=== PATIENT | male | born 1965 | race Caucasian/White ===

== ENCOUNTER 2023-09-15 12:54 | Outpatient (OUT) | payer MEDICARE, SELFPAY ==
--- NOTE | 2023-09-15 13:23 | ECG_ITS ---
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
--- NOTE | 2023-09-15 14:02 | XR_ITS ---
The [address] [address] Patient Name: PRISCILLA CERDA MRN: [id number] date: 1965 Sex: M Assigned Patient Location: [facility] [[email or web address]] Current Patient Location: Accession/Order Number: [id number] Exam Date: 09/15/2023 14:17 Report Date: 09/16/2023 07:46 At the request of: LEANDRO KEENE Procedure: XR chest 2V PROCEDURE: XR chest 2V DATE: 09/15/2023 1:17 PM CDT COMPARISONS: CT chest 07/01/2023 CLINICAL INDICATION: 58 years Male Preop exam FINDINGS: The cardiomediastinal silhouette and pulmonary vasculature are within normal limits. The lungs are clear. There is no evidence of pleural effusion or pneumothorax. XR/XR chest 2V IMPRESSION: Chest radiograph is within normal limits. Electronically authenticated by: WILMER HOWARD Date: 09/16/2023 07:46
[2023-09-15 14:48] LABS: Basophils Absolute Auto 0.1 10^3/uL (0.0-0.1); Basophils Percent Auto 1.2 % (0.2-2.0); Eosinophils Absolute Auto 0.4 10^3/uL (0.0-0.7); Eosinophils Percent Auto 5.8 % (0.9-7.0); Hematocrit 44.7 % (42.0-54.0); Hemoglobin 15.4 g/dL (14.0-18.0); Immature Granulocytes Abs Auto 0.02 10^3/uL (0.00-0.03); Immature Granulocytes Pct Auto 0.3 % (0.0-0.5); Lymphocytes Absolute Auto 2.6 10^3/uL (1.2-3.8); Lymphocytes Percent Auto 34.5 % (20.5-60.0); Mean Corpuscular HGB Conc 34.5 g/dL (29.9-35.2); Mean Corpuscular Hemoglobin 31.4 pg (25.9-34.0); Mean Corpuscular Volume 91.2 fL (80.0-94.0); Mean Platelet Volume 9.3 fL (9.5-13.5); Monocytes Absolute Auto 0.6 10^3/uL (0.3-0.8); Monocytes Percent Auto 7.8 % (1.7-12.0); Neutrophils Absolute Auto 3.8 10^3/uL (1.4-6.5); Neutrophils Percent Auto 50.4 % (43.0-75.0); Platelet Count 272 10^3/uL (150-450); Red Cell Distribution Width 12.1 % (11.0-15.0); White Blood Count 7.4 10^3/uL (4.0-11.0)
[2023-09-15 14:58] LABS: INR 0.97; Partial Thromboplastin Time 29.3 sec (22.3-36.2); Prothrombin Time 10.3 sec (9.0-11.6)
== END 2023-09-15 12:55 | disposition home or self-care (01) ==
PROVIDERS: PCP Internal Medicine; Visit Provider Urology
DX: Z01.810 Encounter for preprocedural cardiovascular examination (principal); Z01.812 Encounter for preprocedural laboratory examination; N20.1 Calculus of ureter
CPT/HCPCS: 71046; 85025; 85610; 85730; 93005

== ENCOUNTER 2023-09-25 11:05 | Day surgery (SDC) | payer MEDICARE, SELFPAY ==
[2023-09-15 14:15] VITALS: BP 127/83; PULSE 68; TEMP 36.5; O2SAT 100; BMI 29.5
[2023-09-25] VITALS (10 sets, daily range): BP systolic 109–141; BP diastolic 70–88; PULSE 56–79; TEMP 36.2–36.7; O2SAT 94–98; BMI 29.5
--- OUTSIDE RECORDS SUMMARY | 2023-09-25 11:21 | XMS_ITS | CCD ---
Author Organization [facility] Care Team Providers Care Post Partum Nurse Name Role Phone DR DESIREE BISWAS Attending Unavailable DR DESIREE BISWAS Admitting Unavailable MUMMERT, TAVO Primary Care Physician Mummert, DO Tavo Primary Care Provider MD Boogie Trotter Admit Provider MD Boogie Trotter Attending Provider MUMMERT, TAVO Referring Unavailable MUMMERT, TAVO Primary Care Unavailable MO MCKEON Attending Unavailable MUMMERT, TAVO Referring Unavailable MUMMERT, TAVO Primary Care Unavailable SANDY LEONARDO Attending Unavailable SANDY LEONARDO Attending Unavailable HAROON CHAN Attending Unavailab le Mummert, DO Tavo Primary Care Provider MD Matthew Meyer Attending Provider Buster CHAVEZ Attending Unavailable CHAVEZ, Buster R Admitting Unavailable CHAVEZ, Buster R Attending Unavailable CHAVEZ, Buster R Attending Unavailable CHAVEZ, Buster R Attending Unavailable CHAVEZ, Buster R Attending Unavailable CHAVEZ, Buster R Attending Unavailable Mummert DO, Tavo Primary Care Unavailable Thai Cee Attending Unavailable Thai Cee Admitting Unavailable Mummert DO, Tavo Primary Care Unavailable Nerissa Patel Attending Unavailable Nerissa Patel Admitting Unavailable Mummert DO, Tavo Primary Care Unavailable Sunitha Chan Attending Unavailable Sunitha Chan Admitting Unavailable Sandy Leonardo Attending Unavailable Sandy Leonardo Admitting Unavailable Mummert DO, Tavo Primary Care Unavailable Mummert DO, Tavo Primary Care Unavailable Mummert DO, Tavo Attending Unavailable Mummert DO, Tavo Admitting Unavailable Mummert DO, Tavo Admitting Unavailable Mummert DO, Tavo Attending Unavailable Mummert DO, Tavo Primary Care Unavailable Mummert DO, Tavo Primary Care Unavailable Mummert DO, Tavo Admitting Unavailable Mummert DO, Tavo Attending Unavailable Mummert DO, Tavo Primary Care Unavailable Mummert DO, Tavo Attending Unavailable Mummert DO, Tavo Primary Care Unavailable Mummert DO, Tavo Attending Unavailable Mummert DO, Tavo Primary Care Unavailable Mummert DO, Tavo Attending Unavailable Mummert DO, Tavo Primary Care Unavailable Mummert DO, Tavo Attending Unavailable Mummert DO, Tavo Primary Care Unavailable Bakhous, Aziz Attending Unavailable Bakhous, Aziz Admitting Unavailable Cee, Thai Attending Unavailable Cee, Thai Admitting Unavailable Mummert DO, Tavo Primary Care Unavailable Jaye, Thai Attending Unavailable Jaye, Thai Admitting Unavailable Mummert DO, Tavo Primary Care Unavailable Mummert DO, Tavo Primary Care Unavailable [place], Porter S Attending Unavailab le Tree, Porter S Admitting Unavailab le Mummert DO, Tavo Primary Care Unavailable Mo Mckeon A Admitting Unavailable Mo Mckeon A Attending Unavailable Mummert DO, Tavo Primary Care Unavailable Jaye, Thai Attending Unavailable Mummert DO, Tavo Referring Unavailable Mummert DO, Tavo Primary Care Unavailable Mummert DO, Tavo Attending Unavailable Mummert DO, Tavo Primary Care Unavailable Buster Chavez Attending Unavailable Buster Chavez Admitting Unavailable Matthew Meyer Attending Unavailab efrain MitchMatthew Admitting Unavailab le Mummert, Tavo Primary Care Unavailable Allergies Allergy Classification Reported Allergen(s) Allergy Type Date of Onset Reaction(s) Facility (1 source) CATNIP; Translations: [CATNIP] Propensity to adverse reactions to drug (disorder) 6 [facility] Medications Current Medications Medication Drug Class(es) Dates Sig (Normalized) Sig (Original) amitriptyline hydrochloride 25 mg oral tablet (8 sources) Tricyclic Antidepressant Start: 09-03-2023 take 25 mg by mouth once daily at bedtime Amitriptyline Active 25 MG PO Daily at bedtime September 03, 2023 12:00am Start: 10-27-2018 End: 06-27-2021 take 1 tablet by mouth once daily at bedtime amitriptyline 75 mg oral tablet 75 mg = 1 tab(s), Oral, Once a day (at bedtime), Refills(s) 0 Start Date: 10/27/18 Status: Ordered ARIPiprazole 15 mg oral tablet (1 source) Atypical Antipsychotic Start: 09-03-2023 take 1 tablet by mouth once daily Aripiprazole (Abilify) 15 mg tablet Active 15 MG PO Daily September 03, 2023 12:00am ascorbic acid 500 mg oral tablet (1 source) Vitamin C Start: 09-03-2023 take 500 mg by mouth once daily Ascorbic Acid (Vitamin C) Active 500 MG PO Daily September 03, 2023 12:00am aspirin 81 mg delayed release oral tablet (1 source) Platelet Aggregation Inhibitor, Nonsteroidal Anti-inflammatory Drug Start: 09-03-2023 Aspirin (Adult Low Dose Aspirin) 81 mg tablet,delayed release (DR/EC) Active 81 MG PO Daily September 03, 2023 12:00am atorvastatin 40 mg oral tablet (7 sources) HMG-CoA Reductase Inhibitor Start: 10-27-2018 take 1 tablet by mouth once daily atorvastatin 40 mg Tab 40 mg = 1 tab(s), Oral, Daily, Refills(s) 0 Start Date: 10/27/18 Status: Ordered brexpiprazole 2 mg oral tablet (4 sources) Atypical Antipsychotic Start: 07-01-2021 End: 09-03-2023 take 1 tablet by mouth once daily Brexpiprazole (Rexulti) 2 mg Tablet Active 2 MG PO Daily 30 July 01, 2021 10:34am Start: 06-27-2021 End: 07-01-2021 take 1 tablet by mouth once daily Brexpiprazole (Rexulti) 1 mg tablet Discontinued 1 MG PO Daily June 27, 2021 8:03pm July 01, 2021 10:35am Dicyclomine (5 sources) Anticholinergic Start: 12-14-2018 dicyclomine Refills(s) 0 Start Date: 12/14/18 Status: Ordered donepezil hydrochloride 10 mg oral tablet (7 sources) Start: 10-27-2018 take 1 mg by mouth once daily at bedtime donepezil 10 mg Tab mg tab(s), Oral, Once a day (at bedtime), Refills(s) 0 Start Date: 10/27/18 Status: Ordered dutasteride 0.5 mg oral capsule (4 sources) 5-alpha Reductase Inhibitor Start: 05-13-2023 take 0.5 mg by mouth once daily Dutasteride Active 0.5 MG PO Daily September 03, 2023 12:00am 24 hr etodolac 600 mg extended release oral tablet (9 sources) Nonsteroidal Anti-inflammatory Drug Start: 10-27-2018 End: 06-27-2021 take 1 tablet by mouth once daily etodolac 600 mg ER Tab 600 mg = 1 tab(s), Oral, Daily, # 30 tab(s), Refills(s) 0 Start Date: 10/27/18 Status: Ordered gabapentin 300 mg oral capsule (7 sources) Anti-epileptic Agent Start: 10-27-2018 End: 06-27-2021 take 1 capsule by mouth twice daily gabapentin 300 mg Cap 300 mg = 1 cap(s), Oral, BID, Refills(s) 0 Start Date: 10/27/18 Status: Ordered hydrOXYzine hydrochloride 25 mg oral tablet (4 sources) Antihistamine Start: 09-03-2023 take 25 mg by mouth three times daily Hydroxyzine Hcl Active 25 MG PO Three times daily September 03, 2023 12:00am Start: 05-13-2023 hydrOXYzine pa moate 25 mg Cap Refills(s) 0 Start Date: 05/13/23 Status: Ordered levETIRAcetam 500 mg oral tablet (9 sources) Start: 06-27-2021 take 500 mg by mouth twice daily Levetiracetam Active 500 MG PO Twice daily June 27, 2021 8:03pm Start: 10-27-2018 End: 06-27-2021 take 1 tablet by mouth twice daily levetiracetam 250 mg Tab 250 mg = 1 tab(s), Oral, BID, Refills(s) 0 Start Date: 10/27/18 Status: Ordered Lipoflavonoid (5 sources) Start: 10-27-2018 take 1 capsule by mouth once daily Lipoflavonoid 1 cap(s), Oral, Daily, Refill(s) 0 Start Date: 10/27/18 Status: Ordered lysine 500 mg oral tablet (1 source) Start: 09-03-2023 Lysine (L-Lysine) 500 mg tablet Active 1000 MG PO Daily September 03, 2023 12:00am Magnesium (1 source) Start: 09-03-2023 take 400 mg by mouth once daily Magnesium Active 400 MG PO Daily September 03, 2023 12:00am magnesium oxide 400 mg oral tablet (5 sources) Start: 10-27-2018 take 400 mg by mouth once daily magnesium oxide 400 mg, Oral, Daily, Refills(s) 0 Start Date: 10/27/18 Status: Ordered Meclizine (5 sources) Antiemetic Start: 12-14-2018 meclizine Refills(s) 0 Start Date: 12/14/18 Status: Ordered 24 hr memantine hydrochloride 28 mg extended release oral capsule (7 sources) [id number]-[id number]-[id number] ho Receptor Antagonist Start: 10-27-2018 take 1 capsule by mouth once daily memantine 28 mg oral capsule, extended release 28 mg = 1 cap(s), Oral, Daily, Refills(s) 0 Start Date: 10/27/18 Status: Ordered metoclopramide 5 mg oral tablet (14 sources) Dopamine-2 Receptor Antagonist Start: 09-03-2023 take 5 mg by mouth four times daily 30 minutes before mealtime Metoclopramide Hcl Active 5 MG PO Four times daily September 03, 2023 12:00am administer 30 minutes before meals Start: 12-14-2018 Reglan Refills (s) 0 Start Date: 12/14/18 Status: Ordered Start: 11-03-2018 End: 06-27-2021 take 10 mg by mouth twice daily Metoclopramide Hcl Discontinued 10 MG PO Twice daily November 03, 2018 1:19pm June 27, 2021 8:10pm Start: 10-27-2018 End: 09-03-2023 take 1 tablet by mouth four times daily metoclopramide 10 mg Tab 10 mg = 1 tab(s), Oral, QID, Refills(s) 0 Start Date: 10/27/18 Status: Ordered Multivitamin (Daily Multi-Vitamin) tablet (1 source) Start: 09-03-2023 take 1 tablet by mouth once daily Multivitamin (Daily Multi-Vitamin) tablet Active 1 TAB PO Daily September 03, 2023 12:00am Nature's Bounty Probiotic (5 sources) Start: 10-27-2018 take 1 tablet by mouth once daily Nature's Bounty Probiotic 1 tab(s), Oral, Daily, Refill(s) 0 Start Date: 10/27/18 Status: Ordered nicotine 2 mg chewing gum (2 sources) Cholinergic Nicotinic Agonist Start: 07-01-2021 End: 09-03-2023 Nicotine (Polacrilex) Active 2 MG BUCCAL Every 2 hours 60 July 01, 2021 10:34am omeprazole 20 mg delayed release oral capsule (2 sources) Proton Pump Inhibitor Start: 09-10-2023 omeprazole 20 mg Cap-DR Refills(s) 0 Start Date: 09/10/23 Status: Ordered Start: 09-03-2023 take 20 mg by mouth once daily Omeprazole Active 20 MG PO Daily September 03, 2023 12:00am OXcarbazepine 300 mg oral tablet (7 sources) Anti-epileptic Agent Start: 11-03-2018 take 300 mg by mouth once daily Oxcarbazepine Active 300 MG PO Daily November 03, 2018 1:19pm Start: 10-27-2018 oxcarbazepine See Instructions, 150mg in morning, 300mg at bedtime, Refills(s) 0 Start Date: 10/27/18 Status: Ordered pantoprazole 40 mg delayed release oral tablet (7 sources) Proton Pump Inhibitor Start: 11-03-2018 take 40 mg by mouth twice daily Pantoprazole Active 40 MG PO Twice daily November 03, 2018 1:19pm Start: 10-27-2018 pantoprazole 4 0 mg, BID, Refills(s) 0 Start Date: 10/27/18 Status: Ordered 24 hr propranolol hydrochloride 60 mg extended release oral capsule (4 sources) beta-Adrenergic Kermit Start: 05-13-2023 take 60 mg by mouth once daily Propranolol Active 60 MG PO Daily September 03, 2023 12:00am risperiDONE 0.5 mg oral tablet (5 sources) Atypical Antipsychotic Start: 10-27-2018 take 1 tablet by mouth once daily risperidone 0.5 mg Tab 0.5 mg = 1 tab(s), Oral, Daily, Refills(s) 0 Start Date: 10/27/18 Status: Ordered sildenafil 100 mg oral tablet (7 sources) Phosphodiesterase 5 Inhibitor Start: 11-29-2022 sildenafil 100 mg Tab See Instructions, Take 1 tablet 60 minutes prior to sexual activity. Do not exceed 100mg in 24 hrs., # 30 tab(s), Refills(s) 5, Pharmacy: [id number], 167, cm, 06/12/21 12:14:00 EDT, Height/Length Dosing, 80.3, kg, 06/12/21 12:14:00 EDT, Weight Dosing Start Date: 11/29/22 Status: Ordered Start: 06-27-2021 End: 09-03-2023 take 100 mg by mouth once daily Sildenafil Active 100 MG PO Daily June 27, 2021 8:18pm Start: 06-12-2021 sildenafil 100 mg Tab 100 mg = 1 tab(s), Oral, As Directed, 1 hour before sexual activity, # 30 tab(s), Refills(s) 2, Pharmacy: [id number], 167, cm, 06/12/21 12:14:00 EDT, Height/Length Dosing, 80.3, kg, 06/12/21 12:14:00 EDT, Weight Dosing Start Date: 06/12/21 Status: Ordered sucralfate 1000 mg oral tablet (5 sources) Aluminum Complex Start: 05-13-2023 sucralfate 1 g Tab Refills(s) 0 Start Date: 05/13/23 Status: Ordered Start: 11-03-2018 take 1 tablet by sushma four times daily Sucralfate Active 1 TAB PO Four times daily November 03, 2018 1:19pm tamsulosin hydrochloride 0.4 mg oral capsule (7 sources) alpha-Adrenergic Kermit Start: 04-29-2023 End: 04-23-2024 take 1 capsule by mouth twice daily Flomax 0.4 mg Cap 0.4 mg = 1 cap(s), Oral, BID, X 90 day(s), # 180 cap(s), Refills(s) 3, Pharmacy: [id number], 167, cm, 06/12/21 12:14:00 EDT, Height/Length Dosing, 80.3, kg, 06/12/21 12:14:00 EDT, Weight Dosing Start Date: 04/29/23 Stop Date: 04/23/24 Status: Ordered Start: 06-27-2021 take 1 capsule by mo uth twice daily Flomax 0.4 mg Cap 0.4 mg = 1 cap(s), Oral, BID, # 60 cap(s), Refills(s) 3, Pharmacy: [id number], 167, cm, 06/12/21 12:14:00 EDT, Height/Length Dosing, 80.3, kg, 06/12/21 12:14:00 EDT, Weight Dosing Start Date: 11/29/22 Status: Ordered Start: 06-12-2021 take 1 capsule by [facility] twice daily Flomax 0.4 mg Cap 0.4 mg = 1 cap(s), Oral, BID, # 30 cap(s), Refills(s) 3, Pharmacy: [id number], 167, cm, 06/12/21 12:14:00 EDT, Height/Length Dosing, 80.3, kg, 06/12/21 12:14:00 EDT, Weight Dosing Start Date: 06/12/21 Status: Ordered thiamine 100 mg oral tablet (1 source) Start: 09-03-2023 take 100 mg by mouth once daily Thiamine Hcl (Vitamin B1) Active 100 MG PO Daily September 03, 2023 12:00am tiZANidine 4 mg oral tablet (8 sources) Central alpha-2 Adrenergic Agonist Start: 09-03-2023 take 4 mg by mouth twice daily Tizanidine Active 4 MG PO Twice daily September 03, 2023 12:00am Start: 12-14-2018 tizanidine Ref ills(s) 0 Start Date: 12/14/18 Status: Ordered Start: 11-03-2018 End: 06-27-2021 take 4 mg by mouth once daily Tizanidine Discontinued 4 MG PO Daily November 03, 2018 1:19pm June 27, 2021 8:14pm topiramate 100 mg oral tablet (9 sources) Start: 06-27-2021 take 100 mg by mouth twice daily Topiramate Active 100 MG PO Twice daily June 27, 2021 8:03pm Start: 12-14-2018 Topamax Refill s(s) 0 Start Date: 12/14/18 Status: Ordered Start: 11-03-2018 End: 06-27-2021 take 1 tablet by mouth once daily Topiramate Discontinued 200 TAB PO Daily November 03, 2018 1:19pm June 27, 2021 8:09pm Tramadol (5 sources) Opioid Agonist Start: 12-14-2018 tramadol Refills(s) 0 Start Date: 12/14/18 Status: Ordered traZODone hydrochloride 50 mg oral tablet (8 sources) Serotonin Reuptake Inhibitor Start: 09-03-2023 take 200 mg by mouth once daily at bedtime Trazodone Active 200 MG PO Daily at bedtime September 03, 2023 2:23pm Start: 11-03-2018 End: 09-03-2023 take 50 mg by mouth once daily Trazodone Active 50 MG PO Daily November 03, 2018 1:19pm Start: 10-27-2018 take 25 mg by mouth once daily at bedtime trazodone 25 mg, Oral, Once a day (at bedtime), Refills(s) 0 Start Date: 10/27/18 Status: Ordered venlafaxine 75 mg oral tablet (9 sources) Serotonin and Norepinephrine Reuptake Inhibitor Start: 07-01-2021 take 150 mg by mouth twice daily Venlafaxine Active 150 MG PO Twice daily 120 30 July 01, 2021 10:34am Start: 11-03-2018 End: 07-01-2021 take 200 mg by mouth twice daily Venlafaxine Discontinued 200 MG PO Twice daily November 03, 2018 1:19pm July 01, 2021 10:35am Start: 10-27-2018 take 1 capsule by [facility] once daily venlafaxine 150 mg Cap-ER 150 mg = 1 cap(s), Oral, Daily, Refills(s) 0 Start Date: 10/27/18 Status: Ordered Start: 10-27-2018 take 1 capsule by [facility] once daily venlafaxine 150 mg Cap-ER 150 mg = 1 cap(s), Oral, Daily, Refills(s) 0 Start Date: 10/27/18 Status: Ordered Completed/Discontinued Medications Medication Drug Class(es) Dates Sig (Normalized) Sig (Original) acetaminophen 325 mg / HYDROcodone bitartrate 10 mg oral tablet (2 sources) Opioid Agonist Start: 11-03-2018 End: 06-27-2021 Hydrocodone-Acetami nophen Discontinued 1 TAB PO As Directed November 03, 2018 1:19pm June 27, 2021 8:14pm biotin 1 mg oral tablet (5 sources) Start: 10-27-2018 take 1 tablet by mouth twice daily biotin 1000 mcg oral tablet 1,000 microgram = 1 tab(s), Oral, BID, # 30 tab(s), Refills(s) 0 Start Date: 10/27/18 Status: Ordered 24 hr buPROPion hydrochloride 300 mg extended release oral tablet (9 sources) Aminoketone Start: 06-27-2021 End: 07-01-2021 take 300 mg by mouth once daily Bupropion Hcl Discontinued 300 MG PO Daily June 27, 2021 8:03pm July 01, 2021 10:35am Start: 11-03-2018 End: 06-27-2021 take 150 mg by mouth once daily Bupropion Hcl Disconti nued 150 MG PO Daily November 03, 2018 1:19pm June 27, 2021 8:05pm Start: 10-27-2018 take 1 tablet by sushma th once daily buPROPion 150 mg ER Tab 150 mg = 1 tab(s), Oral, Daily, Refills(s) 0 Start Date: 10/27/18 Status: Ordered cephalexin 500 mg oral capsule (2 sources) Cephalosporin Antibacterial Start: 06-12-2021 Keflex 500 mg Cap 50 0 mg = 1 cap(s), Oral, As Directed, Take 1 cap the day before elda procedure, take 1 cap after the procedure., # 2 cap(s), Refills(s) 0, Pharmacy: [id number], 167, cm, 06/12/21 12:14:00 EDT, Height/Length Dosing, 80.3, kg, 06/12/21 12:14:00 EDT, Weight Dosing Start Date: 06/12/21 Status: Ordered Problems Problem Classification Problem Date Documented Date Episodic/Chronic Abdominal pain (7 sources) Flank pain; Translations: [Abdominal pain] 10-27-2018 Episodic Acute and unspecified renal failure (2 sources) Acute renal failure syndrome; Translations: [Acute kidney failure, unspecified] 09-03-2023 Episodic Anxiety disorders (10 sources) Anxiety; Translations: [Posttraumatic stress disorder] 10-27-2018 Chronic Calculus of urinary tract (5 sources) Kidney stone 06-12-2021 Episodic Chronic kidney disease (2 sources) Chronic kidney disease stage 3A ; Translations: [Stage 3a chronic kidney disease] 09-03-2023 Chronic Delirium, dementia, and amnestic and other cognitive disorders (3 sources) Alzheimer's disease; Translations: [Alzheimer's disease, unspecified] 06-28-2021 Chronic Esophageal disorders (7 sources) Gastroesophageal reflux disease; Translations: [Gastro-esophageal reflux disease without esophagitis] 10-27-2018 Chronic Genitourinary symptoms and ill-defined conditions (5 sources) Urge incontinence of urine 12-14-2018 Chronic Genitourinary symptoms and ill-defined conditions (17 sources) Increased frequency of urination; Translations: [Nocturia] Onset: 09-10-2023 12-14-2018 Episodic Hyperplasia of prostate (13 sources) Benign prostatic hypertrophy without outflow obstruction; Translations: [Benign prostatic hyperplasia without lower urinary tract symptoms] Onset: 06-12-2021 Chronic Intracranial injury (3 sources) Traumatic brain injury; Translations: [Unspecified intracranial injury with loss of consciousness of unspecified duration, initial encounter] 06-28-2021 Episodic Miscellaneous mental health disorders (4 sources) Primary insomnia; Translations: [Male erectile disorder] Onset: 08-31-2020 Chronic Mood disorders (8 sources) Depressive disorder; Translations: [Depression] 10-27-2018 Chronic Nonspecific chest pain (1 source) Chest pain, unspecified; Translations: [Chest pain, unspecified] Onset: 07-11-2023 Episodic Other aftercare (1 source) group home current use of non-steroidal anti-inflammatory drug; Translations: [group home (current) use of non-steroidal anti-inflammatories (NSAID)] 09-03-2023 Episodic Other aftercare (1 source) food assembler (current) use of non-steroidal anti-inflammatories (NSAID); Translations: [Long-term (current) use of non-steroidal anti-inflammatories (NSAID)] 09-03-2023 Episodic Other diseases of kidney and ureters (2 sources) Urinary tract obstruction; Translations: [Other obstructive and reflux uropathy] Onset: 05-13-2023 Episodic Other diseases of kidney and ureters (1 source) Hydronephrosis; Translations: [Unspecified hydronephrosis] 09-03-2023 Episodic Other diseases of kidney and ureters (1 source) Unspecified hydronephrosis; Translations: [Hydronephrosis] 09-03-2023 Episodic Other disorders of stomach and duodenum (2 sources) Gastroparesis syndrome; Translations: [Gastroparesis] 11-04-2018 Episodic Other male genital disorders (5 sources) Drug-induced impotence 12-14-2018 Chronic Other male genital disorders (5 sources) Impotence of organic origin 05-09-2020 Chronic Residual codes; unclassified (4 sources) Obstructive sleep apnea (adult) (pediatric); Translations: [OBSTRUCTIVE SLEEP APNEA] Onset: 08-22-2020 Chronic Residual codes; unclassified (5 sources) Obstructive sleep apnea syndrome 10-27-2018 Chronic Residual codes; unclassified (5 sources) H/O: anticoagulant therapy 10-27-2018 Episodic Residual codes; unclassified (1 source) Edema Onset: 07-11-2023 Episodic Residual codes; unclassified (1 source) Pain, unspecified; Translations: [Pain, unspecified] Onset: 07-06-2023 Episodic Spondylosis; intervertebral disc disorders; other back problems (5 sources) Backache 12-14-2018 Episodic Substance-related disorders (8 sources) Nicotine dependence; Translations: [Nicotine dependence, unspecified, uncomplicated] Onset: 06-12-2021 Chronic Unclassified (5 sources) Finding of sensation of bladder 12-14-2018 Unclassified (1 source) New Patient Onset: 07-11-2023 Unclassified (1 source) Obstructive hydronephrosis 09-10-2023 Results Test Name Value Interpretation Reference Range Facility Coding Summaryon 09-23-2023 Coding Summary HTMLBase 64 ZudwrrhoFWb8lBh+PGhlY WQ+PQ7NOMKtX37eoDNotY 3vC4BLBFnJFqgpEQZODYc ZWvTmbcByXR5noIAaRAXx IC8+DW6nQXGlNmehnDLwo 8R2iLC5S37wyp0gMMhssY H1BWGdAeDzumcnh6vfaLm 6IDcuNmluOyBt JEMosA45API4yC79Mi83a TJxmNQjn6vltOf1ZkIdZM DsXGI9bMnhOVbun2XrTRG lU18ncGBuy7S6 FTDvsFwsdRNdJpOflEY5c R2yJWjlvjcfs3slqylqKt h5ic95nBDgs5M5sAV9W0K jyzZ3HIZanAMu UibmtZSTiX3mireij3wfy wyyOnSoXOKhGMz7DEw4YX FvnAuqEmPuWF19HFY2YYZ yrlZvI2KaHNJq xGpmKeL1u8S3Kk5WS0OMC ulpG7LWXGHHYIsurMN+PC 04ga15O9XiRtazSde5NSN pBUF8rAG2eO2r MAPkNIxey7E6gUJ9M8Jxd bCkdk1sy5sxVEPjULzmF5 8pdLVwh6J4QRPwrNK9FSG siXyuPuOdxN89 Oyc+GMQohVrxl3VhVroma 7lfq1bxiAd7RdipFDVgea EboDlsXPM7h2BvFu7aKFU lfXY0tSV7nF3t FbApHcR8BCdiQ628ZlRac AOmDtsmG93tH1LglQB+PH QlBwm5FCEojTwxSK8iN5J hZGRpbmctbGVm gKzfZC0aLNWdzzegXEZoc X0kNOZgC5h8WdMeJbR8IC cnT7LiVLNokcxlQk90vJ2 rEyUnNdS2EXxw S2FiloW5OTSsaGDjWMwwO PP4I53eg4Z5EVTwJBWrRW H6pTD3tU7zgBeyqjiotEY mdDsgdmVydGlj TUwiCOvrF056AYIyvMqtW kNvZGluZyBEYXRlOiAgMD gvMTMvMjAyNDwvdGQ+PHR tIEH3cLlcUDJj eAQyORjcQy9gjDonmRvaY H1yDXPnivqsDZJtsP1tVU GlsKSvgDayCM1oCOUoxfq qz847LrInNXA6 FCNuxTIcZ6RamV6pEuFsT UReZUQfC2OykSGhASwyY3 20FRizKsE1YZSnasUoM4V sLWFsaWduOiB0 f4F6Zo8Lk0QgdoxpH1Ebe ZNuRiTbPfpuWHe1F4QpCz wvdHI+UI40IKNgAW83BLo 2CZP7nSslKKbe ITUeR9VsnL1rVsFtOGEiP GRkOyc+PHRhYmxlIHdpZH RoPScxMDAlJyBzdHlsZT0 eDs2sSCVmFNAc hFgclEZwUeBpm8pyJWNcW UpmEE8lgGbzS3MxyHG4FZ Ifa4t0Rv43W62kG6SrqDI +WFXyaKN3dOC7 lA0mJeAkTvA2XPdvX499W uPrnKSnGjzwk1ati9wccY e4UbZ7BOVthpGzxIgkOVV 8q6UhLo53X85k IHdpZHRoPSIxNSUiIHZhb Kbujs5ydR1aYc9+PGNvbC L6hVN5gW1uNyHjQwL9YLo vU280OgIgvFUq Bhhpi9aob7kkaTw5BuObL BPxebCjmJleWRO0q1ItTb 83I2NaeEdhp2LmWqp5ev4 7bYOlq5A0xPZ7 Q2BmJRTnwfzhaIUmuQguQ M8sOSBjytosROBxhD2sUL KxV6e1FjLkVcR2KSslD4S tueZ2YIYzbTWp TXVxvEXMrC5lawjxf4yku mmjUnHmVGVcBBy6SXn1ZS UneCwsDjYcPKZ3XkY4ZEZ 2mTOdwY6lbAzc kvgamG3hSwg+OJI3yPFhq MKURG0oOhtkkIX+PHRkIH V2dXcoXVraPTCejT7cGHK wN2k9WuIkSdM4 IMlvU5YsenL6XFYnnCDvA AJsyPJPtG0fxqcgp2rrpq glVyMcGPSfDRi2VRt6TXR saWduOiBsZWZ0 AlQ4RCH1jTSkiY9uyBgqh jfxwR9vEkp+QmlydGggRG F1PGu0H0UqAjh8TGVkuHu sYW7cyGGpTXyk Cd0hpUjwcDtfQP1mYSXpl kjqu270NvIzd9yaUEEenG WyHFhdBVH6V46ji9T3YCD rXHZhEID2pVN8 tO7kmFqylkhfaOCiyVwrc aFqyCplOKnuPCtnX024CF XutEptEqTiLUj4L7GvScn 7MWYbjJdpTD3m qXUuEIrdIf7ffVpizDrfA V3hUHQqtckbt143MeMsq6 avQZIkrEZbNHtaRZO6U38 dl2B4SGFiKORn DYB4aJU1dZ5tyUkobhmpn GVmdDsgdmVydGljYWwtYW hgX275BSCyzWoeIgPfyYz 1L4JxQug8XBUh gLepEI5cuFHeFYocQb9ui PdojPkqGS4nAWSefhvxw3 72HyKzb2jzNFYieUUpARo jDMD5J28ek4S2 TXWbOHOpURK9oQN7yZ3si GlnbjogbGVmdDsgdmVydG txDGiaFEayD964WRChbLn nPlBhdGllbnQg VEhlJVh3E8SjGziwlZR+P I82LJPdFD21nUBmyUNwe2 cfpOz8PjNvCKVjBMH6tRc zFAkdy8McTQSc D30fjOLst7N3IPGypCoze PRpPgYrcAQ4dG4qQAvqad ogh4ticqqqHtmst6xmka6 6oJ85K59zJUvz ZHRoPSIzMCUiIHZhbGlnb d6taJ8nYw9+FXHmeZL9qG K4mH2tOYIcTaJ3GOhnW41 9InRvcCIvPjxj l4bun5gubHu2OrI6QDYob oWyzDjbKPE9b6NhIg10R6 9sIHdpZHRoPSIyMCUiIHZ dtXdfqp2mkX6e Ii8+YKKrsHX4eWC6oA8nR zKeBkT6NAktE609VmScbS WgLjwxU05oZ1NvmKD+PHR hFbc6YVUvtIvi TW6tyPTgBTmvLb3yQAY1X aJuKwApDJspM7McAUUijo caigrrbQM8QTUnPQEmcQ2 4Qv3beOsaICPu gUFDkU3bhsjtm4flksxvX tAbJLCaEVg0IRh6GUOisF gwXuJfXEC1GtG0BTV1hAS fxZ2okEqhedxp dS0iA8LuGJFuhwrbOu42i A6eXvThAnT8KIclCcd+Ul yIVYSVDUvCFJLKNBl4Y6C tJvu2TPOikBys WX3lgQGjLVfiWk0qhZhpi HnvMQ7vPJVbirqaHIKxyP 6lSYWqhMDucBpgRZ0uFIF ijjwla514TtKs PDV5NUEzhYKrV4SreP8vU ePoTZKjFBYtH0RphHFwPL [id number] gG6JbISUstPer AiZ0q9Q6Do5rWn8lNs2pE RC6IM05JW85lBDnl1A7jK P2K5GfXGUgmbtitihnbUI 1JJIpSFXxtP13 vWZtSHvwQr2st5Y6s641H SOpFYJhlW47Xb9hyYbqCS YfzTDDdJ8pvhrnh5eimjh gIzAwMDAwMDt0 LBc4DZLwuDgsOvMcAPN1Q mW2ZAE8eMLyrF1chIeecn eepQ7yNdl+NTYgWWVhcnM 3K3EvPgm7HUBr aPkpAA6lbFBdBNnqSh6eh PftfQfdQM4nCLBwvwgmRO JlaO0sSXLbvTFwlKxgRU2 gKGXszmoyx401 UoUgLGK7MFRveJFgZ3Nso E8iIpXbEUTuGZHnM7MxxA SqHBvaS160FQibQsX0AQI xfeAmV9BbZXBz hBhyOsK7p6I1Nf3AYMiIM P65ME97qCEhf1O9sST3X0 GbMAReppyofsysyVY4QVN sQYEiwQ44sWZy QAixFs6bl8W1k794JYPyK KPpcY64Ir3mnOlhEXKeoX BGrC4pphfzk9hbdcldImP bXOStIIm8PGe8 OKLjlBcbMbTzDYO5CoI3G QQ9lJWvjV9oiKxvwfaohI 9wOyc+U8M5Z4DgSrnbuXR +PD06XXWxOY31 eBMsoXScg2wutDb2BlBpH MHgZHJ3uBpePCpyn8BxYK GhK13ttACft4I9XCZetFt hcHNlOyBlbXB0 wX5gLQbnntpvy2cmoeggF tkai6tsxt14bM39L43bUO dpZHRoPSIzMCUiIHZhbGl vvl6mpT2eSz6+ VIOasNN5zET3fQ7yRqSzI bG2WVrvP228PuNwhFPeAt epi5wuv3haaTp2McVaWJJ gdmFsaWduPSJ0 j0KjPi49K49oPDkxDOUgY IJlBWEtTACzsBfknd4wuF 9wIi8+QS1di0dygs74nV5 8dHI+PHRkIHN0 iRvwSJxiGJWfqF3bTGqkK gO0NGQbNiUkwY98ySQiTZ exSt9zhYthuBrnRI6sEQM kpvpvu191JmPu e3diASRhaMFgSNttQST1C 20zj6R1RNKmDGOzQSC8eV B1pF1voKwmgaakwUKcpUa gdmVydGljYWwt KFhgU898KNUxdOusWvQlt YYuB1bgwgFXZK8cNpfenP Q+FREuDRK8rVadXMzwTGQ dbE7iKRSjD8l7 WdVtIcD1SCvmF7NkhuC7D EXleSLrQIEeuHNRkE8unr esz4wqmukkLvNyQXZsPGm 6EBg2QFEjpQhr CfPpLEK2WqQ1GYE1tLDka Z2hcHqvrhwcoH5bAug+Rk lOOjwvdGQ+OTKzBBR8uPd xWRyaYMFwwC1a UMMgQ7e4CtLlIcT7LUxhE 5XbtuP6SDQkwYJcBXLwxE UQwY3mvkgxh1jmfhjbEaC dSNFpPKz6MMl1 UPAqnQddKuCgCTS4OzR7G WL0tRNexC1ebLklhdhsoL 9wOyc+TVJOOjwvdGQ+PHR nPJS6nWjnYEda RCSbhV6oBCSrL6k8RxNzG zQ6CTodW4AsfgQ6KKKccH KbDSDsiMUVgA8xuwfwd7b vcjogIzAwMDAw ZJr2QXh5VVRkjXstJcVrZ VW6OmO9JAE9vCXioT1hqB cimybeyN8wFgi+IWP2ADC 9KR14WJ74A7Ty PjwvdGFibGU+PHRhYmxlI HdpZHRoPScxMDAlJyBzdH gqNR2uGq9rGAPmBIYvlSc dhECgZjVzy3yr YXB (more content not included)... [facility] Coding Summary HTMLBase 64 VlwrzbplOZj4rOo+PGhlY WQ+TQ7YYEInH54zlADjrF 5iM6QMQJjJVydrGZFHKWq QCkPozuSwRX2vlNZoWEWz IC8+YC5pSAExJsqijLFre 3P1jAD3K99uul6kMZnnhS Y9DGTrXcDwnuzkf5oxwFq 6IDcuNmluOyBt BYSmlH78TKQ7lB00Sl33b TMdsAEmc4kodHx6VyTwTF UnDQD2oHwhNQnta1CoEEC vP35hsTCcp7F7 KYTmbGslbTSlPyOvnTG3j B2jTDezxkbil8cdcqzkCg e1wg64kCVzl3M6iEC7H7Z dvzJ7SSDyfPYx YedvbNJUlH9dsorbn6gcn pzlXaTiWXBqDJc7QRm9CD XopGgqDsVoKN70IDD7YJL nugByT0KsKIDz vOpyNjZ4z9V1Os6PL2CRO rfgZ8MOPTFZAVyreKH+PC 70sy31I3WcJzbyVrn0OJX jUFY7mYL1nF1v LJUrNMjgu8Z4bIX3D1Kal xZsfx6wx3eyTJVnCZddZ6 5qpKSvz7M4IJLdtJE1SPP qpEzzDcPvkA08 Oyc+YTLecYrso7MoElhoz 3kto4nppMb4BykhWWTjjy UooNfxESH8a3RgEz1tYVF izZQ7pZD0uA4h YpIdJnO6BIlcH931TnWuc OOkQmcjL05vG9CaoIR+PH QzIcb6VCWmjNnhSG3wA4O hZGRpbmctbGVm oTerON9cFBNvylsuKCXov Z2gXLAlD1l7AdRnDdH7ZA vaI0NqNXMubuahJo90pH6 mCaHaYeC3THwv Z8OdlpT7PCZpjDPpBYxmB GM7X15bh9L9OFTwEUFmHP V1zIH5sA6apAjvhxvzzUA mdDsgdmVydGlj UUsrGYxiJ415MJMvtGqjY kNvZGluZyBEYXRlOiAgMD gvMTMvMjAyNDwvdGQ+PHR dRRK8rEiiORBs nQRfPWihPp3oqUidhIzrN Z4qKKZtuilnRHYfvP0iJW KwpKNmnQoeOQ6qSQOjblq qh886HsXzMKE3 NMNldLHjX1HsvB4zTaKjR EWbSOIrB6MmjKPzDKabP2 51OAbhToD0KSCbdoCnH9A sLWFsaWduOiB0 i8P0Gb7Lc1TtniddS4Rxn DUcKyQmNdmqMSd8T8GwVu wvdHI+QE54JBEtRS99QFp 5RUJ9aGqrJXze HNXiV8FkeF7dKlHbXGFsE GRkOyc+PHRhYmxlIHdpZH RoPScxMDAlJyBzdHlsZT0 mUh5tZRUwMUTz tPuikMRsEjVls4mzEZEvR UdkGP6plIgjG1MgzUN0PD Dcn0r1We88C98jG2EmmYR +XYYklCN5zDI2 fT5wCgSfHuU3WTzvD290M kUgkZLsBdqzw8drv1tpfE r8StS2UIWvgnQupTshSCZ 9a7MkNr32L87e IHdpZHRoPSIxNSUiIHZhb Lwohz9dkO6uMk7+PGNvbC N5gIR9fC2cXmXbUeY9AMa xU719IkCzcGRe Uppka0fpn5yawQe4AaTxS EQlamJrjHugQVT3a7PqCo 24N0PhaYnof7WiKkx4yh9 1gAOgg0J8vZK1 E3TpSSQzxuislBMzkHitU W0uBJNdxdgvGZAskJ8lGV JpU0s3MdBaVkA2WZwkE9A azgX1QZHdyGSg UYLdmXIRqH8gefziy8qfa fdvEkRoNKQpKLn3PAw9VY VruUakUwRsHPV6ElQ7NQF 1gRTldH5wiNjv cgfskE5dGub+TXX1gRReu SZXHL8xHibeoDM+PHRkIH R4nPluOWzqQVZhdL8qVVJ zL2q3AvSxTsB6 LVqbA4TdzcC8TUAzxYHxD OYmpKFYwW2wvzcva6vikx fcEpUzBMTtFTr0SGs7XLS saWduOiBsZWZ0 OfY5GLJ1fQBplI4spByyu bxovH4jVml+QmlydGggRG C3ADb8T6VvUpo1DBHqcVr aMR8vxVCfQDol By9wpMbdbCssSP5iMPJqr neue429NoPqd4hwBPCyuJ HuCRehTUC9Y43lm3B5MLD wRESxTNR2tGX3 wE2uxBupoobemUWizTwqw tDwvDlxAFqeERocV510KP ZitChzEaQvZSj8T5XjSom 2WBBaoAafYF3d vGOlPSjdUg8qoXhukXgbU E6rPXAdnbwst606JyPtm1 fuORNthEGbPGwcBAG2C41 yh0R4IMUyBYWa CMY3iSH1pH2igZruepiey GVmdDsgdmVydGljYWwtYW gnX704WPVijYnoNyYduTb 4N8QuWal8BDXy qIbgXI4eqPYbVHtyNp7oz EwrsXcwNP0tCPNfiklkf2 68DlBrk4zcXLPnrFEnTKv xZQR5D28gb8V9 CSStSTIjHVE5vBU8kE8zi GlnbjogbGVmdDsgdmVydG drIUuoIHjwT508NTNylNg nPlBhdGllbnQg WZyjGXe2Q0YuNazmeLH+P O45CYBtNZ94iTTnnJIdz3 xvdBj1OvLkUQXtEHZ0qYw fAPvdr0BqMPQg T60qbYYcf4P0QQLoqCxma NBlFdGtjUG0fW1xZVjwcv mtj0tpbwfvTgzsr9tiep1 9cL97L84tYEzp ZHRoPSIzMCUiIHZhbGlnb y2qkK4oZw9+IORirLB5dQ N6tR5jSNPsWyS2MFaoQ24 9InRvcCIvPjxj f9zsq0hzaKe5JwL7OZUqv hWgdAiaLYC0i2ZoBo68E2 9sIHdpZHRoPSIyMCUiIHZ pfSfpqz8vyY7s Ii8+OHCxpZG8mZC8hR1lG dVaTjE7SCwvH198TsWomT BcKxbfB86eI8PfaEV+PHR lRjs3SUVwwCji VM9slQIiZFuhCq2kACR0F lVbUqImYIviK4EiDEZanl djtnqoxIA4FSBlWPUvnW9 6Lb9hiVowSCMs pGMGbR7bnfdad8ohanqtH dIiBNNcCIb5SBl4JFBukV izXmZgIVS6ScQ4HWR3qYZ aoA4yjWjmjnss kB2nA7RbUOCdurjsKq74l T2qVzVvHpT3RMdjYbk+Ul pJTOCVRYzXOQXJJYo1D8P hBqe7JJFkhZhr GV6unKQzTPvuFv5edNsdg FcbXG8sTICdrroyHREpxW 4vDJAedDIniLmwQF5nETF uuperm221ZmDl TER5BSKsvVUsJ4IrvS9qB oHnTEHcVQFwS8XpzNCjBP zoR560OSdxBwB5WEPzcjD dC6SeSQQjvRlp SqP0d8N3Uq9bSn4aCu5vZ UA7OK89GI35uSFau4H5yI H7R5VaVFNjpltnrsyvkCV 1EMHoSWEfoT51 xSSjYIhkCi0gu6E0o238E XGaFYUlgH45Jn4zgFmnRO JvrDPZkY7jjwlqk9atito gIzAwMDAwMDt0 KDl5WYJbfYxaKuXgCER3Q aK4KHZ0vEQwkU6qrCvopu jzxA1oFtb+NTYgWWVhcnM 2M2JeJjp6KZBc uBhbHP2jrGBjFNmqKt3yr BausEybCH7fZILltngrJK EweE0yLGSboDVfnCmjDG3 cNYHmfrguz483 GxDjHSX6LMCdaIInM7Rdn G9bRnOeMFMfZTOsT1NqaS WlDWbkG546BOijFwV1DNM ruePrC2FvYMWi wJhuShF3l9X7Lq1PDHdOC W86FV07zWUmg0W9xNV1B1 MjKKNsvgbhavsnhLO4TFL gKYSamR89fVPs UKzxZz6cx5T9k733BUOjJ CFmlK88Gd7izJdbADYeiR KDfD1bdwvcl1lzyyltLeJ lAPJcFPd1CSz2 YTIxlFaeLnAkTIO8TwZ3L AN9sUHdhU4eqXbpiavizY 9wOyc+N4D8F3SlUkiejTA +NA72GAKlDF17 yADdsPNjd2cgjZf3IvNiU GZeRZT1vJqxPNiyo3UqJF ZcE08gwRCxl2K3TGYxaFh hcHNlOyBlbXB0 sE7wABbhzyipd0ehotsfF zkhm8sonn65hY80K47cGN dpZHRoPSIzMCUiIHZhbGl lvm6nbV3jVc9+ JHXesJA7aSC5pZ6fGcEnU rO9POkgE204XaNqbATaXw you5xmz6lhfOf9GqIoABU gdmFsaWduPSJ0 t7QiMk08V88kTBquMEEvJ TVxBONmPHAcaSnior1deO 9wIi8+ZT5vq8wmyw23uN8 8dHI+PHRkIHN0 xXhwKMusLBWwqI0xPYswA qM6XEGuTgYstL45ePKxXB haUp9pvSswqKutSR0qJUX huwsse578IuBm c7tiLGOdzWFeQOwfSMW0D 17zh5E8WDCkAKWmHWC3gG K3eK6esKipmfzblWCtmMe gdmVydGljYWwt OVaoR789RJVnhEkhMbRiy JGxC6dpmgPVXQ6iJfjtmF Q+ISQaBTH9fNsuASmhGOD rgC7dBTDkA8u6 TdYgDkY5PJeeV6IvjiO5B BIwkTDnALKeoWJHeZ0krw zot0pkrccnLyQkNQGlOJh 5JPj6NIUesBbp LiSuCJO5JlY6AML7wGNcm G9isOkpqfjkvZ5lPks+Rk lOOjwvdGQ+PWAkVNN6wKg wXIcoMJIxvR7l XMCaK8s5AkBkNfG8KMbuL 8TxhdF6PEJamNGiWVOuoB GPwG5ympkig8tuyxsfYyN bXNUdZQn5IIc8 EGIvxOnpFkDkPBG0MiS1C ZR6oAQcwK6pqKmwrdogcD 9wOyc+TVJOOjwvdGQ+PHR fYQJ0sUubZRgs NSGpvY1oTPNdQ7p1EtWmM wF7MHhsN2QceqK8EIEsuR IjGQZiqAUCaT0wtuolu2r vcjogIzAwMDAw STy5EPa7APHjfHeoAmInI FN5MlR7SHR0tSNabR0wuJ rymdvfnO8oWub+UVK9ZRZ 1UQ58RO37E5Yk PjwvdGFibGU+PHRhYmxlI HdpZHRoPScxMDAlJyBzdH euQO0tXt0gILUvUHFwiQu bhDEaFmEqa7ir YXB (more content not included)... [facility] Coding Summaryon 09-17-2023 Coding Summary HTMLBase 64 OgzoaglpIMd2kPy+PGhlY WQ+ZM8NYTGwL12xmUKjqQ 9uI8XZFGvWRaqzCPUOCIm XNjTzqeEkUB3rrARvGXKu IC8+UC5vPOZjTawyvTZlk 1G2vCX2H02wyl6uLVjadF B6ICQjLmZpwpbzb8yazOt 6IDcuNmluOyBt LNSuqM35DBO8fC48Xs97g UDlcZVar2axhSs5PhFfVG LmDST0pGtoDPhpj7IeGSP kZ03cgMLga2Q5 XDDazMgkaSXrCxVnfXX5c M6cKFwujlshr8qvkmqeTw g5ml25gCVwz2O0eJS2S6Y ooxF2IXCnvTYu VogthGGLcG7umbmpi3fbl cjnZwNoTEVxNAs4GVj4FX SbyBonWlRcHC62TYG1NEN oegAdA9EzHQEu hIqwHzP5u1Z4Us1AY2TLA yigM0FNBLGSADdvuMU+PC 08ok68S0ItBgpyPkj9PMC xTKL9sIX6tZ9p QSNwPGbho9P5mBO0L1Xhs wUhbt6oj5rlLHXmZVqnN3 3wiWKde9K8CGQrlHG4IFB riVztYpCsjS22 Oyc+INVtePahn2JxDurhp 5aid5eikHe7SrjnXVCmxl IkrJlfHMN1v2DeTa0hKYL yyNK2zSQ8rO2s HnReHnD6VVrzQ300GmAqh KUbUmdiU44nW0GxbCQ+PH MfNrb9LCRrkFewWH5sX7S hZGRpbmctbGVm zHdaKO3kPTLvxtufRRUyq I4xKQAgJ7s6GgRyQwC7SK cyZ4YlNZEecwktEi05bG9 fQdEhDrU7MHip V2RcgfB0GFNjqITzUXffW CC6S07ko1J0TXSgCCTfEM H6tTA0fR5yvFwkqimckRC mdDsgdmVydGlj OMzyNWtpO411JWOajLoxT kNvZGluZyBEYXRlOiAgMD gvMDcvMjAyNDwvdGQ+PHR dLBK4vTqtDCDs gMUbONafCy9ckDidsSxoZ S2oENAnueqlHRIybD5yLV IjvECmvHjmIZ0nUOWnzth vk841IvXfZKG6 WLBfwMDkX9KsiQ2fOvCdX AAbWIHgF7MwmWIoKBwqQ7 02KBikSiQ0BLFsqbYiO0Y sLWFsaWduOiB0 w1D0Tn4Wa7JcnyroJ9Dlm BRnUqRsXwfnCHl2I7BhTy wvdHI+AH17VBQwHL61NKx 4BYR6lHryEEsk OBLzI8VvlU6eHeSiHAXuB GRkOyc+PHRhYmxlIHdpZH RoPScxMDAlJyBzdHlsZT0 cSt3bNSKtXYHd sQtjvZNyNzKlx2lcQPSqC BrzYB4qhBiaT2UijZW5AB Txq2i1Db01J04qM7IalKO +YYGkmVR2sDY3 hG6fIgUwLtW0SYbuU726B fXsiMNdVtkjm6wtg9tjgF z2HsM1RUEhooEikHqtFUC 9d1RwEj21F86b IHdpZHRoPSIxNSUiIHZhb Ykcaq8pdH6pVa0+PGNvbC Z2fEL9mB9dVcUvCnA1VBq xX471QtAotIDq Ucpnf6ufn7jajQu5CzZlE PCcgvShzKshBUH5t7PwAp 82A6RwqSzmw6LeNzf8aj2 7wVEzh5L5zVY6 Y9XmGYBgeohlaBHuoGvmB V5cTJMqsggmMCWzzT8pHA YzC3x0HhCcXzF7JMzwS3L otwZ8JCJrkUZw WJAcsBFHdY3npaytc2myb axfDyImPQYlYYf6JJe2HO QefSsyQbTnYMD6BpJ1IWP 1pSEvbT7aoWoa htrluU5mBvk+ZJV3hZOcr RGYCQ4gBmucsAM+PHRkIH X6qLaxKHzpWTFgsU5pLCE kH9q3JxAbVeG9 LHgxJ8HqqhZ4CJDusRQdT INzeJAKqP9xfuoel9gjac pqJlCgKTBvEVs1WJs9JWA saWduOiBsZWZ0 XnP7TYW0hJIrnD6rwDjxd mcpbB5iItq+QmlydGggRG V1GNc2Z2YdPzm1AQPqvSd bPR7exHFxWHvo Hl5bqWqyuAvmQI1lIQXen orpf861PrMde1fmYUJgjD IyOYeyTHR2Y68lq2S6NRU wGAKdWOH3jEJ2 mW1zjRsztenxnZCcdXqdo tTcsLdtQHjxHNjyY499SR ZrvNbzFgBwITt5Z2LdHya 0HDUstKbfRN2u tVQaNSzqFv0djNybfSdmW D2lTDDaddlnr664RrWne8 stZKFafJDrPPdyHVE8O14 ol8X0SKJwJZZd LVR2xEP6pH5fuVjptkpeb GVmdDsgdmVydGljYWwtYW rwR118WDLmqBozGzFgePz 7G8SzCet5NETy rByyKC9ylNGnURwmFl6yz LfyqVlwXY4oKLOjjgogj5 76IhNxr3hbXCYnvKFfMFc wTLQ9N10xb0Q2 VWDqUCWbPJO5fEG2vJ7ic GlnbjogbGVmdDsgdmVydG ksNLmeGBkjW087YRJutFa nPlBhdGllbnQg XImlQVv8N3YtYqmgfUH+P Z84VBEsTL43hARdsTWiu1 uqiWh3OxQgACVuVGK7dIq wTOxis5FuIFWi O07osDXsr6M0QLOmnHsdb GUiKrDazBT1aN1yARuime xer2svyfayFypax4jrsi2 8sO58X28rBVok ZHRoPSIzMCUiIHZhbGlnb o1gsM5lHb8+GUJlgPQ7aZ L0kM2xXAEaGaF0EVxfG21 9InRvcCIvPjxj e1vgy4sgkHa2ApL3BVCls aXvhLnjZVD0v5ZtId33W7 9sIHdpZHRoPSIyMCUiIHZ tyPgjzx5otT0n Ii8+QZHutSD9aQE0nM0yF tZtWvA6ECqqY161NkWgzO HlKlbsW84jN6GujUN+PHR dNkc2ZZYayYhq IQ0rhBCkTCmyOi4iGYI8R dOxQqFpRUyzD0DfDESgrz dsdbgqaZM8MZJsJNZkgA0 5Xi7awByoSRWe bVBBaC2hyzehp0kfndcbG fWbGUNbSMz9YMv0QZDquL kbOaIzDZR7NrL9SON9yZT qoY8xwLvizubk mE0zG9KbPYOiqpesSs66z A8jPlSsMaR6KGlfPks+Ul wYFZNGGFxIVWWICRp2A5B dVnp1HJOzqLyv BC3bbRRjATraDh9yqIlma LvjJH6lAJXkntydJFDqlB 5cFLYtoFShvPfqTX3tNAO zlkauk721IdUb GSE1FZBcvXIsW1WcsS0iH nUaYOPvSRXwQ9RvsRCnNM edL002NMxbGyM9WFShafP pV3XjPVHexPsm AeC9t2E2Wm8uXh7pJa8oE KE9VB43AX44lLLdv0U7iZ V6J3MuJURvyfguxtnvxOL 7UPGwKIFnmG19 iLMiPDfjYt3lq5H5j458N LRoBOYndZ73Tu4neSlsTA QcmQCQqU0ddjinj1wskaa gIzAwMDAwMDt0 IHj6AJNvxHqlIwCuYUQ6A pJ3TVP0cEEemL2cfKswpa pogZ0tMww+NTYgWWVhcnM 3Z4DsDep4CTBj eZqeSQ8ebMLjXDlnZr1lx RivrXchZJ7nRZEcqcafWN TryD2xDQBkuXIreGlrYR6 cBCYrwdqiz655 UiGzBSI5OIRcmHBpI4Yqp G2tCnJyBFXxZAUaZ0GnnI RcQCihS352WUldVrF9VTD qwrNeY9NwUNXd uSlgWqT8z2R2Aw2QZAlSB V65IG97qTZgw7S4nJE5V5 NrGMPbzxvoobjriLV2VBI lOOSyyU58yJSv MOolHi6vi2I3s790ZKYmM LAzjY76Gz6dhSfhUAHarX MFaN2dksobp7tuzdutVeH zZEBtBMr3VQb9 BXUhqXocJvBvHWM3CaM2P FK5iFTgcJ0ofXjfaofirW 9wOyc+A4G4W9FiEpbpiMD +WS37VMTcWT67 eXRokJFtj8jtlGz2JsTtE XNpTJI6fPiyUIbnf8IvWW UwF54mmFFxt1T7SVEpcKn hcHNlOyBlbXB0 aR9lLYrmyvtje7oebnbeI rhhr9idzf33fN14C32fXB dpZHRoPSIzMCUiIHZhbGl mwf5chI8zMe1+ HQJafPX7oTW6jL9bZrXwQ lU3OHaqC500CwLghEYkJx npi2yhe8rbpHj5DhYkQTN gdmFsaWduPSJ0 s3WaDk54V37wSUoxXWEaG TEjWNDfIYGsfPsqpm0wdS 9wIi8+SX1iv5paez16gN5 8dHI+PHRkIHN0 gIsyHKgkBTFbaN1gZKjqF bA8RIKgXwMmrS84wRFdLR mmTv4brQlggHixIT1cIFP hhffqu622NcGu d9kmVMDbuQMmLStnIFA2G 45sy9P8FVHeGBUwQLL8iU Z3dV2ryEuhmrkgbZCkgLl gdmVydGljYWwt IRiwX558AHEmkQabYzFva EXnC6sjbiAWOG4pLagwtW Q+LQFuRVC6xAstGVkyFWZ qlF9pVZAuS6r5 QmUnKzF3FAviM2OhmqL3W BYjpZAlFWOksJIKmT9ycv wvy4eqakznPqZeLKAyLOt 3HAl7ZPMmyDjl BfZvXXK5DsM5WXR2sGPpi G0zhAmvzxkjbF1dFsa+Rk lOOjwvdGQ+HEAtOEU2yXw iAHjhGYDbsF5c UNOwI8b6DvJeAuK5IDuiN 6ZdlrL1NEIwtWXhQYQcxL BCpO9lqnemf3tgbfvtRvD xSTOsPHa2QPd8 JPNiyBsmEuJjSPO9HyK5F ZV3fUDqdX3qlRcrejvkaD 9wOyc+TVJOOjwvdGQ+PHR jOYW4aPsoKNdq GAIooH0wMWAbK8j7MwXbP qF8PXjyE4XcjeG8LUWwsN KiNCFdtDLTcO4npgtqp2n vcjogIzAwMDAw LWc4KSd2JQCyfNooNmStU GW5WvG2DQE4zORhjJ4ilT osdneykZ9oSgf+ADU9FAX 7YI62RW09G6Ad PjwvdGFibGU+PHRhYmxlI HdpZHRoPScxMDAlJyBzdH doLJ5jFy7hAVMbNJUopTs akRMwDmXsh7fc YXB (more content not included)... [facility] Rad - Other Radiology Report on 09-16-2023 Rad - Other Radiology Report [id number] #[id number] [facility] Ambulatory Visit Summaryon 0 09-10-2023 Ambulatory Visit Summary Ambulatory Visit Summary PRISCILLA CERDA :1965 Visit Date:09/10/2023 Ambulatory Visit Instructions Your Diagnosis Ureteral stone with hydronephrosis BPH with urinary obstruction Gross hematuria Erectile dysfunction Smoker Your Care Team Attending Physician - Buster CHAVEZ MD Primary Care Physician - TAVO ZAVALA DO This Is Your Medications List dutasteride (dutasteride 0.5 mg Cap) sildenafil (sildenafil 100 mg Tab) tamsulosin (Flomax 0.4 mg Cap) Contact prescribing physician if questions or concerns amitriptyline (amitriptyline 75 mg oral tablet) atorvastatin (atorvastatin 40 mg Tab) bifidobacterium-lacto bacillus (Nature's Bounty Probiotic) biotin (biotin 1000 mcg oral tablet) buPROPion (buPROPion 150 mg ER Tab) dicyclomine donepezil (donepezil 10 mg Tab) etodolac (etodolac 600 mg ER Tab) gabapentin (gabapentin 300 mg Cap) hydrOXYzine (hydrOXYzine pamoate 25 mg Cap) levetiracetam (levetiracetam 250 mg Tab) magnesium oxide meclizine memantine (memantine 28 mg oral capsule, extended release) metoclopramide (metoclopramide 10 mg Tab) multivitamin (Lipoflavonoid) omeprazole (omeprazole 20 mg Cap-DR) oxcarbazepine pantoprazole propranolol (propranolol 60 mg Cap-ER) risperidone (risperidone 0.5 mg Tab) sucralfate (sucralfate 1 g Tab) tizanidine topiramate (Topamax) tramadol trazodone venlafaxine (venlafaxine 150 mg Cap-ER) Procedures Performed Cholecystectomy (12/12/2019), Cystoscopy (08/31/2012), hernia repair (05/06/2012), Colonoscopy (11/10/2009), Catheterization of both left and right heart (03/13/2009), Carpal tunnel release (10/11/2004), Hemorrhoidectomy (02/11/1992), Appendectomy (05/12/1987), tendon reconstruction (07/11/1986), sleep apnea surgery. Discharge Vitals Temperature (Temporal Artery) 37 ?C Heart Rate (Peripheral) 77 Respiratory Rate 16 Blood Pressure 126/85 Height 167 cm Height 66 in Weight 75 kg Weight 165 lb BMI 26.89 What to do next Scheduled Follow-Up Appointments Friday 1:45 PM EDT With: Buster CHAVEZ MD Where: [facility] [address] [place] [address]- You Need to Schedule the Following Appointments Follow Up with Buster CHAVEZ MD, URL When: Where: [facility] [address], [place] [address]- Medications What How Much When Instructions Unchanged dutasteride (dutasteride 0.5 mg Cap) 1 Capsules By Mouth Every day Unchanged sildenafil (sildenafil 100 mg Tab) See instructions Take 1 tablet 60 minutes prior to sexual activity. Do not exceed 100mg in 24 hrs. Unchanged tamsulosin (Flomax 0.4 mg Cap) 1 Capsules By Mouth 2 times a day Duration: 90 Days Unchanged amitriptyline (amitriptyline 75 mg oral tablet) 1 Tablets By Mouth Once a day (at bedtime) Contact prescribing physician if questions or concerns Unchanged atorvastatin (atorvastatin 40 mg Tab) 1 Tablets By Mouth Every day Contact prescribing physician if questions or concerns Unchanged bifidobacterium-lacto bacillus (Nature's Bounty Probiotic) 1 Tablets By Mouth Every day Contact prescribing physician if questions or concerns Unchanged biotin (biotin 1000 mcg oral tablet) 1 Tablets By Mouth 2 times a day Contact prescribing physician if questions or concerns Unchanged buPROPion (buPROPion 150 mg ER Tab) 1 Tablets By Mouth Every day Contact prescribing physician if questions or concerns Unchanged dicyclomine Contact prescribing physician if questions or concerns Unchanged donepezil (donepezil 10 mg Tab) By Mouth Once a day (at bedtime) Contact prescribing physician if questions or concerns Unchanged etodolac (etodolac 600 mg ER Tab) 1 Tablets By Mouth Every day Contact prescribing physician if questions or concerns Unchanged gabapentin (gabapentin 300 mg Cap) 1 Capsules By Mouth 2 times a day Contact prescribing physician if questions or concerns Unchanged hydrOXYzine (hydrOXYzine pamoate 25 mg Cap) Contact prescribing physician if questions or concerns Unchanged levetiracetam (levetiracetam 250 mg Tab) 1 Tablets By Mouth 2 times a day Contact prescribing physician if questions or concerns Unchanged magnesium oxide 400 Milligram By Mouth Every day Contact prescribing physician if questions or concerns Unchanged meclizine Contact prescribing physician if questions or concerns Unchanged memantine (memantine 28 mg oral capsule, extended release) 1 Capsules By Mouth Every day Contact prescribing physician if questions or concerns Unchanged metoclopramide (metoclopramide 10 mg Tab) 1 Tablets By Mouth 4 times a day Contact prescribing physician if questions or concerns Unchanged multivitamin (Lipoflavonoid) 1 Capsules By Mouth Every day Contact prescribing physician if questions or concerns Unchanged omeprazole (omeprazole 20 mg Cap-DR) Contact prescribing physician if questions or concerns (more content not included)... [facility] Office/Clinic Noteon 09-10-2023 Urology Office/Clinic Note Urology Office/Clinic Note Chief Complaint Pt is here for ureteral stone HPI Staff Priscilla is a 58 y.o. male here for follow up for ureteral stone found by PCP on CT @ [facility]. Dysuria: mild Incomplete bladder emptying: denies Hematuria: yes last seen a few days ago Frequency: yes Urgency: mild Nocturia: 2x a night Stream: weak stream stop/go Leaking: mild Post void dripping: denies Wearing pads/ Depends: denies Urge incontinence: mild Stress incontinence: denies Incontinence without Sensory Awareness: denies Abdominal pain: denies Flank pain: RT side flank pain comes/goes Sexual complaints: _ History of Present Illness Tests reviewed: reviewed UA, CT I have reviewed the previous health record information and history for this patient from Dr. Chavez. I have reviewed and verified the staff HPI to be accurate for this encounter. Review of Systems PHQ Score Initial Depression Screen Score: 0 SCORE ROS - Provider Constitutional: denies weight loss, denies hot flashes. Eyes: denies eye problems. Gastrointestinal: denies nausea, denies vomiting. Cardiovascular: denies chest pain or angina. Integumentary: no dryness Musculoskeletal: denies musculoskeletal symptoms. ENMT: denies otolaryngeal symptoms. Respiratory: no shortness of breath. Heme/Lymph: denies easy bleeding tendency, denies easy bruising tendency. Psychiatric: no confusion, no anxiety. Genitourinary: See HPI. Physical Exam Vitals & Measurements T: 37 ?C(Temporal Artery) HR: 77(Peripheral) RR: 16 BP: 126/85 HT: 66 in HT: 167 cm WT: 75 kg WT: 165 lb BMI: 26.89 General Appearance: alert, no distress, well nourished, well developed male. Genitourinary: normal scrotum, normal testes, normal urethra, normal epididymis, normal vas deferens/spermatic cord. Flank Pain: none. Bladder: nonpalpable. Assessment/Plan Pt here with his today. 1. Ureteral stone with hydronephrosis (N13.2: Hydronephrosis with renal and ureteral calculous obstruction) CT AP w con 07/01/23 Christopher - 10 x 8 mm proximal R ureteral stone with associated mildly dilated R upper collecting system and proximal ureter. 09/08/23 - BUN 15, Cre 1.28, eGFR 58. Reviewed imaging with pt. Has been having intermittent R flank pain for mos. No daily. No F/S/C. Has woken from sleep. Explained it is likely he has had this stone for a while but per CT not completely obstructing. Discussed surgical intervention with R URS, R laser, with possible stent placement. Pt's shank archer thinks this stone is affecting his creatinine. Recent crea wnl. PCP ordered CT because they thought pt had a hernia, ureteral stone was found. Will schedule R URS, R laser, with possible stent placement. The procedural risks, benefits, details, and treatment alternatives have been discussed with the patient. These include bleeding, infection, inability to break or retrieve all of the stone, injury to the ureter (the tube which connects the kidney to the bladder), injury to the kidney scarring of the ureter, and need for repeat procedures, among others. Full informed consent has been obtained. Will order General anesthesia. 2. BPH with urinary obstruction (N40.1: Benign prostatic hyperplasia with lower urinary tract symptoms) CT AP w con 07/01/23 Christopher - Moderately enlarged prostate gland impressing upon the bladder base with associated calcifications. Pt unable to provide urine sample today. Started Dutasteride 0.5 mg qd at prior OV. Taking Flomax 0.4 mg bid. IPSS 20 (20). 3. Gross hematuria (R31.0: Gross hematuria) Likely from #1. Will cont to monitor for gross and dipstick hematuria once # 1 resolved. 4. Erectile dysfunction (F52.21: Male erectile disorder) Sildenafil 100 mg prn. 5. Smoker (F17.200: Nicotine dependence, unspecified, uncomplicated) Increased risk for urothelial cancer. Smoking cessation education attached. Follow-up With When Contact Information YECENIA BUSTILLO, Buster Tinoco, URL [facility] [address], [place] [address]- Additional Instructions: schedule R URS, R laser, with possible stent placement Patient Education Laser Therapy for Kidney Stones, Care After Laser Therapy for Kidney Stones Steps to Quit Smoking Nirmala Martinez, personally scribed for Dr. Chavez on 09/10/2023 08:49:34. . Documentation recorded by the scribNirmala rubio, accurately reflects the services(s) I performed and decisions made by me. Authenticated by Dr. Chavez on 09/10/2023 08:52:35. Problem List/Past Medical History Ongoing BPH with urinary obstruction BPH without urinary obstruction Dorsalgia Drug-induced impotence Erectile dysfunction Feeling of incomplete bladder emptying Flank pain Gross hematuria Hx of snf use of blood thinners Kidney stone Micturition frequency Nocturia Smoker Ureteral stone with hydronephrosis Urge incontinence UTI symptoms Historical (more content not included)... [facility] Comment on above: Result Comment: Elec tronically Signed By: Buster CHAVEZ MD\.br\Date and Time Signed: 09/10/23 08:52 EDT\.br\Electronically Co-Signed By: Nirmala Galeana\.br\Date and Time Co-Signed: 09/10/23 08:50 EDT Consultation/Specialist Note on 09-09-2023 Consultation/Specialis t Note [id number] .[id number] Normal [facility] PTH, Intact LCon 09-09-2023 PTH, Intact LC 21 pg/mL Invalid Interpretation Code [facility] Comment on above: Result Comment: Perf ormed At: [facility] [address] [id number] Rissa Booker PhD Ph:[phone] Performed By: #### 1 [id number] ####[facility] (DEFAULT)[address] [place] [id number] CMP Standardon 09-08-2023 eGFR Non AA 60 mL/min/1.73m2 Invalid Interpretation Code [facility] Comment on above: Performed By: #### 1 [id number] ####[facility] (DEFAULT)[address] [place] [id number] eGFR AA >60 Invalid Interpretation Code [facility] Comment on above: Performed By: #### 1 [id number] ####[facility] (DEFAULT)[address] [place] [id number] Albumin [Mass/Vol] 4.5 g/dL Normal 3.5-5.0 [facility] Comment on above: Performed By: #### 1 [id number] ####[facility] (DEFAULT)[address] [place] [address]144 Albumin/Globulin [Mass ratio] 1.4 {ratio} Normal 1.4-2.6 [facility] Comment on above: Performed By: #### 1 [id number] ####[facility] (DEFAULT)[address] [place] [address] 19706 Alk Phos 106 IU/L High 32- [facility] Comment on above: Performed By: #### 1 [id number] ####[facility] (DEFAULT)[address] [place] [address]20 ALT [Catalytic activity/Vol] 20.0 U/L Normal 17.0-63.0 [facility] Comment on above: Performed By: #### 1 [id number] ####[facility] (DEFAULT)[address] [place] [address] 60053 Anion gap [Moles/Vol] 10.6 mmol/L Normal 5.0-19.0 [facility] Comment on above: Performed By: #### 1 [id number] ####[facility] (DEFAULT)[address] [place] [address] 03718 AST [Catalytic activity/Vol] 26 U/L Normal 15-41 [facility] Comment on above: Performed By: #### 1 [id number] ####[facility] (DEFAULT)[address] [place] [address] 49460 Bili Total 0.5 mg/dL Normal 0.3-1.2 [facility] Comment on above: Performed By: #### 1 [id number] ####[facility] (DEFAULT)[address] [place] [address] 71666 Calcium [Mass/Vol] 9.3 mg/dL Normal 8.9-10.3 [facility] Comment on above: Performed By: #### 1 [id number] ####[facility] (DEFAULT)[address] [place] [address] 32692 Chloride [Moles/Vol] 108 mmol/L Normal 101-111 [facility] Comment on above: Performed By: #### 1 [id number] ####[facility] (DEFAULT)[address] [place] [address] 39836 CO2 [Moles/Vol] 25 mmol/L Normal 21-32 [facility] Comment on above: Performed By: #### 1 [id number] ####[facility] (DEFAULT)[address] [place] [address] 14645 Creatinine [Mass/Vol] 1.25 mg/dL Normal 0.90-1.30 [facility] Comment on above: Performed By: #### 1 [id number] ####[facility] (DEFAULT)[address] [place] [address] 38032 Globulin (S) [Mass/Vol] 3.2 g/dL Normal 1.5-4.3 [facility] Comment on above: Performed By: #### 1 [id number] ####[facility] (DEFAULT)[address] [place] [address] 69474 Glucose [Mass/Vol] 92.0 mg/dL Normal 74.0-118.0 [facility] Comment on above: Performed By: #### 1 [id number] ####[facility] (DEFAULT)[address] [place] [address] 67366 Osmolality 280 mOsm/L Invalid Interpretation Code [facility] Comment on above: Performed By: #### 1 [id number] ####[facility] (DEFAULT)[address] [place] [address] 15707 Potassium [Moles/Vol] 3.6 mmol/L Normal 3.6-5.1 [facility] Comment on above: Performed By: #### 1 [id number] ####[facility] (DEFAULT)[address] [place] [address] 21106 Protein [Mass/Vol] 7.7 g/dL Normal 6.5-8.1 [facility] Comment on above: Performed By: #### 1 [id number] ####[facility] (DEFAULT)[address] [place] [address] 97192 Sodium [Moles/Vol] 140.0 mmol/L Normal 136.0-144.0 [facility] Comment on above: Performed By: #### 1 [id number] ####[facility] (DEFAULT)[address] [place] [address] 54992 Urea nitrogen [Mass/Vol] 15 mg/dL Normal 8-26 [facility] Comment on above: Performed By: #### 1 [id number] ####[facility] (DEFAULT)[address] [place] [address] 91116 Urea nitrogen/Creatinine [Mass ratio] 12.0 mg/mg Normal 4.6-16.2 [facility] Comment on above: Performed By: #### 1 [id number] ####[facility] (DEFAULT)[address] [place] [address] 43388 Hemogram Standardon 07-29-20 24 Erythrocyte distribution width (RBC) [Ratio] 12.4 % Normal 11.5-15.0 [facility] Comment on above: Performed By: #### 1 [id number] #### [facility] (DEFAULT) [address] [place] [address] 41339 Hematocrit (Bld) [Volume fraction] 45.8 % Normal 34.8-51.9 [facility] Comment on above: Performed By: #### 1 [id number] #### [facility] (DEFAULT) [address] [place] [address] 13219 Hemoglobin (Bld) [Mass/Vol] 15.6 g/dL Normal 11.8-17.7 [facility] Comment on above: Performed By: #### 1 [id number] #### [facility] (DEFAULT) [address] [place] [address] 34126 MCH (RBC) [Entitic mass] 31 pg Normal 24-34 [facility] Comment on above: Performed By: #### 1 [id number] #### [facility] (DEFAULT) [address] [place] [address] MCHC (RBC) [Mass/Vol] 34 g/dL Normal 26-37 [facility] Comment on above: Performed By: #### 1 [id number] #### [facility] (DEFAULT) [address] [place] [address] 04767 MCV (RBC) [Entitic vol] 92 fL Normal 81-100 [facility] Comment on above: Performed By: #### 1 [id number] #### [facility] (DEFAULT) [address] [place] [address] 27519 Platelet 266 x10 Normal 138-427 [facility] Comment on above: Performed By: #### 1 [id number] #### [facility] (DEFAULT) [address] [place] [address] 00295 Platelet mean volume (Bld) [Entitic vol] 7.4 fL Normal 6.3-10.2 [facility] Comment on above: Performed By: #### 1 [id number] #### [facility] (DEFAULT) [address] [place] [address] 18478 RBC 4.99 x10 Normal 3.70-5.30 [facility] Comment on above: Performed By: #### 1 [id number] #### [facility] (DEFAULT) [address] [place] [address] 20810 WBC 6.6 x10 Normal 3.5-10.5 [facility] Comment on above: Performed By: #### 1 [id number] #### [facility] (DEFAULT) [address] [place] [address] 31461 Magnesiumon 09-08-2023 Magnesium [Mass/Vol] 2.08 mg/dL Normal 1.80-2.50 [facility] Comment on above: Performed By: #### 1 [id number], 5840038, 3318797, [id number], [id number] ####[facility] (DEFAULT)[address] [place] [address] Microalb/Creat Ratioon 09-07 U Creatinine 75.42 mg/dL Invalid Interpretation Code [facility] Comment on above: Performed By: #### 2 [id number], [id number], 60104153, [id number], [id number] ####[facility] (DEFAULT)[address] [place] [address] 83157 U Micro Albumin 36.9 mcg/mL High 0.0-18.9 [facility] Comment on above: Performed By: #### 2 8307340, [id number], 78810638, 76845803, 745222318 ####[facility] (DEFAULT)[address] [place] [address] 48362 U Micro/Creat 49 mcg/mg High 0-30 [facility] Comment on above: Performed By: #### 2 1029730, [id number], 19560623, 17593541, 174649197 ####[facility] (DEFAULT)[address] [place] [address] 41399 Provider Orderson 09-08-2023 Provider Orders [id number]#1 .00OTGTIFF Normal [facility] Provider Orders [id number]# 1.00OTGTIFF Normal [facility] Provider Orders [id number]# 1.00OTGTIFF Normal [facility] Provider Orders [id number]# [facility] Renal Function Panel Standar don 09-08-2023 Phosphate [Mass/Vol] 2.7 mg/dL Normal 2.5-4.6 [facility] Comment on above: Performed By: #### 1 [id number], 4927712, 8530861, [id number], 3228017 ####[facility] (DEFAULT)[address] [place] [address] 75751 eGFR Non AA 58 mL/min/1.73m2 Invalid Interpretation Code [facility] Comment on above: Performed By: #### 1 [id number], 3532849, 3466474, [id number], 2709691 ####[facility] (DEFAULT)[address] [place] [address] 62056 eGFR AA >60 Invalid Interpretation Code [facility] Comment on above: Performed By: #### 1 [id number], 1680231, 6954400, [id number], 1090097 ####[facility] (DEFAULT)[address] [place] [address] 85720 Anion gap [Moles/Vol] 9.7 mmol/L Normal 5.0-19.0 [facility] Comment on above: Performed By: #### 1 5100213, 2780905, 9195048, [id number], 0997806 ####[facility] (DEFAULT)[address] [place] [address] 63419 Osmolality 282 mOsm/L Invalid Interpretation Code [facility] Comment on above: Performed By: #### 1 4654572, 4445569, 8009080, [id number], 9002867 ####[facility] (DEFAULT)[address] [place] [address] 88527 Urea nitrogen/Creatinine [Mass ratio] 11.7 mg/mg Normal 4.6-16.2 [facility] Comment on above: Performed By: #### 1 3033907, 5684638, 9652103, [id number], 7214222 ####[facility] (DEFAULT)[address] [place] [address] 04479 Albumin [Mass/Vol] 4.4 g/dL Normal 3.5-5.0 [facility] Comment on above: Performed By: #### 1 0741922, 4169559, 1858939, [id number], 8881607 ####[facility] (DEFAULT)[address] [place] [address] 48688 Calcium [Mass/Vol] 9.3 mg/dL Normal 8.9-10.3 [facility] Comment on above: Performed By: #### 1 2401003, 7857859, 2328364, [id number], 0549987 ####[facility] (DEFAULT)[address] [place] [address] 53188 Chloride [Moles/Vol] 109 mmol/L Normal 101-111 [facility] Comment on above: Performed By: #### 1 0263852, 8406825, 7321026, 3079379820, 6153625 ####[facility] (DEFAULT)[address] [place] [address] 62157 CO2 [Moles/Vol] 26 mmol/L Normal 21-32 [facility] Comment on above: Performed By: #### 1 1948797, 7786922, 9823931, 0605146804, 1274530 ####[facility] (DEFAULT)[address] [place] [address] 85128 Creatinine [Mass/Vol] 1.28 mg/dL Normal 0.90-1.30 [facility] Comment on above: Performed By: #### 1 4357234, 6248220, 0855243, 0201512338, 5311913 ####[facility] (DEFAULT)[address] [place] [address] 53155 Glucose [Mass/Vol] 90.0 mg/dL Normal 74.0-118.0 [facility] Comment on above: Performed By: #### 1 6939601, 4867362, 2273428, 6381663179, 6966246 ####[facility] (DEFAULT)[address] [place] [address] 97187 Potassium [Moles/Vol] 3.7 mmol/L Normal 3.6-5.1 [facility] Comment on above: Performed By: #### 1 8633730, 9643465, 8949131, 7787557595, 8392882 ####[facility] (DEFAULT)[address] [place] [address] 39034 Sodium [Moles/Vol] 141.0 mmol/L Normal 136.0-144.0 [facility] Comment on above: Performed By: #### 1 2068237, 9371538, 5113945, 2499647974, 7884754 ####[facility] (DEFAULT)[address] [place] [address] 64124 Urea nitrogen [Mass/Vol] 15 mg/dL Normal 8-26 [facility] Comment on above: Performed By: #### 1 8781303, 4480581, 8802620, 7757654128, 4340617 ####[facility] (DEFAULT)[address] [place] [address] 37609 U Micro Albumin 1on 09-08-19 24 U Micro Albumin 11.8 mcg/mL Normal 0.0-18.9 [facility] Comment on above: Performed By: #### 2 4187770, 3816134210, 66019615, 64816452, 652288699 ####[facility] (DEFAULT)[address] [place] [address] 46836 U Protein/Creatinineon 09-07 U Creatinine 75.42 mg/dL Invalid Interpretation Code [facility] Comment on above: Performed By: #### 2 8213665, [id number], 86761277, 01089260, 102079741 ####[facility] (DEFAULT)[address] [place] [address] 91868 U Prot/Creat 155 mg/gm Normal 0-200 [facility] Comment on above: Performed By: #### 2 5771653, 0003204440, 64792554, 75683527, 678934961 ####[facility] (DEFAULT)[address] [place] [address] U Protein 11.70 mg/dL High <=9.90 [facility] Comment on above: Performed By: #### 2 0091274, [id number], 02984071, 95819297, 990197536 ####[facility] (DEFAULT)[address] [place] [address] 18807 UA Csqvg9nx 09-08-2023 UA Amorph. 4+ Normal [facility] Comment on above: Performed By: #### 2 2652368, 9619254607, 16276892, 55065446, 186784692 ####[facility] (DEFAULT)[address] [place] [address] UA Bacteria None Normal [facility] Comment on above: Performed By: #### 2 0753474, 7012405282, 90728891, 52961101, 568679617 ####[facility] (DEFAULT)[address] [place] [address] UA RBC None Seen [facility] Comment on above: Performed By: #### 2 5401398, [id number], 35117775, 27687216, 675292983 ####[facility] (DEFAULT)[address] [place] [address] UA WBC 0-2 Normal [facility] Comment on above: Performed By: #### 2 1969554, [id number], 02004332, 47221189, 897739790 ####[facility] (DEFAULT)[address] [place] [address] 05661 UA Standardon 09-08-2023 Breakpoint UA Normal [facility] Comment on above: Performed By: #### 2 8190236, 8438653402, 80314135, 97117936, 934637199 ####[facility] (DEFAULT)[address] [place] [address] Color (U) Yellow Normal [facility] Comment on above: Performed By: #### 2 0139148, 9453227821, 71333842, 68733145, 553641950 ####[facility] (DEFAULT)[address] [place] [address] 68259 Glucose (U) [Mass/Vol] Negative Normal [facility] Comment on above: Performed By: #### 2 6602842, 1378685421, 47378390, 89541956, 111884879 ####[facility] (DEFAULT)[address] [place] [address] 01529 Ketones Ql (U) Negative Normal [facility] Comment on above: Performed By: #### 2 7945228, 9677664933, 81462033, 98277399, 886006741 ####[facility] (DEFAULT)[address] [place] [address] 89863 UA Bilirubin Negative [facility] Comment on above: Performed By: #### 2 2374918, 1891911847, 65424569, 68525952, 964850863 ####[facility] (DEFAULT)[address] [place] [address] UA Blood Negative Normal [facility] Comment on above: Performed By: #### 2 8075340, 5787091045, 27572459, 35698012, 138324325 ####[facility] (DEFAULT)[address] [place] [address] 73896 UA Clarity CLOUDY Abnormal CLEAR [facility] Comment on above: Performed By: #### 2 6675092, 6109921606, 81358018, 09862778, 600585283 ####[facility] (DEFAULT)[address] [place] [address] 77931 UA Leuk Est Negative Normal [facility] Comment on above: Performed By: #### 2 8248059, 0430861175, 43584384, 88842652, 561467353 ####[facility] (DEFAULT)[address] [place] [address] 34879 UA Nitrite Negative Normal [facility] Comment on above: Performed By: #### 2 8843706, 4413125118, 21650911, 42402282, 796288753 ####[facility] (DEFAULT)[address] [place] [address] 19983 UA pH 7.5 Normal 5-8 [facility] Comment on above: Performed By: #### 2 5958635, 0676136370, 85649660, 01237261, 206110519 ####[facility] (DEFAULT)[address] [place] [address] 40141 UA Protein Negative Normal NEGATIVE [facility] Comment on above: Performed By: #### 2 1940182, 5287235388, 85436450, 07254457, 802420666 ####[facility] (DEFAULT)[address] [place] [address] 57082 UA Spec Grav 1.015 Normal 1.001-1.035 [facility] Comment on above: Performed By: #### 2 3536417, 1935612449, 21217429, 34490264, 662836957 ####[facility] (DEFAULT)[address] [place] [address] 47555 UA Urobilinogen 0.2 mg/dL Normal 0.2-1.0 [facility] Comment on above: Performed By: #### 2 2080874, 8252901785, 79881707, 95321116, 716562462 ####[facility] (DEFAULT)[address] [place] [address] 94020 Urine Source Voided Normal [facility] Comment on above: Performed By: #### 2 1894725, 8328106431, 04646845, 03792595, 401539012 ####[facility] (DEFAULT)[address] [place] [address] 24113 Uric Acidon 09-08-2023 Urate [Mass/Vol] 3.3 mg/dL Low 4.8-8.7 [facility] Comment on above: Performed By: #### 1 3284310, 9810545, 3767735, 1951175899, 6059462 ####[facility] (DEFAULT)[address] [place] [address] 11570 Vit D25 OHon 09-08-2023 Vitamin D 25 OH 34 ng/mL Normal 30-100 [facility] Comment on above: Performed By: #### 1 9675368, 0957173, 8347056, 5785433397, 4569105 ####[facility] (DEFAULT)[address] [place] [address] XR Abdomen Single View (KUB) on 09-08-2023 XR Abdomen Single View (KUB) EXAM: XR Abdomen Single View (KUB) HISTORY: Ureteral stone with hydronephrosis COMPARISON: CT abdomen and CT pelvis studies dated 07/01/2023. TECHNIQUE: AP supine view of the abdomen was obtained. FINDINGS: There is an approximately 10 x 8 mm calcific density overlying the superior margin of the L4 transverse process on the right compatible with a proximal right ureteral calculus similar to the prior exam. No obvious opaque renal calculus. No obvious opaque bladder calculi. A few small calcific densities overlying the pelvis most like representing phleboliths. Mild degenerative changes in the visualized dorsal spine and the lumbar spine with mild convexity of the lower dorsal and lumbar spine to the left. Mild degenerative change about the hip joints. Postoperative clips overlying the right upper quadrant of the abdomen. IMPRESSION: Findings compatible with an approximately 10 x 8 mm calcified proximal right ureteral calculus similar to the prior study. Final Dictated by: Stiven Nolen MD Dictated DT/TM: 09/09/23 1:40 Signed (Electronic Signature): Stiven Nolen MD 09/09/23 5:07 pm Technologist: Andrea IBARRA [facility] Consultation/Specialist Note on 07-15-2023 Consultation/Specialis t Note [id number] #1.00OTGTIFF [facility] Coding Summaryon 07-08-2023 Coding Summary HTMLBase 64 AkrazuxuZQc5xOd+PGhlY WQ+TB4GDOXnV69jlKAsuG 8cQ2UXFRiMIgqqEWHSHHa YGtIuysTqDT3htMBwTHNz IC8+BY3nJXYxYgzsnPPdc 0M1wLT9U04msw8jAIfhaY Y0SCVqHrGceukum3hrcNc 6IDcuNmluOyBt XNFhbO79AYF6fR25Pv35u YDkiLYmr1qpySp1SlJdZN GhMDS0tFflXMzgs6JdTAO dS21zbDRet8I8 MZQqpNpyySWcVrPznQY1n H5tTJoxtlryq0xaxcqrRm t3zi58pFGpj9O7aQS3D4W ubmK7AONmpGOg YtykgJJAyY4hulyhl1vwn aspKeIxCFQhDCb7EDn8MM TnpAtuXkSfMG55XAL0DBJ htrZcU6GtAXPl qKcvPbO9i9C1Ag3AW0DBK kdkD7WXSRDAAMeitWI+PC 33lh24H1NrSsbzBgj1GQI zNEF0xUP8jU4b IFYfVUfcb5K6uJL2Z8Cqp hAryq0dc7ayZIWdBIdqI2 6hoOVbp0S3VFQcuTE1UIB byMnjYnXzuV18 Oyc+IBNgsZpuj9HgKqfzw 9hwz1mvwXx7NfxlSXOyag NteJfkFFT3z3CwAs8jPHV uqMZ9yAD3vY6j XvScCdY0TKiaQ636DeBvo BTwIaydP62aO7JsaPA+PH OhIax5QXEfnGmyJA3nS5W hZGRpbmctbGVm sKvbHB8uRCStbfqsENFbb K2xTXReA5s5TbJjOaF0XO rnE2GzSMPujryaSm73oW1 xPeFbXrN0KHdx U7KsmoU9HZAjaXEfQZsfR PU2R75cf9M3MEFdFQQuDC T2bZW0qB0iqJcghykeiPL mdDsgdmVydGlj MGsgKTgfX024HYDiaToxD kNvZGluZyBEYXRlOiAgMD UvMjgvMjAyNDwvdGQ+PHR qQGZ4nLvnUZXb pRYmBPoeIg2bqXurcCuvA X0sVYVyzztpSFXuuZ6hEE XaoNHlqGgfFJ5hMYVqive wy224CrHeUVH0 JBDofUNfW1AqkC5sZqMtM AFaAXMbB1FynQYsVDquI6 93FKusPrM3BVCrjgXpP8R sLWFsaWduOiB0 m8D9Xs1Tu2QtqdvqI2Jgi AVfPaAyFghlOEr0C3KfIz wvdHI+KC17JKSrSB10DJn 7OQJ3zLpbIGaw LQLvP5CyaT1uKsPxMBJjT GRkOyc+PHRhYmxlIHdpZH RoPScxMDAlJyBzdHlsZT0 sOz3uMWAbPJZd fYmrlHBnKfQdp5giOOWoW ZebPR6jiLwoC3NfkOX1BI Gzs9i5Eh25K55lY8WtyDT +XHNuvNU2cXF6 vZ4sImXkYfJ8GBekD729G cJjwUVtAjpfy4oid6fuaX d5WjA3IGQmzbBdlVvaVEY 4y2UdBo90G36j IHdpZHRoPSIxNSUiIHZhb Mhuaz6alD0yLb0+PGNvbC E2oOB4hR2rAqOvHiA0WRr pI406YnBgiKUl Clihk5mpk9fqeNv3HrRvI TSrsqFmeVlsHHY6v3JjYn 00T9PpvMpmp1ZdFbg0aq7 7jPTmn3K0hBZ2 S6IzUIAvjtioaLTmaLrmD E8jRNGmfjouOJEfaO3sHY VyC4d0SrZgAuX6NCzrZ8L yanQ1CJQqcQUs NHTmsGAUmJ4iksvqn5lyx yjlBpQeJSUwPKi3CQu6PX MolVszMiJbLFV5PhQ7LHJ 8uZLnpO2hzMpd gvgcpU7lAmx+JYS9uGPrh JEXSN0rCgeywKL+PHRkIH A8sYucSZugANDgiT6iCXF fG0l8JgPpRnB6 SYhxU8QbltR3HQDtdHLxW QMtyALRjJ4cnlbjv3lbpm tzHbNlKAXoSJf1WFw0LSI saWduOiBsZWZ0 VaN4ZFA5zEWfuN0dcQffk bqvvX7gSin+QmlydGggRG O3BEo4Q6YnIej4ICFzmAi bAG3evRMeNXav Qv8owMnbaUjcHY4gSJNvv meyb412AcZun5vuCDOyoG MzDRkjEMO8R54gw6D4UEY uABFpIZG7jFA7 eJ1tgBzagwrhzZNbmWzdw cQsfFnhZGfeDQtnG941GC MgwAtiDyKgLUg5F4CaRxs 4EDGluBpqDN2v rBAaLDopKk7ukXmtdJnuH S4lSJIwdlsye287ZmEmk0 dmBXTqgTGhNJwrCSM8E83 ed7T9XQTlLIGh UPN1cXA3vI4jaHomcmshu GVmdDsgdmVydGljYWwtYW vfV233VIDyuQznJfQzqBy 9Y8GvYif4JEEx hDijTF9saASrFLjoEy2ja YjvgFgxEQ8dPWSovkfsq4 34DpVra9qtCIHdoMOqJEk mBAJ4D96or6Z2 YNPbFFZtGEM6vMR0pA9ci GlnbjogbGVmdDsgdmVydG svJTvqCPajY341MLHfiFa nPlBhdGllbnQg PZpuPQb5T6YyLrfkgSI+P P46VSEtUA39oNEipCRrd7 hayOz7SvWkJTBqYIV0lOd oLDyiu6RaHPYq D41bcCAjb9L0AIJjwPqtn JQdUmGhwHI3mY5aXRpftr hwz9jalhbfLlvar8ubvw6 1dN85C19jAXyx ZHRoPSIzMCUiIHZhbGlnb z6svN2vPa2+RMJjdRM3gQ A5lF8lJWYuMeZ3LIseZ29 9InRvcCIvPjxj b7ejy0fkzHq1JnK7MZAxm qGepUikXLF6a1NqSf15S8 9sIHdpZHRoPSIyMCUiIHZ rrGtpzd3gyM1f Ii8+FWMaiHK4hQN4tI9oY yBjLrB3IFjqQ456MiZcdU ZpFevqX79lH3ZxiIP+PHR cTnx8LMDjcXut SJ2zsEGhFQorFn3vSKC1C gFpLoQyHXnjY3VzHXUnfv fmthagsVZ1WANbIESraP9 7Nm9yvFgxFKAr sBLSeQ6atxiff0zxzfeaB lWzLXDfOTt0XZu1QKJofL uvTkYoKVG2QyJ4OGV6tJC vvX8ejZifxutx oN1uA4VaOPJzzfzaQe65z I5mEvVrJkT4WCjsCni+Ul rBGPAHJJbUWUWTMTj9O5O iWth1XMClrGti ZK0fjCNrRPdnVf3jaSluz XldCV1sMKQyeczfWCDytV 6pPKJwxZLpqUebRP2bMMH jdumwd040ZaGs CKP8HOCqcNDpK3RtdU4sW bKnKBWyRYWmL7LylEQpJE ysO213YPswOtO3SFPeacQ rJ6UlACGzeHvy CrB1r1T3Mv1vXn4tDv0vY SS5ZH33SP75mNHdn1G9vY T8D3NiSXVfsnstwqdoxIY 0EXCiVRInfE72 sENfGHyuHd9up0I3z463V FEvNRMefG58Cq6rpBlbDO YydLCGiH7lqnofl9vufat gIzAwMDAwMDt0 FOm7QMOgqLouPnErNMN7M fM4SOA2lDMykH4voXcjbm bcxS2lZxk+NTUgWWVhcnM 3S8HdCmi5HEMb yAktWE4meXJuOLuxMs7ko NtsfEnjTO5xVILciyxyXC XhgM8iUFCftAWpeOajJN0 oXYSoesuma351 ElAvXOC3WXSsdYYnK0Qyg C3dEcKvPKMrOJAjB9KwfF VhLHbvA477QRwjAbV5YIF mkjPwN1LoUZCr jGxyDfK2c6R7Ks7KXGsTM M49UE30cYLmj7Q5bCV9P6 SyELSzdgcryuqseCE6XLU yMYXisG08mWCv DHdsEw6zt3O4e206HPLxX KVqfU60Sm7hvSvfSJFrzG OCmW1uojawn9heaausKyB tOVToWPh7OSc2 ODRbzIvxEzLlRTF2AyE2X PM9jXGulM6ihJhjrmadxS 9wOyc+Y1M8A8CrQmqjdWM +RJ20OGIgGZ24 bWCloKIcm4zuaOe6LqUrO EJwNJE5mVxmJFuke1LmHL VkL54cmBIdz8V7QRIxsBy hcHNlOyBlbXB0 eL2tPLtfbzvzq2adozaqK kdgq6iywt48hC24W76wAS dpZHRoPSIzMCUiIHZhbGl bjj1dbF6fIl0+ ZCXsjZM1vEM4vR2mGqUnW lJ2WMnwP997IeBqaRLmOu chh5tzn5nfkJl2MvIxVRK gdmFsaWduPSJ0 l6OdTq15X78bFGepBPWoP TVsWKPrTKPwpLpioh1fdL 9wIi8+DW2vb6geop02dB4 8dHI+PHRkIHN0 oGhzOQodCCRxiU6cCGlsG eO9BMOdVpUeeS80gYYePV mzKc5gfKgztCvkBK1dUVA ucwwxs059DrTd s2nnUBHgkYXyPFynZOQ3V 50dw9C2DIDhGNHaPCC3fY Y8rW5wnUayjbducZQveLi gdmVydGljYWwt IUomT384IXUtiKpzYsHbt EDdI7bystRGNI8pFvveqH Q+EYQeXIT1lYvwAFvfBPM gzW8zXFHhS8j4 XxKdUzV0IPydX8EdhgY0Z BYahZBnCNWbpBRCuV0fck qvc5lelheuYoVwKVXiIEi 7BZo3GVKfeTwa EqKjSXC7ZgP3VLX9dCKyf V9gaDhgojczmP4hFvw+Rk lOOjwvdGQ+JIVzXHQ4aIm eWCniNVGcwV4h ICGsO8o1KoYiZbE9NKmjB 5VqriI5LJJyvPEfVBShiB NOsB7kbtbjt0btkpocDbT iNCXhFFy3JOq6 EWNqrRleItKsDHL5YqI4D SW7cTTmaL4gmDxhffgxoV 9wOyc+TVJOOjwvdGQ+PHR oMAH8sRmyYMev FTQzcU1sLJTeF3i0ViBeG oR3TCqwA3EhbgY0FUGqhT ZvODXlnLXXkQ2mbinyn0p vcjogIzAwMDAw CYo8AYq7TPXtuBqaKyDlR FP4ScM9IBB0xZCsdK8bkF wuhzkrrE3sLem+IVI1MYV 8TQ81AI72Y9Pi PjwvdGFibGU+PHRhYmxlI HdpZHRoPScxMDAlJyBzdH lpMG4hMi1qZFGrSJMjnPg ujZEfZuHee5qm YXB (more content not included)... [facility] Coding Summary HTMLBase 64 SrwiyctxKIf5oYv+PGhlY WQ+SK9QDQVqE51rmMDnlA 5nJ5UUAOvCNllbHSOWLAy YQjNnhnTrFV4ucKBsJDLt IC8+GJ5sCAXwNyuqfXLvk 9D3rCC1E62lcl4uNYxdfP F7WVZvSpTwkmjpp8zirZv 6IDcuNmluOyBt SSXzgO22YVA5mD90Fn72i WBnjQBlg2drbQe8OrQoAT IzANN3kMwiVDdma4DzGWN wW86oxZYap4U2 MFPsfIfjtXEzLcFiwRR2s F7vNEnvcxpjl6ckjlbjLx e0lj08cJQrs4Y3jKM8N7Z tekA2SDXbuAPq FsmbhXTOlY0njghrd7xfs rlqWiOdPELcHSx4XMy1KM CzjOczKgDfZA75BTG3XRH tmvJiM5IuEMMc kGnsRyX0a5U7Gg7RI6EZW svqU7PIOPCYDNvanPE+PC 91ku61H4QuVnjjBrl1WGY dVNY5xAB3sA9n IMUfFGuvi1U1mHE8L8Yks uCvej0uj9hzXOUjTCcoB8 9hpFRcj7H5FPJzwFJ6YWX owQneUuJmkK16 Oyc+VRKgqLsvs0MpNrdnz 5kel4mfqMx7PsnaAMZdlv ZgjGmuGPV5q4TnFl2kJAK qsKH7mHN8gR6j UoDfLgD7YTqeL646NnMpm RGbVtjpJ63hW3RvcSM+PH BiWvj6HTIzeJifHN5yB1U hZGRpbmctbGVm nYzrFK8pLSVhahimTITlc O7bVEDoU1c9LpXuWbS6BZ vcN1JkQWTrxwcvFj83iN2 sCsOuSrO3UKxc K5MapgB8LHHpaXKlDEbyB TM7L48rl2Z1QQToRWCpDW M8eSV1dT5qcJmvxihvkGQ mdDsgdmVydGlj GVjrKOmiD169ZZQxiXqiJ kNvZGluZyBEYXRlOiAgMD UvMjgvMjAyNDwvdGQ+PHR fCFC5xIhlAUFm xHMbLTkqUo5djQiagVllX E6zLUCurrfxXSKxnF1bZH JkkMPgpVizIT7iYNWzddp yy520LvLjEFO5 DDOhsZWvG4WzgN6hQqNqM BRxXBVvT5OmmJQnQQwyQ5 14PPzlUjV2QGRqkiCwZ7S sLWFsaWduOiB0 s8E8Er5Ga8IbpuduL8Zkh LWaVlVyHsbwTLv0V3SiDs wvdHI+ET04PLKzYT45RUt 5HAS7mAqbXOjr OOGhU8CefQ7vStYpRTMmN GRkOyc+PHRhYmxlIHdpZH RoPScxMDAlJyBzdHlsZT0 tJs4xBTQtSWNw gHsvyTWoPjRks5hvNGEyS ExpEQ7isJazH8BkmJH2QM Lzl5j5Fe82U23eA1WvgLR +LZCwuCL2rDG9 jC2fLwNdHxM5ILjaI457H bNkbHBgPedof5fnk2hyyB i5BkN3KFNelzHkpYhrKWI 2i5HeDn91M04k IHdpZHRoPSIxNSUiIHZhb Eqpps2buW0yAf3+PGNvbC H8zCT0kH8hGsXfViP9ZAa pT156KzSegHVa Movey2ycr2cdzOt1BxDmS GIlihPtyColBQP4q5NtNc 62E8FzsMnio8IzNwu1mu5 7mJYec1P2kBV4 M2ZvKSGxyolpuOQacYmaB P3cHBXrqmizLXQuvE4zUE GvA7b3MoKoCvQ5TFbnW1R wsuX1REHfrRLt GLQveUZJdT9pzzjam9lrj pnlHuBoZZSrBAn2NAj2QT XefVbbFjMdXGY2TuK4ZTA 5uISebE6puVqz mkrfxX1qDdk+UUR9lQYhy PQUVF9bIwzknZL+PHRkIH P2gNvoQHldQKIlpU3qKTK rK4b1UrFjHpA1 FItaY5WjtbN5DIRbfGKtL ZAkzKHZkJ9balmxz9yifd nwHhAlHAXjWSd5QGl3KYG saWduOiBsZWZ0 PwJ7CPQ1bOLzlJ1xuWdtj gqiwW7hAvb+QmlydGggRG O6FBd7H3DrUds2TUKadEc tHP0qsCWmRAhf Ni3ygGlvhVhqKV4cGQExx somd571OpSkl2vlYYOxcD CwOUgaPUU8I38jp9S6ILQ zTUWvGRM8hWT3 qW6cmPnsywylpBJguVuss xEyeNxmNDfsDVvvI475CK RrwIpgXuCwRZu6P5KjNdx 5FYNjzGbaMY4h pOVjLZqoWz8gjDzwcMzgC D2vMDZtaigff086DtKzm7 rwWUOzeJCwDIsxOQJ5A95 pk7I0RVBjPPLa DQV5hMG0zL9jhOnvpadbf GVmdDsgdmVydGljYWwtYW plM181MTBqkEsvXvOihYg 5B4YqEuq0DGTx tPqgJV3eiGWyTBfpTd2qc QrftHjtAA0kOJKtfwwcf5 66BtOrm1lkKLPufBUtWRr rTEJ5H05bz8Q1 NOSbZKRzKAC7hGA0jX5pe GlnbjogbGVmdDsgdmVydG veRTtwYJgdZ661HKRxgCh nPlBhdGllbnQg DXkkZTs9X6PrWuklbDM+P B82CGGiMA33fYUoaCBjd7 cqjKc6NlQiWSBiMKM6kFm rCQnfw8MwQAPy D73krCPjm2N2ULVmkJeer SYiYcCloCD1uI2iIFypyz pxr8rdstxtZkvaq5vgvc2 3dQ77R58xEDlo ZHRoPSIzMCUiIHZhbGlnb s6haK1rZe7+PNTryPU5gY A1yW9kHJGkExJ4SQblG04 9InRvcCIvPjxj q1lqw4udeOm4IvE9MDCsl cYwnPolMBO7o5RcNb43W8 9sIHdpZHRoPSIyMCUiIHZ cxFcvzh9zwN2w Ii8+VGWemTI7mUM9yO3bU qQeAtP4QCztN787GgOfdS ZpIkjlR25qC1WbtKB+PHR xYhz2EDIegUnf ET8lxUBgZCnoLn4fFUF3U tZmQhWsCLnrM1ZrHXZpjw oioflfiPJ6DMKpVUYxfF0 2Xi8beDhqAQRx kQNMgZ1vqqtyb4yviujxJ hMpTFBlLIz9OAm2GHXdlR cvVjGqWFL3TdQ9VGJ6iWU zoH3qcCwezcaj hU6hU7SfHFBnzucnXq49e O9wOaPiEiG0DPzyKlk+Ul sADAUODJyFOWCYUAr8V1Z jHrf5NINxyCdd GP0vvLJsUHtsIx4jgEsng NhdPI6eNDYpjpzaSZCylI 2lKIHunEVocEcvYD5cMXU zzippx018PmBz OIP6JNFnbEZzX3FxcY2mW tZzIWBtVTIsT0LpmBAtST pyB279UKlsYaS9BPSdfuK qD6VjQFYilQav YhY8y2J1Zz8pTe7kIj8uI HG5RO26AO09lGUrk1Y4gG V8I2JbHKXosiavoqsvrJQ 8UNKkWOWfcP65 lDNbHCquHt1xd3R0z150F SXnMLOptU03Mi1pbUacZP LziPMPbO7ojfakl9hicoa gIzAwMDAwMDt0 QOx4SBMowQsuCyViLUE4J qN2BKF4pOVhlX8zrEpset kjaT4fIlu+NTUgWWVhcnM 5G6TzSnm7UYWd oGugVG7lnXGcCUfwNf8mn RfahErgMK0oNMJtrsuvSU IydU6sBHFxrOUzcDucNV3 tQTAjnimdw251 DoKiCBZ2TWTdkTQjO0Rim Q4vYsAtVLHvNODmD0ZyzQ YaDCqiX797KThvTlF0UIL gguAzB0WoNXTd lMarEwE1f3M5Jd0UMIgWR Z22NZ08cIQtp4E1vVI5H3 JcYPBwednzexuquXA7PKG wONKknM08uDSq NHapQq1iw1V7p414FFWeX YGyaB28Sy2czUfvBBGpwC RMrR1jtmqew5nfutueJjN dCWRcBVl8ZSn4 XTEgtGpcCwEhEUU5HgK8R CI8lAXbcA1uxZtwtfzfnN 9wOyc+C7O9M5HeKoyxbQO +QN45LNJwNS07 yWTyjFLyv7rlwGb2GwYlU QXqTDA2wWjeAJytb8McEE DiP51juFZng3T2TBZhnVw hcHNlOyBlbXB0 qG8jTFwohwzjz2tmtoutO xnhb7cots60vC62K83bWQ dpZHRoPSIzMCUiIHZhbGl izp9daA0oKs5+ YNCsoXR8jIE3iZ9rVfKrE vS7UXmjY170VvRtsCQlJl bhx5rsr9kjgUu2WrNbNQK gdmFsaWduPSJ0 f0FiEa07K86vGEaqPSKkB IEwOIKcDYPsyOwzpb4zmU 9wIi8+WH6bq7ctis53qZ7 8dHI+PHRkIHN0 mZilICflLLKyzM2aLIihI lK9OSRlTsNqdE72yVNbEC lzRx1snLgrmGouVQ8nVFI itqbot134HlHn r6dlLPKqgZUzBXdmAYY5T 25xq4J3PNNtNVRgGCP2sD O3sN7czJgmemhcvYMmxQc gdmVydGljYWwt LYdfF530MWPakRimHvUqe AWuO0rwynGIHU5uUrkkxZ Q+YFCwNZL1lYngNTbsYAO joG0xREMkG2h0 LjIbWkE6JMddR0HnxpO0G WRrbJOwVBWviIDEpW9kdh uhb8cxpqsvUwBeFZFpPKz 9ISz5TJSdkPap JfNuXDM1FjZ7GEW9uEOqs J5hnHrefgecyN6mAoe+Rk lOOjwvdGQ+ZLQlENU0wOo dEJaxJEZunV6z PYKcK2d5OyDxExN9RZntU 0PfnlE1UBNfgGPyXURxqQ PGpF3vzphib7voohaiBrT vIJIaSQj0HFh7 ZONdqWbnKoVdJDG4BaW7W YH9hFLqyP1egWjmxzenmE 9wOyc+TVJOOjwvdGQ+PHR xJIF3vOznTKft MSBzsD3xKDEdY4v7QkMkH dO7WOrzP7YwarT1SLCliD CvXYZhwJTGoV8postgw3z vcjogIzAwMDAw VQo3LEm9LPRenHivDtYfQ VP9FrH4UNN4xOHulN6uiU hwdbxgrK7aLgk+JCJ7UIY 7IZ74JJ57E3Gu PjwvdGFibGU+PHRhYmxlI HdpZHRoPScxMDAlJyBzdH rbKZ6mZc9wQYTmVMRhqEr fsMUyNfMhb8ek YXB (more content not included)... Normal [facility] Consent Formson 07-02-2023 Consent Forms [id number]#[id number] 0OTGTIFF [facility] BUN/Creat Ratioon 07-01-2023 eGFR AA >60 Invalid Interpretation Code [facility] Comment on above: Performed By: #### 1 [id number] ####[facility] (DEFAULT)[address] [place] [address] eGFR Non AA 51 mL/min/1.73m2 Invalid Interpretation Code [facility] Comment on above: Performed By: #### 1 [id number] ####[facility] (DEFAULT)[address] [place] [address] Creatinine [Mass/Vol] 1.43 mg/dL High 0.90-1.30 [facility] Comment on above: Performed By: #### 1 [id number] ####[facility] (DEFAULT)[address] [place] [address] Urea nitrogen [Mass/Vol] 15 mg/dL Normal 8-26 [facility] Comment on above: Performed By: #### 1 [id number] ####[facility] (DEFAULT)[address] [place] [address] Urea nitrogen/Creatinine [Mass ratio] 10.4 mg/mg Normal 4.6-16.2 [facility] Comment on above: Performed By: #### 1 [id number] ####[facility] (DEFAULT)[address] [place] [id number] Abdomen/Pelvis w/ Contras ton 07-01-2023 CT Abdomen/Pelvis w/ Contrast EXAMINATION: CT Abdomen/Pelvis w/ Contrast, 07/01/2023, 9:58 AM EDT HISTORY: Left lower quadrant pain COMPARISON: CT abdomen and CT pelvis studies dated 06/01/2013 TECHNIQUE: CT scan of the abdomen and pelvis was performed with IV contrast. With oral contrast. CT dose reduction technique was used, including Automated Exposure Control. FINDINGS: Abdomen: Visualized lower lung gregg appear grossly unremarkable. Views of the liver demonstrate area of mild decreased attenuation in the medial segment of the left lobe which appears well-circumscribed measuring approximately 2.2 cm in diameter, most likely representing complex cyst or hemangioma. Other possibility would be less likely. Mild fatty infiltration of the liver. No obvious splenic mass. Patient status post cholecystectomy. Adrenal glands appear grossly unremarkable. Pancreas appears grossly unremarkable. There is food debris and fluid along with oral contrast seen in the stomach. Bowel loops appear grossly unremarkable. Visualized vascular structures appear grossly intact. No evidence of adenopathy in the retroperitoneum. There is a large approximately 10 x 8 mm calculus in the proximal right ureter with associated mildly dilated right upper collecting system and proximal ureter. There is enhancement of both kidneys. Findings suggest mild obstructive uropathy on the right. Correlate clinically for significance. Follow-up as needed. Calculus is noted on series 2 axial image 56. Left kidney appears grossly unremarkable. Pelvis: Bladder appears grossly unremarkable. Moderately enlarged prostate gland impressing upon the bladder base with associated calcifications. Perirectal fat planes appear grossly intact. Bowel loops appear grossly unremarkable. Visualized vascular structures appear grossly intact. No evidence of adenopathy. Patient appears to be status post appendectomy with postoperative suture suggested at the cecal base, correlate with history. Mild degenerative changes in the dorsal spine and the lumbar spine with slight convexity of the upper lumbar spine to the left. IMPRESSION: CT abdomen and CT pelvis studies demonstrate prominent calculus in the proximal right ureter causing mild obstructive uropathy as described. Likely complex cyst or hemangioma in the left lobe of the liver as described. Other possibility would be less likely. Mild fatty infiltration of the liver. Moderately enlarged prostate gland impressing upon the bladder floor. Prostate gland appears mildly increased in size compared to the prior exam. Final Dictated by: Stiven Nolen MD Dictated DT/TM: 07/01/23 10:12 Signed (Electronic Signature): Stiven Nolen MD 07/01/23 12:54 p Technologist: Dee OLSON [facility] CT Low Dose Lung Screeningon 07-01-2023 CT Low Dose Lung Screening EXAMINATION: CT Low Dose Lung Screening HISTORY: Nicotine dependence, cigarettes, uncomplicated COMPARISON: 10/19/2021 TECHNIQUE: Axial, Coronal, and Sagittal images were created without the administration of IV contrast material. Dose reduction techniques were achieved by using automated exposure control and/or adjustment of mA and/or kV according to patient size and/or use of iterative reconstruction technique. FINDINGS: LUNGS: Stable 3 mm nodule right minor fissure, axial image 53. No additional significant nodule or mass. No focal infiltrates PLEURA: No mass, effusion, or pneumothorax. VASCULATURE: No abnormality. ALEENA: No mass or pathologic adenopathy. MEDIASTINUM: No mass or pathologic adenopathy. CARDIAC: No enlargement, pericardial thickening, or significant calcification. CORONARY ARTERIES: Coronary calcifcations are absent. AORTA: No aortic aneurysm CHEST WALL: No mass or axillary adenopathy BONES: No bone lesion or fracture. LIMITED ABDOMEN: Surgical clips from cholecystectomy OTHER: Negative. IMPRESSION: LUNG SCREENING: Lung-RADS Category 2- Benign Appearance or Behavior. Nodules with a very low likelihood of becoming a clinically active cancer due to size or lack of growth. 2. Continue annual screening with LDCT in 12 months. Final Dictated by: Chu Aguayo MD Dictated DT/TM: 07/02/23 4:20 Signed (Electronic Signature): Chu Aguayo MD 07/02/23 4:27 pm Technologist: Dee OLSON [facility] Comment on above: Order Comment: Asymp tomatic for Lung Cancer:Between the ages 50 and 80:greater than or equal to 20 pack-year history of smoking:# Packs smoked per day:# Years smoked: Active smoker or quit in last 15 years: # years ago he/she quit smoking: Family History of lung cancer __Parent __Sibling __Child Personal history of chronic lung disease __COPD __Emphysema __Chronic Bronchitis __Pulmonary FibrosisOccupational exposure to any lung carcinogens __Arsenic __Asbestos __Beryllium __Cadmium __Diesel Fumes __Nickel __Silica __Coal SmokeRadon Exposure __Documented Residential __Firefighter __Occupational (Mining) __Military Active CombatPersonal history of cancer (excluding known metastatic disease) __Lung cancer (>5 years) __Lymphoma __Head and Neck __Esophageal __Bladder __Cervix __Colon __Kidney __Pancreas __Stomach __Other: Coding Summaryon 05-26-2023 Coding Summary HTMLBase 64 PewuarbkKNw6eUy+PGhlY WQ+SM8BNTMvE17hjLOyvG 7nN5DGJOaRQknkKGLGAYe GMwCzxlBfCQ1ihLWpDLSg IC8+GY5yKSUwXiytxHKcz 1Q6iJA6R87mhu7lWGxemM H0QEIkXpBfqsmna3begHf 6IDcuNmluOyBt MYMquX61WUE4uW71Tw54a IQzoQGgu8badXb2OhJnDS CvFNP2fAfvQAcqw1XjJLL tL35ezLRiu1A9 RHLeqLpgbHErCgHnmGQ6g T9zFNkegraxu9aowwslLp x6ky13nDOdl3Z1vTA5A1J uouQ7WYNchXHp AbaumEWJmN0swyicj9qvr hejGwDlIZWpEMu3TEt3QP HxiPdsVbOaFV87VVE3XEZ jehAuX2SuCVTs rUspLpZ8g0W2Xf1VE7CCG smjH2AAZRHTSGqkkFD+PC 02an26L7VjFjkeWuf8TWJ vAZE1pHV7oW6i ZYHuPFpnr4D0cAK1I3Cmb xAicm0pn0owIUEiZFpjY2 6vtLPgk7E1XFXixEH5OMZ jiJtzQmWwyC85 Oyc+NQQedKtyy3EgXyxfb 3tzf3zngZr9EsnvIQKwlo PzvHqvDUV5c2TcAc0aVOQ knBM3tQT3aN3s DpBgNoB3JTkzK799ZmLxs ORkLzxmC63sY2QdpCP+PH PsIdw6IXRjhNfhPF1aN7X hZGRpbmctbGVm pXhkEZ4vKDVuiegpYRAcf O1vCMThI7v2NtYyKdY1IR vbK1KxKRUycjddUc42eP0 jZnXhKbA9FVmf B5TrbmN0CLQytUToGQstN XE7G47kt6T1KDOqPYZjCK P2vJW8bO5mlPhgeewmdOQ mdDsgdmVydGlj ITqgLAylQ428STKmhRcoV kNvZGluZyBEYXRlOiAgMD QvMTUvMjAyNDwvdGQ+PHR vHES2pJduEBXf sQWgCBomCi5wlWnylGkrT R4eNYNlqwcbMXUisB7kLQ EnsQGlsVljMZ6rNGUybzy zp480JdIiYFC3 KRYyxKWwP2OzpK9hQuHhE KXzXUPjS7UsfUVgRAypX8 52ATthMwN4BYFklmQcU0N sLWFsaWduOiB0 c0Z7Ew1Su7OfsbwxM2Anc EAgQuXpCfdyMAf4Y0MnKz wvdHI+NN51DJOqLE71DOt 0XYD9lMriYAft SPCrH4DvfG8aDjOzKQWfM GRkOyc+PHRhYmxlIHdpZH RoPScxMDAlJyBzdHlsZT0 tAl2nIDGyJGAa kVophERvUoFob2ykMHAqJ PiyMH7dvWhfO9NtrVL2XJ Jtl1c0Nq06X28iC5EsfSE +MJJqqCP9jFC3 aT5lGlDzCtT8PGpaH887C zOyvQEgUcomc3ghc3oggM a2YmG3JMYuqxWidExdNAY 4r9UnQh54U36m IHdpZHRoPSIxNSUiIHZhb Fabvh8cpU1zQi7+PGNvbC O4kDB0eN5tRoOwGfI6NKp sK737QmPqyYKy Ozugq0ulk2dmyFs1WfHhM XTacsVmiZdrMYO8f7WcBi 76T9DngUhjc7UyVyl5rq6 7kRSye7E6eUU2 X4UmLAQygvdmxXLroXqnS G5sKTJzaspaKZTziS4aPZ FpR4r3ViVcQyB9KGgbE6B adkQ6HPSomFSs EGUmeNRRoH1mgjtzs2vgw kpiUnJzNGEaJRi6WFf0MQ OnpUxrMbNmUFJ0TcS5JZU 8iXEdjZ0yhUxe wooopA2oYud+NDR3wSMeb DWFJI8mBlmtdLI+PHRkIH A0cJmiVOpbEPTqoB3qXRC rG1m0VkYlTmK0 ZPinO2UfulW7OSXxnAYtU ZSwsJCLwD5ynnqtj3lbug jvVnYkFOCqZKd2RMi7PVG saWduOiBsZWZ0 VgW6OMS1vTKszA2bvFkqj qowfZ4tLrn+QmlydGggRG P2WIe3K7AqZnl0PTEbxEw cAT1odSUwMWnk Nv9tcUvucOkbRD8jXCMos xglu091UoOsb9qoWNWpwM TvOSbqCFK4L84dl7A4QUY cKUWsOCO5zED3 gO8opQlosteieCXgoRtqc tSomKajQRxwJIvaK897UL VieMocTbIcMCc9V6QyOwm 5AZNtoSadCC2b aXEyKLywXh9rpUlvrQijS L3mRUArjupbc728NoXdz1 ddEESxcRWfBWfpCPR0J53 fe3K5AFDnFIWl BCD5kSA6fH8vrFirqosmr GVmdDsgdmVydGljYWwtYW buY619JJJjrAkkGiPhdQj 3V6VvUal4MXEz zKraUO1ttLWaNJtiMj2ma XxvdIedLH9eCQJafamgz8 54MdQet4hdPQJjzGRlLBf lTAK3O24py7I8 VHTaVGDxJCP3iUK4xF8kp GlnbjogbGVmdDsgdmVydG wfYRzwDBqbT072XINmqFy nPlBhdGllbnQg JEhnAFa1M5PqYhopaWG+P R30XARhAF02rGCbwYYma3 iajLy1DxTlKFTwOAP4iHv eEMigm8MdSDKl L37abUSna9T9TATbpNvof UOcBkDtaAI1hH1jVRncpx jcb9eyiyriIzjlg8grxf2 9eE02F30dRPhq ZHRoPSIzMCUiIHZhbGlnb g3jtS9vTs6+VWCxmBG2yC O4cJ3hPWWfHxX6PWjyB31 9InRvcCIvPjxj v6eqc1oloAm3YsE2KDNum wMhhPshHER4y8AnDv32M2 9sIHdpZHRoPSIyMCUiIHZ lsTdasd0vwX1t Ii8+AILfoKN0aPA4dY3uT fAvRgE0SRnfV116UgIotU NpIkavU83mZ7WlaUE+PHR mHqy7BEPgdRuz OU5rnZMgJTxzDi4jSSO9L fYqTkLmKObeT8YuZSUktr vybctceHW6OJBcQLGehZ9 4Ah2ivHufABEj iAGWiD5ykwptg1safpruR eMgYMToDRb1ZMx1HGNjqI hnJvNcREO6FmH1SFA1mSZ plN6tyDnlqhwh bA4lR6TnQOAapiyjNo77h Q5bEaEfQfD3CZhpNtm+Ul eRQLOGXHsDEFZVVDs5W0O lLqw3DMWgzCcm UR7kdSBlXSfcTk1jbMynj ZcmSH2jIYXatcixIKMcvY 9gVFBrvOZobUsfGT7pJAQ qvzayi472UaAb XYI9GIDnwKWtT3JxiT2oF xLnZWXrVFMhY2LdjAQxWP xmU232SEwmOsH6OIBxotD pC6TcKSMsyKva EfI3k2N9Pz7fLc7eRb4zE JS6VP87UA18oUTal6M0uM D0L0ZkPVIlkwsruwegbMN 2TUIbAWHlmB45 uBNqLVyuTm6ky4J8n970M MNlAPHdcU20Qq2frGbsMD XzbSKStG3fcuwib5nrjhb gIzAwMDAwMDt0 QXq9JJSzjChxFtVcPIY7I gP0ZCT2uUVxmE8jiFiehr qdoH4bKzb+NTUgWWVhcnM 0G6CeJmg0SJVc qNuwII7riGNrEXcsDy3zd VoetUjxDP9zFFVseokvRJ LkbN7xZRNinSZgoTnhOH9 zREUpbungd470 FbElDLF1SWCheTIkX1Cyd H4dBbNfSWHeFLWpS5QbdK SqZNczF194VIucSoY9XLI ddjQjX2FpFANb mSivObX3a7F4Ib7ZQPnCM A79BL61eCYkn4A2sWI2M1 SoQUEdnqphjzynlMD5DMH gRDXkzN90iCAv FHtlJc2ax3E5y485JFJeL NChdG10Lv2tbHduVYDlbJ RPxK2jdlusb2mckgpoLeD aTUEfZWf6XJs5 XDKzeYaxWrOyCHS4IeY3I XD2hVXduL7oxIygfdofzJ 9wOyc+J0M3U8BmFikmsNR +SI82OPLvAO12 kMWbaWVko3poiGo6JyZyT GNqQBJ8vYxdBWicx7NtLJ HsL52hiTRqj7I8VWIhvLu hcHNlOyBlbXB0 kR6aKRtbvdkuu2iibhvmA fafc7ntui61eG82W87cGZ dpZHRoPSIzMCUiIHZhbGl bdq0wlP4gIi4+ YOWgjKS9aUY9iD5aZsEgF bB1JHhkB538PmCstKCtFi oxs9nal4qqwDw9WnYxCOC gdmFsaWduPSJ0 x5RhCk92Q32wUCnfMAKuV VUnNKBpMWMxpPwsxw9xzY 9wIi8+XR5wy4atri65hQ0 8dHI+PHRkIHN0 hCpdEVpdHWWrtJ8fOEcvH rC6NWNtQyYfnY00rATfYE rfLr5auQvmlGqbHT0yRBM trtiig342XqTf q2wgTUNsxGMgURdkFQH8Q 12pd6Y7YLNcZPQqPOX2iK U3gU3mbIvyyucmjCSrePo gdmVydGljYWwt MEjtV264HGBncFnqJjCll YTbT1csvtEZDI5hAdmkpJ Q+HGQhFHZ3bFkrUXqvEWH thP6bQMBxH0b0 YnKqDjV7CQxoV3OpofS4X PPlfGSvPMAdmLNYvZ1hyc oxe4tuipoiDaJfARGmMVz 1CAv9UTQypDbl NsGpYMK5YzE4QZQ6zTIyr Y7zbUwklsqbbU8dQdq+Rk lOOjwvdGQ+SKNfPGV6fQs jJIqbHRUyjW7j QCHcM0h4RuEfJeV1IVjnM 8GqqpB8TWKjaICaTPTbxU FRbM0lmcnef1dhryaeWzX oXFQgKQl5UBz5 HVWxeQofIqOyTPF4AyS0J QU2nXTejF6nbWymyxdjmT 9wOyc+TVJOOjwvdGQ+PHR eJUV1iOugPOwi AFEtxM7bHHGmP1s7TtVkG aF2AGinK6RfatV1DCCtcZ OqZWWugJZZiJ3jgdqub8c vcjogIzAwMDAw IDr1UHa0PLWgoYotSsAeS QI0QwM7HQY7nEPklA0imT bndvdocB7nBxh+VGR3WIL 8UG95MT29L2Ff PjwvdGFibGU+PHRhYmxlI HdpZHRoPScxMDAlJyBzdH dzLN5rEb7nAMSxPRMhtGc ecWBfWnXcl4cp YXB (more content not included)... Normal [facility] .Auto Diff 1on - Auto Hendry % 8 % Normal -12 [facility] Comment on above: Performed By: #### 1 [id number] ####[facility] (DEFAULT)[address] [place] [address] Baso Abs# 0.1 x10 Normal 0.0-0.2 [facility] Comment on above: Performed By: #### 1 [id number] ####[facility] (DEFAULT)[address] [place] [address] [id number] Basophils/100 WBC (Bld) 0.9 % Normal 0.2-2.0 [facility] Comment on above: Performed By: #### 1 [id number] ####[facility] (DEFAULT)[address] [place] [address] 40839 Eos Abs# 0.4 x10 Normal 0.0-0.4 [facility] Comment on above: Performed By: #### 1 [id number] ####[facility] (DEFAULT)[address] [place] [address] 05347 Eosinophils/100 WBC (Bld) 4.7 % High 0.9-4.0 [facility] Comment on above: Performed By: #### 1 [id number] ####[facility] (DEFAULT)[address] [place] [address] 83042 Lymph Abs# 2.1 x10 Normal 1.3-2.9 [facility] Comment on above: Performed By: #### 1 [id number] ####[facility] (DEFAULT)[address] [place] [address] Lymphocytes/100 WBC (Bld) 25 % Normal 14-48 [facility] Comment on above: Performed By: #### 1 [id number] ####[facility] (DEFAULT)[address] [place] [address] Hendry Abs# 0.6 x10 Normal 0.0-0.8 [facility] Comment on above: Performed By: #### 1 [id number] ####[facility] (DEFAULT)[address] [place] [address] Neut Abs# 5.3 x10 Normal 1.5-9.2 [facility] Comment on above: Performed By: #### 1 [id number] ####[facility] (DEFAULT)[address] [place] [address] Neutrophils/100 WBC (Bld) 62 % Normal 44-88 [facility] Comment on above: Performed By: #### 1 [id number] ####[facility] (DEFAULT)[address] [place] [address] CBC w/ Auto Diffon 4 Erythrocyte distribution width (RBC) [Ratio] 12.8 % Normal 11.5-15.0 [facility] Comment on above: Performed By: #### 1 [id number], [id number], [id number] ####[facility] (DEFAULT)[address] [place] [address] Hematocrit (Bld) [Volume fraction] 46.6 % Normal 34.8-51.9 [facility] Comment on above: Performed By: #### 1 [id number], [id number], [id number] ####[facility] (DEFAULT)[address] [place] [address] Hemoglobin (Bld) [Mass/Vol] 15.6 g/dL Normal 11.8-17.7 [facility] Comment on above: Performed By: #### 1 [id number], [id number], [id number] ####[facility] (DEFAULT)[address] [place] [address] 33543 Man Diff? Auto Invalid Interpretation Code [facility] Comment on above: Performed By: #### 1 [id number], [id number], [id number] ####[facility] (DEFAULT)[address] [place] [address] 39466 MCH (RBC) [Entitic mass] 31 pg Normal 24-34 [facility] Comment on above: Performed By: #### 1 [id number], [id number], [id number] ####[facility] (DEFAULT)[address] [place] [address] 81131 MCHC (RBC) [Mass/Vol] 34 g/dL Normal 26-37 [facility] Comment on above: Performed By: #### 1 [id number], [id number], [id number] ####[facility] (DEFAULT)[address] [place] [address] 95681 MCV (RBC) [Entitic vol] 91 fL Normal 81-100 [facility] Comment on above: Performed By: #### 1 [id number], [id number], [id number] ####[facility] (DEFAULT)[address] [place] [address] Platelet 270 x10 Normal 138-427 [facility] Comment on above: Performed By: #### 1 [id number], [id number], 7012604 ####[facility] (DEFAULT)[address] [place] [address] 24564 Platelet mean volume (Bld) [Entitic vol] 7.6 fL Normal 6.3-10.2 [facility] Comment on above: Performed By: #### 1 [id number], [id number], 7629058 ####[facility] (DEFAULT)[address] [place] [address] 16821 RBC 5.10 x10 Normal 3.70-5.30 [facility] Comment on above: Performed By: #### 1 [id number], [id number], [id number] ####[facility] (DEFAULT)[address] [place] [address] 48046 WBC 8.6 x10 Normal 3.5-10.5 [facility] Comment on above: Performed By: #### 1 [id number], [id number], 8839035 ####[facility] (DEFAULT)[address] [place] [address] CMP Standardon 05-15-2023 eGFR Non AA 54 mL/min/1.73m2 Invalid Interpretation Code [facility] Comment on above: Performed By: #### 1 [id number], [id number], [id number] ####[facility] (DEFAULT)[address] [place] [address] 77499 eGFR AA >60 Invalid Interpretation Code [facility] Comment on above: Performed By: #### 1 [id number], [id number], 9798262 ####[facility] (DEFAULT)[address] [place] [address] 39207 Albumin [Mass/Vol] 4.7 g/dL Normal 3.5-5.0 [facility] Comment on above: Performed By: #### 1 [id number], [id number], 8016588 ####[facility] (DEFAULT)[address] [place] [address] 04199 Albumin/Globulin [Mass ratio] 1.5 {ratio} Normal 1.4-2.6 [facility] Comment on above: Performed By: #### 1 [id number], [id number], 8457323 ####[facility] (DEFAULT)[address] [place] [address] 52007 Alk Phos 103 IU/L High 32-91 [facility] Comment on above: Performed By: #### 1 [id number], 90074319, 1163050 ####[facility] (DEFAULT)[address] [place] [address] 80861 ALT [Catalytic activity/Vol] 18.0 U/L Normal 17.0-63.0 [facility] Comment on above: Performed By: #### 1 [id number], 56802165, 8502622 ####[facility] (DEFAULT)[address] [place] [address] 95712 Anion gap [Moles/Vol] 11.6 mmol/L Normal 5.0-19.0 [facility] Comment on above: Performed By: #### 1 [id number], [id number], 8351712 ####[facility] (DEFAULT)[address] [place] [address] 20042 AST [Catalytic activity/Vol] 24 U/L Normal 15-41 [facility] Comment on above: Performed By: #### 1 [id number], [id number], 0825542 ####[facility] (DEFAULT)[address] [place] [address] 63890 Bili Total 0.6 mg/dL Normal 0.3-1.2 [facility] Comment on above: Performed By: #### 1 [id number], 52275021, 4682578 ####[facility] (DEFAULT)[address] [place] [address] 51367 Calcium [Mass/Vol] 9.7 mg/dL Normal 8.9-10.3 [facility] Comment on above: Performed By: #### 1 [id number], 87597183, 5696823 ####[facility] (DEFAULT)[address] [place] [address] 72658 Chloride [Moles/Vol] 110 mmol/L Normal 101-111 [facility] Comment on above: Performed By: #### 1 [id number], 96597704, 9271460 ####[facility] (DEFAULT)[address] [place] [address] 85961 CO2 [Moles/Vol] 24 mmol/L Normal 21-32 [facility] Comment on above: Performed By: #### 1 [id number], 44172780, 7873634 ####[facility] (DEFAULT)[address] [place] [address] 82695 Creatinine [Mass/Vol] 1.36 mg/dL High 0.90-1.30 [facility] Comment on above: Performed By: #### 1 [id number], 13632511, 5599245 ####[facility] (DEFAULT)[address] [place] [address] 46674 Globulin (S) [Mass/Vol] 3.0 g/dL Normal 1.5-4.3 [facility] Comment on above: Performed By: #### 1 [id number], 82911298, 6582519 ####[facility] (DEFAULT)[address] [place] [address] 30377 Glucose [Mass/Vol] 100.0 mg/dL Normal 74.0-118.0 [facility] Comment on above: Performed By: #### 1 [id number], 91085043, 8663508 ####[facility] (DEFAULT)[address] [place] [address] 55371 Osmolality 283 mOsm/L Invalid Interpretation Code [facility] Comment on above: Performed By: #### 1 [id number], 07873892, 3907152 ####[facility] (DEFAULT)[address] [place] [address] 42662 Potassium [Moles/Vol] 3.6 mmol/L Normal 3.6-5.1 [facility] Comment on above: Performed By: #### 1 [id number], 69131697, 2712490 ####[facility] (DEFAULT)[address] [place] [address] 26723 Protein [Mass/Vol] 7.7 g/dL Normal 6.5-8.1 [facility] Comment on above: Performed By: #### 1 [id number], 66720026, 6456551 ####[facility] (DEFAULT)[address] [place] [address] 88758 Sodium [Moles/Vol] 142.0 mmol/L Normal 136.0-144.0 [facility] Comment on above: Performed By: #### 1 [id number], 33595084, 6828906 ####[facility] (DEFAULT)[address] [place] [address] 21256 Urea nitrogen [Mass/Vol] 13 mg/dL Normal 8-26 [facility] Comment on above: Performed By: #### 1 [id number], 84398893, 0235302 ####[facility] (DEFAULT)[address] [place] [address] 86992 Urea nitrogen/Creatinine [Mass ratio] 9.5 mg/mg Normal 4.6-16.2 [facility] Comment on above: Performed By: #### 1 [id number], 96853308, 6460572 ####[facility] (DEFAULT)[address] [place] [address] 52242 Provider Orderson 05-15-2023 Provider Orders [id number]#[facility] Results [id number]# 1.00OTGTIFF [facility] 05-14-2023 Screens [id number]#1. 00TIFF Normal [facility] Visit Summaryon 0 05-13-2023 Ambulatory Visit Summary PRISCILLA CERDA :1965 Visit Date:05/13/2023 Ambulatory Visit Instructions Your Diagnosis BPH with urinary obstruction Erectile dysfunction Smoker Your Care Team Attending Physician - YECENIA BUSTILLO, Buster Tinoco Primary Care Physician - TAVO ZAVALA DO This Is Your Medications List dutasteride (dutasteride 0.5 mg Cap) Contact prescribing physician if questions or concerns amitriptyline (amitriptyline 75 mg oral tablet) atorvastatin (atorvastatin 40 mg Tab) bifidobacterium-lacto bacillus (Nature's Bounty Probiotic) biotin (biotin 1000 mcg oral tablet) buPROPion (buPROPion 150 mg ER Tab) dicyclomine donepezil (donepezil 10 mg Tab) etodolac (etodolac 600 mg ER Tab) gabapentin (gabapentin 300 mg Cap) hydrOXYzine (hydrOXYzine pamoate 25 mg Cap) levetiracetam (levetiracetam 250 mg Tab) magnesium oxide meclizine memantine (memantine 28 mg oral capsule, extended release) metoclopramide (Reglan) metoclopramide (metoclopramide 10 mg Tab) multivitamin (Lipoflavonoid) oxcarbazepine pantoprazole propranolol (propranolol 60 mg Cap-ER) risperidone (risperidone 0.5 mg Tab) sildenafil (sildenafil 100 mg Tab) sucralfate (sucralfate 1 g Tab) tamsulosin (Flomax 0.4 mg Cap) tizanidine topiramate (Topamax) tramadol trazodone venlafaxine (venlafaxine 150 mg Cap-ER) [Image Removed: STOP]Stop taking these medications cephalexin (Keflex 500 mg Cap) Procedures Performed Cholecystectomy (12/12/2019), Cystoscopy (08/31/2012), hernia repair (05/06/2012), Colonoscopy (11/10/2009), Catheterization of both left and right heart (03/13/2009), Carpal tunnel release (10/11/2004), Hemorrhoidectomy (02/11/1992), Appendectomy (05/12/1987), tendon reconstruction (07/11/1986), sleep apnea surgery. Discharge Vitals Temperature (Temporal Artery) 36.2 ?C Heart Rate (Peripheral) 84 Blood Pressure 116/78 Height 167 cm Height 66 in Weight 75.0 kg Weight 165 lb BMI 26.89 What to do next Scheduled Follow-Up Appointments Friday 1:45 PM EDT With: YECENIA BUSTILLO, Buster Tinoco Where: [facility] CHEMISTRYOrdered By: SYSTEM SYSTEM on 05-13-2023 Free PSA [Mass/Vol] 0.7 ng/mL Invalid Interpretation Code [facility] Comment on above: Interpretive Data: T he concentration of free PSA and total PSA determined with assays from different manufacturers can vary due to differences in assay methods and specificity. Values obtained with different blister pack operator's assays cannot be used interchangeably. The methodology used to obtain this result was chemiluminescence using [employer]'s Access Hybritech PSA reagent and Access Hybritech free PSA reagent. Free PSA/Total PSA [Mass fraction] 23.3 % Low >=25.0% [facility] Prostate specific Ag [Mass/Vol] 3.0 ng/mL Normal 0.1 - 3.5 ng/mL [facility] Comment on above: Interpretive Data: T he concentration of PSA determined by different manufacturers can vary due to differences in assay methods and reagent specificity. Values obtained from different assay methods cannot be used interchangeably. The methodology used for this result was chemiluminescence using [employer] Access Hybritech PSA reagent. PSA Free & Totalon Free PSA/Total PSA [Mass fraction] 23.3 % Low >=25.0 [facility] Comment on above: Performed By: #### 1 [id number] #### [facility] [address] [place] [address] Prostate specific Ag [Mass/Vol] 3.0 ng/mL Normal 0.1-3.5 [facility] Comment on above: Result Comment: The concentration of PSA determined by different manufacturers can vary due to differences in assay methods and reagent specificity. Values obtained from different assay methods cannot be used interchangeably. The methodology used for this result was chemiluminescence using [employer]'s Access Hybritech PSA reagent. Performed By: #### 1 [id number] #### [facility] [address] [place] [address] Free PSA [Mass/Vol] 0.7 ng/mL Invalid Interpretation Code [facility] Comment on above: Result Comment: The concentration of free PSA and total PSA determined with assays from different manufacturers can vary due to differences in assay methods and specificity. Values obtained with different blister pack operator's assays cannot be used interchangeably. The methodology used to obtain this result was chemiluminescence using [employer] Access Hybritech PSA reagent and Access Hybritech free PSA reagent. Performed By: #### 1 [id number] #### [facility] [address] [place] [address] Patient Educationon 05-13-19 Patient Education Pulmonary Medicine Steps to Quit Smoking Smoking tobacco is the leading cause of preventable . It can affect almost every organ in the body. Smoking puts you and those around you at risk for developing many serious chronic diseases. Quitting smoking can be very challenging. Do not get discouraged if you are not successful the first time. Some people need to make many attempts to quit before they achieve long-term success. Do your best to stick to your quit plan, and talk with your health care provider if you have any questions or concerns. How do I get ready to quit? When you decide to quit smoking, create a plan to help you succeed. Before you quit: ? Pick a date to quit. Set a date within the next 2 weeks to give you time to prepare. ? Write down the reasons why you are quitting. Keep this list in places where you will see it often. ? Tell your family, friends, and co-workers that you are quitting. Support from people you are close to can make quitting easier. ? Talk with your health care provider about your options for quitting smoking. ? Find out what treatment options are covered by your health insurance. ? Identify people, places, things, and activities that make you want to smoke (triggers). Avoid them. What first steps can I take to quit smoking? ? Throw away all cigarettes at home, at work, and in your car. ? Throw away smoking accessories, such as ashtrays and lighters. ? Clean your car. Make sure to empty the ashtray. ? Clean your home, including curtains and carpets. What strategies can I use to quit smoking? Talk with your health care provider about combining strategies, such as taking medicines while you are also receiving in-person counseling. Using these two strategies together makes you more likely to succeed in quitting than if you used either strategy on its own. If you are or , talk with your health care provider about finding counseling or other support strategies to quit smoking. Do not take medicine to help you quit smoking unless your health care provider tells you to. Quit right away ? Quit smoking completely, instead of gradually reducing how much you smoke over a period of time. Stopping smoking right away may be more successful than gradually quitting. ? Attend in-person counseling to help you build problem-solving skills. You are more likely to succeed in quitting if you attend counseling sessions regularly. Even short sessions of 10 minutes can be effective. Take medicine You may take medicines to help you quit smoking. Some medicines require a prescription. You can also purchase zdqf-meb-finhafe medicines. Medicines may have nicotine in them to replace the nicotine in cigarettes. Medicines may: ? Help to stop cravings. ? Help to relieve withdrawal symptoms. Your health care provider may recommend: ? Nicotine patches, gum, or lozenges. ? Nicotine inhalers or sprays. ? Non-nicotine medicine that you take by mouth. Find resources Find resources and support systems that can help you quit smoking and remain smoke-free after you quit. These resources are most helpful when you use them often. They include: ? Online chats with a counselor. ? Telephone quitlines. ? Printed self-help materials. ? Support groups or group counseling. ? Text messaging programs. ? Mobile phone apps or applications. Use apps that can help you stick to your quit plan by providing reminders, tips, and encouragement. Examples of free services include Quit Guide from the CDC and smokefree.gov What can I do to make it easier to quit? ? Reach out to your family and friends for support and encouragement. Call telephone quitlines, such as 3-560-ISMI-NOW, reach out to support groups, or work with a counselor for support. ? Ask people who smoke to avoid smoking around you. ? Avoid places that trigger you to smoke, such as bars, parties, or smoke-break areas at work. ? Spend time with people who do not smoke. ? Lessen the stress in your life. Stress can be a smoking trigger for some people. To lessen stress, try: ? Exercising regularly. ? Doing deep-breathing exercises. ? Doing yoga. ? Meditating. What benefits will I see if I quit smoking? Over time, you should start to see positive results, such as: ? Improved sense of smell and taste. ? Decreased coughing and sore throat. ? Slower heart rate. ? Lower blood pressure. ? Clearer and healthier skin. ? The ability to breathe more easily. ? Fewer sick days. Summary ? Quitting smoking can be very challenging. Do not get discouraged if you are not successful the first time. Some people need to make many attempts to quit before they achieve long-term success. ? When you decide to quit smoking, create a plan to help you succeed. ? Quit smoking right away, not slowly over a period of time. ? Find resources and support systems that can help you quit smoki (more content not included)... Normal [facility] Office/Clinic Noteon 05-13-2023 Urology Office/Clinic Note Chief Complaint F/U HPI Staff Priscilla is a 57 y.o. male here for 23 month follow up. DLS pt. Previous Dx: BPH w/o urinary obstruction, drug induced impotence, ED, feeling of incomplete bladder emptying, flank pain, kidney stone, frequency, nocturia, urge incontinence, UTI symptoms. S/P cystoscopy done on 08/31/12. Previous PSA 4.06 done on 06/18/21. No other PSA done IPSS 20 Dysuria: denies Incomplete bladder emptying: _denies Hematuria: blood noticed was a couple months ago. lasted only couple hours Frequency: every few hours Urgency: yes Nocturia: 2-3 x nightly Stream: some hesitation, start stop stream Leaking: yes Post void dripping: yes Wearing pads/ Depends: _denies Urge incontinence: _denies Stress incontinence: denies Incontinence without Sensory Awareness: denies Abdominal pain: denies Flank pain: occasionally pain on right side Sexual complaints: denies History of Present Illness Tests reviewed: reviewed UA I have reviewed the previous health record information and history for this patient from Dr. Ann. I have reviewed and verified the staff HPI to be accurate for this encounter. Review of Systems PHQ Score Initial Depression Screen Score: 0 SCORE ROS - Provider Constitutional: denies weight loss, denies hot flashes. Eyes: denies eye problems. Gastrointestinal: denies nausea, denies vomiting. Cardiovascular: denies chest pain or angina. Integumentary: no dryness Musculoskeletal: denies musculoskeletal symptoms. ENMT: denies otolaryngeal symptoms. Respiratory: no shortness of breath. Heme/Lymph: denies easy bleeding tendency, denies easy bruising tendency. Psychiatric: no confusion, no anxiety. Genitourinary: See HPI. Physical Exam Vitals & Measurements T: 36.2 ?C(Temporal Artery) HR: 84(Peripheral) BP: 116/78 HT: 66 in HT: 167 cm WT: 75.0 kg WT: 165 lb BMI: 26.89 General Appearance: alert, no distress, well nourished, well developed male. Genitourinary: normal scrotum, normal testes, normal urethra, normal epididymis, normal vas deferens/spermatic cord. Flank Pain: none. Bladder: nonpalpable. Assessment/Plan Prior Dr. Ann pt 1. BPH with urinary obstruction (N40.1: Benign prostatic hyperplasia with lower urinary tract symptoms) S/p Cysto 08/31/12. Pt was to schedule cysto at time of last OV 06/12/21 but never proceeded with this due to issues with insurance. PSA 06/18/21 - 4.06. Not current PSA level on record. Recommended pt to get another level now. IPSS 20. Taking Tamsulosin 0.4mg bid, increased from qd at prior OV. Reports start/stop stream. Feels he empties. Nocturia 2-3x. Denies hx of UTIs. Discussed starting an alpha kermit. Pt wishes to proceed. -PSA to be drawn IO today -Start Dutasteride 0.5mg qd. Rx sent to [facility] . Discussed the medication side effects, and the patient will monitor closely for these, as well as for symptom improvement. If severe side effects occur, the medication should be stopped and the office notified. -F/u in 6 mos -Consider VANEGAS procedures if medical management fails 2. Erectile dysfunction (F52.21: Male erectile disorder) Sildenafil 100mg prn. 3. Smoker (F17.200: Nicotine dependence, unspecified, uncomplicated) Risk factor for urothelial ca. UA today negative for blood and infection. Follow-up With When Contact Information YECENIA BUSTILLO, Buster Tinoco, URL [facility] [address], [place] [address]- [phone] Additional Instructions: 6 mos (new med) Patient Education Benign Prostatic Hyperplasia Steps to Quit Smoking Kera Martinez, personally scribed for Dr. Chavez on 05/13/2023 11:07:22. . Documentation recorded by the scribe, Kera Elam, accurately reflects the services(s) I performed and decisions made by me. Authenticated by Dr. Chavez on 05/13/2023 11:08:22. 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 Medications amitriptyline 75 mg oral tablet, 75 mg= 1 tab(s), Oral, Once a day (at bedtime) atorvastatin 40 mg Tab, 40 mg= 1 tab(s), Oral, Daily biotin 1000 mcg oral tablet, 1000 mcg= 1 tab(s), Oral, BID buPROPion 150 mg ER Tab, 150 mg= 1 tab(s), O (more content not included)... Normal [facility] Comment on above: Result Comment: Elec tronically Signed By: Buster CHAVEZ MD\.br\Date and Time Signed: 05/13/23 11:08 EDT\.br\Electronically Co-Signed By: Kera Elam\.br\Date and Time Co-Signed: 05/13/23 11:07 EDT Coding Summaryon 03-27-2023 Coding Summary HTMLBase 64 KgpxvthpVQi5bKe+PGhlY WQ+YK2TTMIvL33nsXOrzK 3iE3TJHAdIZqscZMBNZZx MShBuarTtYS9glRTwQTWv IC8+TU9iTQOnEowxxVGax 9W8rTF3K96yvd9zZPpegH B6VZPbAeGjmzrdi3jmiQi 6IDcuNmluOyBt WBZcoO24ABY8zT17Ip06n NXnqZLrz4klbPc6EwCiUB XkDSF9nHrmEUffd4AeZSG rD53qlEXyy9X4 VRSrrTcjpHNeVsMboZD7e L9kXTbldowbz5sqxfdcNj q6qe50hXVuq5Z7oMG1E7W nltQ0XDKujXNf ZapwaVMJdX1ysgzuo1mxm yrvFjNtPOHhQFs7WOj4WV WviSnsIjQjSX28WPS8CKA oczFrY1QgQMTw zJweGkM5u5L5Yl6YK1RDV ckiD4CWLBTLZJllwRX+PC 05uv19H1VsHiwdBgh1TEF qQUX4mCG7iJ8q QDKkODeis6W4sMP1M9Fes kXhcz9ow5xpBTGqJObtQ3 5jdPDuc9A2QQMofPC3CKC beYiwHjMpxK48 Oyc+EEPckNqtv0KmEgeni 6qyn1lguEy6QcsdGMTqsu SskEkdSYH0h5UwCk2fDJN cwDW5pXS3cB0z WfZcUrP9NSusB563YqVwv TUbPawxO95yQ7LvuLU+PH WdGfy2MOZgeUuzRH9bP1W hZGRpbmctbGVm sRiuZS0uAPYdtwwtAQLxg K4zLWOyS3e8HeEvNsI7BP xrY8VfBJUbwpkbGm69kC8 yDnZpPeF9UTkv A7IkgjL5AKZvqGIpOAfeH MS7Q96ab3S2CZGlXWWbRL T2qOU3hH4oeOowwmfsbXB mdDsgdmVydGlj YFohUYdvX867DWSegKxuL kNvZGluZyBEYXRlOiAgMD IvMTUvMjAyNDwvdGQ+PHR tXQY7nCloLSYe zXDuYKosRf1njHrzyGemW C6wJZDeootfJQOblX5mOP AorLOziOvrKP4jGJRifwe is855WrTnKUO7 MJHfdCAhK1KywB9jLnBwN OZyNKCmD0TenZCkSIgnP5 38DMebNdR9HVVrxhCkG8J sLWFsaWduOiB0 k1Q7Zj0Mh9PnmsixJ0Pvx DTvKvZpJnwjPAj7Q1YkVq wvdHI+OE78BBGmOM75IYl 6ADM2vClfPUyv AKNpX4JgjM1nRoQuMBBwB GRkOyc+PHRhYmxlIHdpZH RoPScxMDAlJyBzdHlsZT0 lXq4iOAXoCKGz wRvjqJDsXcAbq3qxIVXjR RcoFP4zyYauM6WadFQ3IH Qnb5c9Cm13Q97jS4MrgMT +AHNbxIH5hST3 uV5cOxRuRuE1UTyzC641V pWriWQlUdknn5xtb0gtsG s6HaY1CGKholCzrImwOMT 5a8XxHi08J82k IHdpZHRoPSIxNSUiIHZhb Gmekk9gbJ6jFl1+PGNvbC R8qWZ5qJ8lRzZbDiX5XKj vN961KaBtcZUl Diees8kek8uhpSz3RdTbW BWdhkAefHugFAD1q1NlKj 31F1CjcFrsg9NwGrk1ju0 8pHGxb2S3qOS0 B4KrGNPhxacnoXImmYcwO U4iWKReeomuJDWsjR2uQK GyP9w8KiIzDpB3WHncJ9S rjkC5IPVzzVVi HPFsaURYqH1kqcfvp7nbs bupLyCyAAZcGCp8SJt8TW XxmDcoIlQzHXF4OlF8NMH 1kMMelI0adMnr bmmrgX4dJcq+JUQ6cUKsh QVZOT9qVagpbSH+PHRkIH C5yQixCCmzFZDnbR0kQOF uA8l8KmDzEfM7 JKtlQ4GwuiF6WUQloIYpZ XUrcMCGoD6qgvrni4xeim rqSxKbCWTdMEo5BCr9ONR saWduOiBsZWZ0 MbL6SAP1sDHtiP2evQpiz bbhyS8fZwo+QmlydGggRG U5WLq4C8NmOho8BIRzxOb hHA1ueTDyDQjs Em2ljJftrWhmYM7nZNNsv nstr110RvZbf1jyVFHknW MfKZfqHXB3Z57mv7G7CTH dPSEkGPH7tRM2 xM5omXppbfysyYZwaYjox hLjkYisPPxpLOqeY843DW PjbYthEmMfCZd3S3IlKqv 4KOFowGldNB9g sLKdYBjvYf1udIzjsGulE I4vQIOspaqqy625YgRpy2 jjOVEfbITcXUgiZVT3A43 sm8G0DMAaTIHh OON0nXO3pI2hbUlzppwix GVmdDsgdmVydGljYWwtYW exH621FAIlaTviNsBvnPe 1Y8IzGjg4RZRb zJaiFP1opFFoBDkxYj4tg EpwxDbnEA6wUAKrsgtwd6 01UrNet9svAFAakKSaQGw cSIL5U10sd6C1 GHOmGYHeLDZ7nWN6xJ6hl GlnbjogbGVmdDsgdmVydG kaJMpgMMleE657FXDhqTz nPlBhdGllbnQg TMgiQSk6S7LsNosuoHQ+P W71PVNjGU22jEGfpKRpy5 odsJe3KxCwUFYpWZK0sOd mCJyrp1YhKJAx P38itIUnr2D6AKBmiSpjg RAwWvUsvHU0dQ0qUIajdg qfe3gznrfaNmdeo3ybxa5 5iX54T16wQFtx ZHRoPSIzMCUiIHZhbGlnb a1zmC5pYv0+BWZuzXE2vY S8rK2xZSIvUpD9OWdgM15 9InRvcCIvPjxj s1pps8yygUu7VcX0LRNui pZchPiqTKD0i1AxHw25K6 9sIHdpZHRoPSIyMCUiIHZ zoTwuet3gnV1w Ii8+BTJltIK0wTN4jD9kF lVbElI6DDixF407AvLhvF VqDbeyN88vO1VjyLX+PHR rHog3QEEyyNda LJ1gnTRzYZyqDb8wZWE5Z mRbZhIcEWluW9JqQZCowp srrhvhdDL1KCLiUMFvfY7 6Ml8suByaZMBk eSWVuS6zxtbth3omojfcU yOqTELmANa6FHh4BWWcsR qvZxGvUWU7HeW9HYT3qNL enZ2lhCgnfavc uD6qV6CnFZGwfgcwIc24e Z0aFfSmVwY2OLvfQzq+Ul wRHLBLDFiOMUIFKTy2C4C rOud2CDQfmCsp FL2duCXwGFhwEw2mdUann DizMP8fWHZazjalHLCrcJ 1eASCwyYWtpMqcVF8yYBX cfljwg101FxHl NXG7DKOcpPJaY4JezB5aQ vHrZUYvECLnX2GrwMSkQZ gbH861WVqdSvN0DIDegaK tK4NjQWZqfEem SfA4t6F4Zh6aXr6xZm0dM JD9GS78MG62xXUsi5K3cL N4X9ZoWVBqszdfgtswmVH 6NLNsRULkfW01 fORwLIdkIk1qt2F0g918C HQyOSRyfA79Be6xdBepFN YgoIJXeE3bddwnw4oewgb gIzAwMDAwMDt0 MUf8HPUsdRgrRhSzLZZ9E wG6USJ1yJPlaX2ldSvlwz orlB0fHwj+NTUgWWVhcnM 0Y1UdBhl5ZXZs sQdqQL4kvBEfUFuiMf2km LlvhMsaTE8xGODtoxpdET QroW9kWZDvmJOppGtyCH5 lOQBqbogqa256 AnPkXFC5NXYibKPzT1Dyu L6kGaMeLKBzYXNsO8PhoR IoVPblR146UXnbZkC1STH qixGvW5RxOSZn nChnLtH0g2O1Tw7OVVtUY W99ML76rMOqi9N3wJA6Y3 WbSPTnfpewasrioPA1DTK zDANecK64cXRw TTsyHi3tq1Z1v803LWGyO OXjtB30Qv6juFjrZTQtkQ IPhU1fqmlea8hfgolmCtX eNAStGMw7YMq0 CBFalDyiFlYrLWM9XjV2T PT1fPWvvV0ptCysecpraV 9wOyc+A1D9X1IhZzjkmUG +XG29RAPaXF79 xHSjzRJuj4bnvLp6YxOqB JXcZJN6lWbfBKyte1NyDT YmY96jrDNsg1U8DUDnjKe hcHNlOyBlbXB0 rJ8bSRksttjpm7ijivauN kjwa5qycd58lC15Z60zAB dpZHRoPSIzMCUiIHZhbGl guf1asV6vXy2+ ETWocIW0iVK0fK0wMfDjM bU8AJavG996KlXixELmBt con3hls7vfkRu7ZhHcSFN gdmFsaWduPSJ0 l2CpEz54A53tKEsqSNNzJ FWpRTGxOYQtaXvopc9viZ 9wIi8+VR6lv8xoas00mI9 8dHI+PHRkIHN0 sUdzXDxzDYTxpN3tNAanI jS2TMJvUcFnfY39hHAnWR jgQk0wyWrfdXcnHN6yZRP eppdzb022MiFc h4ykHMAbkKLkCLmgORR4D 56uj7V5QGKgBBYgSDR8oR G2jE0axOnfmqhdxLUuzRg gdmVydGljYWwt YUkyU343KEJxsSadHdAlx NDaF7kqnmNGPK7kNglvlA Q+EKDbPTX7vUhuJLhjQMD kpN2gAWXsE8l1 ZaZkZiN7ZNlvF7MgmzY0X LZuxUXiHHVsyCBNfE8nzw jwp0tqjhofCtBnBLFhYGd 2DNm1XNHgdMwm LtVgNRC0TeY2EMK9eEUic X0ehAxxrwoyoA3mQnu+Rk lOOjwvdGQ+EKZuLRS1cZg gELpySZOkvY4c OLWpM7v1ChWfKnU1YAruF 6TdsmC5EEXhiERzPRAlqW UOhN7rfwaul6qlsfkfAmS zWDMmJRv8XWz2 OOHnuQwhQrVtEAZ2MpV7H FW1dNUjeM3gpDlpjtipaQ 9wOyc+TVJOOjwvdGQ+PHR hZLR9aEbkMOda QZGnoW1iRUVhK4h2GfYpL mE5NYmeX9AulvG3PTVojM NoEXUwtFWKkK7vzbpqc0t vcjogIzAwMDAw YPz6GZt8LIJbhDjzLsSgY RK9HgO1UGL5eNEcwC8dpK xxnkrmqV3qIgr+BDX9STC 0GE38XW47T8Ks PjwvdGFibGU+PHRhYmxlI HdpZHRoPScxMDAlJyBzdH zzFX2fVt5cWBUcLNAqlIk aoCRiEuEpc3be YXB (more content not included)... [facility] Coding Summaryon 12-17-2022 Coding Summary HTMLBase 64 IibdeskzKKg3qBi+PGhlY WQ+HZ0XSPHqH33qlUBhyT 9pP2PLDJvBXpukYAMCAVz JYiYjfsWkKN6hhQNtVLEi IC8+CU7zOSUzWmcjcUUij 6G3xQZ0E87bzq0hVFzwlE S7AFRgJbPqxxujt0dyrAl 6IDcuNmluOyBt QAEuzD37IAB4zN16Xy08f RKuuRPoz1sxnBm8CwWwFR ScETQ5oAlvEHvor8WlQDV bA63fmRHnc5C8 MHXojWiepUOzJgZpcHM9s L0yWQgdbnsbi8wtotrnDd o4jt89cGBnm8Q6kPH7Q9R mctK3KDSqdDSj UnxhoUNNpR6sfuarw1nvw iklFbNoGLDgAXf1BBk4PC FvlTwfRtJsKP29YUQ4BYL curRmJ7CaHZYd yOkoGuA8p2Z4Rq9LM4PID lcoJ7QYZDQJWAmmeQP+PC 20yx97G3AlRfyaPpm3ZTQ rQFL5gME4vJ3f QXQnMRppz9K0jCI6L6Vpv qIaaw5wy1ntOIQwIEwwK0 3gzADdx0I4KZVzmSA8MXG hhFzuZtQzrM27 Oyc+PDOjdGgio8AzYhwpf 0fpf9fnfXw7VmzqWUEczr BpfLjmUZO9j8EnUz5qUYE xtBV8rSY9oC0l RdOqXfY6GYhiT539MnIfx FQcPhseJ57dY2MuzZZ+PH ZmLzw1MZLhsBfxJF8tT8R hZGRpbmctbGVm pIovVH0iISKfkgcdYUKdd T9zKLKkJ7p8ZnBcSpA4KQ lsO8XcUXWiukztAg00hF2 kPrMvQyS7FTta F5XxqxG1DDMudGXmOSavU OI0S30cf0Y8PAHzCHFvMD U9oYY6uR9skVaqiccusJM mdDsgdmVydGlj XDjyMYqbP295VXQrwRnfJ kNvZGluZyBEYXRlOiAgMT EvMDcvMjAyMzwvdGQ+PHR eHYW7gPzoEFLf uKFiCKblOt7gtDrgeIrhG G9bXVWfzcdwDGUigZ5vPV NxhBWfpVhpUQ8vJDWefby ym666LyNfGSO8 PNIsjOAgJ5JezA3iDhQmT XQdRAOsI2FntLIkETggX6 18QZkhVqB0IYIkrsPwX3E sLWFsaWduOiB0 r3L2Fb6Ce2AanmzdD7Rnz IPeWgDeAjkeZDo0N5NmFx wvdHI+EA40XERoZC65AVn 4PSC6hUpjRYff ETUpU2XzbG3pIyPkEEOuY GRkOyc+PHRhYmxlIHdpZH RoPScxMDAlJyBzdHlsZT0 mLv6iOQVfBLWw oQergMNhOhXcr7qoVNKvO XbuMS0uxAwkY4LydMW1VV Nys2q7Jj48R89nJ0LtoCA +TOAbsJI3fAC1 fX0iOjNpCrV7SNsmV204S eIftPHbKitqy5srl2nxdG v9KpN1MWBatrKkdQkgZEN 4k2GiZe03I44h IHdpZHRoPSIxNSUiIHZhb Lmeec3gsM9oMa1+PGNvbC S8uUM6oU9jNvRaOxW1JKa wQ297VoXkwUQy Conle2gtf6gbkTv0SgDwB OOzphTreVjvFOI7h6UrPr 45V5OkdXxpe5PgNrr2kj6 5nMZjy0O3eAI6 J1SoMPOnpnfexZMbbVimC I3pOPIisazsFQRszC9mEN PkD3i2YvFrZqV4PDpnW1D qdhY3GYKvaNGm DMRtpQXRlI7knnpcl3clg gtbZlGeHDRbQHc9TIq4KO MexKeeDcOfRCZ8NrK7LLY 9sSNrfW1qnWqt wwckbR2xZoi+MMY7zMKua EWNAQ0iRbuluCV+PHRkIH Q2yBlgHTzaTEYdxH8fDTA uP0y2HfIiDxR5 HZhmV9HwadW0OOKorDZqN WCeePPXcN1mxnqis4sggc kxAgTuWBLlFJz0VZc7NRP saWduOiBsZWZ0 XcD2TMX4yWBbvQ6leCfvw ijunS8uJfd+QmlydGggRG H3AGv5V2WwXsi5SERaiLm vRQ0ftSUxEGkr Ac1tgUsrcGrxRF9wORKdj pukg765XnYwl4brJNDlwC ZcQVbcWAB8V11qf3D3SXV qSYEtVER3pNK9 dU4imEplvvijgPUjiAlra pPxmVbeOGfhKSwjP219PI AtcLmjLeAcTRz7D7LrPuj 9DMTatYsjRB2h pUSvUXipIe7cqFiulBdwY E2aKYJrpvuyb237IwIfx2 mqKFAsqZVvXClaQIC2N39 uj4A5VCErJCAd VLG5yRP7nD5vlMkgbibus GVmdDsgdmVydGljYWwtYW tsU813XOEpaPvzZkQvfRf 8F1PgTmn9JMEm vNepXT4wuGTxRKcgBr0fk ZlfbPykQJ9vQNVzjmfgs8 71SjKbc7qbADGpiGHtMYi qBDY4W88ck2A8 TNFzXRVrARZ5gZE7wE6fr GlnbjogbGVmdDsgdmVydG zjAHepFNhrV860DDSiiZo nPlBhdGllbnQg LGrgQGo3X3NnIgtdlKW+P X85SCNbSN49dIUybTOhb7 hssGm2MhAbKCUuZNW7sUx nUYzsx0KfEDVx U31wnFDbv2M6EJWzbMbfd BItCgZfgQH3gZ1rIVaeoh nmt3blqxrvYlngl5jcrx8 1mC44Q78yCCcc ZHRoPSIzMCUiIHZhbGlnb g5iwD8zPf0+IKUpjEE0qB R8qG5tXKIvPcM7UShpD61 9InRvcCIvPjxj b6hjw9dfhQg6UgV6UPXxj vFgzZwlYSN0d1UyXn61Z7 9sIHdpZHRoPSIyMCUiIHZ clKwwji9qfR1i Ii8+WJRtsDD2sQL7qA2mX oMqNrY4WKsjC345UpZkiX CpTpqcT11qV1QnePI+PHR xCux1CLEhiCng OB5frWMcYRcaFl6wKFQ4F vNxRfNmYWknK6JgJEHabi htlpxvwOY7MBMdCSTcsU6 1Qg2owZuwZPFk tYZYnU4oiuvdi0oazkqkD sFzLGCeRHp9ZMu5EXLyuW jhBeHgRBW2IaS0UUE7aGQ xdH4dmJbudfjr mI6kM5CsVGEbvciaZl49x A4cWcSiSeI6XPscDys+Ul bZCUDGKMlTJJSFOCi9E8G dYxw5GYOcnIty OJ5bhUUlYUeuWc3srOzln TttRY4xSNOyouckQUKqjK 0bKUDeuTDfmUwnFF1uNQI cvhllo375UkTm LKC8WIWhtZJfE7TtwH5gG fDnVTSkQVZyA9GeoDDpOZ grB563HVjeNhB8ONIdfuL hU4FlDBZcoUfm TfJ2s3W3Fv2cUg1lOu6nR VV1PU19NE41bURnw2Q5cT G8P7UjNSTubdkaiuzgsVT 3ALFsUCFapU50 eXXyCIwsPe7aw2Q7z144E FGmRQOgsO16Gl3uoMluRY GdzWBTlS1rzwkzj8aazjs gIzAwMDAwMDt0 MXk2JJNuqRwfLaOgIUU2W uS2ZYI3cUJltP5zhQygot vjtI5aIvd+NTUgWWVhcnM 8Y2KpOfh5ODLp jJqgRV8ukCXxYCehEv4ad EqfdXiuZL1fKRAqgchyIJ JudZ1mOTXxoIVinEamIW1 fJIHjoferk540 ErKqZQA7EAEkpWKhQ5Qmu T6mVjRmPZFbEWXtV1WonT DjBOjgH014MNrsDkV0COW clhIgN7YnSANs wJmhZwO7e6R7Sl9TQCzRV G50JT21kLCzj5W6sNH0Q6 IwCYLabchlcpqyuQV2BIK yNISpsQ04rQBi IIsxOp5gi4H3d476DBEcS UGveH88Ws0teBhsHJUjoQ ENjJ1kfmuwd1jdhvikTnA kQCOiONx0DYs4 XTUtpNvdOeGoXGG2WhX0Y XF1zFTuzY4hqPvsewfdrK 9wOyc+O0H4I2KjZpncgCF +KR00SFJaXR18 hTJbkLXbc9lycGv4SrPvR SJsWQS4tDuaJMozi9FcZX BpO03xrXNum0X5LPBclAp hcHNlOyBlbXB0 sO7oHRpajdsgf8xhgjzcJ froa9qdod27mA12W62oKU dpZHRoPSIzMCUiIHZhbGl njl1xlH0dUx1+ QRHxxQL6wFB9kQ2yKiEfR nW3IUmoT958FtZifBGiHb ddp2tig2fytOa9EmOqFOK gdmFsaWduPSJ0 c0UgUn54J42oVRrjMDQcR SOmCCNhIFBllSzgpd1pmW 9wIi8+TG0oz1uckn05lI6 8dHI+PHRkIHN0 vVwqQNqgELStnW5pHVecD uU7DCIwVrPmwM58uYFqKK gkXa9waMckkCykHI2gOVA rmsoyj761GdHr z9faRDVvcSZmHHxeRLY2B 54ev1Y7GAEgYCFbFFL0wT E8cD4wuVttvmnlnOChtBp gdmVydGljYWwt FTowX513TJSlbSavCuSur PPfS0fwbqBXXA7dJgmozB Q+JIFtOWF3eBknDSwcWQQ edM8xJCWzW1l7 TwMvMqO3NLltW3XnacH9J YNknBObMFVdnEEFwU9dnu trg8yivydjOwCqAKZwBTn 2JZf1LGEqlQxv LlDsVXK9MtW2EAS8qFGyt E4cgOmyncnxrP0oYlr+Rk lOOjwvdGQ+TKZaTAJ2aSc uNRbtOUDozE1y MXUwA9l7RmBwBrE4HKxjR 0NfcvW0DDQcmWYsIOAfcD EWkM5tkhyzf5ehhfqhTcZ tITZlNKu3YYc8 DNPruYwyWyJwLTP0VrJ8A YG1aGBjgC8xjChgqfxzjG 9wOyc+TVJOOjwvdGQ+PHR oZAK7mIvgHWvo AIRupC3sESBcK3r2VxMbX qZ0DEfbO9HaotV5KIJnkU DyUCVezKDNdR2bsybff2o vcjogIzAwMDAw IBl9UQj1IDBfdBssPlBoT FD7RaF5MXO1cJHsiE3srG sxnvqtvI1vEdm+HNF4EDO 8AP88MZ78K8Dj PjwvdGFibGU+PHRhYmxlI HdpZHRoPScxMDAlJyBzdH loWB6xFx4wZKVvIETiaUu tvVQqYrEcd3in YXB (more content not included)... Normal [facility] 12-11-2022 eGFR Non AA >60 Invalid Interpretation Code [facility] Comment on above: Performed By: #### 1 [id number], [id number] ####[facility] (DEFAULT)[address] [place] [address] 87809 eGFR AA >60 Invalid Interpretation Code [facility] Comment on above: Performed By: #### 1 [id number], [id number] ####[facility] (DEFAULT)[address] [place] [address] 23959 Albumin [Mass/Vol] 4.2 g/dL Normal 3.5-5.0 [facility] Comment on above: Performed By: #### 1 [id number], [id number] ####[facility] (DEFAULT)[address] [place] [address] 49615 Albumin/Globulin [Mass ratio] 1.3 {ratio} Low 1.4-2.6 [facility] Comment on above: Performed By: #### 1 [id number], [id number] ####[facility] (DEFAULT)[address] [place] [address] 68836 Alk Phos 115 IU/L High 32-91 [facility] Comment on above: Performed By: #### 1 [id number], [id number] ####[facility] (DEFAULT)[address] [place] [address] 07707 ALT [Catalytic activity/Vol] 13.0 U/L Low 17.0-63.0 [facility] Comment on above: Performed By: #### 1 [id number], [id number] ####[facility] (DEFAULT)[address] [place] [address] 94677 Anion gap [Moles/Vol] 9.9 mmol/L Normal 5.0-19.0 [facility] Comment on above: Performed By: #### 1 [id number], [id number] ####[facility] (DEFAULT)[address] [place] [address] 52966 AST [Catalytic activity/Vol] 18 U/L Normal 15-41 [facility] Comment on above: Performed By: #### 1 [id number], [id number] ####[facility] (DEFAULT)[address] [place] [address] 86418 Bili Total 0.4 mg/dL Normal 0.3-1.2 [facility] Comment on above: Performed By: #### 1 [id number], [id number] ####[facility] (DEFAULT)[address] [place] [address] 42611 Calcium [Mass/Vol] 9.4 mg/dL Normal 8.9-10.3 [facility] Comment on above: Performed By: #### 1 [id number], [id number] ####[facility] (DEFAULT)[address] [place] [address] 78756 Chloride [Moles/Vol] 108 mmol/L Normal 101-111 [facility] Comment on above: Performed By: #### 1 [id number], [id number] ####[facility] (DEFAULT)[address] [place] [address] 18325 CO2 [Moles/Vol] 27 mmol/L Normal 21-32 [facility] Comment on above: Performed By: #### 1 [id number], [id number] ####[facility] (DEFAULT)[address] [place] [address] 70750 Creatinine [Mass/Vol] 1.22 mg/dL Normal 0.90-1.30 [facility] Comment on above: Performed By: #### 1 [id number], [id number] ####[facility] (DEFAULT)[address] [place] [address] 38161 Globulin (S) [Mass/Vol] 3.1 g/dL Normal 1.5-4.3 [facility] Comment on above: Performed By: #### 1 [id number], [id number] ####[facility] (DEFAULT)[address] [place] [address] 42467 Glucose [Mass/Vol] 108.0 mg/dL Normal 74.0-118.0 [facility] Comment on above: Performed By: #### 1 [id number], [id number] ####[facility] (DEFAULT)[address] [place] [address] 47031 Osmolality 282 mOsm/L Invalid Interpretation Code [facility] Comment on above: Performed By: #### 1 [id number], [id number] ####[facility] (DEFAULT)[address] [place] [address] 36743 Potassium [Moles/Vol] 3.9 mmol/L Normal 3.6-5.1 [facility] Comment on above: Performed By: #### 1 [id number], [id number] ####[facility] (DEFAULT)[address] [place] [address] 84504 Protein [Mass/Vol] 7.3 g/dL Normal 6.5-8.1 [facility] Comment on above: Performed By: #### 1 [id number], [id number] ####[facility] (DEFAULT)[address] [place] [address] 19449 Sodium [Moles/Vol] 141.0 mmol/L Normal 136.0-144.0 [facility] Comment on above: Performed By: #### 1 [id number], [id number] ####[facility] (DEFAULT)[address] [place] [address] 64322 Urea nitrogen [Mass/Vol] 12 mg/dL Normal 8-26 [facility] Comment on above: Performed By: #### 1 [id number], [id number] ####[facility] (DEFAULT)[address] [place] [address] 19275 Urea nitrogen/Creatinine [Mass ratio] 9.8 mg/mg Normal 4.6-16.2 [facility] Comment on above: Performed By: #### 1 [id number], [id number] ####[facility] (DEFAULT)[address] [place] [address] 28517 Lipid Panel Standardon 12-11 Cholesterol [Mass/Vol] 165.0 mg/dL Normal 66.0-200.0 [facility] Comment on above: Performed By: #### 1 [id number], [id number] ####[facility] (DEFAULT)[address] [place] [address] 18702 Cholesterol in HDL [Mass/Vol] 46 mg/dL Normal 40-71 [facility] Comment on above: Performed By: #### 1 [id number], [id number] ####[facility] (DEFAULT)[address] [place] [address] 20304 Cholesterol in LDL [Mass/Vol] 92 mg/dL Normal 1-100 [facility] Comment on above: Performed By: #### 1 [id number], [id number] ####[facility] (DEFAULT)[address] [place] [address]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 Status Comme nt [facility] Work Phone: Mental Status Date Assessment Result Facility 07-01-2021 Cognitive function Cognitive Sta tus Patient at Baseline [facility] Work Phone: Clinical Notes 06-12-2021 to 09-10-2023 Note Date & Type Note Facility 09-10-2023 Hospital Discharg e instructions Patient Education 09/10/2023 08:44:15 Laser Therapy for Kidney Stones, Care After Laser Therapy for Kidney Stones, Care After This sheet gives you information about how to care for yourself after your procedure. Your health care provider may also give you more specific instructions. If you have problems or questions, contact your health care provider. What can I expect after the procedure? After the procedure, it is common to have: Pain. A burning sensation while urinating. Small amounts of blood in your urine. A need to urinate frequently. Pieces of kidney stone in your urine. Mild discomfort when urinating that may be felt in the back. You may experience this if you have a flexible tube (stent) in your ureter. Follow these instructions at home: Medicines Take elic-hux-blhphga and prescription medicines only as told by your health care provider. If you were prescribed an antibiotic medicine, take it as told by your health care provider. Do not stop taking the antibiotic even if you start to feel better. Ask your health care provider if the medicine prescribed to you: ?Requires you to avoid driving or using heavy machinery. ?Can cause constipation. You may need to take actions to prevent or treat constipation, such as: ?Take trts-stw-ucjhreb or prescription medicines. ?Eat foods that are high in fiber, such as beans, whole grains, and fresh fruits and vegetables. ?Limit foods that are high in fat and processed sugars, such as fried or sweet foods. Activity Return to your normal activities as told by your health care provider. Ask your health care provider what activities are safe for you. Do not drive for 24 hours if you were given a sedative during your procedure. General instructions If your health care provider approves, you may take a warm bath to ease discomfort and burning. Drink enough fluid to keep your urine pale yellow. Your health care provider may recommend drinking two 8 oz (237 mL) glasses of water per hour for a few hours after your procedure. You may be asked to strain your urine to collect any stone fragments that you pass. These fragments may be tested. Keep all follow-up visits as told by your health care provider. This is important. If you have a stent, you will need to return to your health care provider to have the stent removed. Contact a health care provider if you: Have pain or a burning feeling that lasts more than 2 days. Feel nauseous. Vomit more and more often. Have difficulty urinating. Have pain that gets worse or does not get better with medicine. Get help right away if: You are unable to urinate, even if your bladder feels full. You have: ?Bright red blood or blood clots in your urine. ?More blood in your urine. ?Severe pain or discomfort. ?A fever or shaking chills. ?Abdominal pain. ?Difficulty breathing. ?Swelling in your legs. This information is not intended to replace advice given to you by your health care provider. Make sure you discuss any questions you have with your health care provider. Document Revised: 06/05/2022 Document Reviewed: 10/01/2021 [employer] Patient Education 2022 [employer]. 09/10/2023 08:44:15 Laser Therapy for Kidney Stones Laser Therapy for Kidney Stones Laser therapy for kidney stones is a procedure to break up small, hard mineral deposits that form in the kidney (kidney stones). The procedure is done using a device that produces a focused beam of light (laser). The laser breaks up kidney stones into pieces that are small enough to be passed out of the body through urination or removed from the body during the procedure. You may need laser therapy if you have kidney stones that are painful or block your urinary tract. This procedure is done by inserting a tube (ureteroscope) into your kidney through the urethral opening. The urethra is the part of the body that drains urine from the bladder. In women, the urethra opens above the vaginal opening. In men, the urethra opens at the tip of the penis. The ureteroscope is inserted through the urethra, and surgical instruments are moved through the bladder and the muscular tube that connects the kidney to the bladder (ureter) until they reach the kidney. Tell a health care provider about: Any allergies you have. All medicines you are taking, including vitamins, herbs, eye drops, creams, and exoq-bfw-fvwimbc medicines. Any problems you or family members have had with anesthetic medicines. Any blood disorders you have. Any surgeries you have had. Any medical conditions you have. Whether you are or may be . What are the risks? Generally, this is a safe procedure. However, problems may occur, including: Infection. Bleeding. Allergic reactions to medicines. Damage to the urethra, bladder, or ureter. Urinary tract infection (UTI). Narrowing of the urethra (urethral stricture). Difficulty passing urine. Blockage of the kidney caused by a fragment of kidney stone. What happens before the procedure? Medicines Ask your health care provider about: ?Changing or stopping your regular medicines. This is especially important if you are taking diabetes medicines or blood thinners. ?Taking medicines such as aspirin and ibuprofen. These medicines can thin your blood. Do not take these medicines unless your health care provider tells you to take them. ?Taking awew-knm-utjeeap medicines, vitamins, herbs, and supplements. Eating and drinking Follow instructions from your health care provider about eating and drinking, which may include: 8 hours before the procedure stop eating heavy meals or foods, such as meat, fried foods, or fatty foods. 6 hours before the procedure stop eating light meals or foods, such as toast or cereal. 6 hours before the procedure stop drinking milk or drinks that contain milk. 2 hours before the procedure stop drinking clear liquids. Staying hydrated Follow instructions from your health care provider about hydration, which may include: Up to 2 hours before the procedure you may continue to drink clear liquids, such as water, clear fruit juice, black coffee, and plain tea. General instructions You may have a physical exam before the procedure. You may also have tests, such as imaging tests and blood or urine tests. If your ureter is too narrow, your health care provider may place a soft, flexible tube (stent) inside of it. The stent may be placed days or weeks before your laser therapy procedure. Plan to have someone take you home from the hospital or clinic. If you will be going home right after the procedure, plan to have someone stay with you for 24 hours. Do not use any products that contain nicotine or tobacco for at least 4 weeks before the procedure. These products include cigarettes, e-cigarettes, and chewing tobacco. If you need help quitting, ask your health care provider. Ask your health care provider: ?How your surgical site will be marked or identified. ?What steps will be taken to help prevent infection. These may include: ?Removing hair at the surgery site. ?Washing skin with a germ-killing soap. ?Taking antibiotic medicine. What happens during the procedure? An IV will be inserted into one of your veins. You will be given one or more of the following: ?A medicine to help you relax (sedative). ?A medicine to numb the area (local anesthetic). ?A medicine to make you fall asleep (general anesthetic). A ureteroscope will be inserted into your urethra. The ureteroscope will send images to a video screen in the operating room to guide your surgeon to the area of your kidney that will be treated. A small, flexible tube will be threaded through the ureteroscope and into your bladder and ureter, up to your kidney. The laser device will be inserted into your kidney through the tube. Your surgeon will pulse the laser on and off to break up kidney stones. A surgical instrument that has a tiny wire basket may be inserted through the tube into your kidney to remove the pieces of broken kidney stone. The procedure may vary among health care providers and hospitals. What happens after the procedure? Your blood pressure, heart rate, breathing rate, and blood oxygen level will be monitored until you leave the hospital or clinic. You will be given pain medicine as needed. You may continue to receive antibiotics. You may have a stent temporarily placed in your ureter. Do not drive for 24 hours if you were given a sedative during your procedure. You may be given a strainer to collect any stone fragments that you pass in your urine. Your health care provider may have these tested. This information is not intended to replace advice given to you by your health care provider. Make sure you discuss any questions you have with your health care provider. Document Revised: 06/05/2022 Document Reviewed: 10/01/2021 [employer] Patient Education 2022 [employer]. 09/10/2023 08:41:06 Steps to Quit Smoking Steps to Quit Smoking Smoking tobacco is the leading cause of preventable . It can affect almost every organ in the body. Smoking puts you and those around you at risk for developing many serious chronic diseases. Quitting smoking can be very challenging. Do not get discouraged if you are not successful the first time. Some people need to make many attempts to quit before they achieve long-term success. Do your best to stick to your quit plan, and talk with your health care provider if you have any questions or concerns. How do I get ready to quit? When you decide to quit smoking, create a plan to help you succeed. Before you quit: Pick a date to quit. Set a date within the next 2 weeks to give you time to prepare. Write down the reasons why you are quitting. Keep this list in places where you will see it often. Tell your family, friends, and co-workers that you are quitting. Support from people you are close to can make quitting easier. Talk with your health care provider about your options for quitting smoking. Find out what treatment options are covered by your health insurance. Identify people, places, things, and activities that make you want to smoke (triggers). Avoid them. What first steps can I take to quit smoking? Throw away all cigarettes at home, at work, and in your car. Throw away smoking accessories, such as ashtrays and lighters. Clean your car. Make sure to empty the ashtray. Clean your home, including curtains and carpets. What strategies can I use to quit smoking? Talk with your health care provider about combining strategies, such as taking medicines while you are also receiving in-person counseling. Using these two strategies together makes you more likely to succeed in quitting than if you used either strategy on its own. If you are or , talk with your health care provider about finding counseling or other support strategies to quit smoking. Do not take medicine to help you quit smoking unless your health care provider tells you to. Quit right away Quit smoking completely, instead of gradually reducing how much you smoke over a period of time. Stopping smoking right away may be more successful than gradually quitting. Attend in-person counseling to help you build problem-solving skills. You are more likely to succeed in quitting if you attend counseling sessions regularly. Even short sessions of 10 minutes can be effective. Take medicine You may take medicines to help you quit smoking. Some medicines require a prescription. You can also purchase vczk-xwt-kpqgpre medicines. Medicines may have nicotine in them to replace the nicotine in cigarettes. Medicines may: Help to stop cravings. Help to relieve withdrawal symptoms. Your health care provider may recommend: Nicotine patches, gum, or lozenges. Nicotine inhalers or sprays. Non-nicotine medicine that you take by mouth. Find resources Find resources and support systems that can help you quit smoking and remain smoke-free after you quit. These resources are most helpful when you use them often. They include: Online chats with a counselor. Telephone quitlines. Printed self-help materials. Support groups or group counseling. Text messaging programs. Mobile phone apps or applications. Use apps that can help you stick to your quit plan by providing reminders, tips, and encouragement. Examples of free services include Quit Guide from the CDC and smokefree.gov What can I do to make it easier to quit? Reach out to your family and friends for support and encouragement. Call telephone quitlines, such as 7-681-YNUW-NOW, reach out to support groups, or work with a counselor for support. Ask people who smoke to avoid smoking around you. Avoid places that trigger you to smoke, such as bars, parties, or smoke-break areas at work. Spend time with people who do not smoke. Lessen the stress in your life. Stress can be a smoking trigger for some people. To lessen stress, try: ?Exercising regularly. ?Doing deep-breathing exercises. ?Doing yoga. ?Meditating. What benefits will I see if I quit smoking? Over time, you should start to see positive results, such as: Improved sense of smell and taste. Decreased coughing and sore throat. Slower heart rate. Lower blood pressure. Clearer and healthier skin. The ability to breathe more easily. Fewer sick days. Summary Quitting smoking can be very challenging. Do not get discouraged if you are not successful the first time. Some people need to make many attempts to quit before they achieve long-term success. When you decide to quit smoking, create a plan to help you succeed. Quit smoking right away, not slowly over a period of time. Find resources and support systems that can help you quit smoking and remain smoke-free after you quit. This information is not intended to replace advice given to you by your health care provider. Make sure you discuss any questions you have with your health care provider. Document Revised: 01/18/2022 Document Reviewed: 01/18/2022 Elsevier Patient Education 2022 [employer] Follow Up Care 09/04/2023 08:29:38 With:YECENIA BUSTILLO, Buster Tinoco, URL Address: [facility] [address] , [place] [address]- When: Unknown [facility] 09-10-2023 Note Patient Education Nephrology Laser Therapy for Kidney Stones, Care After This sheet gives you information about how to care for yourself after your procedure. Your health care provider may also give you more specific instructions. If you have problems or questions, contact your health care provider. What can I expect after the procedure? After the procedure, it is common to have: ? Pain. ? A burning sensation while urinating. ? Small amounts of blood in your urine. ? A need to urinate frequently. ? Pieces of kidney stone in your urine. ? Mild discomfort when urinating that may be felt in the back. You may experience this if you have a flexible tube (stent) in your ureter. Follow these instructions at home: Medicines ? Take hgwe-etn-uuhkqye and prescription medicines only as told by your health care provider. ? If you were prescribed an antibiotic medicine, take it as told by your health care provider. Do not stop taking the antibiotic even if you start to feel better. ? Ask your health care provider if the medicine prescribed to you: ? Requires you to avoid driving or using heavy machinery. ? Can cause constipation. You may need to take actions to prevent or treat constipation, such as: ? Take mnqi-oiu-rbmyrbt or prescription medicines. ? Eat foods that are high in fiber, such as beans, whole grains, and fresh fruits and vegetables. ? Limit foods that are high in fat and processed sugars, such as fried or sweet foods. Activity ? Return to your normal activities as told by your health care provider. Ask your health care provider what activities are safe for you. ? Do not drive for 24 hours if you were given a sedative during your procedure. General instructions ? If your health care provider approves, you may take a warm bath to ease discomfort and burning. ? Drink enough fluid to keep your urine pale yellow. Your health care provider may recommend drinking two 8 oz (237 mL) glasses of water per hour for a few hours after your procedure. ? You may be asked to strain your urine to collect any stone fragments that you pass. These fragments may be tested. ? Keep all follow-up visits as told by your health care provider. This is important. If you have a stent, you will need to return to your health care provider to have the stent removed. Contact a health care provider if you: ? Have pain or a burning feeling that lasts more than 2 days. ? Feel nauseous. ? Vomit more and more often. ? Have difficulty urinating. ? Have pain that gets worse or does not get better with medicine. Get help right away if: ? You are unable to urinate, even if your bladder feels full. ? You have: ? Bright red blood or blood clots in your urine. ? More blood in your urine. ? Severe pain or discomfort. ? A fever or shaking chills. ? Abdominal pain. ? Difficulty breathing. ? Swelling in your legs. This information is not intended to replace advice given to you by your health care provider. Make sure you discuss any questions you have with your health care provider. Document Revised: 06/05/2022 Document Reviewed: 10/01/2021 [employer] Patient Education ? 2022 [employer]. Laser Therapy for Kidney Stones Laser therapy for kidney stones is a procedure to break up small, hard mineral deposits that form in the kidney (kidney stones). The procedure is done using a device that produces a focused beam of light (laser). The laser breaks up kidney stones into pieces that are small enough to be passed out of the body through urination or removed from the body during the procedure. You may need laser therapy if you have kidney stones that are painful or block your urinary tract. This procedure is done by inserting a tube (ureteroscope) into your kidney through the urethral opening. The urethra is the part of the body that drains urine from the bladder. In women, the urethra opens above the vaginal opening. In men, the urethra opens at the tip of the penis. The ureteroscope is inserted through the urethra, and surgical instruments are moved through the bladder and the muscular tube that connects the kidney to the bladder (ureter) until they reach the kidney. Tell a health care provider about: ? Any allergies you have. ? All medicines you are taking, including vitamins, herbs, eye drops, creams, and jmpp-imt-idortxa medicines. ? Any problems you or family members have had with anesthetic medicines. ? Any blood disorders you have. ? Any surgeries you have had. ? Any medical conditions you have. ? Whether you are or may be . What are the risks? Generally, this is a safe procedure. However, problems may occur, including: ? Infection. ? Bleeding. ? Allergic reactions to medicines. ? Damage to the urethra, bladder, or ureter. ? Urinary tract infection (UTI). ? Narrowing of the urethra (urethral stricture). ? Difficulty passing urine. ? Blockage of the kidney caused by a f (more content not included)... [facility] 09-03-2023 Evaluation note Diagnosis Onset Date Acute kidney injury acute BPH loc w urin obs/LUTS acut e Chronic kidney disease, stage 3a acute Hydronephrosis acute NSAID long-term use [facility] Work Phone: 1(931) 830-852504-02-2024 Hospital Discharge instructions Patient Education 05/13/2023 11:05:40 Benign Prostatic Hyperplasia Benign Prostatic Hyperplasia Benign prostatic hyperplasia (BPH) is an enlarged prostate gland that is caused by the normal agingprocess. The prostate may get bigger as a man gets older. The condition is not caused by cancer. The prostate is a walnut-sized gland that is involved in the production of semen. It is located in front of the rectum and below the bladder. The bladder stores urine. The urethra carries stored urine ou t of the body. An enlarged prostate can press on the urethra. This can make it harder to pass urine. The buildup of urine in the bladder can cause infection. Back pressure and infection may progress to bladder damage and kidney (renal) failure. What are the causes? This condition is part of the normal aging process. However, not all men develop problems from thiscondition. If the prostate enlarges away from the urethra, urine flow will not be blocked. If it enlarges toward the urethra and compresses it, there will be problems passing urine. What increases the risk? This condition is more likely to develop in men older than 50 years. What are the signs or symptoms? Symptoms of this condition include: Getting up often during the night to urinate. Needing to urinate frequently during the day. Difficulty starting urine flow. Decrease in size and strength of your urine stream. Leaking (dribbling) after urinating. Inability to pass urine. This needs immediate treatment. Inability to completely empty your bladder. Pain when you pass urine. This is more common if there is also an infection. Urinary tract infection (UTI). How is this diagnosed? This condition is diagnosed based on your medical history, a physical exam, and your symptoms. Tests will also be done, such as: A post-void bladder scan. This measures any amount of urine that may remain in your bladder after you finish urinating. A digital rectal exam. In a rectal exam, your health care provider checks your prostate by putting a lubricated, gloved finger into your rectum to feel the back of your prostate gland. This exam detects the size of your gland and any abnormal lumps or growths. An exam of your urine (urinalysis). A prostate specific antigen (PSA) screening. This is a blood test used to screen for prostate cancer. An ultrasound. This test uses sound waves to electronically produce a picture of your prostate gland. Your health care provider may refer you to a specialist in kidney and prostate diseases (urologist). How is this treated? Once symptoms begin, your health care provider will monitor your condition (active surveillance or watchful waiting). Treatment for this condition will depend on the severity of your condition. Treatment may include: Observation and yearly exams. This may be the only treatment needed if your condition and symptoms are mild. Medicines to relieve your symptoms, including: ?Medicines to shrink the prostate. ?Medicines to relax the muscle of the prostate. Surgery in severe cases. Surgery may include: ?Prostatectomy. In this procedure, the prostate tissue is removed completely through an open incision or with a laparoscope or robotics. ?Transurethral resection of the prostate (TURP). In this procedure, a tool is inserted through the opening at the tip of the penis (urethra). It is used to cut away tissue of the inner core of the prostate. The pieces are removed through the same opening of the penis. This removes the blockage. ?Transurethral incision (TUIP). In this procedure, small cuts are made in the prostate. This lessens the prostate's pressure on the urethra. ?Transurethral microwave thermotherapy (TUMT). This procedure uses microwaves to create heat. The heat destroys and removes a small amount of prostate tissue. ?Transurethral needle ablation (TUNA). This procedure uses radio frequencies to destroy and remove a small amount of prostate tissue. ?Interstitial laser coagulation (ILC). This procedure uses a laser to destroy and remove a small amount of prostate tissue. ?Transurethral electrovaporization (TUVP). This procedure uses electrodes to destroy and remove a small amount of prostate tissue. ?Prostatic urethral lift. This procedure inserts an implant to push the lobes of the prostate away from the urethra. Follow these instructions at home: Take wjjo-gmm-lcdsvgj and prescription medicines only as told by your health care provider. Monitor your symptoms for any changes. Contact your health care provider with any changes. Avoid drinking large amounts of liquid before going to bed or out in public. Avoid or reduce how much caffeine or alcohol you drink. Give yourself time when you urinate. Keep all follow-up visits. This is important. Contact a health care provider if: You have unexplained back pain. Your symptoms do not get better with treatment. You develop side effects from the medicine you are taking. Your urine becomes very dark or has a bad smell. Your lower abdomen becomes distended and you have trouble passing urine. Get help right away if: You have a fever or chills. You suddenly cannot urinate. You feel light-headed or very dizzy, or you faint. There are large amounts of blood or clots in your urine. Your urinary problems become hard to manage. You develop moderate to severe low back or flank pain. The flank is the side of your body between the ribs and the hip. These symptoms may be an emergency. Get help right away. Call 911. Do not wait to see if the symptoms will go away. Do not drive yourself to the hospital. Summary Benign prostatic hyperplasia (BPH) is an enlarged prostate that is caused by the normal aging process. It is not caused by cancer. An enlarged prostate can press on the urethra. This can make it hard to pass urine. This condition is more likely to develop in men older than 50 years. Get help right away if you suddenly cannot urinate. This information is not intended to replace advice given to you by your health care provider. Make sure you discuss any questions you have with your health care provider. Document Revised: 08/15/2021 Document Reviewed: 08/15/2021 [employer] Patient Education 2022 [employer]. 05/13/2023 10:50:57 Steps to Quit Smoking Steps to Quit Smoking Smoking tobacco is the leading cause of preventable . It can affect almost every organ in the body. Smoking puts you and those around you at risk for developing many serious chronic diseases. Quitting smoking can be very challenging. Do not get discouraged if you are not successful the first time. Some people need to make many attempts to quit before they achieve long-term success. Do your best to stick to your quit plan, and talk with your health care provider if you have any questionsor concerns. How do I get ready to quit? When you decide to quit smoking, create a plan to help you succeed. Before you quit: Pick a date to quit. Set a date within the next 2 weeks to give you time to prepare. Write down the reasons why you are quitting. Keep this list in places where you will see it often. Tell your family, friends, and co-workers that you are quitting. Support from people you are close to can make quitting easier. Talk with your health care provider about your options for quitting smoking. Find out what treatment options are covered by your health insurance. Identify people, places, things, and activities that make you want to smoke (triggers). Avoid them. What first steps can I take to quit smoking? Throw away all cigarettes at home, at work, and in your car. Throw away smoking accessories, such as ashtrays and lighters. Clean your car. Make sure to empty the ashtray. Clean your home, including curtains and carpets. What strategies can I use to quit smoking? Talk with your health care provider about combining strategies, such as taking medicines while you are also receiving in-person counseling. Using these two strategies together makes you more likely to succeed in quitting than if you used either strategy on its own. If you are or , talk with your health care provider about finding counseling or other support strategies to quit smoking. Do not take medicine to help you quit smoking unless your health care provider tells you to. Quit right away Quit smoking completely, instead of gradually reducing how much you smoke over a period of time. Stopping smoking right away may be more successful than gradually quitting. Attend in-person counseling to help you build problem-solving skills. You are more likely to succeed in quitting if you attend counseling sessions regularly. Even short sessions of 10 minutes can be effective. Take medicine You may take medicines to help you quit smoking. Some medicines require a prescription. You can also purchase kpot-djc-gbbhrrf medicines. Medicines may have nicotine in them to replace the nicotine in cigarettes. Medicines may: Help to stop cravings. Help to relieve withdrawal symptoms. Your health care provider may recommend: Nicotine patches, gum, or lozenges. Nicotine inhalers or sprays. Non-nicotine medicine that you take by mouth. Find resources Find resources and support systems that can help you quit smoking and remain smoke-free after you quit. These resources are most helpful when you use them often. They include: Online chats with a counselor. Telephone quitlines. Printed self-help materials. Support groups or group counseling. Text messaging programs. Mobile phone apps or applications. Use apps that can help you stick to your quit plan by providing reminders, tips, and encouragement. Examples of free services include Quit Guide from the CDC and smokefree.gov What can I do to make it easier to quit? Reach out to your family and friends for support and encouragement. Call telephone quitlines, such as 3-592-UROU-NOW, reach out to support groups, or work with a counselor for support. Ask people who smoke to avoid smoking around you. Avoid places that trigger you to smoke, such as bars, parties, or smoke-break areas at work. Spend time with people who do not smoke. Lessen the stress in your life. Stress can be a smoking trigger for some people. To lessen stress, try: ?Exercising regularly. ?Doing deep-breathing exercises. ?Doing yoga. ?Meditating. What benefits will I see if I quit smoking? Over time, you should start to see positive results, such as: Improved sense of smell and taste. Decreased coughing and sore throat. Slower heart rate. Lower blood pressure. Clearer and healthier skin. The ability to breathe more easily. Fewer sick days. Summary Quitting smoking can be very challenging. Do not get discouraged if you are not successful the first time. Some people need to make many attempts to quit before they achieve long-term success. When you decide to quit smoking, create a plan to help you succeed. Quit smoking right away, not slowly over a period of time. Find resources and support systems that can help you quit smoking and remain smoke-free after you quit. This information is not intended to replace advice given to you by your health care provider. Make sure you discuss any questions you have with your health care provider. Document Revised: 01/18/2022 Document Reviewed: 01/18/2022 [employer] Patient Education 2022 [employer] Follow Up Care 02/18/2023 08:56:30 With:YECENIA BUSTILLO, Buster Tinoco, URL Address: [facility] [address] , [place] [address]- [phone] When: Unknown Comments:6 mos (new med) [facility] 02-19-2024 NoteEntered by SONYA MARTINEZ on March 31, 2023 15:06:34 EST From: SONYA MARTINEZ To: [place] [id number] Sent: 03/31/2023 15:06:34 EST Subject: Medication Management Documented Complete:metoclopramide (metoclopramide 10 mg oral tablet) Signed by SONYA MARTINEZ 03/31/2023 15:06:00 EST Submitted: Complete:metoclopramide (metoclopramide 10 mg oral tablet) Signed by SONYA MARTINEZ 03/31/2023 15:06:00 EST Submitted: Complete:pantoprazole (pantoprazole 40 mg oral delayed release tablet) Signed by SONYA MARTINEZ 03/31/2023 15:06:00 EST Approved with modifications: metoclopramide (Metoclopramide HCl 10 MG Oral Tablet) TAKE 1 TABLET BY MOUTH 4 TIMES DAILY 30 MIN BEFORE MEAL(S) AND AT BEDTIME Qty: 28 tab(s) Days Supply: 30 Refills: 3 Substitutions Allowed Route To Pharmacy [place] [id number] Signed by SONYA MARTINEZ Approved with modifications: pantoprazole (Pantoprazole Sodium 40 MG Oral Tablet Delayed Release) Take 1 tablet by mouth twice daily Qty: 180 tab(s) Days Supply: 90 Refills: 3 Substitutions Allowed Route To Pharmacy [place] [id number] Signed by SONYA MARTINEZ From: [place] [address] To: Tavo Zavala DO, DO Sent: March 31, 2023 1:40:09 PM ADULT CARE PROVIDER Subject: Medication Management Due: April 01, 2023 12:07:44 AM ADULT CARE PROVIDER On Hold Pending Signature Dispensed Drug: metoclopramide (metoclopramide 10 mg oral tablet), TAKE 1 TABLET BY MOUTH 4 TIMES DAILY 30 MIN BEFORE MEAL(S) AND AT BEDTIME Quantity: 28 tab(s) Days Supply: 30 Refills: 0 Substitutions Allowed Notes from Pharmacy: On Hold Pending Signature Dispensed Drug: pantoprazole (pantoprazole 40 mg oral delayed release tablet), Take 1 tablet by mouth twice daily Quantity: 180 tab(s) Days Supply: 90 Refills: 0 Substitutions Allowed [id number] Note Entered by Kenia Farris on March 10, 2023 08:28:05 EST From: Kenia Farris To: [place] [address] Sent: 03/10/2023 08:28:04 EST Subject: Medication Management Submitted: Order:atorvastatin (atorvastatin 40 mg oral tablet) 1 tab(s) Oral Daily Qty: 90 tab(s) Days Supply: 90 Refills: 3 Substitutions Allowed Route To [place] [id number] Signed by Kenia Farris 03/10/2023 08:27:00 EST Submitted: Complete:atorvastatin (atorvastatin 40 mg oral tablet) Signed by Kenia Farris 03/10/2023 08:28:00 EST Not Approved: New Rx to follow atorvastatin (Atorvastatin Calcium 40 MG Oral Tablet) Take 1 tablet by mouth once daily Qty: 90 tab(s) Days Supply: 90 Refills: 0 Substitutions Allowed Route To [place] [id number] Signed by Kenia Farris From: [place] [address] To: Tavo Zavala DO, DO Sent: March 09, 2023 9:07:59 AM ADULT CARE PROVIDER Subject: Medication Management Due: March 10, 2023 12:25:32 AM ADULT CARE PROVIDER On Hold Pending Signature Dispensed Drug: atorvastatin (atorvastatin 40 mg oral tablet), Take 1 tablet by mouth once daily Quantity: 90 tab(s) Days Supply: 90 Refills: 0 Substitutions Allowed [id number] Hospital Discharge instructions Follow Up Care 11/29/2022 13:43:04 With:YECENIA BUSTILLO, Buster Tinoco, URL Address: [facility] [address] , [place] [address]- [phone] When: Unknown [facility] 08-21-2023 NoteEducation Materials Neurology Head Injury, Adult There are many types of head injuries. Head injuries can be as minor as a small bump, or they can be a serious medical issue. More severe head injuries include: ? A jarring injury to the brain (concussion). ? A bruise (contusion) of the brain. This means there is bleeding in the brain that can cause swelling. ? A cracked skull (skull fracture). ? Bleeding in the brain that collects, clots, and forms a bump (hematoma). After a head injury, most problems occur within the first 24 hours, but side effects may occur up to 7?10 days after the injury. It is important to watch your condition for any changes. You may need to be observed in the emergency department or urgent care, or you may be admitted to the hospital. What are the causes? There are many possible causes of a head injury. Serious head injuries may be caused by car accidents, bicycle or motorcycle accidents, sports injuries, falls, or being struck by an object. What are the symptoms? Symptoms of a head injury include a contusion, bump, or bleeding at the site of the injury. Other physical symptoms may include: ? Headache. ? Nausea or vomiting. ? Dizziness. ? Blurred or double vision. ? Being uncomfortable around bright lights or loud noises. ? Seizures. ? Feeling tired. ? Trouble being awakened. ? Loss of consciousness. Mental or emotional symptoms may include: ? Irritability. ? Confusion and memory problems. ? Poor attention and concentration. ? Changes in eating or sleeping habits. ? Anxiety or depression. How is this diagnosed? This condition can usually be diagnosed based on your symptoms, a description of the injury, and a physical exam. You may also have imaging tests done, such as a CT scan or an MRI. How is this treated? Treatment for this condition depends on the severity and type of injury you have. The main goal of treatment is to prevent complications and allow the brain time to heal. Mild head injury If you have a mild head injury, you may be sent home, and treatment may include: ? Observation. A responsible adult should stay with you for 24 hours after your injury and check onyou often. ? Physical rest. ? Brain rest. ? Pain medicines. Severe head injury If you have a severe head injury, treatment may include: ? Close observation. This includes hospitalization with the following care: ? Frequent physical exams. ? Frequent checks of how your brain and nervous system are working (neurological status). ? Checking your blood pressure and oxygen levels. ? Medicines to relieve pain, prevent seizures, and decrease brain swelling. ? Airway protection and breathing support. This may include using a ventilator. ? Treatments that monitor and manage swelling inside the brain. ? Brain surgery. This may be needed to: ? Remove a collection of blood or blood clots. ? Stop the bleeding. ? Remove a part of the skull to allow room for the brain to swell. Follow these instructions at home: Activity ? Rest and avoid activities that are physically hard or tiring. ? Make sure you get enough sleep. ? Let your brain rest by limiting activities that require a lot of thought or attention, such as: ? Watching TV. ? Playing memory games and puzzles. ? Job-related work or homework. ? Working on the computer, using social media, and texting. ? Avoid activities that could cause another head injury, such as playing sports, until your health care provider approves. Having another head injury, especially before the first one has healed, can be dangerous. ? Ask your health care provider when it is safe for you to return to your regular activities, including work or school. Ask your health care provider for a ndmf-al-nalj plan for gradually returning to activities. ? Ask your health care provider when you can drive, ride a bicycle, or use heavy machinery. Your ability to react may be slower after a brain injury. Do not do these activities if you are dizzy. Lifestyle ? Do not drink alcohol until your health care provider approves. Do not use drugs. Alcohol and certain drugs may slow your recovery and can put you at risk of further injury. ? If it is harder than usual to remember things, write them down. ? If you are easily distracted, try to do one thing at a time. ? Talk with family members or close friends when making important decisions. ? Tell your friends, family, a trusted colleague, and pond worker about your injury, symptoms, andrestrictions. Have them watch for any new or worsening problems. General instructions ? Take symi-lia-txrmsde and prescription medicines only as told by your health care provider. ? Have someone stay with you for 24 hours after your head injury. This person should watch you for any changes in your symptoms and be ready to seek medical help. ? Keep all follow-up visits as told (more content not included)...[id number] Discharge summary Author Boogie Trotter [facility] July 01, 2021 10:36am Note Date/Time July 01, 2021 10:34 am [facility] [address] [place] [address] Discharge Summary Signed Patient: Priscilla Cerda MR#: [id number] : 1965 Acct:[id number] Age/Sex: 55 / M Adm Date: 2 Loc: Room: [address] [place] [address]: Boogie Trotter MD Copies to: MD Tavo Torres,DO~ Providers Date of Discharge: 07/01/21 Discharging Provider: Boogie Trotter Primary Care Provider: Tavo Zavala Discharge Diagnosis (1) Alzheimer disease: (2) Depression: (3) TBI (traumatic brain injury): Final Diagnosis Final Discharge Diagnosis: Major neurocognitive disorder Major depressive disorder Traumatic brain injury Summary Hospital Course Hospital course: According to admission note: Mr. 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 Admitted to homicidal thoughts to his therapist yesterday 06/27 who called EMS, brought to [facility] ED then transferred to this facility. He has noticed being more irritable, depressed mood, decreased appetite and low energy for the past 3-4 weeks prior to his admission. 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 He thinks these changes are related to recent stress regarding his relationship with his adult children and reports his ex- is now living in his apartment due to financial troubles. He is disabled and receives a monthly stipend. Deniesany current suicidal ideation. No history of manic episodes. Current medications for his mood include venlafaxine 200 mg BID, bupropion 300 mg qd, Trazodone 50 mg qhs, and brexpiprazole 1 mg qd. Memory impairment managedwith Donepezil 10 mg qhs, and memantine 28 mg a day. History of alcohol abuse, reports 11 year sobriety. He is a smoker. Denies any other substance use. Reports a previous psychiatric hospitalization for suicide attempt in 1999 whilehe was drinking. Stated he threatened to jump off a bridge before being arrestedby police. He also attempted suicide as a teenager by cutting his wrists but wasnot hospitalized for this episode. Other medical history includes GERD and gastroparesis and he has seen by Dr. Azul in the past. Currently managed with pantoprazole 40 mg qd, sucralafate 1 gtid, and metoclopramide 10 mg tid. He is followed by his PCP Dr. Elizabeth. His past neurologist Dr. Biswas managed his seizure medications but he stated he had a recent change in insurance which required him to find a new provider. He did have witnessed seizure activity at [facility], denies any recent changes in his medications or frequency of his seizures. Patient was restarted on his home medications. His dose of Rexulti was increased and Wellbutrin was slowly tapered off. His dose of Effexor was also slightly decreased as well. He tolerated the medication without any problems and did not report any side effects. On the first day he did show some irritability, but that improved during his hospitalization. He then became morecooperative and seem to be in better spirits. He did experience some seizures during his hospitalization but does follow-up with a neurologist regarding this. As his irritability improved, he seemed to be overall doing better. He was notirritable or agitated during the last few days of his admission. On the day of discharge he reported that he was doing better. He denied any hallucinations, suicidality, homicidality or irritability. He was comfortable with discharge and stated that he would follow-up with outpatient services. Time spent discussing smoking cessation with patient: 3 to 10 minutes Condition Condition at Discharge: Stable Status at Discharge Cognitive/behavioral status at discharge: Mental Status Exam: Appearance: grossly normal Mental Status: mental status grossly normal Mood: Euthymic mood Affect: Normal affect Speech and Movement: speech and movement normal and speech clear Attitude: cooperative Thought Process: normal Thought Content: Denied hallucinations, no homicidality and no suicidality Insight: Good Judgment: Good Functional status at discharge: independent ambulation Overall status at discharge: patient is back to baseline Time Spent with Patient Time spent providing/coordinating discharge services (# min): 30 Diagnostic Studies Completed and Pending Studies Labs on day of discharge: 06/30/21 18:04: Prolactin 28.82 H 06/30/21 18:04: Troponin I High Sens < 3 Exam Physical Exam Vital Signs: Temp Pulse Resp BP Pulse Ox 97.8 F 71 14 127/82 99 07/01/21 07:30 07/01/21 07:30 07/01/21 07:30 07/01/21 07:30 07/01/21 07:30 Discharge Plan Discharge Plan Patient Disposition: Home Activity: No Activity Restriction Diet: Regular Additional Instructions: Regular Diet No Activity Restrictions Instructions: Depression, Adult (DC), [facility] DC Instructions Prescriptions: New Rexulti 2 mg Tablet 2 mg PO DAILY 30 Days Qty: 30 RF: 0 venlafaxine 75 mg Tablet 150 mg PO BID 30 Days Qty: 120 RF: 0 nicotine (polacrilex) 2 mg Gum 2 mg buccal Q2HR PRN (Reason: Nicotine Cravings) Qty: 60 RF: 0 Continued atorvastatin 40 mg tablet 40 mg PO DAILY RF: 0 levetiracetam 500 mg tablet 500 mg PO BID RF: 0 tamsulosin 0.4 mg capsule 0.4 mg PO BID RF: 0 topiramate 100 mg tablet 100 mg PO BID RF: 0 metoclopramide HCl 10 mg tablet 10 mg PO QID RF: 0 sildenafil 100 mg tablet 100 mg PO DAILY PRN (Reason: Sexual Activity) RF: 0 trazodone 50 mg tablet 50 mg PO DAILY RF: 0 donepezil 10 mg tablet 10 mg PO HS RF: 0 sucralfate 1 gram tablet 1 tab PO QID RF: 0 oxcarbazepine 300 mg tablet 300 mg PO DAILY RF: 0 pantoprazole 40 mg tablet,delayed release (DR/EC) 40 mg PO BID RF: 0 memantine 28 mg cap,sprinkle,ER 24hr dose pack 1 tab PO DAILY RF: 0 Discontinued bupropion HCl 300 mg tablet extended release 24 hr 300 mg PO DAILY RF: 0 Rexulti 1 mg tablet 1 mg PO DAILY RF: 0 venlafaxine 100 mg tablet 200 mg PO BID RF: 0 Follow Up: [facility] Hotline [Outside] [facility] [Outside] Documented By: Boogie Trotter MD 07/01/21 103 Signed By: <Electronically signed by Boogie Trotter MD> 07/01/211035 [facility] Work Phone: 1(216) 762-795405-21-2022 Progress note Author Boogie Trotter [facility] June 30, 2021 11:14am Note Date/Time June 30, 2021 11:09 am [facility] [address] [place] [address] Psychiatry Progress Note Signed Patient: Priscilla Cerda MR#: [id number] : 1965 Acct:[id number] Age/Sex: 55 / M Adm Date: 2 Loc: Room: [address] [place] [address] Type : ADM IN Attending Dr: Boogie Trotter MD Copies to: ~ Date of Service: 06/30/2021 Subjective Subjective Narrative: Priscilla reported that he is doing good. He slept better last night, but did report having a weird dream. He denied any side effects to his current medications. He reported that he is less irritable. He said that he has been eating well. He does not feel overly depressed or anxious. Mental Status Exam: Appearance: grossly normal Mental Status: mental status grossly normal Mood: Euthymic mood Affect: Normal affect Speech and Movement: speech and movement normal and speech clear Attitude: cooperative Thought Process: normal Thought Content: Denied hallucinations, no homicidality and no suicidality Insight: Improving Judgment: Improving Exam Physical Exam Vital Signs: Temp Pulse Resp BP Pulse Ox 98.0 F 76 16 124/84 97 06/29/21 20:00 06/30/21 07:30 06/30/21 07:30 06/30/21 07:30 06/29/21 20:00 Assessment/Plan Assessment/Plan (1) Alzheimer disease: Code(s): G30.9 - Alzheimer's disease, unspecified Status: Acute (2) Depression: Code(s): F32.9 - Major depressive disorder, single episode, unspecified Status: Acute (3) TBI (traumatic brain injury): Code(s): S06.9X9A - Unspecified intracranial injury with loss of consciousness of unspecified duration, initial encounter Status: Acute Plan Doing better and no outburst yesterday. Anticipate dc tomorrow if he has a good day today Continue Rexulti 2 mg and Effexor twice a day. Continue to monitor mental status Encourage group participation and medication compliance Risk benefits alternatives explained Documented By: Boogie Trotter MD 06/30/211103 Signed By: <Electronically signed by Boogie Trotter MD> 06/30/21 [facility] Work Phone: 1(194) 665-879405-20-2022 Progress note Author Boogie Trotter [facility] June 29, 2021 1:28pm Note Date/Time June 29, 2021 1:28p m [facility] [address] [place] [address] Psychiatry Progress Note Signed Patient: Priscilla Cerda MR#: [id number] : 1965 Acct:[id number] Age/Sex: 55 / M Adm Date: 2 Loc: Room: [address] [place] [address] Type : ADM IN Attending Dr: Boogie Trotter MD Copies to: ~ Date of Service: 06/29/2021 Subjective Subjective Narrative: Patient is upset this morning regarding his placement in the [facility] following an incident yesterday in which he became agitated and began threatening the nurses and staff. Nursing notes reviewed, reported he became angry after supposedly missing his evening meal and waving his cane as well as making threats. He also reported someone at the hospital notified his girlfriend of his change in care and believes this was a violation of HIPPA, currently threatening legal action as well as putting someone's ass in a sling . Mental Status: Appearance: Normal Mood: Angry Affect: Animated Attitude: Hostile Speech: Loud normal rate Thought Content: Preoccupied with threats of legal action Thought Process: Linear Insight: Poor Judgement: Poor Physical Exam: Patient refused physical exam at this time, findings based on observation Head: Atraumatic Eyes: Sclera white, pupils equal and reactive to light Respiratory: Normal effort, no cough or audible wheeze Extremities: Normal to inspection Patient was personally seen by me on the day of the encounter. I reviewed the history and performed the saeed elements of the physical examination. I formulated the plan of care and confirmed this with the medical student as notedbelow. Patient reported that he was med yesterday because he missed dinner and he was awake at the time. He stated that he did not threaten anybody and wanted to seethe video. According to nursing note he had threatened staff and made statements about people need to their job. He was able to somewhat calm down during our conversation. He did request to be taken off Wellbutrin because he believed it was causing him to feel agitated and irritable. Exam Physical Exam Vital Signs: Temp Pulse Resp BP Pulse Ox 98 F 69 18 121/82 97 06/29/21 07:30 06/29/21 07:30 06/29/21 07:30 06/29/21 07:30 06/29/21 07:30 Assessment/Plan Assessment/Plan (1) Alzheimer disease: Code(s): G30.9 - Alzheimer's disease, unspecified Status: Acute (2) Depression: Code(s): F32.9 - Major depressive disorder, single episode, unspecified Status: Acute (3) TBI (traumatic brain injury): Code(s): S06.9X9A - Unspecified intracranial injury with loss of consciousness of unspecified duration, initial encounter Status: Acute Plan Continue Rexulti 2 mg and Effexor 200 mg twice a day. We will discontinue Wellbutrin Continue to monitor mental status Encourage group participation and medication compliance Risk benefits alternatives explained Documented By: Boogie Trotter MD 06/29/21 2447 Signed By: <Electronically signed by Boogie Trotter MD> 06/29/21 9682 [facility] Work Phone: 1(861) 466-193205-19-2022 History and physical note Author Boogie Trotter [facility] June 28, 2021 2:23pm Note Date/Time June 28, 2021 2:21p m [facility] [address] [place] [address] Psychiatry H&P Signed Patient: Priscilla Cerda MR#: [id number] : 1965 Acct:[id number] Age/Sex: 55 / M Adm Date: 2 Loc: Room: [address] [place] [address] Type : ADM IN Attending Dr: Boogie Trotter MD Copies to: MD Tavo Torres,DO~ Date of Service: 06/28/2021 HPI History of Present Illness History of present illness: Mr. 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 Admitted to homicidal thoughts to his therapist yesterday 06/27 who called EMS, brought to [facility] ED then transferred to this facility. He has noticed being more irritable, depressed mood, decreased appetite and low energy for the past 3-4 weeks prior to his admission. 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 He thinks these changes are related to recent stressregarding his relationship with his adult children and reports his ex- is now living in his apartment due to financial troubles. He is disabled and receives a monthly stipend. Denies any current suicidal ideation. No history of manic episodes. Current medications for his mood include venlafaxine 200 mg BID, bupropion 300 mg qd, Trazodone 50 mg qhs, and brexpiprazole 1 mg qd. Memory impairment managedwith Donepezil 10 mg qhs, and memantine 28 mg a day. History of alcohol abuse, reports 11 year sobriety. He is a smoker. Denies any other substance use. Reports a previous psychiatric hospitalization for suicide attempt in 1999 whilehe was drinking. Stated he threatened to jump off a bridge before being arrestedby police. He also attempted suicide as a teenager by cutting his wrists but wasnot hospitalized for this episode. Other medical history includes GERD and gastroparesis and he has seen by Dr. Azul in the past. Currently managed with pantoprazole 40 mg qd, sucralafate 1 gtid, and metoclopramide 10 mg tid. He is followed by his PCP Dr. Elizabeth. His past neurologist Dr. Biswas managed his seizure medications but he stated he had a recent change in insurance which required him to find a new provider. He did have witnessed seizure activity at [facility], denies any recent changes in his medications or frequency of his seizures. Review of Systems General: No fever, or chills, reports 3 lb weight loss Head: History of head trauma, no headache Eyes: No changes in vision, eye pain, or discharge ENT: No ear pain, sinus pressure, or sore throat Respiratory: No SOB, cough, or dyspnea Cardiovascular: No chest pain, pressure, or palpitations GI: No nausea, vomiting, or abdominal pain Musculoskeletal: Chronic neck and back pain, no joint pain or swelling Neuro: No dizziness, numbness, or tingling Physical Exam Adult male resting comfortably in bed with cane at bedside Skin: No rashes or lesions noted Head: Atraumatic Eyes: Sclera white, pupils equal and reactive to light Lungs: Clear to auscultation in all gregg Heart: Normal rate and rhythm Extremities: Normal to inspection Neuro: no focal deficits noted CNII: Visual gregg intact CNIII,IV,: EOM intact, no nystagmus. Pupils equal, round, reactive to light and accommodation. CNV: Sensation intact to light touch. CNVII: Raises eyebrows, smile/frown, puff out cheeks symmetrically. CNVIII: Hearing intact bilaterally. CNIX,X: Voice normal, soft palate elevation normal, symmetrical. CNXI: Shoulder shrug strong, equal bilaterally. CNXII: Tongue protrusion midline, movement symmetrical. Mental Status: Appearance: Normal Mood: Dysphoric Affect: Appropriate Attitude: Cooperative Speech: Normal rate and volume Thought Content: Homicidal ideation, no suicidal ideation, auditory or visual hallucinations Thought Process: Linear Insight: Fair Judgement: Fair Patient was personally seen by me on the day of the encounter. I reviewed the history and performed the saeed elements of the physical examination. I formulated the plan of care and confirmed this with the medical student as notedbelow. Patient reported that he has been irritable. He stated that his irritability comes and goes but he has noticed that it is happening more often. He did report some irritability but denied any specific homicidal thoughts toward any specific target. He also reported that he has not acted on these thoughts recently in the past. He does have a history of fights. He does think that hismedication needs to be adjusted. He thinks that some of his medications are interacting with age other. PMFSH Vaccinated for COVID-19?: No Medical History (Updated 06/28/21 @ 14:19 by Boogie Trotter MD) Acid reflux Alzheimer disease Anxiety Brain injury from several concussions,has 2 lesions on rt side of brain Carpal tunnel syndrome bilat surgery Constipation Depression Deviated septum nasal surgery Enlarged prostate Gastroparesis Hypotension Inguinal hernia bilat surgery Left wrist pain tendon repair Migraine Neuropathy Seizure Sleep apnea pt has implant under tongue to correct sleep apnea and move chin forward Umbilical hernia Surgical History History of appendectomy History of tonsillectomy S/P UVPP (uvulopalatopharyngoplasty) Family History (Updated 06/27/21 @ 23:21 by Mary Velázquez, ODALYS) Mother Heart attack Father Heart attack Diabetes Social History Smoking Status: Current every day smoker Tobacco Type: cigarettes Substance Use Type: None Substance Abuse Comment: hx ETOH abuse; has medical marijuana card currently Meds Medications and Allergies Allergies No Known Allergies Allergy (Verified 11/03/18 13:19) Home Medications donepezil 10 mg tablet 10 mg PO HS 11/03/18 [History Confirmed 06/27/21] memantine 28 mg capsule sprinkle,extended release 24hr 1 tab PO DAILY 11/03/18 [History Confirmed 06/27/21] oxcarbazepine 300 mg tablet 300 mg PO DAILY 11/03/18 [History Confirmed 06/27/21] pantoprazole 40 mg tablet,delayed release 40 mg PO BID 11/03/18 [History Confirmed 06/27/21] sucralfate 1 gram tablet 1 tab PO QID 11/03/18 [History Confirmed 06/27/21] trazodone 50 mg tablet 50 mg PO DAILY 11/03/18 [History Confirmed 06/27/21] venlafaxine 100 mg tablet 200 mg PO BID 11/03/18 [History Confirmed 06/27/21] atorvastatin 40 mg tablet 40 mg PO DAILY 06/27/21 [History Confirmed 06/27/21] brexpiprazole 1 mg tablet (Rexulti) 1 mg PO DAILY 06/27/21 [History Confirmed 06/27/21] bupropion HCl 300 mg 24 hr tablet, extended release 300 mg PO DAILY 06/27/21 [History Confirmed 06/27/21] levetiracetam 500 mg tablet 500 mg PO BID 06/27/21 [History Confirmed 06/27/21] metoclopramide HCl 10 mg tablet 10 mg PO QID 06/27/21 [History Confirmed 06/27/21] sildenafil 100 mg tablet 100 mg PO DAILY PRN 06/27/21 [History Confirmed 06/27/21] tamsulosin 0.4 mg capsule 0.4 mg PO BID 06/27/21 [History Confirmed 06/27/21] topiramate 100 mg tablet 100 mg PO BID 06/27/21 [History Confirmed 06/27/21] Exam Physical Exam Vital Signs: Temp Pulse Resp BP Pulse Ox 97.8 F 60 16 92/53 L 100 06/28/21 05:29 06/28/21 05:29 06/28/21 05:29 06/28/21 05:29 06/28/21 05:29 Assessment/Plan (1) Alzheimer disease: Code(s): G30.9 - Alzheimer's disease, unspecified Status: Acute (2) Depression: Code(s): F32.9 - Major depressive disorder, single episode, unspecified Status: Acute (3) TBI (traumatic brain injury): Code(s): S06.9X9A - Unspecified intracranial injury with loss of consciousness of unspecified duration, initial encounter Status: Acute Plan Patient presenting due to concern for homicidal ideation. However no specific target was mentioned. He does report increased irritability which has been happening more frequently recently We will restart home medications and adjust doses Continue to monitor mental status Encourage group participation and medication compliance Risk benefits alternatives explained Documented By: Boogie Trotter MD 06/28/21 1012 Signed By: <Electronically signed by Boogie Trotter MD> 06/28/21 [address] [facility] Work Phone: 1(100) 276-625505-03-2022 Hospital Discharge instructions Patient Education 06/12/2021 13:11:40 Erectile Dysfunction Erectile Dysfunction Erectile dysfunction (ED) is the inability to get or keep an erection in order to have sexual intercourse. Erectile dysfunction may include: Inability to get an erection. Lack of enough hardness of the erection to allow penetration. Loss of the erection before sex is finished. What are the causes? This condition may be caused by: Certain medicines, such as: ?Pain relievers. ?Antihistamines. ?Antidepressants. ?Blood pressure medicines. ?Water pills (diuretics). ?Ulcer medicines. ?Muscle relaxants. ?Drugs. Excessive drinking. Psychological causes, such as: ?Anxiety. ?Depression. ?Sadness. ?Exhaustion. ?Performance fear. ?Stress. Physical causes, such as: ?Artery problems. This may include diabetes, smoking, liver disease, or atherosclerosis. ?High blood pressure. ?Hormonal problems, such as low testosterone. ?Obesity. ?Nerve problems. This may include back or pelvic injuries, diabetes mellitus, multiple sclerosis, or Parkinson disease. What are the signs or symptoms? Symptoms of this condition include: Inability to get an erection. Lack of enough hardness of the erection to allow penetration. Loss of the erection before sex is finished. Normal erections at some times, but with frequent unsatisfactory episodes. Low sexual satisfaction in either partner due to erection problems. A curved penis occurring with erection. The curve may cause pain or the penis may be too curved to allow for intercourse. Never having nighttime erections. How is this diagnosed? This condition is often diagnosed by: Performing a physical exam to find other diseases or specific problems with the penis. Asking you detailed questions about the problem. Performing blood tests to check for diabetes mellitus or to measure hormone levels. Performing other tests to check for underlying health conditions. Performing an ultrasound exam to check for scarring. Performing a test to check blood flow to the penis. Doing a sleep study at home to measure nighttime erections. How is this treated? This condition may be treated by: Medicine taken by mouth to help you achieve an erection (oral medicine). Hormone replacement therapy to replace low testosterone levels. Medicine that is injected into the penis. Your health care provider may instruct you how to give yourself these injections at home. Vacuum pump. This is a pump with a ring on it. The pump and ring are placed on the penis and used to create pressure that helps the penis become erect. Penile implant surgery. In this procedure, you may receive: ?An inflatable implant. This consists of cylinders, a pump, and a reservoir. The cylinders can be inflated with a fluid that helps to create an erection, and they can be deflated after intercourse. ?A semi-rigid implant. This consists of two silicone rubber rods. The rods provide some rigidity. They are also flexible, so the penis can both curve downward in its normal position and become straight for sexual intercourse. Blood vessel surgery, to improve blood flow to the penis. During this procedure, a blood vessel from a different part of the body is placed into the penis to allow blood to flow around (bypass) damaged or blocked blood vessels. Lifestyle changes, such as exercising more, losing weight, and quitting smoking. Follow these instructions at home: Medicines Take gmxs-jsr-suiival and prescription medicines only as told by your health care provider. Do not increase the dosage without first discussing it with your health care provider. If you are using self-injections, perform injections as directed by your health care provider. Makesure to avoid any veins that are on the surface of the penis. After giving an injection, apply pressure to the injection site for 5 minutes. General instructions Exercise regularly, as directed by your health care provider. Work with your health care provider to lose weight, if needed. Do not use any products that contain nicotine or tobacco, such as cigarettes and e-cigarettes. If you need help quitting, ask your health care provider. Before using a vacuum pump, read the instructions that come with the pump and discuss any questionswith your health care provider. Keep all follow-up visits as told by your health care provider. This is important. Contact a health care provider if: You feel nauseous. You vomit. Get help right away if: You are taking oral or injectable medicines and you have an erection that lasts longer than 4 hours. If your health care provider is unavailable, go to the nearest emergency room for evaluation. An erection that lasts much longer than 4 hours can result in permanent damage to your penis. You have severe pain in your groin or abdomen. You develop redness or severe swelling of your penis. You have redness spreading up into your groin or lower abdomen. You are unable to urinate. You experience chest pain or a rapid heart beat (palpitations) after taking oral medicines. Summary Erectile dysfunction (ED) is the inability to get or keep an erection during sexual intercourse. This problem can usually be treated successfully. This condition is diagnosed based on a physical exam, your symptoms, and tests to determine the cause. Treatment varies depending on the cause, and may include medicines, hormone therapy, surgery, orvacuum pump. You may need follow-up visits to make sure that you are using your medicines or devices correctly. Get help right away if you are taking or injecting medicines and you have an erection that lasts longer than 4 hours. This information is not intended to replace advice given to you by your health care provider. Make sure you discuss any questions you have with your health care provider. Document Released: 01/24/2001 Document Revised: 01/09/2018 Document Reviewed: 02/12/2017 [employer] Patient Education [employer]. Follow Up Care 05/09/2020 15:19:54 With:Seth aL MD, Niall Vail, URO Address: [facility] [address] , [place] [address]- When: Unknown Comments:will schedule cysto [facility] 05-03-2022 Evaluation + Plan note Diagnostic Tests Pending * PSA Total 06/12/21 [facility] evaluation + Plan note Future Appointments Appointment Date:05/13/2023 10:15:00 AM Scheduled Provider:Buster CHAVEZ MD Location:[facility] Appointment Type:URO Office Visit [facility] Evaluation + Plan note Future Appointments Appointment Date:11/19/2023 01:45:00 PM Scheduled Provider:Buster CHAVEZ MD Location:[facility] Appointment Type:URO Office Visit [facility] Evaluation note* Diagnosis Onset Date Resolution Status Alzheimer disease acute Depression acute TBI (traumatic brain injury) [facility] Work Phone: Hospital course Narrative No data available for this section [facility] Hospital Discharge instructions Additional Instructions Regular Diet [facility] Discharge instructions No data available for this section [facility] No data available for this section [facility] Summary Purpose Family History No Family History Records Found Relationship Condition Age at Onset Recorded Date/T eddie Not Specified Myocardial infarction Unknown father Myocardial infarction Unknown Diabetes mellitus Unknown Relationship Condition Age at Onset Recorded Date/T eddie mother Myocardial infarction Unknown father Myocardial infarction Unknown Diabetes mellitus Unknown father Unknown mother Unknown Advance Directives No Advanced Directives Records Found Advance Directive Response Recorded Date/ Time Advance Directives No October 10:40am Chief Complaint and Reason for Visit Chief Complaint Major Depresion Reason for Visit Alzheimer disease Depression TBI (traumatic brain injury) Chief Complaint BH RENAL INSUFFICIENCY Reason for Visit Acute kidney injury BPH loc w urin obs/LUTS Chronic kidney disease, stage 3a Hydronephrosis NSAID long-term use Additional Source Comments (unrecognized sect ion and content) No Status Records FoundNo Status Records FoundNo Status Records FoundNo Status Records FoundNo Status Records FoundNo Status Records FoundNo Status Records Found INFORMATION SOURCE (unrecogn ized section and content) DATE CREATED AUTHOR 09/01/2020 [facility] DATE CREATED AUTHOR AUTHOR'S ORGANIZ ATION 03/06/2022 [facility] Specialist DATE CREATED AUTHOR AUTHOR'S ORGANIZ ATION 07/12/2023 [facility] DATE CREATED AUTHOR AUTHOR'S ORGANIZ ATION 08/01/2023 [facility] Specialists EPIC DATE CREATED AUTHOR AUTHOR'S ORGANIZ ATION 09/12/2023 [facility] DATE CREATED AUTHOR AUTHOR'S ORGANIZ ATION 09/24/2023 [facility] DATE CREATED AUTHOR AUTHOR'S ORGANIZ ATION 09/25/2023 [facility] y[facility] Care Teams (unrecognized sec tion and content) Team Status: Inactive Member Role Status Dates Tavo Zavala DO Primary Care Provider Active Boogie Trotter MD Admit Provider, Attending Provider Active Team Status: Active Member Role Status Dates Tavo Multaniandrea , DO Primary Care Provider Active Team Status: Active Member Role Status Dates Tavo Zavala , Primary Care Provider Active Start: July 10, 2023 Matthew Meyer MD Attending Provider Active Start: July 10, 2023 Team Status: Inactive Member Role Status Dates Tavo Zavala , Primary Care Provid er, Referring Provider Active Start: September 03, 2023 End: September 03, 2023 Sunitha Chan MD Attending Provider Active Star t: September 03, 2023 End: September 03, 2023 Goals (unrecognized section and content) Goals may be documented in a n alternate section FOR RECORDS PERTAINING TO PATIENTS WHO ARE OR HAVE BEEN ENROLLED IN A CHEMICAL DEPENDENCY/SUBSTANCEABUSE PROGRAM, SOME INFORMATION MAY BE OMITTED. This clinical summary was aggregated from multiple sources. Caution should be exercised in using it in the provision of clinical care. This summary normalizes information from multiple sources, and as a consequence, information in this document may materially change the coding, format and clinical context of patient data. In addition, data may be omitted in some cases. CLINICAL DECISIONS SHOULD BE BASED ON THE PRIMARY CLINICAL RECORDS. [facility]. provides no warranty or guarantee of the accuracy or completeness of information in this document.
[2023-09-25 11:27] LABS: Glucometer 98 mg/dL (74-106)
[2023-09-25] MEDS: LACTATED RINGER'S SOLUTION 1,000 ML 50 ML IV (11:53)
--- NOTE | 2023-09-25 13:15 | FL_ITS ---
The [address] [address] Patient Name: PRISCILLA CERDA MRN: [id number] date: 1965 Sex: M Assigned Patient Location: [facility] Current Patient Location: Accession/Order Number: [id number] Exam Date: 09/25/2023 13:25 Report Date: 09/26/2023 11:56 At the request of: LEANDRO KEENE Procedure: FL fluoroscopy <1hr NON-READ EXAM: FL fluoroscopy <1hr NON-READ HISTORY: TECHNIQUE: FINDINGS: Please see Operative Report. Electronically authenticated by: RADIOLOGIST NO Date: 09/26/2023 11:56
[2023-09-25] MEDS: CEFAZOLIN SODIUM 2 GM/50 ML D5W PREMIX IV (13:18)
--- NOTE | 2023-09-25 15:00 | PM.URSON ---
Urology Surgery Operative Note Operative Note Procedure Date: 09/25/23 Time Out Performed: yes Pre-op Diagnosis: Obstructing right ureteral calculus Post-op Diagnosis: same as pre-op Procedures performed: 1. Cystoscopy. 2. Right ureteroscopy. 3. Thulium laser lithotripsy of a large right impacted ureteral calculus. 4. Stone fragment basket extraction. 5. Pyeloscopy. 6. Placement of 6 [facility] Lucian variable length right ureteral stent Anesthesia: General-LMA Primary Surgeon: Buster Chavez Complications: None Estimated blood loss (mL): 5 Findings: Large impacted right UPJ stone. Specimens: Stone fragments Drains: 6 St Lucian variable length right ureteral stent Indications for Procedures: This gentleman has had a 1 cm right UPJ calculus causing intermittent pain for at least 3 months. He now presents for definitive ureteroscopic laser lithotripsy and probable right stent placement. He has signed an informed consent after risks were explained. Some of these risks include bleeding, infection, anesthesia, inability to completely remove the stone, ureteral stricture and possible need for further operations to name a few. Detailed description of Procedure: The patient was brought to the operating room and placed on the operating room table in the supine position. SCDs were placed on the lower extremities and turned on and functioning during the entire case. Timeout was done by all parties in the room. We all agreed upon the patient's identification and the planned procedures for this patient. Genn. anesthesia was then administered. The patient was then repositioned into the modified dorsal lithotomy position. All pressure points were satisfactorily padded. Genitalia were sterilely prepped and draped in usual fashion. I started by passing a 22 [address] Lucian Olympus cystoscope per urethra and into the bladder. Anterior urethra was normal. Prostatic urethra showed bilobar obstruction. Careful panendoscopy in the bladder showed moderate trabeculation and copious amounts of white inflammatory debris throughout the bladder. A large aspirate was taken and sent for culture and sensitivity.. There was no evidence of any tumors or stones. While using fluoroscopy I could clearly see a large stone in the right UPJ region. I then passed a Glidewire through the scope and up the right ureter and beyond the stone into the kidney. I then removed the scope and then used a 10/12 St Lucian ureteral access sheath. This was passed over the wire and up the ureter to the L5 level. The wire and stylette were removed. I then passed a flexible ureteroscope through the access sheath and into the ureter. I then ascended up the ureter and was able to get right to this very large obstructing stone. I could see that it was impacted into the macias of the ureter and there seemed to be scar formation. I then used a 270 ? laser fiber and passed it through the scope and made contact with the stone. I used 6 W in the fragment mode on the thulium laser. Laser lithotripsy was then done. I had to raise the power up to 10 W in order to fragment the stone. This was a very large stone. A 0 tip nitinol basket was used intermittently to extract pieces and these were sent for stone analysis. Once the entire stone was fragmented I then did pyeloscopy and there was a ton of laser dust within the renal pelvis. No carter yessy fragments were within the kidney. I looked in all the calyces in the upper mid and lower poles and found no stones. The ureteroscope was then brought out. The ureter was free of stone. I then passed the Glidewire through the access sheath into the kidney and removed the sheath. The cystoscope was backloaded over the wire and passed into the bladder. I then slid a 6 [facility] Lucian variable length ureteral stent over the wire up into the kidney. The wire was removed and there were good curls in the kidney and in the bladder. The bladder was drained of its contents and the scope was removed. He was then transferred to a [facility] bed and wheeled to PACU in stable condition.
[2023-09-25] MEDS: SOLIFENACIN SUCCINATE 10 MG TABLET PO (15:19)
[2023-09-25 15:22] LABS: Bilirubin Urine NEGATIVE (NEGATIVE); Blood Urine NEGATIVE (NEGATIVE); Clarity Urine SL CLOUDY (CLEAR); Color Urine LT. YELLOW (YELLOW); Glucose Urine UA NEGATIVE (NEGATIVE); Ketones Urine NEGATIVE (NEGATIVE); Leukocyte Esterase Urine NEGATIVE (NEGATIVE); Nitrite Urine NEGATIVE (NEGATIVE); Protein Urine NEGATIVE (NEG/TRACE); Specific Gravity Urine 1.015 (1.005-1.025); Urobilinogen Urine 0.2 EU/dL (0.2-1.0); pH Urine 7.5 (5.0-9.0)
[2023-09-25 15:24] LABS: Urine Microscopic Indicated NO
== END 2023-09-25 16:10 | disposition home or self-care (01) ==
PROVIDERS: PCP Internal Medicine; Visit Provider Urology
PROC: (CPT 52356; principal; 2023-09-25 12:10)
DX: N13.2 Hydronephrosis with renal and ureteral calculous obstruction (principal); N32.89 Other specified disorders of bladder; N40.1 Benign prostatic hyperplasia with lower urinary tract symptoms; R39.15 Urgency of urination; R35.0 Frequency of micturition; R35.1 Nocturia; R31.0 Gross hematuria; N52.9 Male erectile dysfunction, unspecified; F17.200 Nicotine dependence, unspecified, uncomplicated; G47.33 Obstructive sleep apnea (adult) (pediatric); E78.5 Hyperlipidemia, unspecified; J44.9 Chronic obstructive pulmonary disease, unspecified; I25.10 Atherosclerotic heart disease of native coronary artery without angina pectoris; K21.9 Gastro-esophageal reflux disease without esophagitis
CPT/HCPCS: 52356; 36415; 76000; 81003; 82365; 82948; 99999; J0690; J1100; J1885; J2250; J2405; J2704; J3010

== ENCOUNTER 2024-10-20 12:07 | Outpatient (OUT) | payer MEDICARE, SELFPAY ==
--- OUTSIDE RECORDS SUMMARY | 2024-10-20 12:15 | XMS_ITS | CCD ---
Author Organization [facility] Care Team Providers Care Steel Tester Name Role Phone DR DESIREE BATISTA Attending Unavailable DR DESIREE BATISTA Admitting Unavailable MUMMERT, SUSAN Primary Care Physician Mummert, DO Susan Primary Care Provider MD Boogie Trotter Admit Provider MD Boogie Trotter Attending Provider MUMMERT, SUSAN Referring Unavailable MUMMERT, SUSAN Primary Care Unavailable KHRIS MCKEON Attending Unavailable MUMMERT, SUSAN Referring Unavailable MUMMERT, SUSAN Primary Care Unavailable Mummert, DO Susan Primary Care Provider MD Matthew Meyer Attending Provider KHRIS MCKEON Attending Unavailable KHRIS MCKEON Referring Unavailable MUMMERT, SUSAN Primary Care Unavailable Mummert, DO Susan Primary Care Provider MD Matthew Meyer Attending Provider [phone] Maco Mccray DO Unavailable Mummert DO, Susan Primary Care Provider Matthew Meyer MD Attending Provider Buster Keene MD Attending Provider Dustin BUSTILLO, Sunitha Attending Provider Buster Keene MD Other Provider Chu Florence MD Attending Provider [phone] Mummert DO, Susan Primary Care Provider Unavailable Primary Care Provider UnavailMICHELLE Todd Attending Unavailab le NICKIANJosé Miguel, MICHELLE Shell Attending Unavailab le DUSTIN, MICHELLE Shell Attending Unavailab le GRAZIANJosé Miguel, MICHELLE Shell Attending Unavailab le GRAZIANI, MICHELLE Shell Attending Unavailab le GRAZIANJosé Miguel, MICHELLE Shell Attending Unavailab le Mummert, Susan Primary Care Unavailable Bakhous, Aziz Admitting Unavailable Bakhous, Aziz Attending Unavailable Mummert, Susan Primary Care Unavailable Buster Keene Admitting Unavailable Buster Keene Attending Unavailable Mummert, Susan Primary Care Unavailable Mitch, Matthew Admitting Unavailab le Mitch, Matthew Attending Unavailab le Mummert, Susan Primary Care Unavailable Bakhous, Aziz Admitting Unavailable Bakhous, Aziz Attending Unavailable Buster Keene Consulting Unavailable Chu Florence Admitting Unavailable Chu Florence Attending Unavailable Mummert, Susan Primary Care Unavailable Mummert DO, Susan Attending Unavailable Mummert DO, Susan Primary Care Unavailable Veliz PAC, Bunny N Admitting Unavailable Veliz PAC, Bunny N Attending Unavailable Mummert DO, Susan Primary Care Unavailable Mummert DO, Susan Primary Care Unavailable Mummert DO, Susan Admitting Unavailable Mummert DO, Susan Attending Unavailable Orzech EPIC CUPID ANALYST-MRI MANAGER-C, Drea Admitting Unavai lable Orzech EPIC CUPID ANALYST-MRI MANAGER-C, Drea Attending Unavai lable Mummert DO, Susan Primary Care Unavailable Orzech EPIC CUPID ANALYST-MRI MANAGER-C, Drea Admitting Unavai lable Orzech EPIC CUPID ANALYST-MRI MANAGER-C, Drea Attending Unavai lable Mummert DO, Susan Primary Care Unavailable Bakhous, Aziz Admitting Unavailable Bakhous, Aziz Attending Unavailable Mummert DO, Susan Primary Care Unavailable Mummert DO, Susan Attending Unavailable Mummert DO, Susan Primary Care Unavailable Mummert DO, Susan Attending Unavailable Mummert DO, Susan Primary Care Unavailable Mummert DO, Susan Attending Unavailable Mummert DO, Susan Primary Care Unavailable Buster KEENE Attending Unavailable Buster KEENE Attending Unavailable KEENE, Buster R Attending Unavailable KEENE, Buster R Attending Unavailable KEENE, Buster R Attending Unavailable KEENE, Buster R Attending Unavailable KEENE, Buster R Attending Unavailable KEENE, Buster R Attending Unavailable KEENE, Buster R Referring Unavailable KEENE, Buster R Admitting Unavailable KEENE, Buster R Attending Unavailable KEENE, Buster R Attending Unavailable Orzech, Drea X Attending Unavailable Allergies Allergy Classification Reported Allergen(s) Allergy Type Date of Onset Reaction(s) Facility (18 sources) CATNIP; Translations: [CATNIP] Propensity to adverse reactions to drug (disorder) 6 Hives [facility] Medications Current Medications Medication Drug Class(es) Dates Sig (Normalized) Sig (Original) amantadine hydrochloride 100 mg oral capsule (15 sources) Influenza A M2 Protein Inhibitor Start: 02-12-2023 take 1 capsule by mouth every twelve hours amantadine (Symmetrel) 100 MG capsule Take 100 mg by mouth every 12 (twelve) hours 02/12/2023 Active Start: 06-10-2019 End: 07-11-2023 take 1 tablet by mouth twice daily amantadine (SYMMETREL) 100 mg tablet Take 1 tablet by mouth 2 (two) times a day. 06/10/2019 07/11/2023 Discontinued amitriptyline hydrochloride 25 mg oral tablet (20 sources) Tricyclic Antidepressant Start: 05-06-2024 End: 08-01-2024 take 1 tablet by mouth at bedtime amitriptyline (Elavil) 25 MG tablet Indications: Intention tremor , Traumatic brain injury, with loss of consciousness of 30 minutes or less, subsequent encounter TAKE 1 TABLET BY MOUTH AT BEDTIME 90 tablet 3 08/01/2024 Active Start: 02-06-2024 take 1 tablet by sushma th at bedtime amitriptyline (Elavil) 25 MG tablet Indications: Intention tremor , Traumatic brain injury, with loss of consciousness of 30 minutes or less, subsequent encounter TAKE 1 TABLET BY MOUTH AT BEDTIME 90 tablet 02/06/2024 Active Start: 11-06-2023 take 1 tablet by sushma th at bedtime amitriptyline (Elavil) 25 MG tablet Indications: Intention tremor , Traumatic brain injury, with loss of consciousness of 30 minutes or less, subsequent encounter TAKE 1 TABLET BY MOUTH AT BEDTIME 90 tablet 11/06/2023 Active Start: 10-23-2022 End: 11-06-2023 take 1 tablet by mouth once daily at bedtime Amitriptyline 25 mg tablet Active 25 MG PO Daily at bedtime September 02, 2023 11:00pm Start: 10-27-2018 End: 06-27-2021 take 1 tablet by mouth once daily at bedtime amitriptyline 75 mg oral tablet 75 mg = 1 tab(s), Oral, Once a day (at bedtime), Refills(s) 0 Start Date: 10/27/18 Status: Ordered Repeat number: 1 ARIPiprazole 15 mg oral tablet (18 sources) Atypical Antipsychotic Start: 07-10-2023 End: 11-12-2023 take 1 tablet by mouth at bedtime ARIPiprazole (Abilify) 15 MG tablet Take 15 mg by mouth at bedtime 07/10/2023 Active ascorbic acid 500 mg chewable tablet (20 sources) Vitamin C Start: 09-03-2023 take 1 tablet by mouth once daily ascorbic acid (Vitamin C) 500 MG tablet Take 500 mg by mouth Daily 09/03/2023 Active Start: 09-03-2023 take 1 tablet by sushma th once daily Ascorbic Acid (Vitamin C) 500 mg tablet Active 500 MG PO Daily September 02, 2023 11:00pm End: 10-06-2023 Ascorbic Acid (Vitamin C) 50 0 MG capsule Take by mouth 10/06/2023 Discontinued ascorbic acid (V ITAMIN C ORAL) Take by mouth daily. Active aspirin 81 mg delayed release oral tablet (20 sources) Platelet Aggregation Inhibitor, Nonsteroidal Anti-inflammatory Drug Start: 09-03-2023 Aspirin (Adult Low Dose Aspirin) 81 mg tablet,delayed release (DR/EC) Active 81 MG PO Daily September 02, 2023 11:00pm atorvastatin 40 mg oral tablet (20 sources) HMG-CoA Reductase Inhibitor Start: 10-27-2018 take 1 tablet by mouth once daily atorvastatin 40 mg Tab 40 mg = 1 tab(s), Oral, Daily, Refills(s) 0 Start Date: 10/27/18 Status: Ordered Repeat number: 1 B Complex Vitamins (B COMPLEX 1 PO) (13 sources) B Complex Vitami ns (B COMPLEX 1 PO) Take by mouth Active dextromethorphan hydrobromide 20 mg / quiNIDine sulfate 10 mg oral capsule (15 sources) Antiarrhythmic, Uncompetitive U-thechx-X-aspartate Receptor Antagonist, Cytochrome P450 2D6 Inhibitor, Sigma-1 Agonist Start: 06-02-2023 take 1 capsule by mouth at bedtime Dextromethorphan-q uiNIDine 20-10 MG capsule Take 1 capsule by mouth at bedtime 06/02/2023 Active take 1 capsule by mo uth once daily dextromethorphan-quiNIDine (NUEDEXTA) 20 -10 mg capsule Take 1 capsule by mouth nightly. Active Dicyclomine (11 sources) Anticholinergic Start: 12-14-2018 dicyclomine Re fills(s) 0 Start Date: 12/14/18 Status: Ordered Repeat number: 1 Start: 12-14-2018 dicyclomine Re fills(s) 0 Start Date: 12/14/18 Status: Ordered diphenhydrAMINE hydrochloride 25 mg oral capsule (13 sources) Histamine-1 Receptor Antagonist take 1 capsule by mouth every six hours as needed diphenhydrAMINE (BENADryl) 25 MG capsule Take 25 mg by mouth every 6 (six) hours if needed for itching Active donepezil hydrochloride 10 mg oral tablet (20 sources) Start: End: take 1 mg by mouth once daily at bedtime donepezil 10 mg Tab mg tab(s), Oral, Once a day (at bedtime), Refills(s) 0 Start Date: 10/27/18 Status: Ordered Repeat number: 1 dutasteride 0.5 mg oral capsule (20 sources) 5-alpha Reductase Inhibitor Start: take 1 capsule by mouth once daily dutasteride 0.5 mg Cap 0.5 mg = 1 cap(s), Oral, Daily, # 30 cap(s), Refills(s) 11, Pharmacy: [id number], 167, cm, 03/31/24 9:37:00 EST, Height/Length Dosing, 78.7, kg, 03/31/24 9:37:00 EST, Weight Dosing Start Date: 05/10/24 Status: Ordered Quantity: 30.0 Unit: cap(s) Repeat number: 12 levETIRAcetam 500 mg oral tablet (20 sources) Start: End: 10-15-2 025 take 1 tablet by mouth in the morning levETIRAcetam (Keppra) 500 MG tablet Indications: Seizure (HCC) Take 1 tablet (500 mg) by mouth in the morning and 1 tablet (500 mg) before bedtime. 180 tablet 3 11/25/2023 11/24/2024 Active Start: 10-27-2018 End: 06-27-2021 take 1 tablet by mouth twice daily levetiracetam 250 mg Tab 250 mg = 1 tab(s), Oral, BID, Refills(s) 0 Start Date: 10/27/18 Status: Ordered Repeat number: 1 Lipoflavonoid (11 sources) Start: 10-27-2018 take 1 capsule by mouth once daily Lipoflavonoid 1 cap(s), Oral, Daily, Refill(s) 0 Start Date: 10/27/18 Status: Ordered Repeat number: 1 Start: 10-27-2018 take 1 capsule by mo uth once daily Lipoflavonoid 1 cap(s), Oral, Daily, Refill(s) 0 Start Date: 10/27/18 Status: Ordered lysine 500 mg oral tablet (7 sources) Start: 09-03-2023 Lysine (L-Lysi ne) 500 mg tablet Active 1000 MG PO Daily September 02, 2023 11:00pm take 100 mg by mouth in the morn ing LYSINE ORAL Take 100 mg by mouth in the morning. Active Magnesium (17 sources) Start: 09-03-2023 take 1 capsule by mo uth at bedtime Magnesium 400 MG capsule Take 1 capsule by mouth at bedtime 09/03/2023 Active Start: 09-03-2023 End: 11-12-2023 take 2 tablets by mouth once daily Magnesium 200 mg tablet Discontinued 400 MG PO Daily September 02, 2023 11:00pm November 12, 2023 9:55am Start: 09-03-2023 End: 11-12-2023 take 400 mg by mouth once daily Magnesium Discontinued 400 MG PO Daily September 03, 2023 12:00am November 12, 2023 10:55am Start: 09-03-2023 take 400 mg by mouth once nevaeh y Magnesium Active 400 MG PO Daily September 03, 2023 12:00am magnesium oxide 400 mg oral tablet (20 sources) Start: 10-27-2018 take 400 mg by mouth once daily magnesium oxide 400 mg, Oral, Daily, Refills(s) 0 Start Date: 10/27/18 Status: Ordered magnesium oxide 500 MG tablet 1 tablet as needed Orally at bedtime Active take 1 tablet by mouth twice anika ly magnesium oxide (MAG-OX) 400 mg tablet Take 400 mg by mouth 2 (two) times a day. Active Meclizine (6 sources) Antiemetic Start: 12-14-2018 meclizine Refills(s) 0 Start Date: 12/14/18 Status: Ordered melatonin 10 mg oral capsule (3 sources) take 1 capsule by mouth once daily as needed melatonin 10 mg capsule Take 1 capsule (10 mg total) by mouth nightly as needed. Active 24 hr memantine hydrochloride 28 mg extended release oral capsule (20 sources) L-fjcxqs-N-aspart ate Receptor Antagonist Start: 06-24-2019 End: 10-23-2023 take 1 capsule by mouth every twenty-four hours in the morning Memantine HCl ER 28 MG capsule sustained-release 24 hr Indications: Mild cognitive impairment Take 1 capsule by mouth in the morning. 90 capsule 3 10/23/2022 Active Start: 10-27-2018 take 1 capsule by [facility] once daily memantine 28 mg oral capsule, extended release 28 mg = 1 cap(s), Oral, Daily, Refills(s) 0 Start Date: 10/27/18 Status: Ordered Repeat number: 1 metoclopramide 5 mg oral tablet (20 sources) Dopamine-2 Receptor Antagonist Start: 06-05-2023 End: 11-12-2023 metoclopramide (Reglan) 5 MG tablet Take 5 mg by mouth in the morning and 5 mg at noon and 5 mg in the evening and 5 mg before bedtime. 06/05/2023 Active Start: 12-14-2018 Reglan Refills (s) 0 Start Date: 12/14/18 Status: Ordered Start: 11-03-2018 End: 06-27-2021 take 1 tablet by mouth twice daily Metoclopramide Hcl 10 mg tablet Discontinued 10 MG PO Twice daily November 02, 2018 11:00pm June 27, 2021 7:10pm Start: 10-27-2018 End: 09-03-2023 take 1 tablet by mouth four times daily metoclopramide 10 mg Tab 10 mg = 1 tab(s), Oral, QID, Refills(s) 0 Start Date: 10/27/18 Status: Ordered Repeat number: 1 multivit-min/ferrous fumarat e (MULTI VITAMIN ORAL) (3 sources) multivit-min/otilio riley fumarate (MULTI VITAMIN ORAL) Take by mouth. Active Multivitamin (Daily Multi-Vitamin) tablet (5 sources) Start: take 1 tablet by mouth once daily Multivitamin (Daily Multi-Vitamin) tablet Active 1 TAB PO Daily September 02, 2023 11:00pm Start: 09-03-2023 take 1 tablet by sushma th once daily Multivitamin (Daily Multi-Vitamin) tablet Active 1 TAB PO Daily September 03, 2023 12:00am multivitamin with minerals (Cerovite) 18-400 mg-mcg tablet tablet (12 sources) Start: 09-03-2023 take 1 tablet by mouth once daily multivitamin with minerals (Cerovite) 18-400 mg-mcg tablet tablet Take 1 tablet by mouth Daily 09/03/2023 Active Nature's Bounty Probiotic (11 sources) Start: 10-27-2018 take 1 tablet by mouth once daily Nature's Bounty Probiotic 1 tab(s), Oral, Daily, Refill(s) 0 Start Date: 10/27/18 Status: Ordered Repeat number: 1 Start: 10-27-2018 take 1 tablet by sushma once daily Nature's Bounty Probiotic 1 tab(s), Oral, Daily, Refill(s) 0 Start Date: 10/27/18 Status: Ordered omeprazole 20 mg delayed release oral capsule (20 sources) Proton Pump Inhibitor Start: 09-03-2023 omeprazo le 20 mg Cap-DR Refills(s) 0 Start Date: 09/10/23 Status: Ordered Repeat number: 1 Start: 09-01-2023 take 1 tablet by sushma once daily Omeprazole 20 MG tablet delayed-release Take 1 tablet by mouth Daily 09/01/2023 Active 24 hr propranolol hydrochloride 60 mg extended release oral capsule (20 sources) beta-Adrenergic Kermit Start: 05-13-2023 End: 11-12-2023 propranolol 60 mg Cap-ER Refills(s) 0 Start Date: 05/13/23 Status: Ordered Repeat number: 1 take 1 capsule by mo [facility] every twenty-four hours in the morning propranolol LA (INDERAL LA) 60 mg 24 hr capsule Take 1 capsule (60 mg total) by mouth in the morning. Active risperiDONE 0.5 mg oral tablet (11 sources) Atypical Antipsychotic Start: 10-27-2018 take 1 tablet by mouth once daily risperidone 0.5 mg Tab 0.5 mg = 1 tab(s), Oral, Daily, Refills(s) 0 Start Date: 10/27/18 Status: Ordered Repeat number: 1 sildenafil 100 mg oral tablet (20 sources) Phosphodiesterase 5 Inhibitor Start: 05-14-2022 sildenafil 100 mg Tab See Instructions, Take 1 tablet 60 minutes prior to sexual activity. Do not exceed 100mg in 24 hrs., # 30 tab(s), Refills(s) 5, Pharmacy: [id number], 167, cm, 03/31/24 9:37:00 EST, Height/Length Dosing, 78.7, kg, 03/31/24 9:37:00 EST, Weight Dosing Start Date: 04/21/24 Status: Ordered Quantity: 30.0 Unit: tab(s) Repeat number: 6 Start: 06-27-2021 End: 09-03-2023 take 1 tablet by mouth once daily as needed Sildenafil 100 mg tablet Discontinued 100 MG PO Daily as needed for Sexual Activity June 26, 2021 11:00pm September 03, 2023 1:33pm Start: 06-12-2021 sildenafil 100 mg Tab 100 mg = 1 tab(s), Oral, As Directed, 1 hour before sexual activity, # 30 tab(s), Refills(s) 2, Pharmacy: [id number], 167, cm, 06/12/21 12:14:00 EDT, Height/Length Dosing, 80.3, kg, 06/12/21 12:14:00 EDT, Weight Dosing Start Date: 06/12/21 Status: Ordered solifenacin succinate 10 mg oral tablet (12 sources) Cholinergic Muscarinic Antagonist Start: 09-25-2023 take 1 tablet by mouth once daily solifenacin (VESIcare) 10 MG tablet Take 10 mg by mouth Daily 09/25/2023 Active sucralfate 1000 mg oral tablet (20 sources) Aluminum Complex Start: 05-13-2023 sucralfate 1 g Tab Refills(s) 0 Start Date: 05/13/23 Status: Ordered Repeat number: 1 Start: 05-21-2019 sucralfate (Ca rafate) 1 g tablet 1 g. 01/11/2022 Active Start: 11-03-2018 End: 11-12-2023 sucralfate (Carafate) 1 g ta blet 1 g. 01/11/2022 Active tamsulosin hydrochloride 0.4 mg oral capsule (20 sources) alpha-Adrenergic Kermit Start: 05-10-2024 take 1 capsule by mouth twice daily Flomax 0.4 mg Cap 0.4 mg = 1 cap(s), Oral, BID, # 180 cap(s), Refills(s) 3, Pharmacy: [id number], 167, cm, 03/31/24 9:37:00 EST, Height/Length Dosing, 78.7, kg, 03/31/24 9:37:00 EST, Weight Dosing Start Date: 05/10/24 Status: Ordered Quantity: 180.0 Unit: cap(s) Repeat number: 4 Start: 06-27-2021 End: 04-23-2024 take 1 capsule by mouth twice daily Flomax 0.4 mg Cap 0.4 mg = 1 cap(s), Oral, BID, X 90 day(s), # 180 cap(s), Refills(s) 3, Pharmacy: [id number], 167, cm, 06/12/21 12:14:00 EDT, Height/Length Dosing, 80.3, kg, 06/12/21 12:14:00 EDT, Weight Dosing Start Date: 04/29/23 Stop Date: 04/23/24 Status: Ordered Start: 06-12-2021 take 1 capsule by mo uth twice daily Flomax 0.4 mg Cap 0.4 mg = 1 cap(s), Oral, BID, # 30 cap(s), Refills(s) 3, Pharmacy: [id number], 167, cm, 06/12/21 12:14:00 EDT, Height/Length Dosing, 80.3, kg, 06/12/21 12:14:00 EDT, Weight Dosing Start Date: 06/12/21 Status: Ordered Start: 04-12-2020 End: 07-11-2023 take 1 capsule by mouth once daily tamsulosin (FLOMAX) 0.4 mg capsule Take 1 capsule (0.4 mg total) by mouth daily. 10 capsule 04/12/2020 Active take 1 capsule by mo uth every twelve hours tamsulosin (Flomax) 0.4 MG 24 hr capsule 1 capsule every 12 (twelve) hours. Active thiamine 100 mg oral tablet (20 sources) Start: 03-07-2024 End: 03-12-2025 take 1 tablet by mouth in the morning thiamine (Vitamin B-1) 100 MG tablet Indications: Seizure disorder (HCC) Take 1 tablet (100 mg) by mouth in the morning. 90 tablet 3 03/12/2024 03/12/2025 Active Start: 02-13-2023 End: 02-13-2024 take 1 tablet by mouth once daily Thiamine Hcl (Vitami n B1) 100 mg tablet Active 100 MG PO Daily September 02, 2023 11:00pm tiZANidine 4 mg oral tablet (20 sources) Central alpha-2 Adrenergic Agonist Start: 06-05-2024 take 1 tablet by mouth twice daily as needed for muscle spasms tiZANidine (Zanaflex) 4 MG tablet Indications: Cervical paraspinal muscle spasm TAKE 1 TABLET BY MOUTH TWICE DAILY NEEDED FOR MUSCLE SPASM 180 tablet 06/05/2024 Active Start: 03-11-2024 take 1 tablet by sushma th twice daily as needed for muscle spasms tiZANidine (Zanaflex) 4 MG tablet Indications: Cervical paraspinal muscle spasm TAKE 1 TABLET BY MOUTH TWICE DAILY NEEDED FOR MUSCLE SPASM 180 tablet 03/11/2024 Active Start: 10-23-2022 End: 10-23-2023 take 1 tablet by mouth twice daily as needed Tizanidine 4 mg tablet Active 4 MG PO Twice daily as needed September 02, 2023 11:00pm Start: 12-14-2018 tizanidine Ref ills(s) 0 Start Date: 12/14/18 Status: Ordered Repeat number: 1 Start: 12-14-2018 tizanidine Ref ills(s) 0 Start Date: 12/14/18 Status: Ordered Start: 11-03-2018 End: 06-27-2021 take 1 tablet by mouth once daily Tizanidine 4 mg tablet Discontinued 4 MG PO Daily November 02, 2018 11:00pm June 27, 2021 7:14pm take 1 tablet by sushma th every six hours as needed tiZANidine (ZANAFLEX) 4 mg tablet Take 4 mg by mouth every 6 (six) hours as needed for muscle spasms. Active topiramate 100 mg oral tablet (20 sources) Start: 10-23-2022 End: 11-25-2023 take 1 tablet by mouth once topiramate (Topamax) 100 MG tablet Indications: Seizure (CMS/HCC) Take 1 tablet (100 mg) by mouth every 12 (twelve) hours. 180 tablet 3 10/23/2022 11/25/2023 Discontinued Start: 06-27-2021 End: 11-24-2024 take 1 tablet by mouth in the morning topiramate (Topamax) 100 MG tablet Indications: Seizure (HCC) Take 1 tablet (100 mg) by mouth in the morning and 1 tablet (100 mg) before bedtime. 180 tablet 3 11/25/2023 11/24/2024 Active Start: 12-14-2018 Topamax Refill s(s) 0 Start Date: 12/14/18 Status: Ordered Repeat number: 1 Start: 12-14-2018 Topamax Refill s(s) 0 Start Date: 12/14/18 Status: Ordered Start: 11-03-2018 End: 06-27-2021 take 1 tablet by mouth once daily Topiramate 200 mg capsule,sprinkle,ER 24hr Discontinued 200 TAB PO Daily November 02, 2018 11:00pm June 27, 2021 7:09pm End: 07-11-2023 take 300 mg by mouth twice daily topiramate (QUDEXY XR ORAL) Take 300 mg by mouth 2 (two) times a day. 07/11/2023 Discontinued traMADol hydrochloride 50 mg oral tablet (7 sources) Opioid Agonist Start: 07-08-2024 End: 07-18-2024 take 1 tablet by mouth every eight hours for pain traMADol (Ultram) 50 MG tablet Indications: Cervical dystonia , Degeneration of intervertebral disc of lumbar region with lower extremity pain , Degenerative disc disease, cervical Take 1 tablet (50 mg) by mouth every 8 (eight) hours if needed for severe pain or moderate pain for up to 10 days 30 tablet 07/08/2024 07/18/2024 Active Start: 12-14-2018 tramadol Refil ls(s) 0 Start Date: 12/14/18 Status: Ordered traZODone hydrochloride 100 mg oral tablet (20 sources) Serotonin Reuptake Inhibitor Start: 11-12-2023 Trazodone Active 200 MG PO November 12, 2023 12:00am Start: 10-07-2023 End: 10-06-2024 take 2 tablets by mouth at bedtime traZODone (Desyrel) 100 MG tablet Indications: Depression, unspecified depression type Take 2 tablets (200 mg) by mouth at bedtime 180 tablet 3 10/07/2023 10/06/2024 Active Start: 09-03-2023 End: 11-12-2023 take 4 tablets by mouth once daily at bedtime Trazodone 50 mg tablet Discontinued 200 MG PO Daily at bedtime September 03, 2023 1:23pm November 12, 2023 9:53am Start: 09-03-2023 End: 11-12-2023 take 200 mg by mouth once daily at bedtime Trazodone Discontinued 200 MG PO Daily at bedtime September 03, 2023 2:23pm November 12, 2023 10:53am Start: 07-26-2023 take 1 tablet by sushma th at bedtime traZODone (Desyrel) 150 MG tablet Take 150 mg by mouth at bedtime 07/26/2023 Active Start: 11-03-2018 End: 09-03-2023 take 1 tablet by mouth once daily Trazodone 50 mg tablet Discontinued 50 MG PO Daily November 02, 2018 11:00pm September 03, 2023 1:33pm Start: 10-27-2018 take 25 mg by mouth once daily at bedtime trazodone 25 mg, Oral, Once a day (at bedtime), Refills(s) 0 Start Date: 10/27/18 Status: Ordered Repeat number: 1 take 200 mg by mouth once daily trazodone HCl (TRAZODONE ORAL) Indications: insomnia associated with depression Take 200 mg by mouth nightly Indications: insomnia associated with depression. Active traZODone (DESYR EL) 50 mg tablet Indications: insomnia associated with depression Take 25 mg by mouth nightly. Active venlafaxine 75 mg oral tablet (20 sources) Serotonin and Norepinephrine Reuptake Inhibitor Start: 07-01-2021 End: 07-08-2024 take 2 tablets by mouth twice daily at mealtime venlafaxine (Effexor) 75 MG tablet TAKE 2 TABLETS BY MOUTH TWICE DAILY WITH FOOD 08/06/2022 07/08/2024 Discontinued Start: 07-01-2021 End: 11-12-2023 take 150 mg by mouth twice daily Venlafaxine Discontin ued 150 MG PO Twice daily 120 30 July 01, 2021 12:00am November 12, 2023 10:54am Start: 07-03-2019 take 1 tablet by [facility] in the morning, then take 1 tablet by mouth at mealtime venlafaxine (EFFEXOR) 75 mg tablet Take 1 tablet (75 mg total) by mouth in the morning and 1 tablet (75 mg total) in the evening. Take with meals. 07/03/2019 Active Start: 11-03-2018 End: 07-01-2021 take 2 tablets by mouth at mealtime, then take 1 tablet by mouth at bedtime venlafaxine (EFFEXOR) 100 mg tablet TAKE 2 TABLETS BY MOUTH IN THE MORNING WITH FOOD AND 1 & 1 2 (ONE & ONE HALF) AT BEDTIME WITH FOOD 07/03/2019 Active Start: 11-03-2018 End: 07-01-2021 take 200 mg by mouth twice daily Venlafaxine Discontin ued 200 MG PO Twice daily November 03, 2018 12:00am July 01, 2021 10:35am Start: 10-27-2018 take 1 capsule by [facility] once daily venlafaxine 150 mg Cap-ER 150 mg = 1 cap(s), Oral, Daily, Refills(s) 0 Start Date: 10/27/18 Status: Ordered Repeat number: 1 Start: 10-27-2018 take 1 capsule by [facility] once daily venlafaxine 150 mg Cap-ER 150 mg = 1 cap(s), Oral, Daily, Refills(s) 0 Start Date: 10/27/18 Status: Ordered Completed/Discontinued Medications Medication Drug Class(es) Dates Sig (Normalized) Sig (Original) acetaminophen 325 mg / HYDROcodone bitartrate 10 mg oral tablet (6 sources) Opioid Agonist Start: 11-03-2018 End: 06-27-2021 Hydrocodone-Acetami nophen 10-325 mg tablet Discontinued 1 TAB PO As Directed November 02, 2018 11:00pm May 18th, 2022 7:14pm biotin 10 mg oral tablet (20 sources) Start: 10-23-2022 End: 10-23-2023 take 1 tablet by mouth once biotin 25439 MCG tablet Indications: Mild cognitive impairment , Intention tremor Take 1 tablet (10,000 mcg) by mouth every 12 (twelve) hours. 180 tablet 3 10/23/2022 10/06/2023 Discontinued Start: 10-27-2018 take 1 tablet by sushma th twice daily biotin 1000 mcg oral tablet 1,000 microgram = 1 tab(s), Oral, BID, # 30 tab(s), Refills(s) 0 Start Date: 10/27/18 Status: Ordered Quantity: 30.0 Unit: tab(s) Repeat number: 1 biotin 5 MG caps ule Take 5,000 mcg by mouth at bedtime Active take 5000 ug by mouth once daily BIOTIN ORAL Take 5,000 mcg by mouth nightly. Active biotin 10,000 mc g capsule Take by mouth 2 (two) times daily at 0800 and 1500. Active onabotulinumtoxina 200 unt injection (20 sources) Acetylcholine Release Inhibitor Start: 07-08-2024 End: 07-08-2024 onabotulinumtoxinA (Botox) injection 100 Units Start: 07-08-2024 End: 07-08-2024 inject 100 [IU] by intramuscular injection once 100 Units, Intramuscular, Once, On Aleja 07/08/24 at 1115, For 1 dose, Charging context for this clinic-administered medication: Medically Necessary/Insurance Start: 07-08-2024 End: 07-08-2024 onabotulinumtoxinA (Botox) i njection 200 Units Start: 07-08-2024 End: 07-08-2024 inject 200 [IU] by intramuscular injection once 200 Units, Intramuscular, Once, On Aleja 07/08/24 at 1115, For 1 dose, Charging context for this clinic-administered medication: Medically Necessary/Insurance Start: 04-01-2024 End: 04-01-2024 onabotulinumtoxinA (Botox) i njection 50 Units Start: 04-01-2024 End: 04-01-2024 inject 50 [IU] by intramuscular injection once 50 Units, Intramuscular, Once, On Aleja 04/01/24 at 0930, For 1 dose, Charging context for this clinic-administered medication: Medically Necessary/Insurance Start: 04-01-2024 End: 04-01-2024 onabotulinumtoxinA (Botox) i njection 200 Units Start: 04-01-2024 End: 04-01-2024 inject 200 [IU] by intramuscular injection once 200 Units, Intramuscular, Once, On Aleja 04/01/24 at 0930, For 1 dose, Charging context for this clinic-administered medication: Medically Necessary/Insurance Start: 12-18-2023 End: 12-18-2023 onabotulinumtoxinA (Botox) i njection 50 Units Start: 12-18-2023 End: 12-18-2023 inject 50 [IU] by intramuscular injection once 50 Units, Intramuscular, Once, On Aleja 12/18/23 at 1245, For 1 dose, Charging context for this clinic-administered medication: Medically Necessary/Insurance Start: 12-18-2023 End: 12-18-2023 onabotulinumtoxinA (Botox) i njection 200 Units Start: 12-18-2023 End: 12-18-2023 inject 200 [IU] by intramuscular injection once 200 Units, Intramuscular, Once, On Aleja 12/18/23 at 1245, For 1 dose, Charging context for this clinic-administered medication: Medically Necessary/Insurance Start: 08-25-2023 onabotulinumto xinA (Botox 200u vial IJ Soln) 200 units injection Indications: Spasmodic Torticollis Inject up to 400 units intramuscular into neck muscles every 90 days 2 each 3 08/25/2023 Active brexpiprazole 2 mg oral tablet (20 sources) Atypical Antipsychotic Start: 07-01-2021 End: 09-03-2023 take 1 tablet by mouth once daily Brexpiprazole (Rexulti) 2 mg Tablet Discontinued 2 MG PO Daily June 30, 2021 11:00pm September 03, 2023 1:31pm Start: 06-27-2021 End: 07-01-2021 take 1 tablet by mouth once daily Brexpiprazole (Rexulti) 1 mg tablet Discontinued 1 MG PO Daily June 26, 2021 11:00pm July 01, 2021 9:35am End: 07-11-2023 take 1 tablet by mouth in the morning Brexpiprazole 0.5 MG tablet Take 0.5 mg by mouth in the morning. Active 24 hr buPROPion hydrochloride 300 mg extended release oral tablet (20 sources) Aminoketone Start: 06-27-2021 End: 07-01-2021 take 1 tablet by mouth once daily Bupropion Hcl 300 mg tablet extended release 24 hr Discontinued 300 MG PO Daily June 26, 2021 11:00pm July 01, 2021 9:35am Start: 11-03-2018 End: 06-27-2021 take 1 tablet by mouth once daily Bupropion Hcl 150 mg tablet extended release 24 hr Discontinued 150 MG PO Daily November 02, 2018 11:00pm June 27, 2021 7:05pm Start: 10-27-2018 take 1 tablet by sushma th once daily buPROPion 150 mg ER Tab 150 mg = 1 tab(s), Oral, Daily, Refills(s) 0 Start Date: 10/27/18 Status: Ordered Repeat number: 1 Start: 10-10-2018 End: 07-11-2023 take 1 tablet by mouth once daily buPROPion XL (WELLBUTRIN XL) 150 mg 24 hr tablet Take 300 mg by mouth daily. 2 10/10/2018 07/11/2023 Discontinued cephalexin 500 mg oral capsule (2 sources) Cephalosporin Antibacterial Start: 06-12-2021 Keflex 500 mg Cap 50 0 mg = 1 cap(s), Oral, As Directed, Take 1 cap the day before elda procedure, take 1 cap after the procedure., # 2 cap(s), Refills(s) 0, Pharmacy: [id number], 167, cm, 06/12/21 12:14:00 EDT, Height/Length Dosing, 80.3, kg, 06/12/21 12:14:00 EDT, Weight Dosing Start Date: 06/12/21 Status: Ordered doxycycline hyclate 100 mg oral capsule (4 sources) Tetracycline-class Drug Start: 03-31-2024 doxycycline hyclate 100 mg Cap 100 mg = 1 cap(s), Oral, As Directed, Patient to take 1 tab the day before procedure and the 2nd tab the day of procedure once completed., # 2 cap(s), Refills(s) 0, Pharmacy: [id number], 167, cm, 03/31/24 9:37:00 EST, Height/Length Dosing, 78.7, kg, 03/31/24 9:37:00 EST, Weight Dosing Start Date: 03/31/24 Status: Ordered Quantity: 2.0 Unit: cap(s) Repeat number: 1 24 hr etodolac 600 mg extended release oral tablet (20 sources) Nonsteroidal Anti-inflammatory Drug Start: 11-03-2018 End: 11-03-2018 Etodolac 600 mg tablet extended release 24 hr Discontinued November 02, 2018 11:00pm November 03, 2018 12:49pm Start: 10-27-2018 End: 06-27-2021 take 1 tablet by mouth once daily etodolac 600 mg ER Tab 600 mg = 1 tab(s), Oral, Daily, # 30 tab(s), Refills(s) 0 Start Date: 10/27/18 Status: Ordered Quantity: 30.0 Unit: tab(s) Repeat number: 1 eucalyptus-peppermint oil solution (2 sources) Start: 06-01-2021 End: 07-11-2023 eucalyptus-peppermint oil solution Indications: Epistaxis Instill 1-2 drops intranasally twice daily. 30 mL 06/01/2021 07/11/2023 Discontinued Start: 06-01-2021 eucalyptus-pep permint oil solution Indications: Epistaxis Instill 1-2 drops intranasally twice daily. 30 mL 06/01/2021 Active gabapentin 300 mg oral capsule (12 sources) Anti-epileptic Agent Start: 10-27-2018 End: 06-27-2021 take 1 capsule by mouth twice daily Gabapentin 300 mg capsule Discontinued 300 MG PO Twice daily November 02, 2018 11:00pm June 27, 2021 7:14pm 12 hr guaiFENesin 1200 mg extended release oral tablet (2 sources) Start: 06-01-2021 End: 07-11-2023 take 1 tablet by mouth twice daily guaiFENesin (MUCINEX) 1,200 mg tablet extended release 12hr Indications: Epistaxis Take 1 tablet by mouth 2 (two) times a day. 20 each 06/01/2021 07/11/2023 Discontinued hydrOXYzine hydrochloride 25 mg oral tablet (20 sources) Antihistamine Start: 09-03-2023 End: 11-12-2023 take 1 tablet by mouth three times daily as needed Hydroxyzine Hcl 25 mg tablet Discontinued 25 MG PO Three times daily as needed September 02, 2023 11:00pm November 12, 2023 9:55am Start: 10-23-2022 End: 10-23-2023 hydrOXYzine pamoate 25 mg Ca p Refills(s) 0 Start Date: 05/13/23 Status: Ordered Repeat number: 1 take 1 capsule by [facility] three times daily hydrOXYzine (VISTARIL) 25 mg capsule Take 1 capsule (25 mg total) by mouth 3 (three) times a day. Active mupirocin 0.02 mg/mg topical ointment (2 sources) RNA Synthetase Inhibitor Antibacterial Start: 06-01-2021 End: 07-11-2023 mupirocin (BACTROBAN) 2 % ointment Indications: Epistaxis Applied intranasally bilaterally 2 times daily 15 g 06/01/2021 07/11/2023 Discontinued nicotine 2 mg chewing gum (6 sources) Cholinergic Nicotinic Agonist Start: 07-01-2021 End: 09-03-2023 Nicotine (Polacrilex) 2 mg Gum Discontinued 2 MG BUCCAL Every 2 hours as needed for Nicotine Cravings 60 June 30, 2021 11:00pm September 03, 2023 1:27pm OXcarbazepine 300 mg oral tablet (20 sources) Anti-epileptic Agent Start: 11-03-2018 End: 04-07-2024 take 1 tablet by mouth in the morning OXcarbazepine (Trileptal) 300 MG tablet Indications: Seizure (CMS/HCC) Take 1 tablet (300 mg) by mouth in the morning and 1 tablet (300 mg) before bedtime. 180 tablet 3 10/23/2022 04/07/2024 Discontinued Start: 10-27-2018 oxcarbazepine See Instructions, 150mg in morning, 300mg at bedtime, Refills(s) 0 Start Date: 10/27/18 Status: Ordered Repeat number: 1 Start: 10-27-2018 oxcarbazepine See Instructions, 150mg in morning, 300mg at bedtime, Refills(s) 0 Start Date: 10/27/18 Status: Ordered pantoprazole 40 mg delayed release oral tablet (20 sources) Proton Pump Inhibitor Start: 11-03-2018 End: 11-12-2023 take 1 tablet by mouth twice daily Pantoprazole 40 mg tablet,delayed release (DR/EC) Discontinued 40 MG PO Twice daily November 02, 2018 11:00pm November 12, 2023 9:55am Start: 10-27-2018 pantoprazole 4 0 mg, BID, Refills(s) 0 Start Date: 10/27/18 Status: Ordered pantoprazole (Pr otoNix) 40 MG EC tablet every 12 (twelve) hours. Active potassium bicarbonate 25 meq effervescent oral tablet (4 sources) Start: 03-01-2024 take 1 tablet by mouth once daily potassium bicarbonate 25 mEq Tab (K-LYTE) 25 mEq = 1 tab(s), Oral, Daily, # 30 tab(s), Refills(s) 11, Pharmacy: [id number], 167, cm, 02/12/24 11:59:00 EST, Height/Length Dosing, 77.8, kg, 02/12/24 11:59:00 EST, Weight Dosing Start Date: 03/01/24 Status: Ordered Quantity: 30.0 Unit: tab(s) Repeat number: 12 vitamins-lipotropics 200-100 mg tablet (2 sources) End: 07-11-2023 vitamins-lipotropics 200-100 mg tablet Take by mouth. 07/11/2023 Discontinued vitamins-lipotro pics 200-100 mg tablet Take by mouth. Active Problems Active Problems Problem Classification Problem Date Documented Date Episodic/Chronic Alcohol-related disorders (13 sources) H/O: alcoholism; Translations: [Alcohol dependence, in remission] Onset: 12-04-2022 12-04-2022 Chronic Anxiety disorders (20 sources) Anxiety; Translations: [Posttraumatic stress disorder] 10-27-2018 Chronic Calculus of urinary tract (15 sources) Kidney stone; Translations: [Calculus of kidney] Onset: 12-18-2023 06-12-2021 Episodic Chronic kidney disease (14 sources) Chronic kidney disease stage 3A ; Translations: [Stage 3a chronic kidney disease] Onset: 12-18-2023 09-03-2023 Chronic Chronic kidney disease (1 source) Chronic kidney disease; Translations: [Chronic kidney disease, stage 3a] Onset: 12-24-2023 Complications of surgical procedures or medical care (6 sources) Drug therapy finding; Translations: [Unspecified adverse effect of drug or medicament, initial encounter] 11-12-2023 Episodic Delirium, dementia, and amnestic and other cognitive disorders (17 sources) Alzheimer's disease; Translations: [Alzheimer's disease, unspecified] Onset: 12-18-2023 06-28-2021 Chronic Disorders of lipid metabolism (15 sources) Hypercholesterolemia; Translations: [Pure hypercholesterolemia, unspecified] Onset: 12-04-2022 12-04-2022 Chronic Epilepsy; convulsions (20 sources) Seizure disorder; Translations: [Epilepsy, unspecified, not intractable, without status epilepticus] Onset: 08-20-2022 10-23-2022 Chronic Epilepsy; convulsions (1 source) Seizure; Translations: [Unspecified convulsions] 11-25-2023 Episodic Esophageal disorders (20 sources) Gastroesophageal reflux disease; Translations: [Gastro-esophageal reflux disease without esophagitis] Onset: 12-18-2023 10-27-2018 Chronic Essential hypertension (2 sources) Hypertensive disorder 10-06-2024 Chronic Gastroduodenal ulcer (except hemorrhage) (13 sources) Peptic ulcer; Translations: [Peptic ulcer, site unspecified, unspecified as acute or chronic, without hemorrhage or perforation] Onset: 12-04-2022 12-04-2022 Chronic Genitourinary symptoms and ill-defined conditions (10 sources) Urge incontinence of urine; Translations: [Post-micturition incontinence ] 12-14-2018 Chronic Genitourinary symptoms and ill-defined conditions (20 sources) Increased frequency of urination; Translations: [Nocturia] Onset: 09-10-2023 12-14-2018 Episodic Headache; including migraine (20 sources) Refractory migraine without aura; Translations: [Chronic migraine without aura, intractable, with status migrainosus] Onset: 08-20-2022 08-20-2022 Chronic Hyperplasia of prostate (20 sources) Benign prostatic hypertrophy without outflow obstruction; Translations: [Benign prostatic hyperplasia without lower urinary tract symptoms] Onset: 06-12-2021 Chronic Inflammatory conditions of male genital organs (4 sources) Prostatitis; Translations: [Inflammatory disease of prostate, unspecified] Onset: 10-06-2024 05-25-2024 Episodic Intracranial injury (20 sources) Traumatic brain injury; Translations: [Unspecified intracranial injury with loss of consciousness of unspecified duration, initial encounter] Onset: 08-20-2022 06-28-2021 Episodic Malaise and fatigue (16 sources) Fatigue; Translations: [Chronic fatigue, unspecified] Onset: 11-27-2016 10-16-2022 Chronic Miscellaneous mental health disorders (8 sources) Primary insomnia; Translations: [Male erectile disorder] Onset: 08-31-2020 Chronic Mood disorders (20 sources) Depressive disorder; Translations: [Depression] Onset: 12-04-2022 10-27-2018 Chronic Osteoarthritis (20 sources) Arthritis; Translations: [Unspecified osteoarthritis, unspecified site] Onset: 12-04-2022 12-04-2022 Chronic Other diseases of kidney and ureters (1 source) Disorder of kidney and/or ureter; Translations: [Other specified disorders of kidney and ureter] Onset: 02-12-2024 Chronic Other diseases of kidney and ureters (1 source) Renal mass 02-12-2024 Chronic Other diseases of kidney and ureters (3 sources) Urinary tract obstruction; Translations: [Other obstructive and reflux uropathy] Onset: 05-13-2023 Episodic Other ear and sense organ disorders (16 sources) Bilateral hearing loss; Translations: [Unspecified hearing loss, bilateral] Onset: 11-27-2016 10-16-2022 Chronic Other endocrine disorders (13 sources) Hypoglycemia; Translations: [Hypoglycemia, unspecified] Onset: 12-04-2022 12-04-2022 Chronic Other hereditary and degenerative nervous system conditions (13 sources) Impaired cognition; Translations: [Mild cognitive impairment, so stated] Onset: 08-20-2022 08-20-2022 Chronic Other hereditary and degenerative nervous system conditions (15 sources) Intention tremor; Translations: [Other specified forms of tremor] Onset: 08-20-2022 08-20-2022 Chronic Other hereditary and degenerative nervous system conditions (18 sources) Isolated cervical dystonia; Translations: [Spasmodic torticollis] Onset: 07-30-2023 07-30-2023 Chronic Other injuries and conditions due to external causes (1 source) Foreign body in bladder; Translations: [Foreign body in bladder, initial encounter] Onset: 10-14-2023 Episodic Other male genital disorders (11 sources) Drug-induced impotence 12-14-2018 Chronic Other male genital disorders (11 sources) Impotence of organic origin 05-09-2020 Chronic Other nervous system disorders (13 sources) Median neuropathy; Translations: [Other lesions of median nerve, unspecified upper limb] Onset: 10-16-2022 10-16-2022 Chronic Other nervous system disorders (13 sources) Inattention; Translations: [Attention and concentration deficit] Onset: 12-04-2022 12-04-2022 Chronic Other nervous system disorders (3 sources) Sleep-wake schedule disorder, delayed phase type; Translations: [Circadian rhythm sleep disorder, delayed sleep phase type] 11-12-2023 Chronic Other nervous system disorders (3 sources) Circadian rhythm sleep disorder, delayed sleep phase type; Translations: [Circadian rhythm sleep disorder, delayed sleep phase type] 11-12-2023 Chronic Other nutritional; endocrine; and metabolic disorders (13 sources) Obesity; Translations: [Obesity, unspecified] Onset: 12-04-2022 12-04-2022 Chronic Other upper respiratory disease (16 sources) Allergic rhinitis; Translations: [Allergic rhinitis, unspecified] Onset: 11-27-2016 10-16-2022 Chronic Residual codes; unclassified (8 sources) Obstructive sleep apnea (adult) (pediatric); Translations: [Obstructive sleep apnea (adult)(pediatric)] Onset: 08-22-2020 Chronic Residual codes; unclassified (20 sources) Obstructive sleep apnea syndrome; Translations: [Obstructive sleep apnea (adult) (pediatric)] Onset: 11-27-2016 10-27-2018 Chronic Residual codes; unclassified (3 sources) Sedative, hypnotic AND/OR anxiolytic-induced sleep disorder; Translations: [Other sleep disorders] 11-12-2023 Chronic Residual codes; unclassified (3 sources) Other sleep disorders; Translations: [Other sleep disturbances] 11-12-2023 Chronic Residual codes; unclassified (11 sources) H/O: anticoagulant therapy 10-27-2018 Episodic Residual codes; unclassified (1 source) Edema Onset: 07-11-2023 Episodic Residual codes; unclassified (1 source) Pain, unspecified; Translations: [Pain, unspecified] Onset: 07-06-2023 Episodic Spondylosis; intervertebral disc disorders; other back problems (6 sources) Degeneration of lumbar intervertebral disc; Translations: [Degeneration of intervertebral disc of lumbar region with lower extremity pain] Onset: 07-08-2024 07-08-2024 Chronic Spondylosis; intervertebral disc disorders; other back problems (20 sources) Backache; Translations: [Cervical radiculopathy] Onset: 08-20-2022 12-14-2018 Episodic Substance-related disorders (20 sources) Nicotine dependence; Translations: [Nicotine dependence, unspecified, uncomplicated] Onset: 06-12-2021 Chronic Unclassified (8 sources) Finding of sensation of bladder 12-14-2018 Unclassified (1 source) New Patient Onset: 07-11-2023 Unclassified (3 sources) Obstructive hydronephrosis 09-10-2023 Unclassified (6 sources) Complication of ventilation therapy; Translations: [Intolerance of noninvasive positive pressure therapy] 11-12-2023 Unclassified (5 sources) Urine finding 02-12-2024 Past or Other Problems Problem Classification Problem Date Documented Date Episodic/Chronic Abdominal pain (20 sources) Flank pain; Translations: [Abdominal pain] Onset: 05-23-2023 10-27-2018 Episodic Acute and unspecified renal failure (15 sources) Acute renal failure syndrome; Translations: [Acute kidney failure, unspecified] Onset: 12-18-2023 09-03-2023 Episodic Blindness and vision defects (13 sources) Diplopia; Translations: [Diplopia] Onset: 10-16-2022 10-16-2022 Episodic Conditions associated with dizziness or vertigo (20 sources) Dizziness; Translations: [Dizziness and giddiness] Onset: 08-20-2022 08-20-2022 Episodic Diabetes mellitus without complication (13 sources) Prediabetes; Translations: [Prediabetes] Onset: 12-04-2022 12-04-2022 Episodic Lymphadenitis (13 sources) Lymphadenopathy; Translations: [Generalized enlarged lymph nodes] Onset: 12-04-2022 12-04-2022 Episodic Malaise and fatigue (13 sources) Asthenia; Translations: [Weakness] Onset: 10-16-2022 10-16-2022 Episodic Nonspecific chest pain (20 sources) Chest pain, unspecified; Translations: [Atypical chest pain] Onset: 12-04-2022 12-04-2022 Episodic Other aftercare (12 sources) dental cream maker current use of non-steroidal anti-inflammatory drug; Translations: [[facility] (current) use of non-steroidal anti-inflammatories (NSAID)] Onset: 12-18-2023 09-03-2023 Episodic Other aftercare (3 sources) [facility] (current) use of non-steroidal anti-inflammatories (NSAID); Translations: [Long-term (current) use of non-steroidal anti-inflammatories (NSAID)] Onset: 12-24-2023 09-03-2023 Episodic Other connective tissue disease (15 sources) Spasm of cervical paraspinous muscle; Translations: [Other muscle spasm] Onset: 08-20-2022 08-20-2022 Episodic Other connective tissue disease (13 sources) Pain in limb; Translations: [Pain in unspecified limb] Onset: 10-16-2022 10-16-2022 Episodic Other diseases of kidney and ureters (12 sources) Hydronephrosis; Translations: [Unspecified hydronephrosis] Onset: 12-18-2023 09-03-2023 Episodic Other diseases of kidney and ureters (3 sources) Unspecified hydronephrosis; Translations: [Hydronephrosis] Onset: 12-24-2023 09-03-2023 Episodic Other disorders of stomach and duodenum (13 sources) Gastroparesis syndrome; Translations: [Gastroparesis] Onset: 12-18-2023 11-04-2018 Episodic Other disorders of stomach and duodenum (13 sources) Delayed gastric emptying; Translations: [Functional dyspepsia] Onset: 12-04-2022 12-04-2022 Episodic Other ear and sense organ disorders (13 sources) Tinnitus; Translations: [Tinnitus, unspecified ear] Onset: 10-16-2022 10-16-2022 Episodic Other hereditary and degenerative nervous system conditions (13 sources) Tardive dyskinesia; Translations: [Drug induced subacute dyskinesia] Onset: 10-16-2022 10-16-2022 Episodic Other non-traumatic joint disorders (13 sources) Pain in right shoulder; Translations: [Pain in joint, shoulder region] Onset: 12-04-2022 12-04-2022 Episodic Other screening for suspected conditions (not mental disorders or infectious disease) (7 sources) Serum creatinine raised; Translations: [Other specified abnormal findings of blood chemistry] Onset: 12-18-2023 12-18-2023 Episodic Other upper respiratory disease (16 sources) Bleeding of pharynx; Translations: [Other diseases of pharynx] Onset: 03-18-2017 10-16-2022 Episodic Other upper respiratory disease (3 sources) Bleeding from nose; Translations: [Epistaxis] Onset: 11-27-2016 11-27-2016 Episodic Pneumonia (except that caused by tuberculosis or sexually transmitted disease) (13 sources) Pneumonia due to respiratory syncytial virus; Translations: [Respiratory syncytial virus pneumonia] Onset: 12-04-2022 12-04-2022 Episodic Residual codes; unclassified (13 sources) FH: Thyroid disorder; Translations: [Family history of other endocrine, nutritional and metabolic diseases] Onset: 12-04-2022 12-04-2022 Episodic Results Test Name Value Interpretation Reference Range Facility Urology Office/Clinic Noteon 10-06-2024 Urology Office/Clinic Note Urology Office/Clinic Note Chief Complaint Follow up HPI Staff Follow up to Urodynamics 06/15/24 Previous DX: BPH w/urinary obstruction, ED, feeling of incomplete bladder emptying, kidney stone, prostatitis Previous PSA 05/13/23 - started Dutasteride *Dutasteride 0.5 mg qd and Flomax 0.4 mg BID, potassium citrate 15 meq BID, Sildenafil 100 mg PRN Pt unable to give urine sample today IPSS 17 Pt states he has occasional bilateral kidney pain sometimes, sometimes has pain and burning w/urination, denies visible blood History of Present Illness Tests reviewed: reviewed UA, urodynamics report I have reviewed the previous health record information and history for this patient from Dr. Keene. I have reviewed and verified the staff [...] See HPI. Physical Exam Vitals & Measurements HR: 60(Peripheral) RR: 18 BP: 120/78 HT: 167 cm HT: 66 in WT: 176.811 lb WT: 80.2 kg BMI: 28.76 General Appearance: alert, no distress, well nourished, well developed male. Assessment/Plan 1. BPH with urinary obstruction (N40.1: Benign prostatic hyperplasia with lower urinary tract symptoms) PSA: 06/18/21 - 4.06 05/13/23 - 3.0 & 23.3% 05/13/23 - started Dutasteride NICOLAS 12/24/23 notes prominent prostate w/ estimated volume of 44 mm protruding into bladder S/p Cysto 05/25/24 - Trilobar obstruction with a high median lobe. Urodynamics 06/15/24 - Uroflow: 7.7 ml/s avg flow rate, 18.2 ml/s max flow. Filling cystometry: first sensation at 205.9 ml, first desire 327.6 ml, strong desire 422.1, capacity 486.1 ml. Voiding cystometry: 4.1 ml/s avg flow, 7.7 ml/s max flow, 59.9 max detrusor pressure. VANEGAS index 36.6. IPSS 17. Taking Dutasteride 0.5 mg qd and Flomax 0.4 mg BID. Not satisfied with urinary sx control. Reviewed results of urodynamics. Advised pt he is a candidate for TURP as he has failed max meds. Risks/benefits/procedural details discussed. -Will schedule TURP. The procedural risks, benefits, details, and treatment alternatives have been discussed with the patient. These include bleeding, infection, need for blood transfusion, continued urinary difficulties, urinary leakage which could be permanent, need for catheter, retrograde ejaculation, scar tissue formation in the urinary channel or area of prostate shaving, erection problems, blood clot formation in the lower extremities which could travel to the lungs, among others. A secondary operation could also be required. Full informed consent has been obtained. Will order General anesthesia. -Cont Dutasteride and Flomax wo changes for now -Will check PSA after pt heals from TURP 2. Kidney stone (N20.0: Calculus of kidney) S/p Cysto, R URS, laser litho of large R impacted ureteral calculus, stone basket extraction, pyeloscopy, R ureteral stent placement. Stone analysis 09/25/23 - 50% CaOx Di, 50% Phos Hydoxyl. Metabolic workup 12/24/23 - Volume 1700 mL. Serum labs wnl. CT AP wo con 02/19/24 Christopher - 3 mm nonobstructing stone LLP. -High fluid intake 3. 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 Taking Potassium citrate 15 mEq BID. 4. Erectile dysfunction (F52.21: Male erectile disorder) LYLE not completed (3). Sildenafil 100 mg PRN. 5. Prostatitis (N41.9: Inflammatory disease of prostate, unspecified) Tx'd w/ Doxycycline 100 mg bid x 3 wks 05/2024. UA neg. Asx. 6. Smoker (F17.200: Nicotine dependence, unspecified, uncomplicated) Increased risk for urothelial cancer. Smoking cessation education attached. Follow-up With When Contact Information YECENIA BUSTILLO, Buster Tinoco, URL [address] [place] [address] [place] [address] Additional Instructions: sched TURP Patient Education Transurethral Resection of the Prostate, Care After Transurethral Resection of the Prostate Steps to Quit Smoking IKera, personally scribed for Dr. Keene on 10/06/2024 10:15:30. . Documentation recorded by the scribeKera, accurately reflects the services(s) I performed and decisions made by me. Authenticated by Dr. Keene on 10/06/2024 10:17:55. Problem List/Past Medical History Ongoing BPH with urinary obstruction Dorsalgia Drug-induced impotence Erectile dysfunction Hx of group home use of blood thinners Hypocitraturia Kidney stone Post-void dribbling Prostatitis Smoker H (more content not included)... Normal [facility] Comment on above: Result Comment: Elec tronically Signed By: Buster KEENE MD\.br\Date and Time Signed: 10/06/24 10:18 EDT\.br\Electronically Co-Signed By: Kera Elam\keshav\Date and Time Co-Signed: 10/06/24 10:16 EDT Coding Summaryon 07-27-2024 Coding Summary HTMLBase 64 NasswofsQJk3lDp+PGhlYWQ+PE1 WHHUrH73xxEOfeI4yS8ZBDJpFJq oyJXPKDMhSEfYderYtUW1ugKPeV XJu IC8+YO1uQQQtNakteGNwr1I8mTO 6V58cow3xQNtfhGV4BLKaYxCvpx shf5zfzAo9QLvuSzjdUoQd NGAssI45NEA5fC71Pu94iOKeuKR gf1ossPs6TyMdDKCtJME6yPyuBZ tmu4ZuDTKgM04thDSxv0U3 EKWnoVkpaBNdQdTsyLS1sF0hXLc gjlhta9bhpnnaXfs0dz32cDJjo6 A7mNH1J5PkfoX3JVLvsMJi FklhcTFGuL7rejnie6qinpzgAwA bPFBaBTo4WUi3HCZguNjhQcJlVA 71RNX6OCMocqUgR7AuRRHj pLggMeQ2k5C3Ji3PY9PEKdezA6G NTUFSWTwvdGQ+AK76je13H1YhBy wxQxm4DGNeHOD7nBE5pF6p DYGxCOuqk7F3iPD0R6DsneDwpk8 jv2uaQIIhRUkvJ80caCXau4I0XR ZrbXD1YCLqtHaiThUplL70 Oyc+KKNvdFgqs3HrTbxhr1ppc1q npXu9RrhiBZDzndEesXofGTJ2v2 LaYm1dOOTrsXV3rHD5bJ0y IuJpNfJ3HGqhH557JaYjsBVpVaz rN89tT4OftHO+QIYlFfx7PDMqpI kiNX1vT4SqLDIjzuusdXDy eHzpJS0eOHNowkmtGVBcxI6tNGC qJ1x1IbYeIcJ6KXmmH5UvLSPsjv qeEr05fD7gAvIbWhY2JXkn A3BkqgY1SRJyjDEkIJmaFNL0F80 bi0Z2EJOuXXNtVMT5iHO2uA1wdT lnbjogbGVmdDsgdmVydGlj SAhbZRzrG871EFWtlOljYfLnUMh uZyBEYXRlOiAgMDYvMTcvMjAyNT wvdGQ+ACIeLBJ5xVkrOIUn hOInRBcnWr6daGeriIhlMD1yWTA brtcwMVIjsY9nAJNldYTlzHqpQY 7qIGNsamdue449YxDpGEO1 WGUrhPHpP3SqpM2vLrWhCOOeYNA vL9UmnEAqQLhuD013WExsRnE4WG OuhbRyA9NaBTRmgUphWuF2 b9N8Op7Kk6YqvavqT7FhlPOkWvA eZeqrHKo5W3RaTobsiPK+PC90YW GdAB74AXg4FOZ0kXxrSQkz SUJnC0MmiR2gYpStSNPsHUZgRhv +PHRhYmxlIHdpZHRoPScxMDAlJy IsvWxmTB4dSl2xSVIhUGRv kOznlPGeXbKps4njZCMkGClhHE5 nsEwxQ5NvqYQ2DHTll2x4Pd24V1 2uR2KahBS+IMJevJO9uTU9 zR8vIcJrTiZ5NCicR099OjMnzJH jJyluv8naa6douMj9HtQ5UTVrll BilVwqRTN6e0SwIw05I27a IHdpZHRoPSIxNSUiIHZhbGlnbj0 vrK4oLa8+MCLuaNO7vLR3cS3bSt XgGpM3QYrvZ017HgJmmMWg Yzrsj7ttn2wdhJs0GdIhUGUysnB mdZmuEEZ5o5EhGb52S7TgyMibz9 QrCfu5mg64wKMdr5V3jGS8 T0OhCDSiqysxlZOhkNlxJR2mEGY uftwxTMJurE8kINRiN1l8EcKvJv F6YCkuC1GkjqZ2ZOWjsMBn AJSvsRWVzC3qlmcta4ljwaumUmJ lNTQtZSt6IOg7PISygVbdRlWjBD P2VpC6SDW5aOHndM4aeIbw pjeblA9hRis+RMI8tFEniQETKM3 lOjwvdGQ+QMKaRLP2tFtqSKkxDS LapT6pEUBuF7d9VkOtAjG1 IHgyJ5ZiumU3FAXrlFSmCEZwjZE WcR5ugzblx8leryddTgCpXGIdLK v0NCb7BQSffGqwNxZqARP9 OtE3LRT5bNExqP5iyPinqijtrY2 wOyc+VtedbRwoHUE8MLt9Q5NqDp v7ZUJwyDzbEB2inRDuAGlc Vj0ypPrwsWsaFX2mBESljwjwe88 6UcRkf1jiAPQnbNZjZRszUAY1H0 2if5O7DBDwKQQmYPM2mKG1 yH5rbXxduxfnpTOwjMcrixQjkEe iCGfkWNjpM654XZJtyIvdPcGgDI j9R2ZmCoh0XHEcxFwgUN2e nSGrMIkaNq0keMmhiMqjIT2kERM gofkbu225ZfJgo7pdCMPobBGvSY mmWXS9B55pw1D5XKUrRTHv PUR0cOG4bC6auVujsezphTDsxLo ndyDvaBuxRFruKXngV903EAIqiB kmZcRgdUt3B0IdGps7FLJg zAcnJY4tgJXlCYxbUp4blVucoHa nZQ8zXCAplvnhr738CjKfc8xrZR AdrXCmIVfhNPO6R12pf0B9 JJBwYCJtAJY5iSR3xZ9hvWvgavh gbGVmdDsgdmVydGljYWwtYWxpZ2 46IHRvcDsnPlBhdGllbnQg HAvkLTx0G1FiGkoebVA+ZG73OHQ bXS37kBDjbEOan9qmlFy7QwSqXY BwLBO1dBlcSAwtn9QnSCYq D14fxRLgo8A4MDSorXviiUSzSlW kvZJ2sV7bCKphjfywe4fjnjwvMf wil3rgfv05nD38H18ySEat WYIeUUNhUTKeFEIatFaadp3dmN4 wIi8+YCYsdJP5eKQ8wJ2lUIWvOv E1YBqkV470KeYvoPQmXtfp m4qqa9xpaCc9KeZ1TIQbswUtaMg dQWM8v9NlSb44J77lXLnuLXFyYE WyQNWaUOJdrAluyf4ynG2k Ii8+UDGwxNH8qBI4eF5tCmZkLkC 8UKjyW142KrKawWNbVbzmA75eZ3 JvdXA+PODkPoh1CNQtxMrl KY9aqXLdSTrwJl7hFNF7ZgGoOlP cEGhdS9ZpMEZylsfgyafuvPE7VV FpVDKwkZ63Kk5jiTzhUMZc oOJPpO5zjgyuz2ciwjwsEwKjFHK vGXq5HDg9CBBedBizKqNkCIQ3Uu F3ZUS6cBMfeE5mlIqytdqx jA9eS2XjTOCxdezkSj76vD7dNcX jLhT9TYlzAvr+UllGLCBXSUxMSU OGXHd2F3JzSdc9WUCigYvo EB5ttSGfKCkzJj7biEbgjNcaLI5 eMBFikqcjELQgtU8eCXSmhCGefX whSX5kXLVywwyay483XfLu GZP4VBJzpEZzH4UorZ0bJoNaCXR yEHAdI5JvcONgPXhbY762OLspQo X9CJPlwkUuU2EzVRJcuDzu QdE3t9Z8Ap5xDo3tBn5lSBF3AR1 6XV01rDFbn9R6yBA2L1BzMALqec xefdkouOP4TMIfODEydW90 gKQuBJrtQw6fl8K8r254MPYgHEO trM54Eh6ymJcvTBSvjIOPaJ2ttf cvt4kligklSjMeIYRgISs9 GHl0KEBpyXaeImUlVLR3XhT3OAS 8hJEqbL9hhMfyavonjK0nCvw+NT JvULGudiW7D9FaAii1FFBg eDbgZD5cxLAtXGxdPx2rrUiriFo jJZ4mPVEsjxhsSXBhnC8qLBHrgB NplDtbMC2tLEQzagtsf730 ZoSkLIO3DQFfvAJtQ5VlsB1vQyV mYYEuKCQbG5CfyVXaHMwcR519VY zlRuI0NOXjkxZcD5NtUEGn jXfnFrG5m3F3Um3JFVfRFT26IM3 4mERxu3H6gSH5N4VzAEYmmkpdvj kbtPI8VGWzQCLmbV40gBQh JCodLr4rz9T9s469DQVcPJUwgC2 2Rf4knDvyKKJukDNChG5ffdktq1 xudslbBwUyVPPfFPe5NLa8 KEItdHamKqHkCLX8SyH9RND9hUG tsP5ehCrnqwutgI3jGeb+T1A8L3 RkPjwvdHI+AI11NXClQC50 pRIkxTLpv3bzhDg7KfAkRDZcGSU 9zZrgMRoim6TyBEWwF74gkUZfj3 N3KFWemZhtgEHpObWnpLO9 cP4rRGpbqgfmx1vaipffFxxcz5j zbe16hY07G23aQEsxMGSgRYSgBF XmYXGevWnfps1afF9rQo5+ PVIezMJ6gGV6jS9cJiPtXaC4MOj vC076FfYiwAFyBlmlh5sap4bmtU f1ZnTjEQNpsgUgrKhsLAX4 t9MtGt71M83wMCyfHLTpOXNjKOX vKFOjuHiyru2fmK3xQp0+PC9jb2 xlpw30iQ80kYX+PHRkIHN0 vBfaZVkmMUOiaL5eZWrcLpP8VYZ sElFskK96xPHgLLfoFc5skFrjoT lpQN9xKYAhtbgom318EmRb e5brWMPsxGQpBOebBKG7S71qn5U 8ZHRxIYQeDXM5jVG8yA5ewOzgak ogbGVmdDsgdmVydGljYWwt DGunP067ZDDyfSjuTrWeqEKyG5s tvoIPAZ9iFqlydBW+JWUwCZR5vB ecYHzkLZTprU6fKAVjP4x0 DrKbMeS9SGghF3AigcH3SIDttIE xWOXxrPUQiX3zchvxw2tzwrzlOc VfARNlTKj6XMj5KFUkfRqp VoXdFDW5KxL0FCB3uHTdzH4viUx icwpunB0fRxw+RklOOjwvdGQ+PH WrZHB5pPcdSJccZWQvzH8z RALwV8w5SpNaOvQ9HLeuH4SlcfI 2UYExgXUnAFAglZBAxR9iyidek0 iyaglqUpXmLRYgSCo7KTp5 EJJyyVaxFhWqNBM4SaE5NEM7bMB txG5moLsaqxpzzJ8gTbn+TVJOOj wvdGQ+DGCvAWL4bMjcEMne EWMoyV2pWFFjT4t8JfHkNzJ5EPn sX6RjlfE2HCKrxAAkOSQamKJZtE 8gftccy0vpaueaLwIaAJLw PWx8RHt9DWPjsEmhRgUgUOP4RzG 7BXG2eAIznZ7mzHilkkxsmK6jTh c+IDJ5PUD9DX32BJ99W8Sr PjwvdGFibGU+PHRhYmxlIHdpZHR tMJejXNQpRfVbmHggGC1xHd7qKM OhLXSrtIcqlMUxWcMwh4da YXB (more content not included)... [facility] Consultation/Specialist Note on 07-22-2024 Consultation/Specialis t Note [id number] [facility] C Urineon 07-21-2024 C Urine <10,000 cfu/ml [facility] Comment on above: Performed By: #### 6 [id number] ####[facility] (DEFAULT)[address] [place] [address] 15883 UA Mvvpg4qm 07-18-2024 UA Amorph. 1+ [facility] Comment on above: Order Comment: Urina lysis Microscopic order added on by [employer] Expert Rules system. Performed By: #### 5 [id number], [id number] #### [facility] (DEFAULT) [address] [place] [address]329 UA Bacteria Trace [facility] Comment on above: Order Comment: Urina lysis Microscopic order added on by [employer] Expert Rules system. Performed By: #### 5 [id number], [id number] #### [facility] (DEFAULT) [address] [place] [address] 65168 UA RBC None Seen [facility] Comment on above: Order Comment: Urina lysis Microscopic order added on by [employer] Expert Rules system. Performed By: #### 5 [id number], [id number] #### [facility] (DEFAULT) [address] [place] [address] 02272 UA Squam Epi Rare [facility] Comment on above: Order Comment: Urina lysis Microscopic order added on by [employer] Expert Rules system. Performed By: #### 5 [id number], [id number] #### [facility] (DEFAULT) [address] [place] [address] 21755 UA WBC 0-2 [facility] Comment on above: Order Comment: Urina lysis Microscopic order added on by Discern Expert Rules system. Performed By: #### 5 [id number], [id number] #### [facility] (DEFAULT) [address] [place] [address] UA w Culture if Ind Standard on 07-18-2024 Breakpoint UA [facility] Comment on above: Performed By: #### 5 [id number], [id number] #### [facility] (DEFAULT) [address] [place] [address] Color (U) Yellow [facility] Comment on above: Performed By: #### 5 [id number], [id number] #### [facility] (DEFAULT) [address] [place] [address] Culture? Not Indicated Invalid Interpretation Code [facility] Comment on above: Result Comment: Resu lt created by rule GL_MAGR_ADD_UA_CULT Result created by rule GL_MAGR_ADD_UA_CULT Result created by rule GL_MAGR_ADD_UA_CULT1 Performed By: #### 5 [id number], [id number] #### [facility] (DEFAULT) [address] [place] [address] Glucose (U) [Mass/Vol] Negative [facility] Comment on above: Performed By: #### 5 [id number], [id number] #### [facility] (DEFAULT) [address] [place] [address] Ketones Ql (U) Negative [facility] Comment on above: Performed By: #### 5 [id number], [id number] #### [facility] (DEFAULT) [address] [place] [address] 04858 Micro? Indicated Invalid Interpretation Code [facility] Comment on above: Result Comment: Resu lt created by rule GL_MAGR_ADD_UA_MICRO Performed By: #### 5 [id number], [id number] #### [facility] (DEFAULT) [address] [place] [address] 00856 UA Bilirubin Negative [facility] Comment on above: Performed By: #### 5 [id number], [id number] #### [facility] (DEFAULT) [address] [place] [address] 53456 UA Blood Negative Normal NEGATIVE [facility] Comment on above: Performed By: #### 5 [id number], [id number] #### [facility] (DEFAULT) [address] [place] [address]879 UA Clarity SL CLOUDY Abnormal CLEAR [facility] Comment on above: Performed By: #### 5 [id number], [id number] #### [facility] (DEFAULT) [address] [place] [address] 76470 UA Leuk Est SMALL Abnormal NEGATIVE [facility] Comment on above: Performed By: #### 5 [id number], [id number] #### [facility] (DEFAULT) [address] [place] [address] UA Nitrite Negative Normal [facility] Comment on above: Performed By: #### 5 [id number], [id number] #### [facility] (DEFAULT) [address] [place] [address] UA pH 7.5 Normal 5-8 [facility] Comment on above: Performed By: #### 5 [id number], [id number] #### [facility] (DEFAULT) [address] [place] [address] UA Protein Negative Normal [facility] Comment on above: Performed By: #### 5 [id number], [id number] #### [facility] (DEFAULT) [address] [place] [address]308 UA Spec Grav <=1.005 Normal 1.001-1.[address] [place] [address] Comment on above: Performed By: #### 5 [id number], [id number] #### [facility] (DEFAULT) [address] [place] [address] 99694 UA Urobilinogen 0.2 mg/dL Normal 0.2-1.0 [facility] Comment on above: Performed By: #### 5 [id number], [id number] #### [facility] (DEFAULT) [address] [place] [address] Urine Source Clean Catch Normal [facility] Comment on above: Performed By: #### 5 [id number], [id number] #### [facility] (DEFAULT) [address] [place] [address] Dipstick and Microscopicon 0 06-29-2024 Amorphous Crystal,Urine Rare Normal [facility] Comment on above: Order Comment: Name Collection Type:: Clean-Voided Midstream Performed By: #### C REAT, LYTES, BUN, PTH, URIC, [place] #### [address] Appearance (U) Cloudy Critically abnormal Clear [facility] Comment on above: Order Comment: Name Collection Type:: Clean-Voided Midstream Performed By: #### C REAT, LYTES, BUN, PTH, URIC, [place] #### [address] Bacteria,Urine None Seen Normal None Seen [facility] Comment on above: Order Comment: Name Collection Type:: Clean-Voided Midstream Performed By: #### C REAT, LYTES, BUN, PTH, URIC, [place] #### [place] [address] [place] Bilirubin,Urine Negative Normal Negative [facility] Comment on above: Order Comment: Name Collection Type:: Clean-Voided Midstream Performed By: #### C REAT, LYTES, BUN, PTH, URIC, [place] #### [place] [id number] [facility] Color (U) Yellow Normal Yellow [facility] Comment on above: Order Comment: Name Collection Type:: Clean-Voided Midstream Performed By: #### C REAT, LYTES, BUN, PTH, URIC, [place] #### [place] [address] [place] Glucose Ql (U) Normal Normal Normal [facility] Comment on above: Order Comment: Name Collection Type:: Clean-Voided Midstream Performed By: #### C REAT, LYTES, BUN, PTH, URIC, [place] #### [place] [address] [place] Hyaline Casts,Urine None Normal 0-8 [facility] Comment on above: Order Comment: Name Collection Type:: Clean-Voided Midstream Performed By: #### C REAT, LYTES, BUN, PTH, URIC, [place] #### [address] Ketones Ql (U) Negative Normal Negative [facility] Comment on above: Order Comment: Name Collection Type:: Clean-Voided Midstream Performed By: #### C REAT, LYTES, BUN, PTH, URIC, [place] #### [address] Leukocyte esterase Test strip Ql (U) Negative Normal Negative [facility] Comment on above: Order Comment: Name Collection Type:: Clean-Voided Midstream Performed By: #### C REAT, LYTES, BUN, PTH, URIC, [place] #### [address] Mucus,Urine Rare Normal [facility] Comment on above: Order Comment: Name Collection Type:: Clean-Voided Midstream Result Comment: PERF ORMED BY: [place] [address] PATHOLOGIST BUSINESS LINE MANAGER CHANNING MEDRANO M.D. Performed By: #### C REAT, LYTES, BUN, PTH, URIC, [place] #### [address] Nitrite,Urine Negative Normal Negative [facility] Comment on above: Order Comment: Name Collection Type:: Clean-Voided Midstream Performed By: #### C REAT, LYTES, BUN, PTH, URIC, [place] #### [address] Occult Blood,Urine Negative Normal Negative [facility] Comment on above: Order Comment: Name Collection Type:: Clean-Voided Midstream Result Comment: PERF ORMED BY: [place] [address] PATHOLOGIST BUSINESS LINE MANAGER CHANNING MEDRANO M.D. Performed By: #### C REAT, LYTES, BUN, PTH, URIC, [place] #### [address] pH (U) 6.5 [pH] Normal 5.0-9.0 [facility] Comment on above: Order Comment: Name Collection Type:: Clean-Voided Midstream Performed By: #### C REAT, LYTES, BUN, PTH, URIC, [place] #### [address] Protein,Urine Negative Normal Negative [facility] Comment on above: Order Comment: Name Collection Type:: Clean-Voided Midstream Performed By: #### C REAT, LYTES, BUN, PTH, URIC, [place] #### [address] RBC,Urine 1-2 Normal 0-4 [facility] Comment on above: Order Comment: Name Collection Type:: Clean-Voided Midstream Performed By: #### C REAT, LYTES, BUN, PTH, URIC, [place] #### [address] Specificy [place],Urine 1.017 Normal 1.001-1.03 0 [facility] Comment on above: Order Comment: Name Collection Type:: Clean-Voided Midstream Performed By: #### C REAT, LYTES, BUN, PTH, URIC, [place] #### [address] Urobilinogen,Urine Normal Normal Normal [facility] Comment on above: Order Comment: Name Collection Type:: Clean-Voided Midstream Performed By: #### C REAT, LYTES, BUN, PTH, URIC, [place] #### [address] WBC,Urine 5-9 High 0-4 [facility] Comment on above: Order Comment: Name Collection Type:: Clean-Voided Midstream Performed By: #### C REAT, LYTES, BUN, PTH, URIC, [place] #### [address] Hemogram CBC Without Diffon 06-29-2024 Erythrocyte distribution width (RBC) [Ratio] 12.8 % Normal 12.0-14.8 [facility] Comment on above: Performed By: #### C REAT, LYTES, BUN, PTH, URIC, [place] #### [address] Hematocrit (Bld) [Volume fraction] 45.4 % Normal 38.8-50.0 [facility] Comment on above: Performed By: #### C REAT, LYTES, BUN, PTH, URIC, [place] #### [address] Hemoglobin (Bld) [Mass/Vol] 15.9 g/dL Normal 13.0-17.0 [facility] Comment on above: Performed By: #### C REAT, LYTES, BUN, PTH, URIC, [place] #### [address] MCH (RBC) [Entitic mass] 31.7 pg Normal 27.5-35.2 [facility] Comment on above: Performed By: #### C REAT, LYTES, BUN, PTH, URIC, [place] #### [address] MCV (RBC) [Entitic vol] 90.8 fL Normal 83.5-101 [facility] Comment on above: Performed By: #### C REAT, LYTES, BUN, PTH, URIC, [place] #### [address] Mean Corpuscular HGB Conc 34.9 g/dL Normal 32.5-35.6 [facility] Comment on above: Performed By: #### C REAT, LYTES, BUN, PTH, URIC, [place] #### [address] Platelet mean volume (Bld) [Entitic vol] 7.3 fL Normal 6.6-10.1 [facility] Comment on above: Result Comment: PERF ORMED BY: [place] [address] PATHOLOGIST BUSINESS LINE MANAGER CHANNING MEDRANO M.D. Performed By: #### C REAT, LYTES, BUN, PTH, URIC, [place] #### [address] Platelets (Bld) [#/Vol] 240 10*3/uL Normal 150-450 [facility] Comment on above: Performed By: #### C REAT, LYTES, BUN, PTH, URIC, [place] #### [address] RBC (Bld) [#/Vol] 5.00 10*6/uL Normal 3.90-5.60 [facility] Comment on above: Performed By: #### C REAT, LYTES, BUN, PTH, URIC, [place] #### [address] WBC (Bld) [#/Vol] 5.7 10*3/uL Normal 4.1-10.5 [facility] Comment on above: Performed By: #### C REAT, LYTES, BUN, PTH, URIC, [place] #### [address] Magnesiumon 06-29-2024 Magnesium [Mass/Vol] 2.0 mg/dL Normal 1.9-2.7 [facility] Comment on above: Performed By: #### C REAT, LYTES, BUN, PTH, URIC, CA #### [address] Parathyroid Hormone Intacton 06-29-2024 Parathyroid Hormone Intact 16.6 pg/mL Normal 12-88 [facility] Comment on above: Result Comment: PERF ORMED BY: [place] [address] PATHOLOGIST [employer] CHANNING MEDRANO M.D. Performed By: #### C REAT, LYTES, BUN, PTH, URIC, CA #### [address] Protein Creat Ratio Ur Rando mon 06-29-2024 Creatinine, Urine (Random) 95.00 mg/dL Normal [facility] Comment on above: Result Comment: No r eference range established Performed By: #### C REAT, LYTES, BUN, PTH, URIC, CA #### [address] Protein (U) [Mass/Vol] 9 mg/dL Normal 0-9 Th e [facility] Comment on above: Performed By: #### C REAT, LYTES, BUN, PTH, URIC, [place] #### [address] Urine Protein/Creatinine Ratio 95 mg/g{Cre} Normal 0-200 [facility] Comment on above: Result Comment: PERF ORMED BY: [place] [id number] PATHOLOGIST [employer] MANAGER CHANNING MEDRANO M.D. Performed By: #### C REAT, LYTES, BUN, PTH, URIC, CA #### [address] Renal Function Panelon 06-29 Albumin [Mass/Vol] 4.5 g/dL Normal 3.5-5.7 [facility] Comment on above: Performed By: #### C REAT, LYTES, BUN, PTH, URIC, CA #### [address] Anion gap [Moles/Vol] 11.6 mmol/L Normal 6.0-15.0 e [facility] Comment on above: Performed By: #### C REAT, LYTES, BUN, PTH, URIC, CA #### [address] Calcium [Mass/Vol] 9.6 mg/dL Normal 8.6-10.3 [facility] Comment on above: Performed By: #### C REAT, LYTES, BUN, PTH, URIC, CA #### [address] Chloride [Moles/Vol] 108 mmol/L High 98-107 [facility] Comment on above: Performed By: #### C REAT, LYTES, BUN, PTH, URIC, [place] #### [address] CO2 [Moles/Vol] 26.2 mmol/L Normal 21.0-31.0 [facility] Comment on above: Performed By: #### C REAT, LYTES, BUN, PTH, URIC, CA #### [address] Creatinine [Mass/Vol] 1.27 mg/dL Normal 0.70-1.30 [facility] Comment on above: Performed By: #### C REAT, LYTES, BUN, PTH, URIC, CA #### [place] [address] [place] GFR/1.73 sq M.predicted MDRD (S/P/Bld) [Vol rate/Area] mL/min/{1.73_m2} Normal [facility] Comment on above: Performed By: #### C REAT, LYTES, BUN, PTH, URIC, [place] #### [address] Glucose [Mass/Vol] 90 mg/dL Normal 70-100 [facility] Comment on above: Result Comment: [place] Glucose Reference Range is dependent on time and content of last meal. Glucose of more than 200 mg/dL in a nonstressed, ambulatory subject supports the diagnosis of Diabetes Mellitus. ADA recommended reference range Performed By: #### C REAT, LYTES, BUN, PTH, URIC, [place] #### [address] Phosphate [Mass/Vol] 3.2 mg/dL Normal 2.5-4.5 [facility] Comment on above: Performed By: #### C REAT, LYTES, BUN, PTH, URIC, [place] #### [address] Potassium [Moles/Vol] 3.8 mmol/L Normal 3.5-5.1 [facility] Comment on above: Performed By: #### C REAT, LYTES, BUN, PTH, URIC, CA #### [facility] [address] Sodium [Moles/Vol] 142 mmol/L Normal 136-145 [facility] Comment on above: Performed By: #### C REAT, LYTES, BUN, PTH, URIC, [place] #### [facility] [address] Urea nitrogen [Mass/Vol] 17 mg/dL Normal 7-25 [facility] Comment on above: Performed By: #### C REAT, LYTES, BUN, PTH, URIC, CA #### [facility] [address] Uric Acidon 06-29-2024 Urate [Mass/Vol] 4.1 mg/dL Low 4.4-7.6 [facility] Comment on above: Result Comment: PERF ORMED BY: [place] [id number] PATHOLOGIST BUSINESS LINE MANAGER CHANNING MEDRANO M.D. Performed By: #### C REAT, LYTES, BUN, PTH, URIC, CA #### [facility] [address] Ambulatory Visit Summaryon 0 05-25-2024 Ambulatory Visit Summary Ambulatory Visit Summary FILEMON MENDEZ :1965 Visit Date:05/25/2024 Ambulatory Visit Instructions Your Diagnosis BPH with urinary obstruction Kidney stone Hypocitraturia Erectile dysfunction Smoker Prostatitis Post-void dribbling Feeling of incomplete bladder emptying Your Care Team Attending Physician - Buster KEENE MD Primary Care Physician - SUSAN ZAVALA DO This Is Your Medications List doxycycline (doxycycline hyclate 100 mg Cap) doxycycline (doxycycline hyclate 100 mg Cap) dutasteride (dutasteride 0.5 mg Cap) sildenafil (sildenafil 100 mg Tab) tamsulosin (Flomax 0.4 mg Cap) Contact prescribing physician if questions or concerns amitriptyline (amitriptyline 75 mg oral tablet) atorvastatin (atorvastatin 40 mg Tab) bifidobacterium-lactobacill us (Nature's Bounty Probiotic) biotin (biotin 1000 mcg oral tablet) buPROPion (buPROPion 150 mg ER Tab) dicyclomine donepezil (donepezil 10 mg Tab) etodolac (etodolac 600 mg ER Tab) hydrOXYzine (hydrOXYzine pamoate 25 mg Cap) levetiracetam (levetiracetam 250 mg Tab) memantine (memantine 28 mg oral capsule, extended release) metoclopramide (metoclopramide 10 mg Tab) multivitamin (Lipoflavonoid) omeprazole (omeprazole 20 mg Cap-DR) oxcarbazepine potassium bicarbonate (potassium bicarbonate 25 mEq Tab (K-LYTE)) propranolol (propranolol 60 mg Cap-ER) risperidone (risperidone 0.5 mg Tab) sucralfate (sucralfate 1 g Tab) tizanidine topiramate (Topamax) trazodone venlafaxine (venlafaxine 150 mg Cap-ER) Procedures Performed Cystoscope (05/25/2024), Cystoscopic removal of ureteric stent (10/14/2023), Cholecystectomy (12/12/2019), Cystoscopy (08/31/2012), hernia repair (05/06/2012), Colonoscopy (11/10/2009), Catheterization of both left and right heart (03/13/2009), Carpal tunnel release (10/11/2004), Hemorrhoidectomy (02/11/1992), Appendectomy (05/12/1987), tendon reconstruction (07/11/1986), sleep apnea surgery. Discharge Vitals Height 167 cm Height 66 in Weight 78.3 kg Weight 172.622 lb BMI 28.08 What to do next You Need to Schedule the Following Appointments Follow Up with YECENIA BUSTILLO, DARIEL Banegas When: Where: [facility] [address] , [place] [address]- Medications What How Much When Instructions Changed doxycycline (doxycycline hyclate 100 mg Cap) 1 Capsules By Mouth 2 times a day Duration: 21 Days Pickup at [facility] [id number] Changed doxycycline (doxycycline hyclate 100 mg Cap) 1 Capsules By Mouth As Directed Patient to take 1 tab the day before procedure and the 2nd tab the day of procedure once completed. Unchanged dutasteride (dutasteride 0.5 mg Cap) 1 Capsules By Mouth Every day Unchanged sildenafil (sildenafil 100 mg Tab) See instructions Take 1 tablet 60 minutes prior to sexual activity. Do not exceed 100mg in 24 hrs. Unchanged tamsulosin (Flomax 0.4 mg Cap) 1 Capsules By Mouth 2 times a day Unchanged amitriptyline (amitriptyline 75 mg oral tablet) 1 Tablets By Mouth Once a day (at bedtime) Contact prescribing physician if questions or concerns Unchanged atorvastatin (atorvastatin 40 mg Tab) 1 Tablets By Mouth Every day Contact prescribing physician if questions or concerns Unchanged bifidobacterium-lactobacill us (Nature's Bounty Probiotic) 1 Tablets By Mouth [...] prescribing physician if questions or concerns Unchanged oxcarbazepine See instructions 150mg in morning, 300mg at bedtime Contact prescribing physician if questions or concerns Unchanged potassium bicarbo (more content not included)... Normal [facility] Ambulatory Visit Summary Ambulatory Visit Summary FILEMON MENDEZ :1965 Visit Date:05/25/2024 Ambulatory Visit Instructions Your Diagnosis BPH with urinary obstruction Kidney stone Hypocitraturia Erectile dysfunction Smoker Prostatitis Post-void dribbling Feeling of incomplete bladder emptying Your Care Team Attending Physician - Buster KEENE MD Primary Care Physician - SUSAN ZAVALA DO This Is Your Medications List doxycycline (doxycycline hyclate 100 mg Cap) doxycycline (doxycycline hyclate 100 mg Cap) dutasteride (dutasteride 0.5 mg Cap) sildenafil (sildenafil 100 mg Tab) tamsulosin (Flomax 0.4 mg Cap) Contact prescribing physician if questions or concerns amitriptyline (amitriptyline 75 mg oral tablet) atorvastatin (atorvastatin 40 mg Tab) bifidobacterium-lactobacill us (Nature's Bounty Probiotic) biotin (biotin 1000 mcg oral tablet) buPROPion (buPROPion 150 mg ER Tab) dicyclomine donepezil (donepezil 10 mg Tab) etodolac (etodolac 600 mg ER Tab) hydrOXYzine (hydrOXYzine pamoate 25 mg Cap) levetiracetam (levetiracetam 250 mg Tab) memantine (memantine 28 mg oral capsule, extended release) metoclopramide (metoclopramide 10 mg Tab) multivitamin (Lipoflavonoid) omeprazole (omeprazole 20 mg Cap-DR) oxcarbazepine potassium bicarbonate (potassium bicarbonate 25 mEq Tab (K-LYTE)) propranolol (propranolol 60 mg Cap-ER) risperidone (risperidone 0.5 mg Tab) sucralfate (sucralfate 1 g Tab) tizanidine topiramate (Topamax) trazodone venlafaxine (venlafaxine 150 mg Cap-ER) Procedures Performed Cystoscope (05/25/2024), Cystoscopic removal of ureteric stent (10/14/2023), Cholecystectomy (12/12/2019), Cystoscopy (08/31/2012), hernia repair (05/06/2012), Colonoscopy (11/10/2009), Catheterization of both left and right heart (03/13/2009), Carpal tunnel release (10/11/2004), Hemorrhoidectomy (02/11/1992), Appendectomy (05/12/1987), tendon reconstruction (07/11/1986), sleep apnea surgery. Discharge Vitals Height 167 cm Height 66 in Weight 78.3 kg Weight 172.622 lb BMI 28.08 What to do next You Need to Schedule the Following Appointments Follow Up with YECENIA BUSTILLO, DARIEL Banegas When: Where: [facility] [address], [place] [address]- Medications What How Much When Instructions Changed doxycycline (doxycycline hyclate 100 mg Cap) 1 Capsules By Mouth As Directed Patient to take 1 tab the day before procedure and the 2nd tab the day of procedure once completed. Changed doxycycline (doxycycline hyclate 100 mg Cap) 1 Capsules By Mouth 2 times a day Duration: 21 Days Pickup at [facility] [id number] Unchanged dutasteride (dutasteride 0.5 mg Cap) 1 Capsules By Mouth Every day Unchanged sildenafil (sildenafil 100 mg Tab) See instructions Take 1 tablet 60 minutes prior to sexual activity. Do not exceed 100mg in 24 hrs. Unchanged tamsulosin (Flomax 0.4 mg Cap) 1 Capsules By Mouth 2 times a day Unchanged amitriptyline (amitriptyline 75 mg oral tablet) 1 Tablets By Mouth Once a day (at bedtime) Contact prescribing physician if questions or concerns Unchanged atorvastatin (atorvastatin 40 mg Tab) 1 Tablets By Mouth Every day Contact prescribing physician if questions or concerns Unchanged bifidobacterium-lactobacill us (Nature's Bounty Probiotic) 1 Tablets By Mouth [...] prescribing physician if questions or concerns Unchanged oxcarbazepine See instructions 150mg in morning, 300mg at bedtime Contact prescribing physician if questions or concerns Unchanged potassium bicarbo (more content not included)... Normal [facility] Urology Office/Clinic Noteon 05-25-2024 Urology Office/Clinic Note Urology Office/Clinic Note Chief Complaint Cysto HPI Staff 58 year old male here for Cysto ABX TAKEN History of Present Illness Tests reviewed: I have reviewed the previous health record information and history for this patient from Dr. Keene. I have reviewed and verified the staff [...] See HPI. Physical Exam Vitals & Measurements HT: 167 cm HT: 66 in WT: 172.622 lb WT: 78.3 kg BMI: 28.08 General Appearance: alert, no distress, well nourished, well developed male. Procedure Operative Information Anesthesia Type: Local Procedure: Local Cystoscopy Complications: None Surgical risks, benefits, details of the procedure have been explained to the patient. Full informed consent has been obtained. Intraoperative Information Prepped: Patient is brought back to the endoscopy suite. Patient is placed in supine position. Patient prepped in the usual fashion with Betadine solution. 2% Xylocaine Jelly is placed per Urethra. After waiting several minutes, the Cystoscope is introduced. The Urethra is: Normal The Prostatic Urethra is: _Trilobar obstruction with a high median lobe. The Bladder: _Diffuse inflammatory debris. No tumors or stones, Trabeculated: Mild (1), no tics. The Ureteral orifices: Show efflux of clear urine Specimens Removed: None Removal: Cystoscope is removed. The patient tolerated it well. Postoperative Information Patient is discharged home with antibiotic coverage. Follow up arranged. Assessment/Plan 1. BPH with urinary obstruction (N40.1: Benign prostatic hyperplasia with lower urinary tract symptoms) PSA: 06/18/21 - 4.06 05/13/23 - 3.0 & 23.3% 05/13/23 - started Dutasteride NICOLAS 12/24/23 notes prominent prostate w/ estimated volume of 44 mm protruding into bladder Pt had IO cysto today to assess candidacy for prostate procedures. Taking Dutasteride 0.5 mg qd and Flomax 0.4 mg BID. -Schedule UDS -Will schedule TURP. The procedural risks, benefits, details, and treatment alternatives have been discussed with the patient. These include bleeding, infection, need for blood transfusion, continued urinary difficulties, urinary leakage which could be permanent, need for catheter, retrograde ejaculation, scar tissue formation in the urinary channel or area of prostate shaving, erection problems, blood clot formation in the lower extremities which could travel to the lungs, among others. A secondary operation could also be required. Full informed consent has been obtained. Will order General anesthesia. 2. Kidney stone (N20.0: Calculus of kidney) S/p Cysto, R URS, laser litho of large R impacted ureteral calculus, stone basket extraction, pyeloscopy, R ureteral stent placement. Stone analysis 09/25/23 - 50% CaOx Di, 50% Phos Hydoxyl. Metabolic workup 12/24/23 - Volume 1700 mL. Serum labs wnl. CT AP wo con 02/19/24 Christopher - 3 mm nonobstructing stone LLP. -High fluid intake 3. 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 Taking Potassium citrate 15 mEq BID. 4. Erectile dysfunction (F52.21: Male erectile disorder) LYLE not completted (3). Sildenafil 100 mg PRN. 5. Smoker (F17.200: Nicotine dependence, unspecified, uncomplicated) Increased risk for urothelial cancer. Smoking cessation education attached. 6. Prostatitis (N41.9: Inflammatory disease of prostate, unspecified) See procedure section. -Start Doxycycline 100 mg bid x 3 wks. SEs discussed. Sent to [facility]. Follow-up With When Contact Information KEENE MD, Buster Tinoco, [facility] [address], [place] [address]- Additional Instructions: sched UDS, sched TURP Patient Education Prostatitis Urodynamic Testing Transurethral Resection of the Prostate, Care After Transurethral Resection of the Prostate I, Nirmala Galeana, personally scribed for Dr. Keene on 05/25/2024 13:51:37. . Documentation recorded by the scribe, Nirmala Galeana, accurately reflects the services(s) I performed and decisions made by me. Authenticated by Dr. Keene on 05/25/2024 13:54:00. Problem List/Past Medical History Ongoing BPH with urinary obstruction Dorsalgia Drug-induced impotence Erectile dysfunction Feeling of incomplete bladder emptying Hx of group home use of blood thinners Hypocitraturia Kidney stone Pros (more content not included)... Normal [facility] Comment on above: Result Comment: Elec tronically Signed By: Nirmala Galeana\.br\Date and Time Signed: 05/25/24 14:01 EDT\.br\Electronically Co-Signed By: Buster KEENE MD\.br\Date and Time Co-Signed: 06/16/24 15:36 EDT Coding Summaryon 04-05-2024 Coding Summary HTMLBase 64 ZjoovctrRZm2dBz+PGhlYWQ+PE1 RETNtS57hxGApyJ4aO5SXDEbREv xbSTORHRpRJrEbfkCiKW8hjKZnV XJu IC8+WV2mNHXsGnaupIUaw9D7hXJ 9O56cdp5vDHhemFO7VZWjWiIgut rrm5oxiOs0IIctPtjjScDq KIVseW59ACU4mG99Py70kJOzqVZ wh1yzrYh0SkKkYBQkMAE1zXgdMS nni6RfCQXvQ18ziDEov0D0 AROuzKzbrBClNkCjvXS8pW8iJHu sffngf2tsjtmoBeo8gv63gEXmt8 N0fSG1R2UxbnT7PXLofBUm GstrnBEUzQ2rxhpuy9hnvlovPyY eYWUpSQj4ZJt8YJXarMswYpShER 04AKN5VKHhdqMvQ7BmDRLg dTsxQmY8p3R3Oh1EJ5LNOkiwQ5O NTUFSWTwvdGQ+AS09kh05F5OlDc ovMew1WDJcGLF2kMP7qA7l DXDkZMlde9T6tAT9M5EsynFbcc5 qb1ivOCQfRMifR00ojBFte0S0CF KreTC7SBDmbBeoBwMzdC77 Oyc+PFVbnQrad8McYpgvl3gwt2i yjPr0DodjZHVakkMohCyyTSF6o8 HcUs2tPTRrjGH2gDA7xB3x ZaSsSfO9ISlhR322QqXneZZmHtv pZ91oG4UmjTL+EDOnVvs0IZAifY zzEM9tF0CiYBMyvakylVEm vEefMR6hITMruhtoVGOpaZ3tYQE lA6z5OiPdXbL0LTspQ9KfNRBtly ktIl92tL9xZxUyVxW1IRkr L8YbfzK8MLSofGDaTYxkNWY7S84 xm5B6JKZlBYRcLJD8dRJ5gW1fjD lnbjogbGVmdDsgdmVydGlj FAyrZJujZ553VRSkoZllDkFdQFs uZyBEYXRlOiAgMDIvMjQvMjAyNT wvdGQ+HNNbEWC3oZupGQMj qOXrORbaKe5ssJdtcIcuIM4wCGY ljweiXMHudS4jTZXxgNHdpXefSS 7aFKQplewgd879FsAiDVG3 RQQqgYMdH3RohT2hWuPnCSZwTLP iZ8AksTXkDIwxG651EZsxIxZ0ZM ReuuSfR4QqRUGniDfpXwI1 u6F4Br2Km7ZvzpcbH4VazEMxSlM bDsjzQLb4M1GhYretvGH+PC90YW TiWI99TOh1NIG4cAveJGls XDCcA2ZlfP4fIaOjDPNrGLXcCwy +PHRhYmxlIHdpZHRoPScxMDAlJy OahPbvXG9wEo5bBHDkBVPi bColeAEdPaCrx5vdDVTyFEcdWO7 qyCvhV7YjcLM8PUCnq6f6Rf92S7 4sO0AdsYH+LMOvqQH2eJC3 fM8eXoNqYvR3HDyuL291FwTuwWG hChynp4wqs5qzhBo4PuG4KSRyuo TffLecBSS6p4SfAh80P76p IHdpZHRoPSIxNSUiIHZhbGlnbj0 yuZ5nJb5+PPRwyLC4jNJ6mM3cJa JrTjK8HTeyF278NrKcjAIs Vcodb9cxh3brcYg1IvUyBXNcbrO znRpfZEY6d0LaZq06W8VbrCyyv0 TdUhn8qg45sQGfr0B9mWI3 S4UxPPHekruxtHVhqDgtTS9rYOF slftxHTPvtT8yNSPfY2m5OeKgKh X8VOysL2UqmtL3QJBapQGu NQXsjPRIlR5txbztu8tcothoEkH bXHLbNGm8XVn7QTYjtPchBeWmJX G8JeU9RCQ9iDPemM3urSkw mrzpoR8vFtm+KNJ5dQGnaZKXUZ0 lOjwvdGQ+PTPkQLQ2jRfwDDmiBE BxkG1nSFYiQ8w7TxYgKiK0 ZXipJ2QjhvB1KSUreBOoGYOuiXA VwD2aycrru2vhjjwfElUqAVXjTP n1PBw3BEDoaShnTtNsKGD2 CvH4SAC6iKKrcL0uzIpeyhwsdW3 wOyc+WnhbfQhtJXL6QLh1R4UsNz o9JIOpqKdpLG2psXKgMHvo Td8kjAmtfMdsPV3qCRQyqffkl59 2BeIvn4pkQALklUSnIGnuUGR2D7 6gl3E6LNVxCYPcNFM8sXV6 wA7mlXxapnecsUVlgXrnzoZquOp zEInyKNzqG970URJcoGtbBtUzVP o1M4FbOia3EGOncQrfMW2g gTOsXJqzXq8utHddeUdkDT0iHRZ karisk536QlCxe8uwHLLlzDAsOH pxGTM2U54pa7V2GYUjRUKh DML5zRF1pS4tcGrunjvlaFScbCw jybPllShmQZaxCRgtL667MUKyyZ ibUeHxtBp5Q1NtLgf0SWPk mYwnIS6dcHWqHKvyIu5sbAojmDy jNA4sKLAzamfzi389IvJlu5aeEW WzyJNpDPilHAP5P68fn8S7 KNJyXCAaQGS2cVG0vT7lxEsadcb gbGVmdDsgdmVydGljYWwtYWxpZ2 46IHRvcDsnPlBhdGllbnQg FResBZp4T9IlOxgafWN+AO82BOT sJK98xOBrlXGnj5ycxHu8WtLsUS XeEVM9rNkxSQhke7ViRHVx X84ymNAzx2J2YFKkoIiciODjLcE uxGZ8lO6xRYmluytuy3lkxwuuVt ynb6avem68qK75Y61pICih HWZoQRTqDTRiLVSmmJcuzd0ryF5 wIi8+EBXifYN6rVF1gW5oESRpUt P2SAddS031LrFxkTXeFqrq e5icw0gjyGq0LxJ8EZWgxzEnwBl mHKI5y3FdOf57Z81jYYjjTGQeAQ IdVRKlGSKivWrwtl5ctF7w Ii8+HNVowUQ8oFB3aJ6wUyTqGuX 7IPuvT800BpKsqSGaIwqpS82cK7 JvdXA+VFUaRmw9HFKjfUfv HY2aiUPwHDujGy9kAZE9FxYoLhK eNRpyC9LpXUNdiftxsjhgqNF2EB GfYANyoL59Zs0vbWxxCWTu tSKPcX3dhjfxb3yroqtdUkVyOVE eSQd4WCh5AJMjpPzsYeFvKBO4Fq F2HVX9pZKpyD5wxBipzlix kC7bO0UxTVDjenluDj18yJ9bSyJ aDwL0YTlqErn+UllGLCBXSUxMSU ZSOWd9W8UxGrk2PAEeuVtr KL0hyDOwYUvpLo4woTuwyUcwKU1 uFGGzclfkCWGtyQ8qLBQeyKHmxY lhCK9nBPHbhkecb567EnQw RNO6XBYkvSUsW0QfwZ6aDsPwMJO hHTIcS1MyjQIcTNyoZ328UYuiMk D5WZEvjuPqU9JpTSMxtPdz PyH7k9S4Vs8xIy6rXh4yZZO2IF2 9VP24hDJrq3O4wDS7N3TrCPZgnf skyuojsSE3GKLsPGUidF88 bFSwSOjyFi1bn2N9e155PSYbMAO wwB13Xx7seInfCPYxpLXGlQ3hho mfm0wkbfnhVuDaZZVuLHd5 LCy3HRIruSfvMsMtRSX5FkW1YHF 0pJEmwX8itIvbgbiuwB6yFqi+NT JnNATuzaT1E9OiZhq7FUSq nRyeWC6mhSLeYCaeRq6tlNqshEh pIU3dFAMpdryjXVIszO2lMTHmfH GrzOjcXE6tEJAmgaymm050 ZePtGOV4DJQchUOaO0XeeN5jSkT uHQNfNFBzD7DfjEVeEQfhJ552DD loPhD5TAJlzlSrO1OdWRAk dOztWmQ9j2W1Wm5ANIxEEX43XV0 0eSIyu9E3lKT9I9UiPBLkruqvnf yljJW8EBZyIVXdbF66bRLt WWjwCj6pw5K0p593XZHeBSEaiV3 5Pb6dqOuoTYHkzIWDpE1uxpbsp1 mcgrokMkQwKSJqYGl1JDv4 SRUsbAvtEuBrMQC2BkT7AVG4yIZ dnJ0ngUnnvklssM6jIya+T1A8L3 RkPjwvdHI+KS55ZEEiZU43 nJApyOBxb6iewVt3GxNmLLRjGDA 6tJwqPSzcz1KcDHVqY83dyCYcb7 Q4KBJjmCaqfCBvBlMeoAV3 wK4vSBluvkgtw7htduapHwrjb8s gin35nU85K06iJDthOTKuNRMhJG IlWZQevFogij5kpH2yEf0+ ZUVgaQQ3cOJ7uS2wZoVcRlO9AVp vJ680GpQflKWwDycdf4gma1gvjL i8HgGfOMTlrxFzgGutXZK2 a6QoWr17V60jCCttXDKdESTzEEN tZWPyhQceus9oqZ5kAh9+PC9jb2 ttmk88pI05jKK+PHRkIHN0 bCetMJrwNYGeqG0jNEkgUpD1GTZ tQtTduH32dHUyZAeaKy4weCoflI xlQM1oBMMdscmbd815AnQz m9luYBTzcRNtDGsbQHP9V15rq2Z 3BCGaBNEpRSB9xHW1bW7qlFnloc ogbGVmdDsgdmVydGljYWwt SFtaW341OHDoiLxkWkFtkVUwK7f wovYLNW2bUovrgZO+NXYuVKQ7bI goUCjhUGEcfT5hVDDhW6b8 OaFhOwE5VZgvS6MnkjO5NODcgXE oBUYpeZNZhC2hgvlgy2lyrkorGq FbVAOpBFr6KJw0MLUeePaz WxHkDVF6HdU6WKG8rHMziR7lqJj tngmkuJ9wSty+RklOOjwvdGQ+PH ZlJQA7aBqoVNvaBWKwuZ3n NSQcU5y1IpAeGgK3UUqyI8OfxeL 4ZOVxiCUoHDNcaTSQfU4hmrgit8 kurjkbMaDmIGWzPZv4JSw7 NZKwsMxeCvDdVAL8KaG2NZJ5wXX icM7lwUumyxuafA8pQym+TVJOOj wvdGQ+MXImDKK5yTxrXGrx JKAmfI9yJSYsK4z4FnGgXuN0RFm qT8ZgxdT8APYccSGtETVbjCLQcG 5pnxbmu6gfyoyhRqQtBECn JHq2GKw0RKNqaAjbIdVgANK1KcL 8GMC1hYRtwL1yiCdodscsrB5yGc c+XDZ1VWH5WZ86PR01Y9Ck PjwvdGFibGU+PHRhYmxlIHdpZHR xPBtwMZDzPxOjdOjgKF7lMq8jGB GpGWErfCtsyJCdCbOwk0yt YXB (more content not included)... [facility] Coding Summary HTMLBase 64 CvgidpznLWq9nLz+PGhlYWQ+PE1 JNZYdN57suNYqkE6uQ6YLMWyPQz yqUZYAOPqLElRruxXzGF9ukUYvG XJu IC8+GW5bGGMyVbqikPCcr4K4eTG 3S98xvk2lPZdhpZP0THSqJaSxjo ozb3alzCf6CXtoHlddPxKj AMXwpW67VMD2bW83Wt36fQHzbNR zp7fwrXm1YyQaFHUuPBH8xYqvFG yhw5FzFLFxY77myQWsl1C8 YQNawPiptZThLdXkgWW9iD1zNNn mwzlpq2kgxgndYdw5mm76bRZqc2 C7jGI0D0JfypD3QCTfdSDz DqzpwOIUmI9qseywe3tkcpooJtX rQKJoIMu2NTc3TDAtvQmaQpVoGE 28FXI5SGUayfSmQ3VbRRZp zDcqHmR5w6R2Il1YD6KGVygoB6E NTUFSWTwvdGQ+PK84ms01R8JdNs vfFwl0XPXaFXB8fII2yT7i YKKwEMaai5B4tLQ0Z0QynbQdmo2 ov6vwXXOeGWlqG92ciPEke8I1HW FwnVF2HONkcTrjXcOiqE79 Oyc+DOJevSvfq8MtBinvg7qab2r qaVz8BkypVXJfqnFfpZhkRNQ9q3 TrWg1gMBGerVQ1gZR1vX4c HjNwKtT9AWrpE949HiYehTGbHzg kM65cS8JhlCA+VNNoIha0ZUWldL hvHD1jQ0QaJUTftepwlUBz pAquSS4hDHJkvkzuNXXilN5eQGK cN2v5MnJkXwN2RSgoS7HjZRBtfg cvQi78yW0nTeKxJcO9VEqi R7UhuoA9HXGjmEIlUImbQDU1U51 xl3E7MQWgDYTwHFW0tVF0qS1xxI lnbjogbGVmdDsgdmVydGlj SYdzYHahM692PMHxtNeeArGgDSv uZyBEYXRlOiAgMDIvMjQvMjAyNT wvdGQ+KDFvDZN3jOtgOAWb lXPrDXzlCa0vsWprkLjqYP2rYVL valbjFLNqxV2kLTCkzUJjnCqhSX 9xBVAgyuate356HcThAIU1 HUJthZWgB3WuwA4uYeZwZTVtMRK bI0FjjRAxNUhaL729HNtxQqA9EQ PhbeQsZ9ZwVGJlhQvdDsW1 r7S3Vi9Cl4PavfkuA9BztLYbPtL cPhqhYSb8D2UjUrufgZE+PC90YW HrBY22CVd6BQX0vPxbMPkc HEXmL0JuzL2lBrAiZEMkOPFiJcq +PHRhYmxlIHdpZHRoPScxMDAlJy ZalXbzVG3sJk3sHYNmLSTw oDahkOMbHeWqj7wqOLEuCAzkTQ1 muDeoW2DkgDV2NHRqe9o8Dy21K7 3cH6RuiEA+DLBmvLJ4bVQ1 oM0eGxPgHwT4MTglR093JpBaoZN pIkmlw3lrd9shyBz7SoR7CCHgpa AoeAlmBAP1n9NsTy82T05l IHdpZHRoPSIxNSUiIHZhbGlnbj0 lzY5iEr5+MUNwiMF7aGB9uM6fOg PuMyM3KOyiI533GzSbhRPc Hgqwa9kqe6aziQe4ReXoIXYtdmR itFhyEBW7g4GjFs63N8NqnJlnj6 IsKeb2zt66nHXfw9S2lUE4 E5DpFCJgthildUEchVlpIU3uTTT menktTPQjcN2nQMIgU8i9ZjSaAw U4EFnbZ7FenyH2TASuuMWh ERZdlWOOgE4kpvxbr1rviwjcRxM hEASuXQo0SGj7IBAciMejUoLaJL R7DtR8MGU3vSBwtV2hhSma bpzzeI1iDqr+ZWI1tQCmcYUZKM9 lOjwvdGQ+NMCeJQA5wQolQVktPI WcpD3sDGItD0o0TxXgQzC1 DPmfI9CdfvU0JBWnvVCqAPDgvKB ReW0ihfdmv5wtdladFcWzJJJjQF e9BRd8XTJbuXgvRwLqQGK3 HnZ8LXL2qJOnhA4xcEatuakqpZ1 wOyc+IrgdoOlcIOQ0CAd9K2DtCd d7QUWoaSsqWU3skQUaIPnr Ff4ktUfcyEgnQP6iZLPqonccp36 2YaSgj6vtJGDtkXCkDEoaIIP1K5 4fd1E9SLEwVLAgKRN1zJX7 lC7pcAhvpteyuSAeeZsuzjDknSz sGGtmTCzyD082KBRxoDtbPfFkCL n5V6GmOxt6QLSmuGmqLV7q wMArGOsnWq0xpCcpwGnsLX6fRMW azhalk374AyKdl5frUQPshTTyUB ohWIG5E78sz9F1FYWgNIFy QLE4sBX8qB4egKbxbxnunQRfhNb kmjOkcBodNXlnACepX967RLJmwU nfKqUlxVz4W9HiQtn1PBGs pRvcHY3kyBLsOCvbKp2qbLnhcJi gWD3aQSMvfvncs004WkFka8rvTG MwwAQaZDvyILJ2Y45yh8L1 YLAbMJZhDSC0eFO9eR6bjUreqni gbGVmdDsgdmVydGljYWwtYWxpZ2 46IHRvcDsnPlBhdGllbnQg DNctLHj3M2UhHnalcUF+GX40ITY pWG41hKYofFXvi5yoqCy9IsTeFG EsDDS0kGnsFZnwd0YwXJVd M97ylFOrm0W1WRAujNulyIStBhF keUJ6gW8gBFwrvuzfm0ymrwyqBd pql8fnyb89rX12F22xWKtx RTJbAQGfWLBhMCVfwEyngh7amT8 wIi8+QYYlwGA4cHB5vK9wIIToAg L6XGhyV006YqCztGSaQbmg e9nuz8fxnPv8AiA3JBTglkSbbKu dMAK8j0WbKq59W36qNGgqFTNbWY HtEKIiJFJreWqyca1jhP4w Ii8+JDZhcGY7rMY8wX1sRqKmKmG 1MXesS494XgYesNNxVuvnY12oB0 JvdXA+ZIEzYzw5MWJqhDij AI4xhLXtJBrhWp0qYGH7DtCnYhN cKJlqU0RrODAcaqifbtqnqSR0JH XiIGYzbM56Uk2uiXvnNUUu jHNTnF3mzheuu5ulekvkFvRxPYF oEYg3PWk2EUNwiEvvFmPqWYH0Gl E3JMP6bXIbzM9zjWxsjkyy bB5xD6TnMAEwdvqyWq22jU9kAzG rNqS1OVkdVfp+UllGLCBXSUxMSU MIXLi5O2ObPqi5VCCxcFgx OZ4qnSDkKEitGf2joNnpxBkbAW3 qZVQbisnrGQWseS9fJTAfkAIniZ ryKI3cYUKbswgjj070RhAf EIH8ABWgqPLtZ1BxzL3lYuZdYAW zEHQqN6YtqRWfJXulX687PJnrPx T8DSRwslZdZ3LlRGRbyPlp FfS4k8J0Nm4gKq3zPp4jHYO9IZ1 4XX14rPReb2B6fRB8W3BfUFGpcn dtwnhtoKI3QHJjOYVceS82 kRMfYRkrQz5zi7E9i631HRPfQYN tlZ49Xv4ugZnlFSDkqASHnJ8dcv wdv3uxjpfeZjAmXJSyCJa9 QOe6FVGecAnwVmRcCLX6ZeJ3FQW 6fWXkpK2nwPjdhnjdtZ1aMdd+NT AdAMOmlcX6E7FbIzs8RBEu cNrfOQ7gtOVjTMtqXf0weApgvRh eOC9iWARiofowBBJgcX5vPFZqjI LivFdzDA5nNYWspukvl023 RjFzKVG5NPAnpKSqD6KvvO3xEpC bVSVfQPByP9WcjNJaKSruR732TE tzHeO3BERcooNjK6MvPQCj tEreYsT6f0T4It5GYYxIZM07XX6 9iMYcd6N5aWC5H2PbZTWwbnjwfu hkxUD3TFTtAWBhfJ43mBPe NZtnSs5wr3B8w118XWCjNODrlC4 1Zi0ylMkcWGMdpTWBkN3vryulp4 tiebfkKyGlRUXqLCy7IYa4 VJGunXktGrHsAUN2ZlK9NZW1rSK zaT9bqFfawgtxdP3bEhm+T1A8L3 RkPjwvdHI+WS76MSIgFJ59 tTQtuJNll6neyRb9NeDrDTJrUHC 5tHipAStqq7JzWSJvK88ycVHxx2 L5BERycQhwsBAzAbYtsFV0 cD6nYWzcsyfmu9khlqfpAitcz6m ztf53tG67X30fTLmbJULmCOGtUL HcTRNyhOtsek1fnI9rJj0+ UBZxeQO3rDQ7gM2cAgWzKpA7TZf rS642XeSirRCvFaswh7jgw2oxsD z3WyDnWYBswaBaeGyjJWB4 o5BlUq75M88mZBrsDJJwISHxPDD gKNLclXhfob4iuU2dPr3+PC9jb2 zauo99vM78lWM+PHRkIHN0 uUddIDjrPIZxdE2zOGhqGtS4XVP pUoOnmO28oPWeGNytSc6tzFwkjM rlSY8jYGAkzgono204YhQn x6aiVAJvxVBuMHbwTHT6T02ma6U 3GFYwGIByQKB5xAP8aO5jxAwbjz ogbGVmdDsgdmVydGljYWwt RAhhR319XOOlrCahNfNdkJNqT7x aroNSGT4oXlnouPJ+BSDjWGD9xJ bwSXyiGTCfxZ3iWZKnS8y6 ZjSiTgA3HPbkH4VscgO0HGHwwWI tDDToeGJGbT2wpfmlv5vielqcFr NgSKUfTPg8DOa2LAWmwHlb IbBuGQL0EfV1KHX9lMFflR8ofVo cusyemL0rAlz+RklOOjwvdGQ+PH KmGOP4mEgpQFplVBNywG6p TIRpP5e5NzLdJyR9PVqyW4HxxhR 5YEWcmWDhWDRfeHYVmV8yaqspn0 foqhwoOzJvSZJrEOh7ALx6 MVFxcIjtZbJkEYV9NpS7EHX9yJK bxI9exQsnkrroxL3aKxi+TVJOOj wvdGQ+QIXgTYQ7hSljVEyh SSHupZ5iSDTiD3p2NfMuKzO7MFa pL2MewnD9OUTuyHCnZCXhjRVOnL 9bjqvia3uzdryzCoGtLRKz DLe6AFv3YNWadBnnUoKlCRG4JcU 0ISJ7eGCmnV6zoGxsenehwO7pDs c+BJY5KPK0LX70ZB70A6Zz PjwvdGFibGU+PHRhYmxlIHdpZHR mYJoiFDQnDaRmhCdzWW8nJo9nDB ApDUSrmKshuWRzUwGwc8or YXB (more content not included)... [facility] Urology Office/Clinic Noteon 03-31-2024 Urology Office/Clinic Note Urology Office/Clinic Note Chief Complaint 6 week follow up w/CT Scan HPI Staff 6 week follow up w/CT SCAN 02/19/24 at [facility] Previous DX: BPH with urinary obstruction,foreign body in bladder, ureteral stone with hydronephrosis, gross hematuria, drug induced impotence, ED, feeling of incomplete bladder emptying, flank pain, kidney stone, frequency, nocturia, urge incontinence, UTI symptoms. *Dutasteride 0.5 mg qd and Flomax 0.4 mg BID, Start potassium citrate 15 meq BID, Sildenafil 100 mg PRN Pt did not give urine sample. Dysuria: Occasionally Incomplete bladder emptying: denies Hematuria: Yes, Pt thinks he has recently passed a stone Frequency: 5-6x a day Urgency: denies Nocturia: 2-3x a night Stream: Fair Leaking: denies Post void dripping: denies Wearing pads/ Depends: denies Urge incontinence: denies Stress incontinence: denies Incontinence without Sensory Awareness: denies Abdominal pain: denies Flank pain: Occasionally History of Present Illness Tests reviewed: CT, metabolic workup I have reviewed the previous health record information and history for this patient from Dr. Keene. I have reviewed and verified the staff HPI to be accurate for this encounter. Review of Systems ROS - Provider Constitutional: denies weight loss, denies hot flashes. Eyes: denies eye problems. Gastrointestinal: denies nausea, denies vomiting. Cardiovascular: denies chest pain or angina. Integumentary: no dryness Musculoskeletal: denies musculoskeletal symptoms. ENMT: denies otolaryngeal symptoms. Respiratory: no shortness of breath. Heme/Lymph: denies easy bleeding tendency, denies easy bruising tendency. Psychiatric: no confusion, no anxiety. Genitourinary: See HPI. Physical Exam Vitals & Measurements HR: 63(Peripheral) BP: 124/79 HT: 66 in HT: 167 cm WT: 78.7 kg WT: 173.504 lb BMI: 28.22 General Appearance: alert, no distress, well nourished, well developed male. Assessment/Plan Pt accompanied by an adult female today. 1. Renal mass (N28.89: Other specified disorders of kidney and ureter) NICOLAS ordered by Dr. Chan 12/24/2023 shows prominent cortical lobule on the left kidney measuring 2.2 x 2.1 x 2.0 cm in greatest dimension. CT AP wo con 02/19/24 Christopher - No renal mass. Reviewed imaging with pt which shows no evidence of renal mass. Resolved. 2. Kidney stone (N20.0: Calculus of kidney) S/p Cysto, R URS, laser litho of large R impacted ureteral calculus, stone basket extraction, pyeloscopy, R ureteral stent placement. Stone analysis 09/25/23 - 50% CaOx Di, 50% Phos Hydoxyl. Metabolic workup 12/24/23 - U24 total volume 1700 mL, Serum labs within normal limits CT AP wo con 02/19/24 Christopher - 3 mm nonobstructing stone LLP. Thinks he has had 3 renal stones during his life. recently passed a stone, he thinks. Recommended pt to increase fluid intake to ten to twelve 16 oz bottles a day, preferably water, clear pop, and sugar free lemonade. Does drink sprite but not a high volume. -High fluid intake 3. 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 Started Potassium citrate 15 mEq BID at prior OV. Electrolyte panel was wnl, can cont K citrate. 4. BPH with urinary obstruction (N40.1: Benign prostatic hyperplasia with lower urinary tract symptoms) PSA: 06/18/21 - 4.06 05/13/23 - 3.0 & 23.3% 05/13/23 - started Dutasteride NICOLAS 12/24/23 notes prominent prostate w/ estimated volume of 44 mm protruding into bladder Pt unable to provide urine sample today. IPSS 17 (10). Taking Dutasteride 0.5 mg qd and Flomax 0.4 mg BID. Weak/intermittent stream at night. Feels he empties completely. On max prostate meds. Next step would be prostate procedure. Discussed operative interventions such as TURP, versus less invasive option such as Rezum, depending on prostate size and shape. R/Bs of options discussed. Educational pamphlets provided. Would require cysto to eval candidacy for prostate procedures. Pt agreeable. -Will schedule cysto. The risks and benefits for cystoscopy have been discussed. The risks include bleeding, infection, and irritation of the bladder and urinary channel, among others. The patient, after being informed of procedural details and after questions have been answered, wishes to proceed. Full informed consent has been obtained. Will order Local anesthesia. Prophylactic abx sent to . -PSA due 05/2024. 5. Erectile dysfunction (F52.21: Male erectile disorder) LYLE not completed (3). Sildenafil 100 mg PRN. 6. Smoker (F17.200: Nicotine dependence, unspecified, uncomplicated) Increased risk for urothelial cancer. Smoking cessation education attached. Follow-up With When Contact Information Buster KEENE MD, URL [facility] [address] [place] [address]- Additional Instructions: schedule cysto Patient Education Cystoscopy Steps to Quit Smoking I, Nirmala Galeana, personally scribed for Dr. Keene on (more content not included)... Normal [facility] Comment on above: Result Comment: Elec tronically Signed By: Buster KEENE MD\.br\Date and Time Signed: 03/31/24 10:44 EST\.br\Electronically Co-Signed By: Nirmala Galeana\.br\Date and Time Co-Signed: 03/31/24 10:39 EST Electrolyte Panel Standardon 03-29-2024 Anion gap [Moles/Vol] 11.9 mmol/L Normal 5.0-19.0 [facility] Comment on above: Performed By: #### 1 [id number] ####[facility] (DEFAULT)[address] [place] [address] 92995 Chloride [Moles/Vol] 105 mmol/L Normal 101-111 [facility] Comment on above: Performed By: #### 1 [id number] ####[facility] (DEFAULT)[address] [place] [address] 72182 CO2 [Moles/Vol] 26 mmol/L Normal 21-32 [facility] Comment on above: Performed By: #### 1 [id number] ####[facility] (DEFAULT)[address] [place] [address] 03894 Potassium [Moles/Vol] 3.9 mmol/L Normal 3.6-5.1 [facility] Comment on above: Performed By: #### 1 [id number] ####[facility] (DEFAULT)[address] [place] [address] 99482 Sodium [Moles/Vol] 139.0 mmol/L Normal 136.0-144 . 0 [facility] Comment on above: Performed By: #### 1 [id number] ####[facility] (DEFAULT)[address] [place] [address] 54523 Lipid Profile 1 w/ Reflex, F astingon 03-29-2024 Cholesterol [Mass/Vol] 163.0 mg/dL Normal 66.0-200.0 [facility] Comment on above: Performed By: #### 1 [id number] ####[facility] (DEFAULT)[address] [place] [address] 46653 Cholesterol in HDL [Mass/Vol] 40 mg/dL Normal 40-71 [facility] Comment on above: Performed By: #### 1 [id number] ####[facility] (DEFAULT)[address] [place] [address] 49407 Cholesterol in LDL [Mass/Vol] 76 mg/dL Normal 1-100 [facility] Comment on above: Performed By: #### 1 [id number] ####[facility] (DEFAULT)[address] [place] [address] 68988 Cholesterol.total/Chol esterol in HDL [Mass ratio] 4.0 {ratio} Normal 0.0-4.5 [facility] Comment on above: Performed By: #### 1 [id number] ####[facility] (DEFAULT)[address] [place] [address] 22547 Triglyceride [Mass/Vol] 232.0 mg/dL High 0.0-150.0 [facility] Comment on above: Performed By: #### 1 [id number] ####[facility] (DEFAULT)[address] [place] [address] 72176 VLDL. 46 mg/dL High 5-40 [facility] Comment on above: Performed By: #### 1 [id number] ####[facility] (DEFAULT)[address] [place] [address] 32742 Provider Orderson 03-29-2024 Provider Orders [id number] [facility] Coding Summaryon 02-24-2024 Coding Summary HTMLBase 64 GpdlcqxvAEs9fEk+PGhlYWQ+PE1 DXCDpE68skYHexO3xF3SHIAbOFt rpZZYMNQvXHhAfwiIuMH4qtDJgT XJu IC8+ZN4hSFUzVmxczBWfn8S4mEW 7G46ozx8cIVhlhMF2RSJsMlVxrr yuo8uabXs6MHiyPqtzTxQg MOTwiS62GDK5cZ72Nu66nUAqkZV ts0ufnPr3NuYmBQOkLMG2jDrqSN cui6ZlJENyZ46goRMhk0D5 CWPyzRbzzEPdVcFebWJ1pE9sTMj awnhzk6hlwqkpLuh2rp93mXJyf0 A7kTB2Y2JghmD7VEKybWKr BkiesFKQyL1nsftin2nqdterYfV vSGLjJQa3SSs1QKMpzPosZqQiSQ 30TQZ5NRRdptXuU2BePTFa iBmdSfK8r6Z5Vi0OQ5RVXszfK6Q NTUFSWTwvdGQ+OW99uj82W5OoXs njQly1TVAxTFD2iSQ8nQ8o SQQaYPwrx3L6uEH6E0KilgNxfd1 hp6uqRETxGBmfC18ysOQdz7H0QG EaaFN3NGTbcOetMnCmnA26 Oyc+ZOWaaVvqq4SqAyyhz1nqn4f mhPq9JvixTXSpbnKysPpjQNP0m4 BjGb4fZPEorMT2dKH2lT2m AwYrBuH3PVujZ825IpZpzTQwOln nU22tI3CcsLI+XKCbAsk1NHCajF xxYJ1kU5LtEGEsghnqpWMs cEavJQ0wMHTahhgjKGEanP4mDVO hD5o6YgKhUwB9MKwvQ3PoIURzlb bxLr87xW7hWmGlByK5QZda O3QnofY6IQIupKUiNUwmMJR7Z12 kp4W2IDPkVYLcBXB7dWH1xZ9suW lnbjogbGVmdDsgdmVydGlj TYqaIJmjW513NVHxtYxcUiRtUTy uZyBEYXRlOiAgMDEvMTQvMjAyNT wvdGQ+HVBrJHR4vZffQBXs uLXuFSabFs6zbWiceAuvXN9cTYG fwresSYPymM2cOQTypNPxwLkaEY 7tBJExpgmqy450KmVdYUG6 TLPauKVrW5WmaQ1pVkImLOQuXIY aL2WpzNOuVKstV132FAtuRsB7MD MgrzEjX4HbRXXucSslLrJ1 a3F9Hu8Pv5KnfokfW7KvgLEvAkD wXxbvGYn2B7YrFzimpHZ+PC90YW EjTQ69DJt4WVX0aLbsNJqz XHStZ3IofK4pWcArEUUvBHDcHfp +PHRhYmxlIHdpZHRoPScxMDAlJy GpfVclZU6nRy4kPNErVEBa dXbmkKJeRoKsz2tqLXOaXJrnKE4 frMbiU2WvtUV5VFMvh8p8Io52J2 6sO1YfiIJ+QQTbbAW0oHC0 kL2jGvFuRoQ5OQjaN438OxFboYW hZsaul3kcy2cwuCt4DlF7UCLjhy IysCwlZYG1o5GxLp46U67e IHdpZHRoPSIxNSUiIHZhbGlnbj0 bsC6lTo2+XXGcrIJ0pNS1hU5wCr JpUrD5BQjjC442IkMylNKf Qjywm3oiy9ulfNx0UdQeEQVmzmX xtTjhJIE8i6QwYt77E6NwsEapc4 DmXxf7tz78yJYyv0W5tNX8 J6DrCNZnxmfmlIIstYwyWR4eHSV wrrjfPMLdrK8zRSCcA8r8AjJoNy Q1DLtpZ6RgamW0DLWjxFUv NVVyfFDXvO5cbkevf6fyhminMbB cIEYaNHh1OLf8DOYvjVtcAeJwCR H4BaX2JPX7bPUpiR2hyUrt srcudK0qYgl+PEX4uBWwtONOWB8 lOjwvdGQ+VUWlSKS3mBwbPOpkBB EqqA0yJLQzZ5x1YhOmSiY8 YHqqF2GkwnF9PCYvsZBtWZIqjTZ ZqQ5mglduk3rdvcqdKpHsEKYdBM v5BPr6MACimMmqHoPtWQJ8 ZmY5BDU2aKFhfI7fvItuyghhkX1 wOyc+FooshMwlHRY7LJd2Q7LvAs d2GMWccZihQS5inKYoFTkf Mu1grMxvhMccII6tECKgojpzt55 4VhUxg5pzJFXzeEUcUWaxKBH3X7 7ea1U4VSNrKBGjPAD5uXM6 pD3djYqgkyltzONadRxyguFjsFd kDJpkPXrrS937CFFqoXrlGjUuZH k6C0OrWml3YUMbxLswZX3c gSXiOUlwIs4faJvnwAqzPJ9yMOL skprlf177KxOuz8srTLRjoEWpXO ikAHR3I85bg9J3GWIpXPXi MEW8ePS9fJ0vjXjgbndzyMAbwTj aozUyjDclZNahVZvtQ066ZGMzoQ nvBlTtkXn6K4HtAen4AAQj fUxhVS5pdCElWKkhWe4lgMlfiZo qEI3rQXKngoiqu304LxErm3pmST ZidEHrQYsvWDZ3M88az5J9 FNJqFQQqRBY3nYK5cO9utMakrnb gbGVmdDsgdmVydGljYWwtYWxpZ2 46IHRvcDsnPlBhdGllbnQg XWprKZj3Y4KqCramlSZ+IH73JJW pWW70vYRxzNBsz9lvbYj7OtMhCF NzRZT5uShwNZsax5KdXEUy E31gzJUql6E1LDAjtSmuwIYuLgH jlZW4sC6oVFbjlmjvn6apfibcFm pcl1ikww04zK66A77hCTlb DQDgSMBeMOPvXZVxrKtjsi7yzG7 wIi8+QSWnzCL5qEV2qE9hQUNoNp U6FVmuI913UlFksJPxUrrx v6xiv3iidJg1SxP5RYLsbjQypOj qTNM8e2AjAu47V95oKAcmMRRvUP WeBCLtWJUcuKpjca4nhP3k Ii8+XAIziHA1zYJ8eY0aVbRjHyJ 3XXooN713MbJxrDMlHddlN15xI7 JvdXA+FDZiLxd4IAZtoHkp GT7rpSDcNSpjHf2gZCE3XmElDbS lUIadL5LmVDYgllbfhreimKQ3BV FwFUCvfC14Ec2hnJqcLRUz dTNRqV2uuioeg6kxbzavFwAkUBU uEQj4SDj0DZGhvMcoPgLdPVY1Qm L6UZM1vNRvdW8ipCmtiiwh fV0xS0DpRHIkdvkrUl52bS4nPsB gPeD0HAmuVjj+UllGLCBXSUxMSU ZCFLt9O3TpFvn2VABngNri TO5qrNLuWWiwEm7plJpgfWyyVC8 nKETpxatzDIQduL1dOTAsiBOgiF cmVP2vZLRbyirnq016OyGl DZL1WMIpsURkI6QrlK0rVgDnJVD jVJLxF9WqgRHpKMtrX343DQpfNd F5VIArnsRyW0AzXOZtbRcs KeF6k7A3Xk6pMg3kJk5cHIF5MG3 2RV42nNHdj4B8kAI6Y3YkUVDyjr wajehruJO4XLVfRSGmvX10 rHNuNQhwHv6ju7W0p229VZWmVKW foU22Sv9bsLkpSNSknEYUlE3auy jyp0mfgkflHsGdDNXgOGe8 TEg2KLOsjGreQpZuOCV0RuB8VDX 1fNBpiH2skVeysdrlgL1uYzr+NT AmLWPdliQ9B0QpWle8XOAb dSycVW6nlVEbFWmyWp9snCizdYr xDS3wLVIuhqbeRCXxqT4nAUIsbN IjfGmpWK3vKMJfgfxvn365 ZrJeNMN4JVZheEBxB4NwuL7jAcE fAUWgODJaW7XcjQDdCDadV873WZ pzSdJ0LNMiwnDzX0UtEZMx fQmsQxD4k7L9Ji6OHRaKKQ69GF5 4uTIbe1L3aIV7N1AdKYOznmbohe ykhBL7JNJuSSBylI19kXXp ZYkcJx2ou9E8m591NFJpNUBqaG4 6Wq4swBxpVOJvcYFRtN6neahdf6 fmoabtNjYtCLEfBUf3MMp8 UHTpeJuhZzAsYKB8HkU3KBY1vIL pzQ9kiMiqkozqqB1rEfy+T1A8L3 RkPjwvdHI+PQ08RGUnCS49 nFHtcRMxd3ojwZs2QtPqHHKhVEE 2kMzqDFnid7YeKGSbT27ktZDwm3 Z8GYHyyHgnvMQpVtAosVF5 mC0cKQzufitcl5cxgwseDlxkt7f oqj73iU22N29kIFelKBCdJZJkMF LjYHAkcVbgpl9xkH1eLh4+ LSKbsAO1cYO7gP8zPxLkJbW3KAh hD902ZdJnyISyJcpms6bus0tfaK s5UoRhYQHirgYjaZxvNEN0 y4MyNa50A01kCTamCKLtQKJxYJN zBJRwcDstol1xgS9aFq6+PC9jb2 wlea00gO50iLY+PHRkIHN0 rMufYBqaGLXxmC6jOTgwTnZ4VWK bEpYelP96aCVmPFdtJd5caZgabQ jsJT9bOPWgemigv097AhNf k0ohLXQynURaXOdjHFP5V41ta2Z 9QKXfFAFpZPQ2aUV8uR1qhGyqcb ogbGVmdDsgdmVydGljYWwt CQzgM632IMManJyiNhSqtJOtS8a qwxACWX5oOgiitAO+ZDGoXGU7pP itXVppEWFflA0dBDRlB0f4 MhCaYlV9XEjmZ1ZhsdD1EANqwOE oAEKfxZIYcV7oobdlr8qtgoawZi HbHWDcTRl7LPf4UMVisTqv DtYpPTY5DfU5XIV7mKAylX5fhSe whykanH9aDxv+RklOOjwvdGQ+PH SsFGR2vDygTIyvYEPvxS3z AAAwE5d7BmEnPzK1WDuqM5EbxyL 6LCXfqHLrSISgtJAFfZ3ifnpjz2 isnopbExBfMDGwZHu4JCx6 QQTaoCvuAtVkYEE1TxV2WTR3qNM czS9vrAjmiihcaH1kOcg+TVJOOj wvdGQ+FGHyGLS7hFnbYOzj IMBzuR5kGDEqA2j2JmHwVlW0CYt xK4HvpiO8OAEdvTHxSIBbdCVQmD 1sfmqva3zertiuUdYfBZGe OMb2GYj5VEIpoQcqAsDbDXP8SfC 8XHM6dUNmzM2biQsmluldlM1yPt c+FKB8MIA1EB59IV53E8Ex PjwvdGFibGU+PHRhYmxlIHdpZHR kAWkaACJeYpXkvRacTT7iJo4eLT ZuGKRerVmoaFEiKiNjb6av YXB (more content not included)... [facility] CT Abdomen/Pelvis w/o Contra ston 02-19-2024 CT Abdomen/Pelvis w/o Contrast EXAMINATION: CT Abdomen/Pelvis w/o Contrast, 02/19/2024 3:04 PM EST HISTORY: Other specified disorders of kidney and ureter bilateral flank pain COMPARISON: 07/01/2023 TECHNIQUE: CT scan of the abdomen and pelvis was performed without IV contrast. CT dose reduction technique was used, including Automated Exposure Control. FINDINGS: Lung bases are free of nodules, infiltrates, and effusions. Unopacified liver is unremarkable without mass or biliary ductal dilatation. There are surgical clips gallbladder fossa. Spleen, adrenal glands, and pancreas are normal. There is a 3 mm nonobstructing stone lower pole left kidney. There is no hydronephrosis, ureterectasis, or ureteral calculi. There is no renal mass or perinephric fluid collection. Previously described obstructing stone right proximal ureter is no longer identified There is no bowel distention. There is no free fluid. There is no free intraperitoneal air. There is no adenopathy. There is degenerative change at L5-S1. IMPRESSION: 3 mm nonobstructing stone lower pole left kidney. Final Dictated by: Lupis Quinones MD Dictated DT/TM: 02/19/24 3:47 Signed (Electronic Signature): Lupis Quinones MD 02/19/24 3:53 pm Technologist: Dee DEVINE [facility] Ambulatory Visit Summaryon 0 02-12-2024 Ambulatory Visit Summary Ambulatory Visit Summary FILEMON MENDEZ :1965 Visit Date:02/12/2024 Ambulatory Visit Instructions Your Diagnosis Hypocitraturia Kidney stone BPH with urinary obstruction Erectile dysfunction Smoker Your Care Team Attending Physician - GALLO Bingham APRN, Drea Hagen Primary Care Physician - SUSAN ZAVALA DO This Is Your Medications List amitriptyline (amitriptyline 75 mg oral tablet) atorvastatin (atorvastatin 40 mg Tab) bifidobacterium-lactobacill us (Nature's Bounty Probiotic) biotin (biotin 1000 mcg oral tablet) buPROPion (buPROPion 150 mg ER Tab) dicyclomine donepezil (donepezil 10 mg Tab) dutasteride (dutasteride 0.5 mg Cap) etodolac (etodolac 600 mg ER Tab) hydrOXYzine (hydrOXYzine pamoate 25 mg Cap) levetiracetam (levetiracetam 250 mg Tab) memantine (memantine 28 mg oral capsule, extended release) metoclopramide (metoclopramide 10 mg Tab) multivitamin (Lipoflavonoid) omeprazole (omeprazole 20 mg Cap-DR) oxcarbazepine propranolol (propranolol 60 mg Cap-ER) risperidone (risperidone 0.5 mg Tab) sildenafil (sildenafil 100 mg Tab) sucralfate (sucralfate 1 g Tab) tamsulosin (Flomax 0.4 mg Cap) tizanidine topiramate (Topamax) trazodone venlafaxine (venlafaxine 150 mg Cap-ER) Procedures Performed Cystoscopic removal of ureteric stent (10/14/2023), Cholecystectomy (12/12/2019), Cystoscopy (08/31/2012), hernia repair (05/06/2012), Colonoscopy (11/10/2009), Catheterization of both left and right heart (03/13/2009), Carpal tunnel release (10/11/2004), Hemorrhoidectomy (02/11/1992), Appendectomy (05/12/1987), tendon reconstruction (07/11/1986), sleep apnea surgery. Discharge Vitals Heart Rate (Peripheral) 69 Blood Pressure 130/81 Height 167 cm Height 66 in Weight 77.8 kg Weight 171.519 lb BMI 27.9 What to do next Scheduled Follow-Up Appointments Friday 9:45 AM EST With: YECENIA BUSTILLO, Buster Tinoco Where: [facility] [address] [place] [address]- Medications What How Much When Instructions Unchanged amitriptyline (amitriptyline 75 mg oral tablet) 1 Tablets By Mouth Once a day (at bedtime) Unchanged atorvastatin (atorvastatin 40 mg Tab) 1 Tablets By Mouth Every day Unchanged bifidobacterium-lactobacill us (Nature's Bounty Probiotic) 1 Tablets By Mouth Every day Unchanged biotin (biotin 1000 mcg oral tablet) 1 Tablets By Mouth 2 times a day Unchanged buPROPion (buPROPion 150 mg ER Tab) 1 Tablets By Mouth Every day Unchanged dicyclomine Unchanged donepezil (donepezil 10 mg Tab) By Mouth Once a day (at bedtime) Unchanged dutasteride (dutasteride 0.5 mg Cap) 1 Capsules By Mouth Every day Unchanged etodolac (etodolac 600 mg ER Tab) 1 Tablets By Mouth Every day Unchanged hydrOXYzine (hydrOXYzine pamoate 25 mg Cap) Unchanged levetiracetam (levetiracetam 250 mg Tab) 1 Tablets By Mouth 2 times a day Unchanged memantine (memantine 28 mg oral capsule, extended release) 1 Capsules By Mouth Every day Unchanged metoclopramide (metoclopramide 10 mg Tab) 1 Tablets By Mouth 4 times a day Unchanged multivitamin (Lipoflavonoid) 1 Capsules By Mouth Every day Unchanged omeprazole (omeprazole 20 mg Cap-DR) Unchanged oxcarbazepine See instructions 150mg in morning, 300mg at bedtime Unchanged propranolol (propranolol 60 mg Cap-ER) Unchanged risperidone (risperidone 0.5 mg Tab) 1 Tablets By Mouth Every day Unchanged sildenafil (sildenafil 100 mg Tab) See instructions Take 1 tablet 60 minutes prior to sexual activity. Do not exceed 100mg in 24 hrs. Unchanged sucralfate (sucralfate 1 g Tab) Unchanged tamsulosin (Flomax 0.4 mg Cap) 1 Capsules By Mouth 2 times a day Duration: 90 Days Unchanged tizanidine Unchanged topiramate (Topamax) Unchanged trazodone 25 Milligram By Mouth Once a day (at bedtime) Unchanged venlafaxine (venlafaxine 150 mg Cap-ER) 1 Capsules By Mouth Every day Allergies No Known Allergies Problems Ongoing - Any problem that you are currently receiving treatment for. BPH with urinary obstruction BPH without urinary obstruction Dorsalgia Drug-induced impotence Erectile dysfunction Feeling of incomplete bladder emptying Flank pain Gross hematuria Hx of group home use of blood thinners Hypocitraturia Kidney stone Micturition frequency Nocturia Smoker Ureteral stone with hydronephrosis Urge incontinence UTI symptoms Historical - Any problem that you are no longer receiving treatment for. Anxiety Depression GERD - Gastro-esophageal reflux disease Obstructive sleep apnea PTSD - Post-traumatic stress disorder Patient Survey You may receive a survey via text or e-mail asking about your office visit. Please share your experience with us by completing your survey. We appreciate your feedback and thank you for choosing us for your care. [facility] Provider Orderson 02-12-2024 Provider Orders [id number] [facility] Urology Office/Clinic Noteon 02-12-2024 Urology Office/Clinic Note Urology Office/Clinic Note Chief Complaint 3 month follow w/24 Hour Urine HPI Staff 58 year old male patient here for a 3 month follow up from cysto with metabolic work up. Previous Dx: BPH with urinary obstruction,foreign body in bladder, ureteral stone with hydronephrosis, gross hematuria, drug induced impotence, ED, feeling of incomplete bladder emptying, flank pain, kidney stone, frequency, nocturia, urge incontinence, UTI symptoms. *dutasteride 0.5 mg qd and flomax 0.4 mg bid Pt could not give urine sample. Dysuria: No Incomplete bladder emptying: Occasionally does not feel empty Hematuria: No Frequency: No Urgency: Occasionally Nocturia: Occasionally Stream: Fair Leaking: Occasionally Post void dripping: Occasionally Wearing pads/ Depends: No Urge incontinence: Occasionally Stress incontinence: No Incontinence without Sensory Awareness: No Abdominal pain: No Flank pain: Bilateral-Comes and goes History of Present Illness I have reviewed and verified the staff HPI to be accurate for this encounter. Portions of this record may have been created with voice recognition artificial intelligence software, specifically [employer] and or [employer]. Substitutions may have occurred due to the inherent limitations of voice recognition and artificial intelligence software. Review of Systems PHQ Score Initial Depression Screen Score: 0 SCORE Physical Exam Vitals & Measurements HR: 69(Peripheral) BP: 130/81 HT: 66 in HT: 167 cm WT: 77.8 kg WT: 171.519 lb BMI: 27.9 General: Well developed, well nourished, in no acute distress. Assessment/Plan PRW pt 1. Renal mass (N28.89: Other specified disorders of kidney and ureter) Renal ultrasound ordered by Dr. Chan 12/24/2023 shows prominent cortical lobule on the left kidney measuring 2.2 x 2.1 x 2.0 cm in greatest dimension. There is ongoing clinical concern for mass. Discussed findings w/ patient, need for more detailed imaging. -Rec CT and f/u w/ PRW for review in about 1 month 2. 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 Discussed adding citric acid to diet, as well as possibility of adding w/ medicine. Pt would like to start medication. -Start potassium citrate 15 meq BID -recheck electrolyte panel 1 month Ordered: Electrolyte Panel 3. Kidney stone (N20.0: Calculus of kidney) S/p Cysto, R URS, laser litho of large R impacted ureteral calculus, stone basket extraction, pyeloscopy, R ureteral stent placement. Stone analysis 09/25/23 - 50% CaOx Di, 50% Phos Hydoxyl. Metabolic workup 12/24/2023: U24 total volume 1700 mL Serum labs within normal limits Discussed generalized stone prevention - pt encouraged to increase fluid intake so that he/she producing 2.5L of urine daily. Add 1/4 cup of lemon juice to water throughout the day or can also drink sugar free lemonade or clear soda. Avoid dark tani. Restrict sodium intake. Restrict animal protein. -Inc fluid intake 4. BPH with urinary obstruction (N40.1: Benign prostatic hyperplasia with lower urinary tract symptoms) IPSS 10, QoL 1 currently taking tamsulosin 0.4 mg BID and dutasteride 0.5 mg QD, tolerating w/o SEs. Does not wish to make any changes at this time NICOLAS 12/24/23 notes prominent prostate w/ estimated volume of 44 mm protruding into bladder -cont tamsulosin & dutasteride 5. Erectile dysfunction (F52.21: Male erectile disorder) LYLE 3 Taking sildenafil 100 mg PRN w/o significant SEs. States this does not have much effect on erections. Briefly discussed ICI, but not a priority for pt at this time. -cont to monitor 6. Smoker (F17.200: Nicotine dependence, unspecified, uncomplicated) Increased risk for urothelial cancer. 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 Normal [facility] Comment on above: Result Comment: Elec tronically Signed By: GALLO Bingham APRN, Drea Hagen\.br\Date and Time Signed: 02/12/24 12:38 EST Consultation/Specialist Note on 02-09-2024 Consultation/Specialis t Note [id number] [facility] 24 Hr Urine Uric Acidon 12-11 Uric Acid, 24 Hr Urine 523.6 Normal 197.2 -1078 .7 [facility] Comment on above: Order Comment: URINE VOLUME (MILLILTERS): 1700 Result Comment: Perf ormed at: CB - [facility] [place] [address] [place], [place] [id number] Lead Advisor: Jhony Kwok PhD, Phone: [phone] Performed By: #### P HOS 24HRU, URIC 24HRU, U24 CA, OXAL 24HRU, CITRIC UR, MAG 24HRU #### [facility] , #### U24 NA, CREA24, COL T V #### [facility] [address] [place] [address] [place] Urine Uric Acid 30.8 mg/dL Normal Not Estab. [facility] Comment on above: Order Comment: URINE VOLUME (MILLILTERS): 1700 Performed By: #### P HOS 24HRU, URIC 24HRU, U24 CA, OXAL 24HRU, CITRIC UR, MAG 24HRU #### [facility] , #### U24 NA, CREA24, COL T V #### [facility] [address] 24 hour urine creatinine mp surementOrdered By: Buster Keene on 12-24-2023 Urine Creatinine 24 Hour 1.39 g/24 hr 1.00-2.09 [facility] 24 hour urine sodium measure ment (moles/time)Ordered By: Buster Keene on 12-24-2023 Sodium (24H U) [Moles/Time] 24 hour urine sodium measurement (moles/time) 40-220 [facility] 24 hour urine uric acid ar urement (mass/time)Ordered By: Buster Keene on 12-24-2023 Urate (24H U) [Mass/Time] 24 hour urine uric acid measurement (mass/time) 197.2-1078 .7 [facility] Comment on above: Performed at: [address] [id number] Director: Jhony Kwok PhD, Phone: [phone] Calcium [Mass/time] in 24 ho ur UrineOrdered By: Buster Keene on 12-24-2023 Calcium (24H U) [Mass/Time] Calcium [Mass/time] in 24 hour Urine 0-320 [facility] Calcium [Mass/volume] in 24 hour UrineOrdered By: Buster Keene on 12-24-2023 Calcium (24H U) [Mass/Vol] Calcium [Mass/volume] in 24 hour Urine Not Estab. [facility] Calcium, 24Hr Urineon 2023 Calcium, Urine 13.3 mg/dL Normal Not Estab. [facility] Comment on above: Order Comment: URINE VOLUME (MILLILTERS): 1700 Performed By: #### C REAT, LYTES, BUN, PTH, URIC, CA #### [facility] [address] Calcium, Urine 24 Hr 226 Normal 0-320 [facility] Comment on above: Order Comment: URINE VOLUME (MILLILTERS): 1700 Performed By: #### C REAT, LYTES, BUN, PTH, URIC, CA #### [facility] [address] Citric Acid, Urine, 24 Houro n 12-24-2023 Citric Acid, Urine 41 mg/L Normal Undefined [facility] Comment on above: Order Comment: URINE VOLUME (MILLILTERS): 1700 Result Comment: This test was developed and its performance characteristics determined by [facility]. It has not been cleared or approved by the Food and Drug Administration. Performed By: #### C REAT, LYTES, BUN, PTH, URIC, CA #### [facility] [address] [place] [id number] [facility] Citric Acid, Urine, 24HR 70 Low 320-1240 [facility] Comment on above: Order Comment: URINE VOLUME (MILLILTERS): 1700 Result Comment: Perf ormed at: [facility] [address] [id number] Lead Advisor: Blanche Vincent MD, Phone: [phone] PERFORMED BY: [place] [address] PATHOLOGIST BUSINESS LINE MANAGER CHANNING MEDRANO M.D. Performed By: #### C REAT, LYTES, BUN, PTH, URIC, CA #### [place] [id number] [facility] Annette Time and Vol 24 hr uron 12-24-2023 Total Volume, Urine 1700 Normal [facility] Comment on above: Order Comment: URINE COLLECTION TIME (HRS): 24 URINE VOLUME (MILLILTERS): 1700 Result Comment: PERF ORMED BY: [place] [id number] PATHOLOGIST BUSINESS LINE MANAGER CHANNING MEDRANO M.D. Performed By: #### P HOS 24HRU, URIC 24HRU, U24 CA, OXAL 24HRU, CITRIC UR, MAG 24HRU #### [facility] , #### U24 NA, CREA24, COL T V #### [address] Urine Collection Time 24 Normal [facility] Comment on above: Order Comment: URINE COLLECTION TIME (HRS): 24 URINE VOLUME (MILLILTERS): 1700 Performed By: #### P HOS 24HRU, URIC 24HRU, U24 CA, OXAL 24HRU, CITRIC UR, MAG 24HRU #### [facility] , #### U24 NA, CREA24, COL T V #### [address] Creatinine [Mass/volume] in UrineOrdered By: Buster Keene on 12-24-2023 Creatinine (U) [Mass/Vol] Creatinine [Mass/volume] in Urine [facility] Comment on above: No reference range e stablished Creatinine, 24 Hr Urineon Creatinine 24 Hour, Urine 1.39 g/24_hr Normal 1.00-2.09 [facility] Comment on above: Order Comment: URINE COLLECTION TIME (HRS): 24 URINE VOLUME (MILLILTERS): 1700 Performed By: #### P HOS 24HRU, URIC 24HRU, U24 CA, OXAL 24HRU, CITRIC UR, MAG 24HRU #### [facility] , #### U24 NA, CREA24, COL T V #### [address] Creatinine, Urine 82.00 mg/dL Normal [facility] Comment on above: Order Comment: URINE COLLECTION TIME (HRS): 24 URINE VOLUME (MILLILTERS): 1700 Result Comment: No r eference range established Performed By: #### P HOS 24HRU, URIC 24HRU, U24 CA, OXAL 24HRU, CITRIC UR, MAG 24HRU #### [facility] , #### U24 NA, CREA24, COL T V #### [facility] [address] [place] [id number] [facility] Magnesium [Mass/time] in 24 hour UrineOrdered By: Buster Keene on 12-24-2023 Magnesium (24H U) [Mass/Time] Magnesium [Mass/time] in 24 hour Urine 12.0-293.0 [facility] Magnesium [Mass/volume] in U rineOrdered By: Buster Keene on 12-24-2023 Magnesium (U) [Mass/Vol] Magnesium [Mass/volume] in Urine Not Estab. [facility] Magnesium, Urine 24Hron 12-11 Magnesium, 24Hr Urine 69.7 Normal 12.0-293.0 [facility] Comment on above: Order Comment: URINE VOLUME (MILLILTERS): 1700 Performed By: #### C REAT, LYTES, BUN, PTH, URIC, CA #### [facility] [address] Magnesium, Urine 4.1 mg/dL Normal Not Estab. [facility] Comment on above: Order Comment: URINE VOLUME (MILLILTERS): 1700 Performed By: #### C REAT, LYTES, BUN, PTH, URIC, CA #### [facility] [address] No Panel InformationOrdered By: Buster Keene on 12-24-2023 Urine Citric Acid 41 mg/L Undefined [facility] Comment on above: This test was develo ped and its performance characteristicsdetermined by [facility]. It has not been cleared orapproved by the Food and Drug Administration. Urine Citric Acid 24 Hour 70 mg/24 hr Low 320-1240 [facility] Comment on above: Performed at: [email or web address] [place], [place] [id number] Director: Blanche Vincent MD, Phone: [phone] Oxalate [Mass/time] in 24 ho ur UrineOrdered By: Buster Keene on 12-24-2023 Oxalate (24H U) [Mass/Time] Oxalate [Mass/time] in 24 hour Urine 7-44 [facility] Comment on above: Performed at: [facility] [address] [id number] Director: Blanche Vincent MD, Phone: [phone] Oxalate [Mass/volume] in Uri neOrdered By: Buster Keene on 12-24-2023 Oxalate (U) [Mass/Vol] Oxalate [Mass/vol ume] in Urine Undefined [facility] Oxalate, Quant, 24Hr Urineon 12-24-2023 Oxalates, Urine 11 mg/L Normal Undefined [facility] Comment on above: Order Comment: URINE VOLUME (MILLILTERS): 1700 Performed By: #### C REAT, LYTES, BUN, PTH, URIC, CA #### [facility] [address] [place] [address] [place] Oxalates, Urine 24Hr 19 Normal 7-44 [facility] Comment on above: Order Comment: URINE VOLUME (MILLILTERS): 1700 Result Comment: Perf ormed at: BN - [facility] [address] [id number] Lead Advisor: Blanche Vincent MD, Phone: [phone] Performed By: #### C REAT, LYTES, BUN, PTH, URIC, CA #### [facility] [address] [place] [address] [place] Phosphate [Mass/time] in 24 hour UrineOrdered By: Buster Keene on 12-24-2023 Phosphate (24H U) [Mass/Time] Phosphate [Mass/time] in 24 hour Urine 390-1425 [facility] Phosphate [Mass/volume] in U rineOrdered By: Buster Keene on 12-24-2023 Phosphate (U) [Mass/Vol] Phosphate [Mass/volume] in Urine Not Estab. [facility] Phosphorus, 24Hr Urineon Phosphorous, Urine 30.4 mg/dL Normal Not Estab. [facility] Comment on above: Order Comment: URINE VOLUME (MILLILTERS): 1700 Performed By: #### C REAT, LYTES, BUN, PTH, URIC, CA #### [facility] [address] [place] [address] [place] Phosphorus, Urine 24Hr 517 Normal 390-1425 Th e [facility] Comment on above: Order Comment: URINE VOLUME (MILLILTERS): 1700 Performed By: #### C REAT, LYTES, BUN, PTH, URIC, CA #### [facility] [address] Sodium [Moles/volume] in Uri neOrdered By: Buster Keene on 12-24-2023 Sodium (U) [Moles/Vol] Sodium [Moles/vol ume] in Urine [facility] Comment on above: No reference range e stablished Sodium, 24 Hr Urineon 2023 Sodium (U) [Moles/Vol] 86.0 mmol/L Normal T he [facility] Comment on above: Order Comment: URINE COLLECTION TIME (HRS): 24 URINE VOLUME (MILLILTERS): 1700 Result Comment: No r eference range established Performed By: #### P HOS 24HRU, URIC 24HRU, U24 CA, OXAL 24HRU, CITRIC UR, MAG 24HRU #### [facility] , #### U24 NA, CREA24, COL T V #### [facility] [address] [place] [address] Sodium 24 Hour Urine 146 Normal 40-220 [facility] Comment on above: Order Comment: URINE COLLECTION TIME (HRS): 24 URINE VOLUME (MILLILTERS): 1700 Performed By: #### P HOS 24HRU, URIC 24HRU, U24 CA, OXAL 24HRU, CITRIC UR, MAG 24HRU #### [facility] , #### U24 NA, CREA24, COL T V #### [facility] [address] [place] [address] Total urine volume measureme ntOrdered By: Buster Keene on 12-24-2023 Specimen volume (U) Urine volume measurement [facility] US renal BIon 12-24-2023 US renal BI [facility] [place] [address] [place] [address] Ultrasound Report Signed Patient: Filemon Mendez MR#: [id number] 4 : 1965 Acct:[id number] Age/Sex: 58 / M ADM Date: 12/24/23 Loc: Room: Type: [facility] Attending Dr: Sunitha Chan MD Ordering Provider: Sunitha Chan MD Date of Service: 12/24/23 US/US renal BI: N40.1 - Benign prostatic hyperplasia with lower urinary t... Copies to: Sunitha Chan MD US renal BI 12/24/2023 10:01 AM SIGNS AND SYMPTOMS: N40.1 - Benign prostatic hyperplasia with lower urinary t... COMPARISON: None. FINDINGS: Right kidney measures 10.79 cm x 5.37 cm x 4.96 cm . No hydronephrosis or mass. Left kidney measures 11.07 cm x 5.37 cm x 5.2 cm . No hydronephrosis. There is a prominent cortical lobule/prominent column of retained on the left measuring 2.2 x 2.1 x 2.0 cm in greatest dimension. There is ongoing clinical concern for mass, follow-up with contrast-enhanced MRI or CT is recommended. The urinary bladder is morphologically normal. No free fluid is seen in the pelvis. Before voiding, the bladder measures 5.52 cm x 4.45 cm x 5.08 cm , which corresponds to an estimated volume of 65.34 mL. The prostate is prominent with an estimated volume of 44.6 mm protrusion into the floor of the bladder. US/US renal BI IMPRESSION: There is a prominent cortical lobule/prominent column of retained on the left measuring 2.2 x 2.1 x 2.0 cm in greatest dimension. There is ongoing clinical concern for mass, follow-up with contrast- enhanced MRI or CT is recommended. No hydronephrosis. The prostate is prominent with an estimated volume of 44.6 mm protrusion into the floor of the bladder. Impression dictated by: Kailash Spears M.D.12/24/2023 2:11 PM Dictation Location: [place] [address] Tech: Belindaashely Hawthorneer Transcribed By: ZACARIAS 12/24/23 1411 Dictated By: Kailash Spears II, MD 12/24/23 1407 Signed By: 12/24/23 1411 Normal [facility] Urine collection time durati onOrdered By: Buster Keene on 12-24-[address] biopsy [facility] Urine uric acid measurement (mass/volume)Ordered By: Buster Keene on 12-24-2023 Urate (U) [Mass/Vol] Urine uric acid mp surement (mass/volume) Not Estab. [facility] Blood Urea Nitrogenon 2023 Urea nitrogen [Mass/Vol] 20 mg/dL Normal 7-25 [facility] Comment on above: Performed By: #### C REAT, LYTES, BUN, PTH, URIC, CA #### [facility] [address] Calciumon 12-18-2023 Calcium [Mass/Vol] 9.3 mg/dL Normal 8.6-10.3 [facility] Comment on above: Performed By: #### C REAT, LYTES, BUN, PTH, URIC, CA #### [facility] [address] [place] [address] Calcium [Mass/volume] in Ser um or PlasmaOrdered By: Buster Keene on 12-18-2023 Calcium [Mass/Vol] Calcium [Mass/volume ] in Serum or Plasma 8.6-10.3 [facility] Carbon dioxide, total [Moles /volume] in Serum or PlasmaOrdered By: Buster Keene on 12-18-2023 CO2 [Moles/Vol] Carbon dioxide, tota l [Moles/volume] in Serum or Plasma 21.0-31.0 [facility] Chloride [Moles/volume] in S jose antonio or PlasmaOrdered By: Buster Keene on 12-18-2023 Chloride [Moles/Vol] Chloride [Moles/vol ume] in Serum or Plasma High 98-107 [facility] Creatinineon 12-18-2023 Creatinine [Mass/Vol] 1.31 mg/dL High 0.70-1.30 [facility] Comment on above: Performed By: #### C REAT, LYTES, BUN, PTH, URIC, CA #### [address] GFR/1.73 sq M.predicted MDRD (S/P/Bld) [Vol rate/Area] mL/min/{1.73_m2} Normal [facility] Comment on above: Performed By: #### C REAT, LYTES, BUN, PTH, URIC, CA #### [address] Creatinine [Mass/volume] in Serum or PlasmaOrdered By: Buster Keene on 12-18-2023 Creatinine [Mass/Vol] Creatinine [Mass/v olume] in Serum or Plasma High 0.70-1.30 [facility] Electrolyteson 12-18-2023 Anion gap [Moles/Vol] 11.3 mmol/L Normal 6.0-15.0 Th e [facility] Comment on above: Performed By: #### C REAT, LYTES, BUN, PTH, URIC, CA #### [address] Chloride [Moles/Vol] 110 mmol/L High 98-107 [facility] Comment on above: Performed By: #### C REAT, LYTES, BUN, PTH, URIC, CA #### [address] CO2 [Moles/Vol] 24.6 mmol/L Normal 21.0-31.0 [facility] Comment on above: Performed By: #### C REAT, LYTES, BUN, PTH, URIC, CA #### [address] Potassium [Moles/Vol] 3.9 mmol/L Normal 3.5-5.1 [facility] Comment on above: Performed By: #### C REAT, LYTES, BUN, PTH, URIC, CA #### [address] Sodium [Moles/Vol] 142 mmol/L Normal 136-145 [facility] Comment on above: Performed By: #### C REAT, LYTES, BUN, PTH, URIC, CA #### [address] No Panel InformationOrdered By: Buster Keene on 12-18-2023 Estimated GFR (CKD-EPI) > 60.0 mL/Min [facility] Creatinine Clearance (Chem N/A [facility] Parathyrin.intact [Mass/volu me] in Serum or PlasmaOrdered By: Buster Keene on 12-18-2023 Parathyrin.intact [Mass/Vol] Parathyrin.intact [Mass/volume] in Serum or Plasma [facility] Parathyroid Hormone Intacton 12-18-2023 Parathyroid Hormone Intact 16.1 pg/mL Normal [facility] Comment on above: Result Comment: PERF ORMED BY: [place] [address] PATHOLOGIST BUSINESS LINE MANAGER ORION FIORE M.D. Performed By: #### C REAT, LYTES, BUN, PTH, URIC, CA #### [address] Potassium [Moles/volume] in Serum or PlasmaOrdered By: Buster Keene on 12-18-2023 Potassium [Moles/Vol] Potassium [Moles/v olume] in Serum or Plasma 3.5-5.1 [facility] Serum or plasma anion gap de terminationOrdered By: Buster Keene on 12-18-2023 Anion gap [Moles/Vol] Serum or plasma an ion gap determination 6.0-15.0 [facility] Sodium [Moles/volume] in Ser um or PlasmaOrdered By: Buster Keene on 12-18-2023 Sodium [Moles/Vol] Sodium [Moles/volume ] in Serum or Plasma 136-145 [facility] Urate [Mass/volume] in Serum or PlasmaOrdered By: Buster Keene on 12-18-2023 Urate [Mass/Vol] Urate [Mass/volume] in Serum or Plasma 4.4-7.6 [facility] Urea nitrogen [Mass/volume] in Serum or PlasmaOrdered By: Buster Keene on 12-18-2023 Urea nitrogen [Mass/Vol] Urea nitrogen [Mass/volume] in Serum or Plasma 7-25 [facility] Uric Acidon 12-18-2023 Urate [Mass/Vol] 4.6 mg/dL Normal 4.4-7.6 [facility] Comment on above: Result Comment: PERF ORMED BY: [address] [place] [address] PATHOLOGIST BUSINESS LINE MANAGER ORION FIORE M.D. Performed By: #### C REAT, LYTES, BUN, PTH, URIC, CA #### [address] Consultation/Specialist Note on 11-17-2023 Consultation/Specialis t Note [id number] [facility] Ambulatory Visit Summaryon 0 10-14-2023 Ambulatory Visit Summary Ambulatory Visit Summary FILEMON MENDEZ :1965 Visit Date:10/14/2023 Ambulatory Visit Instructions Your Diagnosis Foreign body in bladder Ureteral stone with hydronephrosis BPH with urinary obstruction Gross hematuria Erectile dysfunction Smoker Your Care Team Attending Physician - YECENIA BUSTILLO, Buster Tinoco Primary Care Physician - SUSAN ZAVALA DO This Is Your Medications List dutasteride (dutasteride 0.5 mg Cap) sildenafil (sildenafil 100 mg Tab) tamsulosin (Flomax 0.4 mg Cap) Contact prescribing physician if questions or concerns amitriptyline (amitriptyline 75 mg oral tablet) atorvastatin (atorvastatin 40 mg Tab) bifidobacterium-lactobacill us (Nature's Bounty Probiotic) biotin (biotin 1000 mcg [...] cephalexin (Keflex 500 mg Cap) Procedures Performed Cystoscopic removal of ureteric stent (10/14/2023), Cholecystectomy (12/12/2019), Cystoscopy (08/31/2012), hernia repair (05/06/2012), Colonoscopy (11/10/2009), Catheterization of both left and right heart (03/13/2009), Carpal tunnel release (10/11/2004), Hemorrhoidectomy (02/11/1992), Appendectomy (05/12/1987), tendon reconstruction (07/11/1986), sleep apnea surgery. Discharge Vitals Heart Rate (Peripheral) 74 Respiratory Rate 16 Blood Pressure 137/88 Height 167 cm Height 66 in Weight 75 kg Weight 165 lb BMI 26.89 What to do next Scheduled Follow-Up Appointments Friday 1:45 PM EDT With: Buster KEENE MD Where: [facility] [address] [place] [address]- You Need to Schedule the Following Appointments Follow Up with Buster KEENE MD, URL When: Comments: 3-4 mos w/ metabolic workup Where: [facility] [address], [place] [phone] Medications What How Much When Instructions Unchanged [...] prescribing physician if questions or concerns Unchanged bifidobacterium-lactobacill us (Nature's Bounty Probiotic) 1 Tablets By Mouth [...] or concerns Unchanged multivitamin (Lipoflavonoid) 1 Capsules (more content not included)... Normal [facility] Urology Office/Clinic Noteon 10-14-2023 Urology Office/Clinic Note Urology Office/Clinic Note Chief Complaint cysto, right stent removal HPI Staff Pt here for cysto, R stent removal. Abx taken. History of Present Illness Tests reviewed: reviewed operative report, stone analysis I have reviewed the previous health record information and history for this patient from Dr. Keene. I have reviewed and verified the staff [...] See HPI. Physical Exam Vitals & Measurements HR: 74(Peripheral) RR: 16 BP: 137/88 HT: 66 in HT: 167 cm WT: 75 kg WT: 165 lb BMI: 26.89 General Appearance: alert, no distress, well nourished, well developed male. Procedure Operative Information Anesthesia Type: Local Procedure: Local Cystoscopy with Stent Removal Complications: None Surgical risks, benefits, details of the procedure have been explained to the patient. Full informed consent has been obtained. Intraoperative Information Prepped: Patient is placed in supine position. The patient was prepped with the Betadine solution. Anesthesia: 2% Xylocaine Jelly per urethra. Procedure: Cystoscopy and right stent removal. The flexible Cystoscope was passed in retrograde fashion into the bladder without difficulty. The bladder was viewed in entirety and found to be without tumors or stones. Mild inflammation was seen surrounding the orifice with the stent seen protruding from it. The stent was then grasped and removed in its entirety. Specimens Removed: None Postoperative Information The patient tolerated the procedure well and was subsequently discharged home. Assessment/Plan 1. Foreign body in bladder (T19.1XXA: Foreign body in bladder, initial encounter) S/p Cysto, R URS, laser litho of large R impacted ureteral calculus, stone basket extraction, pyeloscopy, R ureteral stent placement. Pt had IO cysto/R stent removal without complications today. Prophy abx taken prior. -F/u in 3-4 mos w/ metabolic workup 2. Ureteral stone with hydronephrosis (N13.2: Hydronephrosis with renal and ureteral calculous obstruction) CT AP w con 07/01/23 Christopher - 10 x 8 mm proximal R ureteral stone with associated mildly dilated R upper collecting system and proximal ureter. 09/08/23 - BUN 15, Cre 1.28, eGFR 58. S/p Cysto, R URS, laser litho of large R impacted ureteral calculus, stone basket extraction, pyeloscopy, R ureteral stent placement. Stone analysis 09/25/23 - 50% CaOx Di, 50% Phos Hydoxyl. -See #1 3. BPH with urinary obstruction (N40.1: Benign prostatic hyperplasia with lower urinary tract symptoms) CT AP w con 07/01/23 Christopher - Moderately enlarged prostate gland impressing upon the bladder base with associated calcifications. IPSS (20) - not filled out today due to cysto/stent removal. Taking Dutasteride 0.5 mg qd and Flomax 0.4 mg bid. 4. Gross hematuria (R31.0: Gross hematuria) Likely from #1. Will cont to monitor for gross and dipstick hematuria once # 1 resolved. [1] 5. Erectile dysfunction (F52.21: Male erectile disorder) Sildenafil 100 mg prn. [2] 6. Smoker (F17.200: Nicotine dependence, unspecified, uncomplicated) Increased risk for urothelial cancer. Smoking cessation education attached. [3] Follow-up With When Contact Information Buster KEENE MD, URL [facility] [address], [place] [phone] Additional Instructions: 3-4 mos w/ metabolic workup Patient Education 24-Hour Urine Collection Steps to Quit Smoking Kera Martinez, personally scribed for Dr. Keene on 10/14/2023 16:31:42. . Documentation recorded by the scribe, Kera Elam, accurately reflects the services(s) I performed and decisions made by me. Authenticated by Dr. Keene on 10/14/2023 16:33:53. 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 Normal [facility] Comment on above: Result Comment: Elec tronically Signed By: Buster KEENE MD\.br\Date and Time Signed: 10/14/23 16:33 EDT\.br\Electronically Co-Signed By: Kera Elam\.br\Date and Time Co-Signed: 10/14/23 16:32 EDT Erythrocyte distribution wid th Auto (RBC) [Ratio]on 09-08-2023 Erythrocyte distribution width (RBC) [Ratio] 12.4 % 11.5-15.0 [facility] Estimated glomerular filtrat ion rate (GFR) non- Americanon 09-08-2023 GFR/1.73 sq M.predicted among non-blacks MDRD (S/P/Bld) [Vol rate/Area] 58 mL/min/{1.73_m2} [facility] Hematocrit Auto (Bld) [Volum e fraction]on 09-08-2023 Hematocrit (Bld) [Volume fraction] 45.8 % 34.8-51.9 [facility] Hemoglobin [Mass/volume] in Bloodon 09-08-2023 Hemoglobin (Bld) [Mass/Vol] 15.6 g/dL 11.8-17.7 [facility] Laboratory - Chemistry and C hemistry - challengeon 09-08-2023 Albumin [Mass/Vol] 4.4 g/dL 3.5-5.0 [facility] [facility] Bilirubin Ql (U) Negative [facility] Calcium [Mass/Vol] 9.3 mg/dL 8.9-10.[address] [facility] Chloride [Moles/Vol] 109 mmol/L 101-111 [facility] CO2 [Moles/Vol] 26 mmol/L 21-32 [facility] Creatinine [Mass/Vol] 1.28 mg/dL 0.90-1.30 [facility] GFR/1.73 sq M.predicted MDRD (S/P/Bld) [Vol rate/Area] mL/min/{1.73_m2} [facility] Glucose (U) [Mass/Vol] Negative [facility] Glucose [Mass/Vol] 90.0 mg/dL 74.0-118.[address] [facility] Ketones Ql (U) Negative [facility] Magnesium [Mass/Vol] 2.08 mg/dL 1.80-2.50 [facility] Potassium [Moles/Vol] 3.7 mmol/L 3.6-5.1 [facility] Sodium [Moles/Vol] 141.0 mmol/L 136.0-144 . 0 [facility] Specific gravity (U) [Rel density] 1.015 1.015 1.001-1.03 5 [facility] Urate [Mass/Vol] 3.3 mg/dL Low 4.8-8.[address] [facility] Urea nitrogen [Mass/Vol] 15 mg/dL 8 [facility] Urea nitrogen/Creatinine [Mass ratio] 11.7 mg/mg 4.6-16.2 [facility] Laboratory - Specimen inform ationon 09-08-2023 Appearance (U) CLOUDY CLOUDY Abnormal CLEAR [facility] Color (U) Yellow Yellow [facility] Laboratory - Urinalysison Amorphous sediment LM Ql (Urine sed) 4+ 4+ [facility] Leukocyte esterase Test strip Ql (U) Negative NEGATIVE [facility] Nitrite Ql (U) Negative NEGATIVE [facility] Protein (U) [Mass/Vol] 11.70 mg/dL High <=9.[address] [facility] Protein Ql (U) Negative NEGATIVE [facility] Leukocytes [#/volume] correc alfonso for nucleated erythrocytes in Blood by Automated counon 09-08-2023 WBC corrected for nucl RBC Auto (Bld) [#/Vol] 6.6 x10 3.5-10.5 [facility] MCH Auto (RBC) [Entitic mass ]on 09-08-2023 MCH (RBC) [Entitic mass] 31 pg 24-34 [facility] MCHC Auto (RBC) [Mass/Vol]on 09-08-2023 MCHC (RBC) [Mass/Vol] 34 g/dL 26-37 [facility] MCV Auto (RBC) [Entitic vol] on 09-08-2023 MCV (RBC) [Entitic vol] 92 fL 81-100 [facility] No Panel Informationon 09-07 25-Hydroxy Vitamin D Total 34 ng/mL 30-100 [facility] Osmolality 282 mOsm/L [facility] Parathyroid Hormone (Intact) 21 pg/mL 1565 [facility] Comment on above: Performed At: [facility] [address] [id number] Vincent PhD Ph:[phone] Phosphorus Level 2.7 mg/dL 2.5-4.[address] [facility] Urine Bacteria None None [facility] Urine Collection Type Voided Voided [facility] Urine Microalbumin mg/dl 36.9 mcg/mL High 0.0-18.9 [facility] Urine Occult Blood Negative NEGATIVE [facility] Urine pH 7.5 7.5 5-8 [facility] Urine Random Creatinine 75.42 mg/dL [facility] Urine RBC None Seen None Seen [facility] Urine Urobilinogen 0.2 0.2 mg/dL 0.2-1.0 [facility] Urine WBC 0-2 0-2 [facility] Platelet mean volume Auto (B ld) [Entitic vol]on 09-08-2023 Platelet mean volume (Bld) [Entitic vol] 7.4 fL 6.3-10.2 [facility] Platelets Auto (Bld) [#/Vol] on 09-08-2023 Platelets (Bld) [#/Vol] 266 x10 138-427 [facility] RBC Auto (Bld) [#/Vol]on RBC (Bld) [#/Vol] 4.99 x10 3.70-5.30 [facility] Serum or plasma anion gap de terminationon 09-08-2023 Anion gap [Moles/Vol] 9.7 mmol/L 5.0-19.0 [facility] Urine microalbumin/creatinin e mass ratioon 09-08-2023 Albumin/Creatinine DL <= 20 mg/L (U) [Mass ratio] 49 mcg/mg High 0-30 [facility] Urine protein/creatinine rat ioon 09-08-2023 Protein/Creatinine (U) [Ratio] 155 mg/gm 0-200 [facility] CHEMISTRYOrdered By: SYSTEM SYSTEM on 05-13-2023 Free PSA [Mass/Vol] 0.7 ng/mL Invalid Interpretation Code [facility] Comment on above: Interpretive Data: T he concentration of free PSA and total PSA determined with assays from different manufacturers can vary due to differences in assay methods and specificity. Values obtained with different medical officer's assays cannot be used interchangeably. The methodology used to obtain this result was chemiluminescence using [employer]'s Access Hybritech PSA reagent and Access Hybritech [...] used for this result was chemiluminescence using [employer]'s Access Hybritech PSA reagent. MRI Cervical Spine w/oon MRI Cervical Spine [...] by Ludwig Trinidad on 03/05/2022 1502 Normal [facility] Specialist Prolactin [Mass/volume] in S jose antonio or PlasmaOrdered By: Boogie Trotter on 06-30-2021 Prolactin [Mass/Vol] 28.82 ng/mL 2.64-13.13 [facility] Troponin I.cardiac [Mass/vol ume] in Serum or Plasma by High sensitivity methodOrdered By: Boogie Trotter on 06-30-2021 Troponin I.cardiac High sensitivity method [Mass/Vol] < 3 pg/mL 0-20 [facility] Cholesterol [Mass/volume] in Serum or PlasmaOrdered By: Boogie Trotter on 06-28-2021 Cholesterol [Mass/Vol] 127 mg/dL 140-200 [facility] Comment on above: Chol less than 200 m g/dl low risk Chol 201-239 mg/dl borderline risk Chol 240 mg/dl and greater high risk Cholesterol in LDL Calc [Mas s/Vol]Ordered By: Boogie Trotter on 06-28-2021 Cholesterol in LDL [Mass/Vol] 71 mg/dL 0-100 [facility] Comment on above: LDL ATP III CLASSIFI CATION LDL less than 100 mg/dL Optimal LDL 100-129 mg/dL Near or above optimal LDL 130-159 mg/dL Borderline high LDL 160-189 mg/dL High LDL greater than 189 mg/dL Very high Cholesterol in VLDL Calc [Ma ss/Vol]Ordered By: Boogie Trotter on 06-28-2021 Cholesterol in VLDL [Mass/Vol] 16 mg/dL [facility] No Panel InformationOrdered By: Boogie Trotter on 06-28-2021 25-Hydroxy Vitamin D Total 14.5 ng/mL 30-100 [facility] Comment on above: VITAMIN D STATUS 25( OH)VITAMIN D RANGE (ng/mL) Deficient <20 Insufficient 20 to <30 Sufficient 30 to 100 Reference: Sebastian MF,Carmen NC, Yvrose MONROE, et al. Evaluation,treatment, and prevention of vitamin D deficiency; an Endocrine Society clinical practice guideline. JCEM. 2010; 96(7):1911-30. Serum or plasma high density lipoprotein (HDL) cholesterol measurementOrdered By: Boogie Trotter on 06-28-2021 Cholesterol in HDL [Mass/Vol] 39 mg/dL 29-71 [facility] Comment on above: HDL CHOL ATP-III CLA SSIFICATION Cardiovascular Risk HDL > or equal to 60 mg/dL LOW HDL < 40 mg/dL HIGH Serum or plasma total choles terol/high density lipoprotein (HDL) cholesterol mass ratOrdered By: Boogie Trotter on 06-28-2021 Cholesterol.total/Chol esterol in HDL [Mass ratio] 3.3 {ratio} [facility] TSH DL <= 0.005 mIU/L QnOrde red By: Boogie Trotter on 06-28-2021 TSH Qn 0.97 m[IU]/L 0.45-5.33 [facility] Triglyceride [Mass/volume] i n Serum or PlasmaOrdered By: Boogie Trotter on 06-28-2021 Triglyceride [Mass/Vol] 84 mg/dL 35-149 [facility] Comment on above: TRIG ATP III CLASSIF ICATION TRIG less than 150 mg/dL Normal TRIG 150-199 mg/dL Borderline high TRIG 200-500 mg/dL High TRIG greater than 500 mg/dL Very high Standard traceable to the Center for Disease Conrtrol and Prevention (CDC) test method. Vital Signs Date Time Vital Sign Value Performing Clinician Facility 04-01-2024 09:30-0500 Body height 165.1 cm Michelle Chan MANAGER PHILOSOPHY Work Phone: [facility] 04-01-2024 09:30-0500 Body mass index (BMI) [Ratio] 28.79 kg/m2 Michelle Chan MANAGER PHILOSOPHY Work Phone: [facility] 04-01-2024 09:30-0500 Body weight 78.47 kg Michelle Chan MANAGER PHILOSOPHY Work Phone: [facility] 03-31-2024 09:34-0500 Blood Pressure Location Buster KEENE [facility] 03-31-2024 09:34-0500 Diastolic blood pressure 79 mm[Hg] Buster KEENE [facility] 03-31-2024 09:34-0500 Heart rate 63 /min Buster KEENE [facility] 03-31-2024 09:34-0500 Systolic blood pressure 124 mm[Hg] Buster KEENE [facility] 02-12-2024 11:56-0500 Diastolic blood pressure 81 mm[Hg] Drea Orzech [facility] 02-12-2024 11:56-0500 Heart rate 69 /min Drea Orzech [facility] 02-12-2024 11:56-0500 Systolic blood pressure 130 mm[Hg] Drea Orzech [facility] 12-18-2023 10:45-0500 Diastolic blood pressure 80 mm[Hg] Michelle Chan MANAGER PHILOSOPHY Work Phone: [facility] 12-18-2023 10:45-0500 Systolic blood pressure 136 mm[Hg] Michelle Chan MANAGER PHILOSOPHY Work Phone: [facility] 11-12-2023 10:21-0400 Body height 165.1 cm DO Susan Mummert Work Phone: [facility] 11-12-2023 10:21-0400 Body mass index (BMI) [Ratio] 28.6 kg/m2 DO Susan Mummert Work Phone: [facility] 11-12-2023 10:21-0400 Body weight 78.01 kg DO Susan Mummert Work Phone: [facility] 11-12-2023 10:21-0400 Diastolic blood pressure 75 mm[Hg] DO Susan Mummert Work Phone: [facility] 11-12-2023 10:21-0400 Heart rate 80 /min DO Susan Mummert Work Phone: [facility] 11-12-2023 10:21-0400 SaO2% (BldA) [Mass fraction] 100 % DO Susan Zavala Work Phone: [facility] 11-12-2023 10:21-0400 Systolic blood pressure 110 mm[Hg] DO Susan Zavala Work Phone: [facility] 10-14-2023 15:38-0400 Blood Pressure Location Buster KEENE [facility] 10-14-2023 15:38-0400 Diastolic blood pressure 88 mm[Hg] Buster KEENE [facility] 10-14-2023 15:38-0400 Heart rate 74 /min Buster KEENE [facility] 10-14-2023 15:38-0400 Respiratory rate 16 /min Buster KEENE [facility] 10-14-2023 15:38-0400 Systolic blood pressure 137 mm[Hg] Buster KEENE [facility] 09-10-2023 08:28-0400 Body temperature 98.6 [degF] Buster KEENE [facility] 09-10-2023 08:28-0400 Diastolic blood pressure 85 mm[Hg] Buster KEENE [facility] 09-10-2023 08:28-0400 Heart rate 77 /min Buster KEENE [facility] 09-10-2023 08:28-0400 Respiratory rate 16 /min Buster KEENE [facility] 09-10-2023 08:28-0400 Systolic blood pressure 126 mm[Hg] Buster KEENE [facility] 09-03-2023 14:19-0400 Body height 165.1 cm DO Susan Mummert Work Phone: [facility] 09-03-2023 14:19-0400 Body mass index (BMI) [Ratio] 28.6 kg/m2 DO Susan Mummert Work Phone: [facility] 09-03-2023 14:19-0400 Body temperature 97.3 [degF] DO Susan Mummert Work Phone: [facility] 09-03-2023 14:19-0400 Body weight 78.18 kg DO Susan Mummert Work Phone: [facility] 09-03-2023 14:19-0400 Diastolic blood pressure 83 mm[Hg] DO Susan Mummert Work Phone: [facility] 09-03-2023 14:19-0400 Heart rate 80 /min DO Susan Mummert Work Phone: [facility] 09-03-2023 14:19-0400 Respiratory rate 16 /min DO Susan Mummert Work Phone: [facility] 09-03-2023 14:19-0400 SaO2% (BldA) [Mass fraction] 98 % DO Susan Mummert Work Phone: [facility] 09-03-2023 14:19-0400 Systolic blood pressure 120 mm[Hg] DO Susan Mummert Work Phone: [facility] 07-11-2023 09:48-0400 Body height 165.1 cm Khris Mckeon MD Work Phone: [employer] 07-11-2023 09:48-0400 Body mass index (BMI) [Ratio] 28.29 kg/m2 Khris Mckeon MD Work Phone: [facility] 07-11-2023 09:48-0400 Body weight 77.11 kg Khris Mckeon MD Work Phone: [facility] 07-11-2023 09:48-0400 Diastolic blood pressure 90 mm[Hg] Khris Mckeon MD Work Phone: [facility] 07-11-2023 09:48-0400 Heart rate 95 /min Khris Mckeon MD Work Phone: [facility] 07-11-2023 09:48-0400 SaO2% (BldA) [Mass fraction] 98 % Khris Mckeon MD Work Phone: [facility] 07-11-2023 09:48-0400 Systolic blood pressure 118 mm[Hg] Khris Mckeon MD Work Phone: [facility] 05-13-2023 10:18-0400 Blood Pressure Location Buster KEENE [facility] 05-13-2023 10:18-0400 Body temperature 97.16 [degF] Buster KEENE [facility] 05-13-2023 10:18-0400 Diastolic blood pressure 78 mm[Hg] Buster KEENE [facility] 05-13-2023 10:18-0400 Heart rate 84 /min Buster KEENE [facility] 05-13-2023 10:18-0400 Systolic blood pressure 116 mm[Hg] Buster KEENE [facility] 07-01-2021 07:30-0400 Body temperature 97.8 [degF] DO Susan Zavala Work Phone: [facility] 07-01-2021 07:30-0400 Diastolic blood pressure 82 mm[Hg] DO Susan Mummert Work Phone: [facility] 07-01-2021 07:30-0400 Heart rate 71 /min DO Susan Mummert Work Phone: [facility] 07-01-2021 07:30-0400 Respiratory rate 14 /min DO Susan Mummert Work Phone: [facility] 07-01-2021 07:30-0400 SaO2% (BldA) [Mass fraction] 99 % DO Susan Mummert Work Phone: [facility] 07-01-2021 07:30-0400 Systolic blood pressure 127 mm[Hg] DO Susan Mummert Work Phone: [facility] 06-28-2021 14:17-0400 Body height 165.1 cm DO Susan Mummert Work Phone: [facility] 06-27-2021 20:00-0400 Body mass index (BMI) [Ratio] 26.6 kg/m2 DO Susan Mummert Work Phone: [facility] 06-27-2021 20:00-0400 Body weight 72.57 kg DO Susan Mummert Work Phone: [facility] 06-12-2021 12:11-0400 Blood Pressure Location Niall Ann Jr. [facility] 06-12-2021 12:11-0400 Diastolic blood pressure 89 mm[Hg] Niall Ann Jr. [facility] 06-12-2021 12:11-0400 Heart rate 70 /min Niall Ann Jr. [facility] 06-12-2021 12:11-0400 Respiratory rate 16 /min Niall Ann Jr. [facility] 06-12-2021 12:11-0400 Systolic blood pressure 128 mm[Hg] Niall Ann Jr. [facility] Encounters Encounter Date Encounter Type Care Provider Facility Start: 11-10-2024 ambulatory Buster Cassidyi ty:[facility] Start: 11-01-2024 ambulatory Buster KEENE Facili ty: [place] Start: 10-28-2024 ambulatory Buster KEENE Facili ty:[id number] Start: 10-06-2024 End: 10-06-2024 ambulatory Buster KEENE Facility: [place] Start: 10-06-2024 End: 10-06-2024 Patient encounter procedure Buster KEENE [facility] Start: 09-30-2024 ambulatory Susan Zavala DO Faci lity:[facility] Start: 07-31-2024 End: 08-01-2024 Refjohnna Leonardo MD Work Phone: [facility] Comment on above: Intention tremor; Traumatic brain injury, with loss of consciousness of 30 minutes or less, subsequent encounter Start: 07-18-2024 ambulatory Bunny Rosenberg Veliz [facility] Faci lity:[facility] Start: 07-08-2024 End: 07-08-2024 Arin Chan NP Work Phone: [facility] Start: 07-08-2024 End: 07-08-2024 Arin M86 Securityruiz Chan NP Work Phone: [facility] Start: 07-08-2024 End: 07-08-2024 Office outpatient visit 15 minutes Michelle Chan MANAGER PHILOSOPHY Work Phone: [facility] Comment on above: Cervical dystonia (P rimary Dx); Degeneration of intervertebral disc of lumbar region with lower extremity pain; Degenerative disc disease, cervical Start: 07-08-2024 End: 07-08-2024 ambulatory MICHELLE CHAN Not Available Start: 06-29-2024 End: 06-29-2024 ambulatory Susan Zavala Facility:[facility] Start: 06-21-2024 ambulatory Susanlefty Multanit DO Faci lity:[facility] Start: 06-15-2024 End: 06-15-2024 ambulatory Buster KEENE [place] Start: 06-15-2024 End: 06-15-2024 Patient encounter procedure Buster KEENE [facility] Start: 06-02-2024 ambulatory Susan Zavala DO Faci lity:[facility] Start: 05-25-2024 End: 05-25-2024 ambulatory Buster KEENE Facility:[facility] Start: 04-01-2024 End: 04-01-2024 Bamboo flowsheet Michelle Chan MANAGER PHILOSOPHY Work Phone: [facility] Start: 04-01-2024 End: 04-01-2024 Bamboo flowsheet Michelle Chan MANAGER PHILOSOPHY Work Phone: [facility] Start: 04-01-2024 End: 04-01-2024 ambulatory MICHELLE CHAN Not Available Start: 04-01-2024 End: 04-01-2024 Patient encounter procedure Michelle Chan MANAGER PHILOSOPHY Work Phone: [facility] Comment on above: Cervical dystonia (P rimary Dx) Start: 03-31-2024 End: 03-31-2024 ambulatory Buster KEENE Facility: [place] Start: 03-31-2024 End: 03-31-2024 Patient encounter procedure Buster Tinoco YECENIA [facility] [place] Start: 03-29-2024 End: 03-29-2024 ambulatory Drea Orze EPIC CUPID ANALYST-MRI MANAGER-C Facility:[facility] Start: 03-12-2024 End: 03-12-2024 Jennifer Leonardo MD Work Phone: [facility] Comment on above: Seizure disorder (CM S/HCC) Start: 03-03-2024 ambulatory Susanlefty Multanit DO Faci lity: [facility] Start: 02-19-2024 End: 02-19-2024 [facility] Start: 02-12-2024 End: 02-12-2024 [facility] Start: 02-12-2024 End: 02-12-2024 Patient encounter procedure Drea X Orlnynky [facility] [place] Start: 01-13-2024 ambulatory Susan Zavala Facilit y:[facility] Start: 01-12-2024 End: 01-12-2024 ambulatory Ndjason [facility] Facility:[facility] Start: 12-30-2023 End: 12-30-2023 Patient encounter procedure Susan Multanit DO Work Phone: [facility] Work Phone: Start: 12-30-2023 End: 12-30-2023 ambulatory Susanlefty Multanit DO Work Phone: [facility] Work Phone: Start: 12-24-2023 End: 12-24-2023 Patient encounter procedure Susanlefty Multanit DO Work Phone: [facility] [place] Work Phone: Start: 12-24-2023 End: 12-24-2023 ambulatory Susan Multanit DO Work Phone: [facility] Work Phone: Start: 12-18-2023 End: 12-18-2023 Bamboo flowsheet Michelle Chan MANAGER PHILOSOPHY Work Phone: [facility] Start: 12-18-2023 End: 12-18-2023 Bamboo flowsheet Michelle Chan MANAGER PHILOSOPHY Work Phone: [facility] Start: 12-18-2023 End: 12-18-2023 ambulatory Susanlefty Erazomert DO Work Phone: [facility] Work Phone: Start: 12-18-2023 End: 12-18-2023 Patient encounter procedure Michelle Chan MANAGER PHILOSOPHY Work Phone: [facility] Comment on above: Cervical dystonia (P rimary Dx) Start: 11-25-2023 End: 11-25-2023 Refill Michelle Chan MANAGER PHILOSOPHY Work Phone: [facility] Comment on above: Seizure (CMS/HCC) Start: 11-19-2023 ambulatory Buster Slaughter ty:[facility] M [facility] Start: 11-18-2023 Registered Recurring Susan olvera DO Work Phone: [facility] Start: 11-12-2023 End: 11-12-2023 ambulatory DO Susan Multanit Work Phone: [facility] Work Phone: Start: 11-12-2023 End: 11-12-2023 Patient encounter procedure DO Susan Multanit Work Phone: [facility] Work Phone: Start: 11-06-2023 End: 11-06-2023 Refill Michelle Chan MANAGER PHILOSOPHY Work Phone: [facility] Comment on above: Intention tremor; Traumatic brain injury, with loss of consciousness of 30 minutes or less, subsequent encounter Start: 10-21-2023 Registered Recurring DO Timoth y Mummert Work Phone: [facility] Start: 10-14-2023 End: 10-14-2023 ambulatory Buster R KEENE Facility:[facility] Start: 10-14-2023 End: 10-14-2023 Patient encounter procedure Buster KEENE [facility] Start: 10-06-2023 End: 10-06-2023 ambulatory MICHELLE CHAN Not Available Start: 10-06-2023 End: 10-06-2023 Office outpatient visit 15 minutes Michelle Chan MANAGER PHILOSOPHY Work Phone: [facility] [phone] Comment on above: Cervical dystonia (P rimary Dx); Neck pain; Cervical paraspinal muscle spasm; Intractable chronic migraine without aura and with status migrainosus (CMS/HCC) Start: 10-01-2023 End: 10-02-2023 Telephone encounter Michelle Chan MANAGER PHILOSOPHY Work Phone: [facility] Start: 09-29-2023 End: 09-29-2023 [facility] Start: 09-17-2023 End: 09-19-2023 Telephone encounter Enid Aguilera RN [facility] Comment on above: Cardiac Clearance Start: 09-15-2023 Non-patient / Non-visit DO Lorne othy Mummert Work Phone: [facility] Work Phone: Start: 09-10-2023 End: 09-10-2023 Patient encounter procedure Buster KEENE [facility] Start: 09-08-2023 Non-patient / Non-visit DO Lorne othy Mummert Work Phone: [facility] Work Phone: Start: 09-04-2023 End: 09-04-2023 ambulatory MICHELLE CHAN Not Available Start: 09-03-2023 End: 09-03-2023 ambulatory DO Susan Zavala Work Phone: [facility] Work Phone: Start: 09-03-2023 End: 09-03-2023 Patient encounter procedure DO Susan Zavala Work Phone: [facility] Work Phone: Start: 07-30-2023 End: 07-30-2023 ambulatory MICHELLE CHAN Not Available Start: 07-11-2023 End: 07-11-2023 Office outpatient new 60 minutes Khris Mckeon MD Work Phone: [facility] Comment on above: Chest pain, unspecif ied type Start: 07-11-2023 End: 07-11-2023 ambulatory [facility] Start: 07-10-2023 Registered Recurring DO Juan Daniel Zavala Work Phone: [facility] Start: 07-10-2023 End: 07-10-2023 Telephone encounter [facility] Start: 07-06-2023 ambulatory SUSAN ZAVALA [facility] Start: 05-13-2023 End: 05-13-2023 Lab Drop off Buster KEENE [facility] Start: 05-13-2023 End: 05-13-2023 Patient encounter procedure Busetr KEENE [facility] [place] Start: 02-18-2023 End: 02-18-2023 Patient encounter procedure Buster KEENE [facility] [place] Start: 06-27-2021 End: 07-01-2021 Evaluation and management of inpatient DO Susan Zavala Work Phone: [facility] Start: 06-12-2021 End: 06-12-2021 Patient encounter procedure Niall Ann Jr. [facility] Danyel Start: 08-22-2020 End: 08-23-[address] DESIREE BATISTA Facility:H1 Procedures Date Procedure Procedure Detail Performing Clinician Start: 06-15-2024 Urodynamic studies Buster KEENE Start: 05-25-2024 Cystoscope, device (physical object) Buster YECENIA Start: 12-24-2023 Ultrasonography of bilateral kidneys Susan Zavala DO Work Phone: Start: 10-14-2023 Cystoscopic removal of ureteric stent Buster YECENIA Start: 12-12-2019 Cholecystectomy Niall Ann Jr. Start: 03-13-2017 H/O: surgery S/P uvulopalatopharyngoplasty Ewelina lopez MA Start: 08-31-2012 Cystoscopy Niall Ann Jr. Start: 05-06-2012 Hernia repair Niall Ann Jr. Start: 11-10-2009 Colonoscopy Niall Ann Jr. Start: 03-13-2009 Catheterization of both left and right heart Niall Ann Jr. Start: 10-11-2004 Decompression of median nerve Niall Ann Jr. Start: 02-11-1992 Hemorrhoidectomy Niall Ann Jr. Start: 05-12-1987 Appendectomy Niall Seth La Start: 07-11-1986 tendon reconstruction Niall Seth La sleep apnea surgery Niall bermudez Plan of Treatment Date Care Activity Detail Author Start: 10-28-2024 End: 10-28-2024 Patient encounter procedure 10/28/2024 11:00 AM EDT Procedure Visit [facility] [address] [facility] [address] [place] [address] Michelle Chan, MANAGER PHILOSOPHY [address] [place] [address] [facility] Start: 08-09-2024 Influenza vaccination Influenza Vacc ine (#1) [facility] Comment on above: Postponed from 10/11 (Patient Refused) Start: 07-15-2024 End: 07-15-2024 Patient encounter procedure 07/15/2024 12:30 PM EDT Procedure Visit [facility] [address] [facility] [address] [place] [address] Michelle Chan, MANAGER PHILOSOPHY [address] [place] [address] [facility] Start: 07-10-2024 Adult BMI Screening Adult BMI Screen [facility] Start: 07-10-2024 Tobacco Screening Tobacco Screening [facility] Start: 07-08-2024 End: 07-08-2024 Patient encounter procedure 07/08/2024 10:45 AM EDT Procedure Visit [facility] [address] [facility] [address] [place] [id number] Michelle Chan, MANAGER PHILOSOPHY [address] [place] [address], [place] [address] Arrived [facility] Comment on above: Arrived Start: 04-01-2024 End: 04-01-2024 Patient encounter procedure 04/01/2024 11:00 AM EST Procedure Visit [facility] [address] [facility] [address] [place] [phone] Michelle Chan NP [address] [place] [address], [place] [address] [facility] Start: 12-24-2023 [facility] Start: 12-18-2023 End: 12-18-2023 Patient encounter procedure 12/18/2023 10:30 AM EST Procedure Visit [facility] [address] [place] [phone] Michelle Chan MANAGER PHILOSOPHY [address] [place] [address], [place] [address] [facility] Start: 10-14-2023 End: 10-14-2023 Patient encounter procedure 10/14/2023 9:30 AM EDT Office Visit [facility] [address] [place] [address] Waldemar Pichardo MD [address] [place] [address] [facility] Start: 10-12-2023 Influenza vaccination [facility] Start: 10-06-2023 End: 10-06-2023 Telemedicine consultation with patient 10/06/2023 2:30 PM EDT Telemedicine [facility] [address] [place] [address], [place] [address] Michelle Chan MANAGER PHILOSOPHY [address] [place] [address], [place] [address] [facility] 210 Start: 09-29-2023 Subsequent hospital visit by physician 09/29/2023 2:00 PM EDT Hospital Encounter [facility] [address] [place] [address] Khris Mckeon MD [address] [place] [address] [facility] Start: 08-07-2023 End: 08-07-2023 Patient encounter procedure 08/07/2023 3:00 PM EDT Appointment [facility] [address] [place] [address] [facility] Start: 07-11-2023 End: 07-10-2024 CTA Heart and Coronary arteries WO and W contrast IV CT angiogram coronary arteries with or without scoring Imaging Routine Chest pain, unspecified type Expected: 07/11/2023, Expires: 07/10/2024 [facility] Work Phone: Comment on above: Expected: 07/11/2023 , Expires: 07/10/2024 Start: 07-11-2023 End: 07-11-2023 Patient encounter procedure 07/11/2023 9:45 AM EDT Office Visit [facility] [address] [place], [place] [phone] Khris Mckeon MD [address] [place] [address] [facility] Start: 08-02-2022 Adult BMI Screening Adult BMI Screen ing [facility] Start: 08-02-2022 Tobacco Screening Tobacco Screening [facility] Start: 08-25-2017 Administration of varicella zoster vaccine Zoster (Shingles) Vaccine (1 of 2) [facility] Start: 08-25-1986 DTaP,Tdap and Td Vac cines (1 - Tdap) DTaP,Tdap and Td Vaccines (1 - Tdap) [facility] Start: 08-25-1985 Adult BMI Follow Up Plan Adult BMI Follow Up Plan [facility] Start: 1979 Depression Screening Depression Scre ening [facility] Start: 1967 Medicare Annual Well ness (AWV) Medicare Annual Wellness (AWV) [facility] Start: 1967 Screening for malign ant neoplasm of colon [facility] Start: 1967 Tobacco Counseling Tobacco Counselin g [facility] Patient Education Depression, Ad ult (DC) [facility] [place] Instructions [facility] Work Phone: Patient referral [facility] Work Phone: Renal function 2000 panel - Serum or Plasma [facility] US Kidney - bilateral [facility] Immunizations Immunization Date Immunization Notes Care Provider Rashida prieto 12-22-2019 influenza virus vaccine, unspecified formulation Buster KEENE [facility] 12-22-2019 influenza, injectable, quadrivalent, preservative free Michelle Graziani MANAGER PHILOSOPHY Work Phone: [facility] 11-11-2019 influenza virus vaccine, unspecified formulation Niall Ann Jr. [facility] 12-05-2017 influenza virus vaccine, unspecified formulation Buster KEENE [facility] 12-05-2017 influenza, high dose seasonal, preservative-free Michelle Graziani MANAGER PHILOSOPHY Work Phone: [facility] 12-17-2016 influenza virus vaccine, unspecified formulation Buster KEENE [facility] 12-17-2016 influenza, injectable, quadrivalent, contains preservative Michelle Graziani MANAGER PHILOSOPHY Work Phone: [facility] 01-31-2016 influenza, injectable, quadrivalent, contains preservative Michelle Graziani MANAGER PHILOSOPHY Work Phone: [facility] 01-18-2016 influenza, injectable, quadrivalent, contains preservative Michelle Graziani MANAGER PHILOSOPHY Work Phone: [facility] 12-20-2014 influenza, injectable, quadrivalent, contains preservative Michelle Emanueljosé miguel MANAGER PHILOSOPHY Work Phone: [facility] 02-21-2012 influenza virus vaccine, unspecified formulation Buster KEENE [facility] [place] 02-21-2012 influenza, seasonal, injectable Michelle Dustin MANAGER PHILOSOPHY Work Phone: [facility] NEGATED: Highlighted row has not occurred!05-09-2020 SARS-CoV-2 (COVID-19) mRNA-5063 vaccine Niall Ann Jr. [facility] Payers Date Payer Category Payer Private Health Insurance [facility] [id number] 2023 Medicaid [employer] MEDICARE A DVANTAGE [id number] 2023 Medicare [id number] 2022 Self-pay [id number] 2022 Medicare [id number] 2021 Private Health Insurance [facility] [id number] 2018 Medicare [id number] 2017 Medicare [id number] 2016 Medicare [id number] 1967 Unknown [id number] 2.16.840.1.646756.3.579.2. 593 1967 Unknown [id number] 2.16.840.1.866882.3.579.2. 1285 1967 Unknown [id number] 2.16.840.1.963184.3.579.2. 1285 1967 Unknown [id number] 2.16.840.1.379851.3.579.2. 1285 1967 Unknown [id number] 2.16.840.1.597817.3.579.2. 1258 1967 Unknown [id number] 2.16.840.1.462173.3.579.2. 1258 1967 Unknown [id number] 2.16.840.1.946543.3.579.2. 1258 1967 Unknown [id number] 2.16.840.1.699612.3.579.2. 1258 1967 Unknown [id number] 2.16.840.1.949456.3.579.2. 1258 1967 Unknown [id number] 2.16.840.1.244043.3.579.2. 1258 1967 Unknown [id number] 2.16.840.1.201716.3.579.2. 1967 Unknown [id number] 2.16.840.1.817217.3.579.2. 1967 Unknown [id number] 2.16.840.1.049479.3.579.2. 1967 Unknown [id number] 2.16.840.1.574155.3.579.2. 1967 Unknown [id number] 2.16.840.1.041851.3.579.2. 1967 Unknown [id number] 2.16.840.1.563926.3.579.2 1967 Unknown [id number] 2.16.840.1.249716.3.579.2 1967 Unknown [id number] 2.16.840.1.605632.3.579.2. 1967 Unknown [id number] 2.16.840.1.256551.3.579.2 1967 Unknown [id number] 2.16.840.1.717211.3.579.2 1967 Unknown [id number] 2.16.840.1.820571.3.579.2 1967 Unknown [id number] .16.840.1.413200.3.579.2 1967 Unknown [id number] 2.16.840.1.242428.3.579.2 1967 Unknown [id number] 2.16.840.1.346694.3.579.2 1967 Unknown [id number] 2.16.840.1.105266.3.579.2 1967 Unknown [id number] .16.840.1.560399.3.579.2 1967 Unknown [id number] 2.16.840.1.635946.3.579.2 1967 Unknown [id number] 2.16.840.1.155902.3.579.2 1967 Unknown [id number] 2.16.840.1.479144.3.579.2. 1959 Medicare [id number] Medicare Medicare [id number] Unknown [id number] 2.16.840.1.398535.3.579.2. 531 Unknown [id number] 2.16.840.1.650659.3.579.2. 531 Unknown [id number] 2.16.840.1.270533.3.579.2. 531 Unknown [id number] 2.16.840.1.417001.3.579.2. 531 Unknown [id number] 2.16.840.1.313381.3.579.2. 531 Social History Date Type Detail Facility Start: 06-12-2021 End: 10-06-2024 Tobacco smoking status Heavy tobacco smoker (finding) [facility] Start: 10-06-2023 End: 07-08-2024 Sex Assigned At Male [facility] Start: 06-28-2021 End: 09-03-2023 Tobacco smoking status NHIS Smoker (finding) [facility] Start: 1965 Sex Assigned At Male [facility] Tobacco smoking status Never [facility] [place] Start: 07-11-2023 End: 09-04-2023 Tobacco smoking status NHIS Smokes tobacco daily [facility] History of tobacco use Cigarette Smoker [facility] Start: 09-04-2023 Tobacco use and exposure Smoke less tobacco non-user [facility] Start: 10-06-2023 End: 07-08-2024 Alcoholic beverage intake Lifetime non-drinker (finding) [facility] Start: 10-06-2023 End: 07-08-2024 History of Social function [facility] Start: 09-03-2022 Tobacco Comment 6-10 cigarettes/day [facility] Start: 08-18-2022 Gender identity Identifies as male gender (finding) [facility] Start: 08-28-2018 End: 12-19-2023 Sex Male (finding) [facility] Start: 08-02-2021 End: 07-11-2023 Tobacco use and exposure Former smokeless tobacco user [facility] History of tobacco use Chews Tobacco [facility] Start: 07-08-2023 Alcoholic beverage intake Current non-drinker of alcohol (finding) [facility] Start: 07-15-2019 Alcohol Comment past ETHO abuse, non e [facility] Start: 1965 Sex assigned at Not on file [facility] Start: 07-11-2023 Alcoholic beverage intake Ex-drinker (finding) [facility] Sexual Orientation [facility] Goals Date Patient Goal Desired Activity /State Functional Status Date Assessment Result Facility 03-31-2024 Functional Status N/A [facility] 02-12-2024 Functional Status N/A [facility] 10-14-2023 Functional Status N/A [facility] 09-10-2023 Functional Status N/A [facility] 05-13-2023 Functional Status N/A [facility] 07-01-2021 Functional status Patient at [facility] Work Phone: 06-27-2021 Functional status Functional Status Comme [facility] Work Phone: Mental Status Date Assessment Result Facility 07-01-2021 Cognitive function Cognitive Sta tus Patient at Baseline [facility] Work Phone: Clinical Notes 06-12-2021 to 10-06-2024 Michelle Chan NP - 07/08/2024 10:45 AM Haroon Chan NP - 04/01/2024 9:15 AM Kiran Chan NP - 12/18/2023 10:30 AM EST Note Date & Type Note Facility 10-06-2024 Hospital Discharge instructions Patient Education 10/06/2024 10:10:32 Transurethral Resection of the Prostate, Care After Transurethral Resection of the Prostate, Care After The following information offers guidance on how to care for yourself after your procedure. Your health care provider may also give you more specific instructions. If you have problems or questions, contact your health care provider. What can I expect after the procedure? After the procedure, it is common to have: Mild pain in your lower abdomen. Soreness or mild discomfort in your penis or when you urinate. This is from having the catheter inserted during the procedure. A sudden urge to urinate (urgency). A need to urinate often. A small amount of blood in your urine. You may notice some small blood clots in your urine. These are normal. Follow these instructions at home: Medicines Take weic-vrj-inefwwa and prescription medicines only as told by your health care provider. If you were prescribed an antibiotic medicine, take it as told by your health care provider. Do not stop taking the antibiotic even if you start to feel better. Activity Rest as told by your health care provider. Avoid sitting for a long time without moving. Get up to take short walks every 1 2 hours. This is important to improve blood flow and breathing. Ask for help if you feel weak or unsteady. You may increase your physical activity gradually as you start to feel better. Do not drive or operate machinery until your health care provider says that it is safe. Do not ride in a car for long periods of time, or as told by your health care provider. Avoid intense physical activity for as long as told by your health care provider. Do not lift anything that is heavier than 10 lb (4.5 kg), or the limit that you are told, until your health care provider says that it is safe. Do not have sex until your health care provider approves. Return to your normal activities as told by your health care provider. Ask your health care provider what activities are safe for you. Preventing constipation You may need to take these actions to prevent or treat constipation: Drink enough fluid to keep your urine pale yellow. Take dnax-mim-oypdlvp or prescription medicines. Eat foods that are high in fiber, such as beans, whole grains, and fresh fruits and vegetables. Limit foods that are high in fat and processed sugars, such as fried or sweet foods. General instructions Do not strain when you have a bowel movement. Straining may lead to bleeding from the prostate. This may cause blood clots and trouble urinating. Do not use any products that contain nicotine or tobacco. These products include cigarettes, chewing tobacco, and vaping devices, such as e-cigarettes. If you need help quitting, ask your health care provider. If you go home with a tube draining your urine (urinary catheter), care for the catheter as told by your health care provider. Wear compression stockings as told by your health care provider. These stockings help to prevent blood clots and reduce swelling in your legs. Keep all follow-up visits. This is important. Contact a health care provider if: You have signs of infection, such as: ?Fever or chills. ?Urine that smells very bad. ?Swelling around your urethra that is getting worse. ?Swelling in your penis or testicles. You have difficulty urinating. You have pain that gets worse or does not improve with medicine. You have blood in your urine that does not go away after 1 week of resting and drinking more fluids. You have trouble having a bowel movement. You have trouble having or keeping an erection. No semen comes out during orgasm (dry ejaculation). You have a urinary catheter in place, and you have: ?Spasms or pain. ?Problems with your catheter or your catheter is blocked. Get help right away if: You are unable to urinate. You are having more blood clots in your urine instead of fewer. You have: ?Large blood clots. ?A lot of blood in your urine. ?Pain in your back or lower abdomen. You have difficulty breathing or shortness of breath. You develop swelling or pain in your leg. These symptoms may be an emergency. Get help right away. Call 911. Do not wait to see if the symptoms will go away. Do not drive yourself to the hospital. Summary After the procedure, it is common to have a small amount of blood in your urine. Follow restrictions about lifting and sexual activity as told by your health care provider. Ask what activities are safe for you. Keep all follow-up visits. This is important. This information is not intended to replace advice given to you by your health care provider. Make sure you discuss any questions you have with your health care provider. Document Revised: 10/23/2021 Document Reviewed: 10/23/2021 [employer] Patient Education 2023 [employer]. 10/06/2024 10:10:31 Transurethral Resection of the Prostate Transurethral Resection of the Prostate Transurethral resection of the prostate (TURP) is the removal, or resection, of part of the prostate tissue. This procedure is done to treat an enlarged prostate gland (benign prostatic hyperplasia). The goal of TURP is to remove enough prostate tissue to allow for a normal flow of urine. The procedure will allow you to empty your bladder more completely when you urinate so that you can urinate less often. In a transurethral resection, a thin telescope with a light, a camera, and an electric cutting edge (resectoscope) is passed through the urethra and into the prostate. The opening of the urethra is at the end of the penis. Tell a health care provider about: Any allergies you have. All medicines you are taking, including vitamins, herbs, eye drops, creams, and qgkj-vlp-rqvwycu medicines. Any problems you or family members have had with anesthetic medicines. Any bleeding problems you have. Any surgeries you have had. Any medical conditions you have. Any prostate infections you have had. What are the risks? Generally, this is a safe procedure. However, problems may occur, including: Infection. Bleeding. Allergic reactions to medicines. Blood in the urine (hematuria). Damage to nearby structures or organs. Other problems may occur, but they are rare. They include: Dry ejaculation, or having no semen come out during orgasm. Erectile dysfunction, or being unable to have or keep an erection. Scarring that leads to narrowing of the urethra. This narrowing may block the flow of urine. Inability to control when you urinate (incontinence). Deep vein thrombosis. This is a blood clot that can develop in your leg. TURP syndrome. This can happen when you lose too much sodium during or after the procedure. Some signs and symptoms of this condition include: ?Weakness. ?Headaches. ?Nausea or vomiting. ?Muscle cramping. What happens before the procedure? When to stop eating and drinking Follow instructions from your health care provider about what you may eat and drink before your procedure. These may include: 8 hours before your procedure ?Stop eating most foods. Do not eat meat, fried foods, or fatty foods. ?Eat only light foods, such as toast or crackers. ?All liquids are okay except energy drinks and alcohol. 6 hours before your procedure ?Stop eating. ?Drink only clear liquids, such as water, clear fruit juice, black coffee, plain tea, and sports drinks. ?Do not drink energy drinks or alcohol. 2 hours before your procedure ?Stop drinking all liquids. ?You may be allowed to take medicines with small sips of water. If you do not follow your health care provider's instructions, your procedure may be delayed or canceled. Medicines Ask your health care provider about: Changing or stopping your regular medicines. This is especially important if you are taking diabetes medicines or blood thinners. Taking medicines such as aspirin and ibuprofen. These medicines can thin your blood. Do not take these medicines unless your health care provider tells you to take them. Taking jmcs-lnh-uulpzyz medicines, vitamins, herbs, and supplements. Surgery safety Ask your health care provider what steps will be taken to help prevent infection. These steps may include: Removing hair at the surgery site. Washing skin with a germ-killing soap. Taking antibiotic medicine. General instructions Do not use any products that contain nicotine or tobacco for at least 4 weeks before the procedure. These products include cigarettes, chewing tobacco, and vaping devices, such as e-cigarettes. If you need help quitting, ask your health care provider. If you will be going home right after the procedure, plan to have a responsible adult: ?Take you home from the hospital or clinic. You will not be allowed to drive. ?Care for you for the time you are told. What happens during the procedure? An IV will be inserted into one of your veins. You will be given one or more of the following: ?A medicine to help you relax (sedative). ?A medicine to make you fall asleep (general anesthetic). ?A medicine that is injected into your spine to numb the area below and slightly above the injection site (spinal anesthetic). Your legs will be placed in foot rests (stirrups) so that your legs are apart and your knees are bent. The resectoscope will be passed through your urethra to your prostate. Parts of your prostate will be resected using the cutting edge of the resectoscope. Fluid will be passed to rinse out the cut tissues (irrigation). The resectoscope will be removed. A small, thin tube (catheter) will be passed through your urethra and into your bladder. The catheter will drain urine into a bag outside of your body. The procedure may vary among health care providers and hospitals. What happens after the procedure? Your blood pressure, heart rate, breathing rate, and blood oxygen level will be monitored until you leave the hospital or clinic. You will be given fluids through the IV. The IV will be removed when you start eating and drinking normally. You may have some pain. Pain medicine will be available to help you. You will have a catheter draining your urine. ?You may have blood in your urine. Your catheter may be kept in until your urine is clear. ?Your urinary drainage will be monitored. If necessary, your bladder may be rinsed out (irrigated) through your catheter. You will be encouraged to walk around as soon as possible. You may have to wear compression stockings. These stockings help to prevent blood clots and reduce swelling in your legs. If you were given a sedative during the procedure, it can affect you for several hours. Do not drive or operate machinery until your health care provider says that it is safe. Summary Transurethral resection of the prostate (TURP) is the removal (resection) of part of the prostate tissue. The goal of this procedure is to remove enough prostate tissue to allow for a normal flow of urine. Follow instructions from your health care provider about taking medicines and about eating and drinking before the procedure. This information is not intended to replace advice given to you by your health care provider. Make sure you discuss any questions you have with your health care provider. Document Revised: 10/23/2021 Document Reviewed: 10/23/2021 [employer] Patient Education 2023 [employer]. 10/06/2024 09:58:48 Steps to Quit Smoking Steps to Quit [...] require a prescription. You can also purchase zndr-ftx-hmafvjt medicines. Medicines may have nicotine in them [...] and encouragement. Call telephone quitlines, such as 3-369-IUUP-NOW, reach out to support groups, or work [...] provider. Document Revised: 01/18/2022 Document Reviewed: 01/18/2022 [employer] Patient Education 2023 [employer]. Follow Up Care 06/21/2024 09:41:04 With:YECENIA BUSTILLO, Buster Tinoco, URL Address: [address] [place] [phone] When: Unknown Comments:devon ALFONSO [facility] 10-06-2024 Note Patient Education Pulmonary Medicine Steps to Quit [...] to help you succeed. Before you quit: ??? Pick a date to quit. Set a date within the next 2 weeks to give you time to prepare. ??? Write down the reasons why you are quitting. Keep this list in places where you will see it often. ??? Tell your family, friends, and co-workers that you are quitting. Support from people you are close to can make quitting easier. ??? Talk with your health care provider about your options for quitting smoking. ??? Find out what treatment options are covered by your health insurance. ??? Identify people, places, things, and activities that make you want to smoke (triggers). Avoid them. What first steps can I take to quit smoking? Throw away all cigarettes at home, at work, and in your car. ??? Throw away smoking accessories, such as ashtrays and lighters. ??? Clean your car. Make sure to empty the ashtray. ??? Clean your home, including curtains and carpets. [...] provider tells you to. Quit right away ??? Quit smoking completely, instead of gradually reducing how much you smoke over a period of time. Stopping smoking right away may be more successful than gradually quitting. ??? Attend in-person counseling to help you build problem-solving skills. You are more likely to succeed in quitting if you attend counseling sessions regularly. Even short sessions of 10 minutes can be effective. Take medicine You may take medicines to help you quit smoking. Some medicines require a prescription. You can also purchase fhwu-hup-zwhufny medicines. Medicines may have nicotine in them to replace the nicotine in cigarettes. Medicines may: ??? Help to stop cravings. ??? Help to relieve withdrawal symptoms. Your health care provider may recommend: ??? Nicotine patches, gum, or lozenges. ??? Nicotine inhalers or sprays. ??? Non-nicotine medicine that you take by mouth. Find resources Find resources and support systems that can help you quit smoking and remain smoke-free after you quit. These resources are most helpful when you use them often. They include: ??? Online chats with a counselor. ??? Telephone quitlines. ??? Printed self-help materials. ??? Support groups or group counseling. ??? Text messaging programs. ??? Mobile phone apps or applications. Use apps that can help you stick to your quit plan by providing reminders, tips, and encouragement. Examples of free services include Quit Guide from the CDC and smokefree.gov What can I do to make it easier to quit? Reach out to your family and friends for support and encouragement. Call telephone quitlines, such as 3-904-LGCT-NOW, reach out to support groups, or work with a counselor for support. ??? Ask people who smoke to avoid smoking around you. ??? Avoid places that trigger you to smoke, such as bars, parties, or smoke-break areas at work. ??? Spend time with people who do not smoke. ??? Lessen the stress in your life. Stress can be a smoking trigger for some people. To lessen stress, try: ? Exercising regularly. ? Doing deep-breathing exercises. ? Doing yoga. ? Meditating. What benefits will I see if I quit smoking? Over time, you should start to see positive results, such as: ??? Improved sense of smell and taste. ??? Decreased coughing and sore throat. ??? Slower heart rate. ??? Lower blood pressure. ??? Clearer and healthier skin. ??? The ability to breathe more easily. ??? Fewer sick days. Summary ??? Quitting smoking can be very challenging. Do not get discouraged if you are not successful the first time. Some people need to make many attempts to quit before they achieve long-term success. ??? When you decide to quit smoking, create a plan to help you succeed. ??? Quit smoking right away, not s (more content not included)... [facility] 09-21-2024 Note Entered by LOU RAMIREZ MA on September 21, 2024 09:40:28 EDT From: SONYA RAMIREZ MA To: [place] [id number] Sent: 09/21/2024 09:40:28 EDT Subject: Medication Management Submitted: Complete:omeprazole (omeprazole 40 mg oral delayed release capsule) Signed by SONYA RAMIREZ MA 09/21/2024 09:40:00 EDT Approved with modifications: omeprazole (OMEPRAZOLE DR 40MG CAP) Take 1 capsule by mouth once daily Qty: 30 cap(s) Days Supply: 30 Refills: 5 Substitutions Allowed Route To Pharmacy - [place] [id number] Signed by SONYA RAMIREZ MA -------- From: [place] [id number] To: Susan Zavala DO, DO Sent: September 19, 2024 5:45:15 AM CDT Subject: Medication Management Due: September 20, 2024 12:21:50 AM CDT On Hold Pending Signature Dispensed Drug: omeprazole (omeprazole 40 mg oral delayed release capsule), Take 1 capsule by mouth once daily Quantity: 30 cap(s) Days Supply: 30 Refills: 0 Substitutions Allowed Notes from Pharmacy: -------- [facility] 07-08-2024 History of Present illness Narrative Images from the original note were not included. CHIEF COMPLAINT REASON FOR VISIT : dystonia botox HPI: Filemon Mendez is a 58 y.o. male who presents for repeat botox injections. He is taking Topamax, Tizanidine, Magnesium for his neck pain and muscle spasm. Neck pain causes headaches and migraines. He also is taking propranolol. He is taking Amitriptyline too for pain. He has tried years of steroid injections, epidurals, PT, massage, ice, heat. He has tried TENS unit. CURRENT MEDICATIONS: ALLERGIES/DISCONTINUE MEDICATIONS Current Outpatient Medications Medication Instructions amantadine (SYMMETREL) 100 mg, Every 12 hours amitriptyline (ELAVIL) 25 mg, Oral, Nightly ARIPiprazole (ABILIFY) 15 mg, Nightly ascorbic acid (VITAMIN C) 500 mg, Daily aspirin 81 mg, Daily RT atorvastatin (LIPITOR) 40 mg, Daily B Complex Vitamins (B COMPLEX 1 PO) Take by mouth biotin 5,000 mcg, Nightly Brexpiprazole 0.5 mg, Daily RT Dextromethorphan-quiNIDine 20-10 MG capsule 1 capsule, Nightly diphenhydrAMINE (BENADRYL) 25 mg, Every 6 hours PRN donepezil (ARICEPT) 10 mg, Oral, Every evening dutasteride (AVODART) 0.5 mg, Daily hydrOXYzine pamoate (VISTARIL) 25 mg, Oral, Every 8 hours PRN levETIRAcetam (KEPPRA) 500 mg, Oral, 2 times daily Magnesium 400 MG capsule 1 capsule, Nightly magnesium oxide 500 MG tablet 1 tablet as needed Orally at bedtime Memantine HCl ER 28 MG capsule sustained-release 24 hr 1 capsule, Oral, Daily metoclopramide (REGLAN) 5 mg, 4 times daily multivitamin with minerals (Cerovite) 18-400 mg-mcg tablet tablet 1 tablet, Daily Omeprazole 20 MG tablet delayed-release 1 tablet, Daily onabotulinumtoxinA (Botox 200u vial IJ Soln) 200 units injection Inject up to 400 units intramuscular into neck muscles every 90 days pantoprazole (ProtoNix) 40 MG EC tablet Every 12 hours propranolol LA (INDERAL LA) 60 mg, Daily sildenafil (Viagra) 100 MG tablet TAKE 1 TABLET BY MOUTH DIRECTED ONE HOUR BEFORE SEXUAL ACTIVITY solifenacin (VESICARE) 10 mg, Daily sucralfate (CARAFATE) 1 g tamsulosin (Flomax) 0.4 MG 24 hr capsule 1 capsule, Every 12 hours thiamine (VITAMIN B-1) 100 mg, Oral, Every morning tiZANidine (Zanaflex) 4 MG tablet TAKE 1 TABLET BY MOUTH TWICE DAILY NEEDED FOR MUSCLE SPASM topiramate (TOPAMAX) 100 mg, Oral, 2 times daily traZODone (DESYREL) 200 mg, Oral, Nightly venlafaxine (Effexor) 75 MG tablet TAKE 2 TABLETS BY MOUTH TWICE DAILY WITH FOOD Allergies Allergen Reactions Catnip Hives There are no discontinued medications. PAST MEDICAL HISTORY: SURGICAL/SOCIAL/FAMILY HISTORY DEPRESSION SCREEN: Past Medical History: Diagnosis Date Alcoholism (CMS/HCC) Arthritis Atypical chest pain BPPV (benign paroxysmal positional vertigo) Cervical spondylosis Degenerative joint disease Depression (CMS/HCC) Dysthymia (CMS/HCC) Erectile dysfunction GERD (gastroesophageal reflux disease) Hypercholesterolemia (CMS/HCC) Hypoglycemia Inguinal hernia, bilateral 2012 bilat inguinal and umbilical hernias Lymphadenopathy Migraines (CMS/HCC) Obesity Prediabetes Seizures (CMS/HCC) Sleep apnea Thyroid disorder ([facility]/HCC) Umbilical hernia 2012 Past Surgical History: Procedure Laterality Date APPENDECTOMY CARDIAC CATHETERIZATION CARPAL TUNNEL RELEASE Bilateral CHOLECYSTECTOMY COLONOSCOPY HAND TENDON SURGERY 1987 tendon reconstruction-left wrist HEART CATH 2010 HEMORRHOIDECTOMY HERNIA REPAIR 2013 OTHER SURGICAL HISTORY #2 bilateral c3, 4, 5 MBB OTHER SURGICAL HISTORY #1 bilateral C3, 4, 5 MPP OTHER SURGICAL HISTORY sleep apnea surgery RADIOFREQUENCY ABLATION Right C3, 4, 5 RFA, Left C3, 4, 5 RFA TONSILLECTOMY Social History Tobacco Use Smoking status: Every Day Current packs/day: 0.50 Types: Cigarettes Smokeless tobacco: Never Tobacco comments: 6-10 cigarettes/day Substance Use Topics Alcohol use: Never Drug use: Never Family History Problem Relation Name Age of Onset Lung cancer Mother Depression: Not on file REVIEW OF SYMPTOMS: Review of Systems Constitutional: Positive for fatigue. Negative for chills and fever. HENT: Negative for tinnitus. Eyes: Negative for photophobia. Respiratory: Negative for shortness of breath. Cardiovascular: Negative for chest pain. Gastrointestinal: Negative for nausea and vomiting. Genitourinary: Negative for frequency. Musculoskeletal: Positive for back pain, gait problem, neck pain and neck stiffness. Neurological: Positive for numbness and headaches. Negative for dizziness, tremors, weakness and light-headedness. Psychiatric/Behavioral: Positive for sleep disturbance. OBJECTIVE: 04/01/2024 9:30 AM 12/18/2023 10:45 AM 09/04/2023 9:47 AM Vitals BMI 28.79 kg/m2 BSA (m2) 1.9 m2 Systolic 136 120 Diastolic 80 78 Height (in) 5' 5 Weight (lb) 173 EXAM: Neurological Exam Mental Status Awake, alert and oriented to person, place and time. Oriented to person, place and time. Recent and remote memory are intact. Speech is normal. Language is fluent with no aphasia. Attention and concentration are normal. Cranial Nerves CN II: Visual acuity is normal. Visual gregg full to confrontation. CN III, IV, : Extraocular movements intact bilaterally. Normal lids and orbits bilaterally. Pupils equal round and reactive to light bilaterally. CN V: Facial sensation is normal. CN VII: Full and symmetric facial movement. CN VIII: Hearing is normal. CN XII: Tongue midline without atrophy or fasciculations. Motor Normal muscle bulk throughout. Increased muscle tone. Very limited cervical/neck ROM, increased cervical/neck paraspinal muscles, increased lumbar paraspinals. Right Left Wrist flexion 5 5 Wrist extension 5 5 Right Left Deltoid 5 5 Biceps 5 5 Triceps 5 5 Wrist flexor 5 5 Wrist extensor 5 5 Glutei 5 5 Iliopsoas 5 5 Quadriceps 5 5 Gastrocnemius 5 5 Anterior tibialis 5 5 Posterior tibialis 5 5 Sensory Light touch is normal in upper and lower extremities. Pinprick is normal in upper and lower extremities. Vibration abnormality: BLE. Reflexes Right Left Brachioradialis 2+ 2+ Biceps 2+ 2+ Patellar 2+ 1+ Achilles 1+ 1+ Right Plantar: downgoing Left Plantar: downgoing Right pathological reflexes: Thomas's absent. Ankle clonus absent. Left pathological reflexes: Thomas's absent. Ankle clonus absent. Coordination Dmgjiv-od-dmhb, rapid alternating movements and lywx-vn-iztk normal bilaterally without dysmetria. Gait Casual gait: Wide stance. Reduced stride length. Romberg is absent. Cane. PROCEDURE: Procedure - Therapeutic injection, Botulinum Toxin- Dystonia Indication Dystonia Consent The procedure was explained to the patient. Informed consent for the procedure was obtained and risk associated with Botox treatments. Any further questions were answered during this visit. Site Prep The areas to be injected were sterilized with 70% isopropanol. Buy/bill Botox 200U, 100U Lot # [id number], [id number] Dilution Per 200 units diluted with 4mL of 0.9% Sodium Chloride Per 100 units diluted with 2 mL of 0.9% Sodium Chloride Procedure was completed with EMG guidance B/l upper trap 50 units each B/l splenius capitis 25 units each B/l semispinalis capitis 25 units each B/l splenis cervicis 50 units each TOTAL UNITS INJECTED 300 WASTED 0 Disposition The patient tolerated the procedure well. Post-op care was discussed. The patient is aware that duration of action is 3 months, and that delay in reinjection often results in recurrence of symptoms. Patient Care Instructions Do not rub massage or touch injection sites for 24 hours. Do not lay down for 4 hours after treatment. Avoid hot showers, exercise, and spicy foods for 24 hours to avoid bruising and minimize redness. Discussed signs and symptoms of anaphylaxis and when to seek emergent treatment. Procedure Codes 45838-25 Chemodenervation of neck muscles, bilateral 50731 [EMG] Guidance for chemodenervation J0585 Botulinum toxin a per unit, Units: 300 Follow Up 3 months Botox ASSESSMENT AND PLAN: Diagnoses and all orders for this visit: Cervical dystonia Degeneration of intervertebral disc of lumbar region with lower extremity pain Degenerative disc disease, cervical 58 year old male here for repeat botox injections. He requires more units. I injection 300 units. He has multilevel cervical degenerative disc disease and moderate to severe lumbar disc disease. His pain affects his quality of life. He has tried multiple medications including antidepressants, anticonvulsants, muscle relaxers and NSAIDs. He has tried steroid injections. Due to chronicity and severity of his lumbar back pain and neck pain with dystonia. I feel it is appropriate to provide him with short course of Tramadol for increasing lumbar back pain. If he will require longer course he will need pain contract and UDS. This was discussed with patient all questions answered. Total time 20 minutes spent reviewing records, performing medically appropriate exam, counseling , education, ordering medication, tests, and/or procedures, documenting health information into the health record, communicating results to the patient, and coordinating care. documented in this encounter [facility] 05-25-2024 Note Patient Education Infectious Disease Prostatitis Prostatitis is swelling or inflammation of the prostate gland, also called the prostate. This gland is about 1.5 inches wide and 1 inch high, and it is involved in making semen. The prostate is located below a man's bladder, in front of the rectum. There are four types of prostatitis: ??? Chronic prostatitis (CP), also called chronic pelvic pain syndrome (CPPS). This is the most common type of prostatitis. It is associated with increased muscle tone in the area between the hip bones (pelvic area), around the prostate. This type is also known as a pelvic floor disorder. ??? Chronic bacterial prostatitis. This type usually results from an acute bacterial infection in the prostate gland that keeps coming back or has not been treated properly. The symptoms are less severe than those caused by acute bacterial prostatitis, which lasts a shorter time. ??? Asymptomatic inflammatory prostatitis. This type does not have symptoms and does not need treatment. This is diagnosed when tests are done for other disorders of the urinary tract or reproductive tract. ??? Acute bacterial prostatitis. This type starts quickly and results from an acute bacterial infection in the prostate gland. It is usually associated with a bladder infection, high fever, and chills. This is the least common type of prostatitis. What are the causes? Bacterial prostatitis is caused by an infection from bacteria. Chronic nonbacterial prostatitis may be caused by: ??? Factors related to the nervous system. This system includes thebrain, spinal cord, and nerves. ??? An autoimmune response. This happens when the body's disease-fighting system attacks healthy tissue in the body by mistake. ??? Psychological factors. These have to do with how the mind works. The causes of the other types of prostatitis are usually not known. What are the signs or symptoms? Symptoms of this condition depend on the type of prostatitis you have. Acute bacterial prostatitis Symptoms may include: ??? Pain or burning during urination. ??? Frequent and sudden urges to urinate. ??? Trouble starting to urinate. ??? Fever. ??? Chills. ??? Pain in your muscles or joints, lower back, or lower abdomen. Other types of prostatitis Symptoms may include: ??? Sudden urges to urinate, or urinating often. ??? Trouble starting to urinate. ??? Weak urine stream. ??? Dribbling after urination. ??? Discharge coming from the penis. ??? Pain in the testicles, the penis, or the tip of the penis. ??? Pain in the area in front of the rectum and below the scrotum (perineum). ??? Pain when ejaculating. How is this diagnosed? This condition may be diagnosed based on: ??? A physical and medical exam. ??? A digital rectal exam. For this, the health care provider may use a finger to feel the prostate. ??? A urine test to check for bacteria. ??? A semen sample or blood tests. ??? Ultrasound. ??? Urodynamic tests to check how your body handles urine. ??? Cystoscopy to look inside your bladder or inside the part of your body that drains urine from the bladder (urethra). How is this treated? Treatment for this condition depends on the type of prostatitis. Treatment may involve: ??? Medicines to relieve pain or inflammation, or to help relax your muscles. ??? Physical therapy. ??? Heat therapy. ??? Biofeedback. These techniques help you control certain body functions. ??? Relaxation exercises. ??? Antibiotic medicine, if your condition is caused by bacteria. ??? Sitz baths. These warm water baths help to relax your pelvic floor muscles, which helps to relieve pressure on the prostate. Follow these instructions at home: Medicines ??? Take xomn-lvg-iowvwpe and prescription medicines only as told by your health care provider. ??? If you were prescribed an antibiotic medicine, take it as told by your health care provider. Do not stop using the antibiotic even if you start to feel better. Managing pain and swelling ??? Take sitz baths as directed by your health care provider. For a sitz bath, sit in warm water that is deep enough to cover your hips and buttocks. ??? If directed, apply heat to the affected area as often as told by your health care provider. Use the heat source that your health care provider recommends, such as a moist heat pack or a heating pad. ? Place a towel between your skin and the heat source. ? Leave the heat on for 20?30 minutes. ? Remove the heat if your skin turns bright red. This is especially important if you are unable to feel pain, heat, or cold. You may have a greater risk of getting burned. General instructions ??? Do exercises as told by your health care provider, if you were prescribed physical therapy, biofeedback, or relaxation exercises. ??? Keep all follow-up visits as told by your health care provider. This is important. (more content not included)... [facility] 04-01-2024 History of Present illness Narrative Images from the original note were not included. CHIEF COMPLAINT REASON FOR VISIT : dystonia botox HPI: Filemon Mendez is a 58 y.o. male who presents for repeat botox injections. He has tried years of provider directed treatment for his neck pain and muscle spasm. Neck pain causes him headaches. He has tried muscle relaxers, NSAIDs, seizure medications, PT, steroid injections, ice, heat, massage. Medications tried: amitriptyline, trileptal, magnesium, topamax, effexor, tizanidine, baclofen, flexeril, ibuprofen and topical medications for neck pain. Botox reduces his muscle spasm and pulling/drawing of neck muscles by 50%. He can tell the botox his helping as he feels it has worn off. CURRENT MEDICATIONS: ALLERGIES/DISCONTINUE MEDICATIONS Current Outpatient Medications Medication Instructions amantadine (SYMMETREL) 100 mg, Every 12 hours amitriptyline (ELAVIL) 25 mg, Oral, Nightly ARIPiprazole (ABILIFY) 15 mg, Nightly ascorbic acid (VITAMIN C) 500 mg, Daily aspirin 81 mg, Daily RT atorvastatin (LIPITOR) 40 mg, Daily B Complex Vitamins (B COMPLEX 1 PO) Take by mouth biotin 5,000 mcg, Nightly Brexpiprazole 0.5 mg, Daily RT Dextromethorphan-quiNIDine 20-10 MG capsule 1 capsule, Nightly diphenhydrAMINE (BENADRYL) 25 mg, Every 6 hours PRN donepezil (ARICEPT) 10 mg, Oral, Every evening dutasteride (AVODART) 0.5 mg, Daily hydrOXYzine pamoate (VISTARIL) 25 mg, Oral, Every 8 hours PRN levETIRAcetam (KEPPRA) 500 mg, Oral, 2 times daily Magnesium 400 MG capsule 1 capsule, Nightly magnesium oxide 500 MG tablet 1 tablet as needed Orally at bedtime Memantine HCl ER 28 MG capsule sustained-release 24 hr 1 capsule, Oral, Daily metoclopramide (REGLAN) 5 mg, 4 times daily multivitamin with minerals (Cerovite) 18-400 mg-mcg tablet tablet 1 tablet, Daily Omeprazole 20 MG tablet delayed-release 1 tablet, Daily onabotulinumtoxinA (Botox 200u vial IJ Soln) 200 units injection Inject up to 400 units intramuscular into neck muscles every 90 days OXcarbazepine (TRILEPTAL) 300 mg, Oral, 2 times daily pantoprazole (ProtoNix) 40 MG EC tablet Every 12 hours propranolol LA (INDERAL LA) 60 mg, Daily sildenafil (Viagra) 100 MG tablet TAKE 1 TABLET BY MOUTH DIRECTED ONE HOUR BEFORE SEXUAL ACTIVITY solifenacin (VESICARE) 10 mg, Daily sucralfate (CARAFATE) 1 g tamsulosin (Flomax) 0.4 MG 24 hr capsule 1 capsule, Every 12 hours thiamine (VITAMIN B-1) 100 mg, Oral, Every morning tiZANidine (Zanaflex) 4 MG tablet TAKE 1 TABLET BY MOUTH TWICE DAILY NEEDED FOR MUSCLE SPASM topiramate (TOPAMAX) 100 mg, Oral, 2 times daily traZODone (DESYREL) 200 mg, Oral, Nightly venlafaxine (Effexor) 75 MG tablet TAKE 2 TABLETS BY MOUTH TWICE DAILY WITH FOOD Allergies Allergen Reactions Catnip Hives There are no discontinued medications. PAST MEDICAL HISTORY: SURGICAL/SOCIAL/FAMILY HISTORY DEPRESSION SCREEN: Past Medical History: Diagnosis Date Alcoholism (CMS/HCC) Arthritis Atypical chest pain BPPV (benign paroxysmal positional vertigo) Cervical spondylosis Degenerative joint disease Depression (CMS/HCC) Dysthymia (CMS/HCC) Erectile dysfunction GERD (gastroesophageal reflux disease) Hypercholesterolemia (CMS/HCC) Hypoglycemia Inguinal hernia, bilateral 2012 bilat inguinal and umbilical hernias Lymphadenopathy Migraines (CMS/HCC) Obesity Prediabetes Seizures (CMS/HCC) Sleep apnea Thyroid disorder (CMS/HCC) Umbilical hernia 2012 Past Surgical History: Procedure Laterality Date APPENDECTOMY CARDIAC CATHETERIZATION CARPAL TUNNEL RELEASE Bilateral CHOLECYSTECTOMY COLONOSCOPY HAND TENDON SURGERY 1987 tendon reconstruction-left wrist HEART CATH 2009 HEMORRHOIDECTOMY HERNIA REPAIR 2013 OTHER SURGICAL HISTORY #2 bilateral c3, 4, 5 MBB OTHER SURGICAL HISTORY #1 bilateral C3, 4, 5 MPP OTHER SURGICAL HISTORY sleep apnea surgery RADIOFREQUENCY ABLATION Right C3, 4, 5 RFA, Left C3, 4, 5 RFA TONSILLECTOMY Social History Tobacco Use Smoking status: Every Day Current packs/day: 0.50 Types: Cigarettes Smokeless tobacco: Never Tobacco comments: 6-10 cigarettes/day Substance Use Topics Alcohol use: Never Drug use: Never Family History Problem Relation Name Age of Onset Lung cancer Mother Depression: Not on file REVIEW OF SYMPTOMS: Review of Systems Constitutional: Positive for fatigue. Negative for chills and fever. HENT: Negative for tinnitus. Eyes: Negative for photophobia. Respiratory: Negative for shortness of breath. Cardiovascular: Negative for chest pain. Gastrointestinal: Negative for nausea and vomiting. Genitourinary: Negative for frequency. Musculoskeletal: Positive for back pain, neck pain and neck stiffness. Negative for gait problem. Neurological: Positive for tremors and headaches. Negative for dizziness, weakness, light-headedness and numbness. Psychiatric/Behavioral: Positive for decreased concentration. OBJECTIVE: 12/18/2023 10:45 AM 09/04/2023 9:47 AM 07/30/2023 12:45 PM Vitals BMI 28.79 kg/m2 BSA (m2) 1.9 m2 Systolic 136 120 140 Diastolic 80 78 86 Height (in) 5' 5 Weight (lb) 173 Visit Report Report EXAM: Neurological Exam Mental Status Awake, alert and oriented to person, place and time. Oriented to person, place and time. Speech is normal. Language is fluent with no aphasia. Motor Increased muscle tone. Increased cervical paraspinal muscles, pulling/drawing of neck muscles, dystonia. Gait Casual gait is normal including stance, stride, and arm swing. PROCEDURE: Procedure - Therapeutic injection, Botulinum Toxin- Dystonia Indication Dystonia Consent The procedure was explained to the patient. Informed consent for the procedure was obtained and risk associated with Botox treatments. Any further questions were answered during this visit. Site Prep The areas to be injected were sterilized with 70% isopropanol. Buy and Bill- Botox 200U, 100U Lot # [id number] Dilution Per 200 units diluted with 4mL of 0.9% Sodium Chloride Per 100 units diluted with 2 mL of 0.9% Sodium Chloride Procedure was completed with EMG guidance B/l upper trap 50 units each B/l SCM 25 units each B/l splenis capitis 25 units each B/l splenis cervicis 25 units each TOTAL UNITS INJECTED 250 WASTED 50 Disposition The patient tolerated the procedure well. Post-op care was discussed. The patient is aware that duration of action is 3 months, and that delay in reinjection often results in recurrence of symptoms. Patient Care Instructions Do not rub massage or touch injection sites for 24 hours. Do not lay down for 4 hours after treatment. Avoid hot showers, exercise, and spicy foods for 24 hours to avoid bruising and minimize redness. Discussed signs and symptoms of anaphylaxis and when to seek emergent treatment. Procedure Codes 69001-86 Chemodenervation of neck muscles, bilateral 09169 [EMG] Guidance for chemodenervation J0585 Botulinum toxin a per unit, Units: 250 Follow Up 3 months Botox ASSESSMENT AND PLAN: Diagnoses and all orders for this visit: Cervical dystonia 58 year old male with long standing history of neck pain, significant muscle spasm. He has evidence of dystonia on exam. He has pulling/drawing of neck muscles. Botox reduces his pain and muscle pulling by 50%. He has tried years of provider directed treatment with PT, injections, steroids, multiple muscle relaxers, seizure medications and NSAIDs. We will continue botox for dystonia treatment. I did encourage him when he is having wearing off of treatment to increase zanaflex every 8 hr PRN. documented in this encounter [facility] 03-31-2024 Hospital Discharge instructions Patient Education 03/31/2024 10:38:16 Cystoscopy Cystoscopy Cystoscopy is a procedure that is used to help diagnose and sometimes treat conditions that affect the lower urinary tract. The lower urinary tract includes the bladder and the urethra. The urethra is the tube that drains urine from the bladder. Cystoscopy is done using a thin, tube-shaped instrument with a light and camera at the end (cystoscope). The cystoscope may be hard or flexible, depending on the goal of the procedure. The cystoscope is inserted through the urethra, into the bladder. Cystoscopy may be recommended if you have: Urinary tract infections that keep coming back. Blood in the urine (hematuria). An inability to control when you urinate (urinary incontinence) or an overactive bladder. Unusual cells found in a urine sample. A blockage in the urethra, such as a urinary stone. Painful urination. An abnormality in the bladder found during an intravenous pyelogram (IVP) or CT scan. Cystoscopy may also be done to remove a sample of tissue to be examined under a microscope (biopsy). Tell a health care provider about: Any allergies you have. All medicines you are taking, including vitamins, herbs, eye drops, creams, and mioy-pay-tcxgxab medicines. Any problems you or family members have had with anesthetic medicines. Any blood disorders you have. Any surgeries you have had. Any medical conditions you have. Whether you are or may be . What are the risks? Generally, this is a safe procedure. However, problems may occur, including: Infection. Bleeding. Allergic reactions to medicines. Damage to other structures or organs. What happens before the procedure? Medicines Ask your health care provider about: Changing or stopping your regular medicines. This is especially important if you are taking diabetes medicines or blood thinners. Taking medicines such as aspirin and ibuprofen. These medicines can thin your blood. Do not take these medicines unless your health care provider tells you to take them. Taking aanq-vgr-ifpknyz medicines, vitamins, herbs, and supplements. Tests You may have an exam or testing, such as: X-rays of the bladder, urethra, or kidneys. CT scan of the abdomen or pelvis. Urine tests to check for signs of infection. General instructions Follow instructions from your health care provider about eating or drinking restrictions. Ask your health care provider what steps will be taken to help prevent infection. These steps may include: ?Washing skin with a germ-killing soap. ?Taking antibiotic medicine. Plan to have a responsible adult take you home from the hospital or clinic. What happens during the procedure? You will be given one or more of the following: ?A medicine to help you relax (sedative). ?A medicine to numb the area (local anesthetic). The area around the opening of your urethra will be cleaned. The cystoscope will be passed through your urethra into your bladder. Germ-free (sterile) fluid will flow through the cystoscope to fill your bladder. The fluid will stretch your bladder so that your health care provider can clearly examine your bladder macias. Your doctor will look at the urethra and bladder. Your doctor may take a biopsy or remove stones. The cystoscope will be removed, and your bladder will be emptied. The procedure may vary among health care providers and hospitals. What can I expect after the procedure? After the procedure, it is common to have: Some soreness or pain in your abdomen and urethra. Urinary symptoms. These include: ?Mild pain or burning when you urinate. Pain should stop within a few minutes after you urinate. This may last for up to 1 week. ?A small amount of blood in your urine for several days. ?Feeling like you need to urinate but producing only a small amount of urine. Follow these instructions at home: Medicines Take iclv-rov-szncary and prescription medicines only as told by your health care provider. If you were prescribed an antibiotic medicine, take it as told by your health care provider. Do not stop taking the antibiotic even if you start to feel better. General instructions Return to your normal activities as told by your health care provider. Ask your health care provider what activities are safe for you. If you were given a sedative during the procedure, it can affect you for several hours. Do not drive or operate machinery until your health care provider says that it is safe. Watch for any blood in your urine. If the amount of blood in your urine increases, call your health care provider. Follow instructions from your health care provider about eating or drinking restrictions. If a tissue sample was removed for testing (biopsy) during your procedure, it is up to you to get your test results. Ask your health care provider, or the department that is doing the test, when your results will be ready. Drink enough fluid to keep your urine pale yellow. Keep all follow-up visits. This is important. Contact a health care provider if: You have pain that gets worse or does not get better with medicine, especially pain when you urinate. You have trouble urinating. You have more blood in your urine. Get help right away if: You have blood clots in your urine. You have abdominal pain. You have a fever or chills. You are unable to urinate. Summary Cystoscopy is a procedure that is used to help diagnose and sometimes treat conditions that affect the lower urinary tract. Cystoscopy is done using a thin, tube-shaped instrument with a light and camera at the end. After the procedure, it is common to have some soreness or pain in your abdomen and urethra. Watch for any blood in your urine. If the amount of blood in your urine increases, call your health care provider. If you were prescribed an antibiotic medicine, take it as told by your health care provider. Do not stop taking the antibiotic even if you start to feel better. This information is not intended to replace advice given to you by your health care provider. Make sure you discuss any questions you have with your health care provider. Document Revised: 10/10/2021 Document Reviewed: 09/08/2020 [employer] Patient Education 2023 [employer]. 03/31/2024 10:38:10 Steps to Quit Smoking Steps to Quit [...] require a prescription. You can also purchase khif-zoy-nrtvzqf medicines. Medicines may have nicotine in them [...] and encouragement. Call telephone quitlines, such as 4-611-TOAY-NOW, reach out to support groups, or work [...] provider. Document Revised: 01/18/2022 Document Reviewed: 01/18/2022 [employer] Patient Education 2023 [employer]. Follow Up Care 02/12/2024 12:19:10 With:YECENIA BUSTILLO, Buster Tinoco, URL Address: [facility] [address], [place] [address]- When: Unknown [facility] [place] 03-31-2024 Note Patient Education Pulmonary Medicine Steps to Quit [...] to help you succeed. Before you quit: ??? Pick a date to quit. Set a date within the next 2 weeks to give you time to prepare. ??? Write down the reasons why you are quitting. Keep this list in places where you will see it often. ??? Tell your family, friends, and co-workers that you are quitting. Support from people you are close to can make quitting easier. ??? Talk with your health care provider about your options for quitting smoking. ??? Find out what treatment options are covered by your health insurance. ??? Identify people, places, things, and activities that make you want to smoke (triggers). Avoid them. What first steps can I take to quit smoking? Throw away all cigarettes at home, at work, and in your car. ??? Throw away smoking accessories, such as ashtrays and lighters. ??? Clean your car. Make sure to empty the ashtray. ??? Clean your home, including curtains and carpets. [...] provider tells you to. Quit right away ??? Quit smoking completely, instead of gradually reducing how much you smoke over a period of time. Stopping smoking right away may be more successful than gradually quitting. ??? Attend in-person counseling to help you build problem-solving skills. You are more likely to succeed in quitting if you attend counseling sessions regularly. Even short sessions of 10 minutes can be effective. Take medicine You may take medicines to help you quit smoking. Some medicines require a prescription. You can also purchase axvd-cou-llyaqem medicines. Medicines may have nicotine in them to replace the nicotine in cigarettes. Medicines may: ??? Help to stop cravings. ??? Help to relieve withdrawal symptoms. Your health care provider may recommend: ??? Nicotine patches, gum, or lozenges. ??? Nicotine inhalers or sprays. ??? Non-nicotine medicine that you take by mouth. Find resources Find resources and support systems that can help you quit smoking and remain smoke-free after you quit. These resources are most helpful when you use them often. They include: ??? Online chats with a counselor. ??? Telephone quitlines. ??? Printed self-help materials. ??? Support groups or group counseling. ??? Text messaging programs. ??? Mobile phone apps or applications. Use apps that can help you stick to your quit plan by providing reminders, tips, and encouragement. Examples of free services include Quit Guide from the CDC and smokefree.gov What can I do to make it easier to quit? Reach out to your family and friends for support and encouragement. Call telephone quitlines, such as 4-640-ONGX-NOW, reach out to support groups, or work with a counselor for support. ??? Ask people who smoke to avoid smoking around you. ??? Avoid places that trigger you to smoke, such as bars, parties, or smoke-break areas at work. ??? Spend time with people who do not smoke. ??? Lessen the stress in your life. Stress can be a smoking trigger for some people. To lessen stress, try: ? Exercising regularly. ? Doing deep-breathing exercises. ? Doing yoga. ? Meditating. What benefits will I see if I quit smoking? Over time, you should start to see positive results, such as: ??? Improved sense of smell and taste. ??? Decreased coughing and sore throat. ??? Slower heart rate. ??? Lower blood pressure. ??? Clearer and healthier skin. ??? The ability to breathe more easily. ??? Fewer sick days. Summary ??? Quitting smoking can be very challenging. Do not get discouraged if you are not successful the first time. Some people need to make many attempts to quit before they achieve long-term success. ??? When you decide to quit smoking, create a plan to help you succeed. ??? Quit smoking right away, not s (more content not included)... [facility] 03-02-2024 Note Entered by LOU RAMIREZ MA on March 02, 2024 07:47:19 EST From: SONYA RAMIREZ MA To: [id number] Sent: 03/02/2024 07:47:19 EST Subject: Medication Management Submitted: Complete:atorvastatin (atorvastatin 40 mg oral tablet) Signed by SONYA RAMIREZ MA 03/02/2024 07:47:00 EST Approved with modifications: atorvastatin (Atorvastatin Calcium 40 MG Oral Tablet) Take 1 tablet by mouth once daily Qty: 90 tab(s) Days Supply: 90 Refills: 3 Substitutions Allowed Route To Pharmacy - [facility] 1445 Signed by SONYA RAMIREZ MA -------- From: [facility] To: Susan Zavala DO, DO Sent: March 02, 2024 4:44:11 AM CHAIN PULLER Subject: Medication Management Due: March 03, 2024 12:02:29 AM CHAIN PULLER On Hold Pending Signature Dispensed Drug: atorvastatin (atorvastatin 40 mg oral tablet), Take 1 tablet by mouth once daily Quantity: 90 tab(s) Days Supply: 90 Refills: 0 Substitutions Allowed Notes from Pharmacy: -------- [facility] 02-12-2024 Hospital Discharge instructions Patient Education 02/12/2024 12:38:16 Renal Mass Renal Mass A renal mass is an abnormal growth in the kidney. It may be found while performing an MRI, CT scan, or ultrasound to evaluate other problems of the abdomen. A renal mass that is cancerous (malignant) may grow or spread quickly. Others are not cancerous (benign). Renal masses include: Tumors. These may be malignant or benign. ?The most common type of kidney cancer in adults is renal cell carcinoma. In children, the most common type of kidney cancer is Wilms tumor. ?The most common benign tumors of the kidney include renal adenomas, oncocytomas, and angiomyolipoma (AML). Cysts. These are fluid-filled sacs that form on or in the kidney. What are the causes? Certain types of cancers, infections, or injuries can cause a renal mass. It is not always known what causes a cyst to develop in or on the kidney. What are the signs or symptoms? Often, a renal mass does not cause any signs or symptoms; most kidney cysts do not cause symptoms. How is this diagnosed? Your health care provider may recommend tests to diagnose the cause of your renal mass. These tests may be done if a renal mass is found: Physical exam. Blood tests. Urine tests. Imaging tests, such as ultrasound, CT scan, or MRI. Biopsy. This is a small sample that is removed from the renal mass and tested in a lab. The exact tests and how often they are done will depend on: The size and appearance of the renal mass. Risk factors or medical conditions that increase your risk for problems. Any symptoms associated with the renal mass, or concerns that you have about it. Tests and physical exams may be done once, or they may be done regularly for a period of time. Tests and exams that are done regularly will help monitor whether the mass is growing and beginning to cause problems. How is this treated? Treatment is not always needed for this condition. Your health care provider may recommend careful monitoring and regular tests and exams. Treatment will depend on the cause of the mass. Treatment for a cancerous renal mass may include surgical removal, chemotherapy, radiation, or immunotherapy. Most kidney cysts do not need to be treated. Follow these instructions at home: What you need to do at home will depend on the cause of the mass. Follow the instructions that your health care provider gives to you. In general: Take owvp-khb-gqxtjii and prescription medicines only as told by your health care provider. If you were prescribed an antibiotic medicine, take it as told by your health care provider. Do not stop taking the antibiotic even if you start to feel better. Follow any restrictions that are given to you by your health care provider. Keep all follow-up visits. This is important. ?You may need to see your health care provider once or twice a year to have CT scans and ultrasounds. These tests will show if your renal mass has changed or grown. Contact a health care provider if you: Have pain in your side or back (flank pain). Have a fever. Feel full soon after eating. Have pain or swelling in the abdomen. Lose weight. Get help right away if: Your pain gets worse. There is blood in your urine. You cannot urinate. You have chest pain. You have trouble breathing. These symptoms may represent a serious problem that is an emergency. Do not wait to see if the symptoms will go away. Get medical help right away. Call your local emergency services (911 in the [place] Summary A renal mass is an abnormal growth in the kidney. It may be cancerous (malignant) and grow or spread quickly, or it may not be cancerous (benign). Renal masses often do not have any signs or symptoms. Renal masses may be found while performing an MRI, CT scan, or ultrasound for other problems of the abdomen. Your health care provider may recommend that you have tests to diagnose the cause of your renal mass. These may include a physical exam, blood tests, urine tests, imaging, or a biopsy. Treatment is not always needed for this condition. Careful monitoring may be recommended. This information is not intended to replace advice given to you by your health care provider. Make sure you discuss any questions you have with your health care provider. Document Revised: 07/24/2020 Document Reviewed: 07/24/2020 [employer] Patient Education 2023 [employer]. 02/12/2024 12:37:58 Kidney Stones, Zxuz-lz-Mvew Kidney Stones Kidney stones are rock-like masses that form inside of the kidneys. Kidneys are organs that make pee (urine). A kidney stone may move into other parts of the urinary tract, including: The tubes that connect the kidneys to the bladder (ureters). The bladder. The tube that carries urine out of the body (urethra). Kidney stones can cause very bad pain and can block the flow of pee. The stone usually leaves your body through your pee. A doctor may need to take out the stone. What are the causes? Kidney stones may be caused by: Too much calcium in the body. This may be caused by too much parathyroid hormone in the blood. Uric acid crystals in the bladder. The body makes uric acid when you eat certain foods. Narrowing of one or both of the ureters. A kidney blockage that you were born with. Past surgery on the kidney or the ureters. What increases the risk? You are more likely to develop this condition if: You have had a kidney stone in the past. Other people in your family have had kidney stones. You do not drink enough water. You eat a diet that is high in protein, salt (sodium), or sugar. You are very overweight (obese). What are the signs or symptoms? Symptoms of a kidney stone may include: Pain in the side of the belly, right below the ribs. Pain usually spreads to the groin. Needing to pee often or right away. Pain when peeing. Blood in your pee. Feeling like you may vomit (nauseous). Vomiting. Fever and chills. How is this treated? Treatment depends on the size, location, and makeup of the kidney stones. The stones will often pass out of the body when you pee. You may need to: Drink more fluid to help pass the stone. ?In some cases, you may be given fluids through an IV tube at the hospital. Take medicine for pain. Change your diet to help keep kidney stones from coming back. Sometimes, you may need: A procedure to break up kidney stones using a beam of light (laser) or shock waves. Surgery to remove the kidney stones. Follow these instructions at home: Medicines Take jbgs-cch-aqzzpiq and prescription medicines only as told by your doctor. Ask your doctor if the medicine prescribed to you requires you to avoid driving or using machinery. Eating and drinking Drink enough fluid to keep your pee pale yellow. ?You may be told to drink at least 8 10 glasses of water each day. This will help you pass the stone. If told by your doctor, change your diet. You may be told to: ?Limit how much salt you eat. ?Eat more fruits and vegetables. ?Limit how much meat, poultry, fish, and eggs you eat. Follow instructions from your doctor about what you may eat and drink. General instructions Collect pee samples as told by your doctor. You may need to collect a pee sample: ?24 hours after a stone comes out. ?8 12 weeks after a stone comes out, and every 6 12 months after that. Strain your pee every time you pee. Use the strainer that your doctor recommends. Do not throw out the stone. Keep it so that it can be tested by your doctor. Keep all follow-up visits. You may need X-rays and ultrasounds to make sure the stone has come out. How is this prevented? To prevent another kidney stone: Drink enough fluid to keep your pee pale yellow. This is the best way to prevent kidney stones. Eat healthy foods. Avoid certain foods as told by your doctor. You may be told to eat less protein. Stay at a healthy weight. Where to find more information National Kidney Foundation (NKF): kidney.org [facility] ([facility]): urologyhealth.org Contact a doctor if: You have pain that gets worse or does not get better with medicine. Get help right away if: You have a fever or chills. You get very bad pain. You get new pain in your belly. You faint. You cannot pee. This information is not intended to replace advice given to you by your health care provider. Make sure you discuss any questions you have with your health care provider. Document Revised: 09/20/2022 Document Reviewed: 09/20/2022 [employer] Patient Education 2023 [employer]. 02/12/2024 12:37:57 Erectile Dysfunction Erectile Dysfunction Erectile dysfunction (ED) is the inability to get or keep an erection in order to have sexual intercourse. ED is considered a symptom of an underlying disorder and is not considered a disease. ED may include: Inability to get an erection. Lack of enough hardness of the erection to allow penetration. Loss of erection before sex is finished. What are the causes? This condition may be caused by: Physical causes, such as: ?Artery problems. This may include heart disease, high blood pressure, atherosclerosis, and diabetes. ?Hormonal problems, such as low testosterone. ?Obesity. ?Nerve problems. This may include back or pelvic injuries, multiple sclerosis, Parkinson's disease, spinal cord injury, and stroke. Certain medicines, such as: ?Pain relievers. ?Antidepressants. ?Blood pressure medicines and water pills (diuretics). ?Cancer medicines. ?Antihistamines. ?Muscle relaxants. Lifestyle factors, such as: ?Use of drugs such as marijuana, cocaine, or opioids. ?Excessive use of alcohol. ?Smoking. ?Lack of physical activity or exercise. Psychological causes, such as: ?Anxiety or stress. ?Sadness or depression. ?Exhaustion. ?Fear about sexual performance. ?Guilt. What are the signs or symptoms? Symptoms of this condition include: Inability to get an erection. Lack of enough hardness of the erection to allow penetration. Loss of the erection before sex is finished. Sometimes having normal erections, but with frequent unsatisfactory episodes. Low sexual satisfaction in either partner due to erection problems. A curved penis occurring with erection. The curve may cause pain, or the penis may be too curved to allow for intercourse. Never having nighttime or morning erections. How is this diagnosed? This condition is often diagnosed by: Performing a physical exam to find other diseases or specific problems with the penis. Asking you detailed questions about the problem. Doing tests, such as: ?Blood tests to check for diabetes mellitus or high cholesterol, or to measure hormone levels. ?Other tests to check for underlying health conditions. ?An ultrasound exam to check for scarring. ?A test to check blood flow to the penis. Doing a sleep study at home to measure nighttime erections. How is this treated? This condition may be treated by: Medicines, such as: ?Medicine taken by mouth to help you achieve an erection (oral medicine). ?Hormone replacement therapy to replace low testosterone levels. ?Medicine that is injected into the penis. Your health care provider may instruct you how to give yourself these injections at home. ?Medicine that is delivered with a short applicator tube. The tube is inserted into the opening at the tip of the penis, which is the opening of the urethra. A tiny pellet of medicine is put in the urethra. The pellet dissolves and enhances erectile function. This is also called MUSE (medicated urethral system for erections) therapy. Vacuum pump. This is a pump with [...] become straight for sexual intercourse. Blood vessel surgery to improve blood flow to the penis. During this procedure, a blood vessel from a different part of the body is placed into the penis to allow blood to flow around (bypass) damaged or blocked blood vessels. Lifestyle changes, such as exercising more, losing weight, and quitting smoking. Follow these instructions at home: Medicines Take muzt-vnt-bvryyun and prescription medicines only as told by your health care provider. Do not increase the dosage without first discussing it with your health care provider. If you are using self-injections, do injections as directed by your health care provider. Make sure you avoid any veins that are on the surface of the penis. After giving an injection, apply pressure to the injection site for 5 minutes. Talk to your health care provider about how to prevent headaches while taking ED medicines. These medicines may cause a sudden headache due to the increase in blood flow in your body. General instructions Exercise regularly, as directed by your health care provider. Work with your health care provider to lose weight, if needed. Do not use any products that contain nicotine or tobacco. These products include cigarettes, chewing tobacco, and vaping devices, such as e-cigarettes. If you need help quitting, ask your health care provider. Before using a vacuum pump, read the instructions that come with the pump and discuss any questions with your health care provider. Keep all follow-up visits. This is important. Contact a health care provider if: You feel nauseous. You are vomiting. You get sudden headaches while taking ED medicines. You have any concerns about your sexual health. Get help right away if: You are [...] of your penis. You have redness spreading at your groin or lower abdomen. You are unable to urinate. You experience chest pain or a rapid heartbeat (palpitations) after taking oral medicines. These symptoms may represent a serious problem that is an emergency. Do not wait to see if the symptoms will go away. Get medical help right away. Call your local emergency services (911 in the [place] Do not drive yourself to the hospital. Summary Erectile dysfunction (ED) is the inability to get or keep an erection during sexual intercourse. This condition is diagnosed based on a physical exam, your symptoms, and tests to determine the cause. Treatment varies depending on the cause and may include medicines, hormone therapy, surgery, or a vacuum pump. You may need follow-up visits to [...] with your health care provider. Document Revised: 04/25/2021 Document Reviewed: 04/25/2021 [employer] Patient Education 2023 [employer] 02/12/2024 12:37:56 Dietary Guidelines to Help Prevent Kidney Stones Dietary Guidelines to Help Prevent Kidney Stones Kidney stones are deposits of minerals and salts that form inside your kidneys. Your risk of developing kidney stones may be greater depending on your diet, your lifestyle, the medicines you take, and whether you have certain medical conditions. Most people can lower their risks of developing kidney stones by following these dietary guidelines. Your dietitian may give you more specific instructions depending on your overall health and the type of kidney stones you tend to develop. What are tips for following this plan? Reading food labels Choose foods with no salt added or low-salt labels. Limit your salt (sodium) intake to less than 1,500 mg a day. Choose foods with calcium for each meal and snack. Try to eat about 300 mg of calcium at each meal. Foods that contain 200 500 mg of calcium a serving include: ?8 oz (237 mL) of milk, rbrhulu-puwvyrsmxiaa-xulwk milk, and calcium-fortifiedfruit juice. Calcium-fortified means that calcium has been added to these drinks. ?8 oz (237 mL) of kefir, yogurt, and soy yogurt. ?4 oz (114 g) of tofu. ?1 oz (28 g) of cheese. ?1 cup (150 g) of dried figs. ?1 cup (91 g) of cooked broccoli. ?One 3 oz (85 g) can of sardines or mackerel. Most people need 1,000 1,500 mg of calcium a day. Talk to your dietitian about how much calcium is recommended for you. Shopping Buy plenty of fresh fruits and vegetables. Most people do not need to avoid fruits and vegetables, even if these foods contain nutrients that may contribute to kidney stones. When shopping for convenience foods, choose: ?Whole pieces of fruit. ?Pre-made salads with dressing on the side. ?Low-fat fruit and yogurt smoothies. Avoid buying frozen meals or prepared deli foods. These can be high in sodium. Look for foods with live cultures, such as yogurt and kefir. Choose high-fiber grains, such as whole-wheat breads, oat bran, and wheat cereals. Cooking Do not add salt to food when cooking. Place a salt shaker on the table and allow each person to add their own salt to taste. Use vegetable protein, such as beans, textured vegetable protein (TVP), or tofu, instead of meat in pasta, casseroles, and soups. Meal planning Eat less salt, if told by your dietitian. To do this: ?Avoid eating processed or pre-made food. ?Avoid eating fast food. Eat less animal protein, including cheese, meat, poultry, or fish, if told by your dietitian. To do this: ?Limit the number of times you have meat, poultry, fish, or cheese each week. Eat a diet free of meat at least 2 days a week. ?Eat only one serving each day of meat, poultry, fish, or seafood. ?When you prepare animal proteins, cut pieces into small portion sizes. For most meat and fish, one serving is about the size of the palm of your hand. Eat at least five servings of fresh fruits and vegetables each day. To do this: ?Keep fruits and vegetables on hand for snacks. ?Eat one piece of fruit or a handful of berries with breakfast. ?Have a salad and fruit at lunch. ?Have two kinds of vegetables at dinner. You may be told to limit foods that are high in a substance called oxalate. These include: ?Spinach (cooked), rhubarb, beets, sweet potatoes, and [place] chard. ?Peanuts. ?Potato chips, hungarian fries, and baked potatoes with skin on. ?Nuts and nut products. ?Chocolate. If you regularly take a diuretic medicine, make sure to eat at least 1 or 2 servings of fruits or vegetables that are high in potassium each day. These include: ?Avocado. ?Banana. ?[place], prune, carrot, or tomato juice. ?Baked potato. ?Cabbage. ?Beans and split peas. Lifestyle Drink enough fluid to keep your urine pale yellow. This is the most important thing you can do. Spread your fluid intake throughout the day. If you drink alcohol: ?Limit how much you have to: ?0 1 drink a day for women who are not . ?0 2 drinks a day for men. ?Know how much alcohol is in your drink. In the [place] one drink equals one 12 oz bottle of beer (355 mL), one 5 oz glass of wine (148 mL), or one 1 oz glass of hard liquor (44 mL). Lose weight if told by your health care provider. Work with your dietitian to find an eating plan and weight loss strategies that work best for you. General information Talk to your health care provider and dietitian about taking daily supplements. Depending on your health and the cause of your kidney stones, you may be told: ?Do not take high-dose supplements of vitamin C (1,000 mg a day or more). ?To take a calcium supplement. ?To take a daily probiotic supplement. ?To take other supplements such as magnesium, fish oil, or vitamin B6. Take fklz-ear-otwsjih and prescription medicines only as told by your health care provider. These include supplements. What foods should I limit? Limit your intake of the following foods, or eat them as told by your dietitian. Vegetables Spinach. Rhubarb. Beets. Canned vegetables. Pickles. Olives. Baked potatoes with skin. Grains Wheat bran. Baked goods. Salted crackers. Cereals high in sugar. Meats and other proteins Nuts. Nut butters. Large portions of meat, poultry, or fish. Salted, precooked, or cured meats, such as sausages, meat loaves, and hot dogs. Dairy Cheeses. Beverages Regular soft drinks. Regular vegetable juice. Seasonings and condiments Seasoning blends with salt. Salad dressings. Soy sauce. Ketchup. Barbecue sauce. Other foods Canned soups. Canned pasta sauce. Casseroles. Pizza. Lasagna. Frozen meals. Potato chips. Occitan fries. The items listed above may not be a complete list of foods and beverages you should limit. Contact a dietitian for more information. What foods should I avoid? Talk to your dietitian about specific foods you should avoid based on the type of kidney stones you have and your overall health. Fruits Grapefruit. The item listed above may not be a complete list of foods and beverages you should avoid. Contact a dietitian for more information. Summary Kidney stones are deposits of minerals and salts that form inside your kidneys. You can lower your risk of kidney stones by making changes to your diet. The most important thing you can do is drink enough fluid. Drink enough fluid to keep your urine pale yellow. Talk to your dietitian about how much calcium you should have each day, and eat less salt and animal protein as told by your dietitian. This information is not intended to replace advice given to you by your health care provider. Make sure you discuss any questions you have with your health care provider. Document Revised: 05/09/2022 Document Reviewed: 05/09/2022 [employer] Patient Education 2023 [employer]. Follow Up Care 10/14/2023 16:35:18 With:YECENIA BUSTILLO, Buster Tinoco, URL Address: [address] [place] [address] [place] [address]- When: Unknown Comments:about [address] [facility] [place] 02-12-2024 Note Patient Education Nephrology Dietary Guidelines to Help Prevent Kidney Stones Kidney stones are deposits of minerals and salts that form inside your kidneys. Your risk of developing kidney stones may be greater depending on your diet, your lifestyle, the medicines you take, and whether you have certain medical conditions. Most people can lower their risks of developing kidney stones by following these dietary guidelines. Your dietitian may give you more specific instructions depending on your overall health and the type of kidney stones you tend to develop. What are tips for following this plan? Reading food labels ??? Choose foods with no salt added or low-salt labels. Limit your salt (sodium) intake to less than 1,500 mg a day. ??? Choose foods with calcium for each meal and snack. Try to eat about 300 mg of calcium at each meal. Foods that contain 200?500 mg of calcium a serving include: ? 8 oz (237 mL) of milk, jliuxff-xascrnzgpeuh-hfnms milk, and calcium-fortifiedfruit juice. Calcium-fortified means that calcium has been added to these drinks. ? 8 oz (237 mL) of kefir, yogurt, and soy yogurt. ? 4 oz (114 g) of tofu. ? 1 oz (28 g) of cheese. ? 1 cup (150 g) of dried figs. ? 1 cup (91 g) of cooked broccoli. ? One 3 oz (85 g) can of sardines or mackerel. Most people need 1,000?1,500 mg of calcium a day. Talk to your dietitian about how much calcium is recommended for you. Shopping ??? Buy plenty of fresh fruits and vegetables. Most people do not need to avoid fruits and vegetables, even if these foods contain nutrients that may contribute to kidney stones. ??? When shopping for convenience foods, choose: ? Whole pieces of fruit. ? Pre-made salads with dressing on the side. ? Low-fat fruit and yogurt smoothies. ??? Avoid buying frozen meals or prepared deli foods. These can be high in sodium. ??? Look for foods with live cultures, such as yogurt and kefir. ??? Choose high-fiber grains, such as whole-wheat breads, oat bran, and wheat cereals. Cooking ??? Do not add salt to food when cooking. Place a salt shaker on the table and allow each person to add their own salt to taste. ??? Use vegetable protein, such as beans, textured vegetable protein (TVP), or tofu, instead of meat in pasta, casseroles, and soups. Meal planning ??? Eat less salt, if told by your dietitian. To do this: ? Avoid eating processed or pre-made food. ? Avoid eating fast food. ??? Eat less animal protein, including cheese, meat, poultry, or fish, if told by your dietitian. To do this: ? Limit the number of times you have meat, poultry, fish, or cheese each week. Eat a diet free of meat at least 2 days a week. ? Eat only one serving each day of meat, poultry, fish, or seafood. ? When you prepare animal proteins, cut pieces into small portion sizes. For most meat and fish, one serving is about the size of the palm of your hand. ??? Eat at least five servings of fresh fruits and vegetables each day. To do this: ? Keep fruits and vegetables on hand for snacks. ? Eat one piece of fruit or a handful of berries with breakfast. ? Have a salad and fruit at lunch. ? Have two kinds of vegetables at dinner. ??? You may be told to limit foods that are high in a substance called oxalate. These include: ? Spinach (cooked), rhubarb, beets, sweet potatoes, and [place] chard. ? Peanuts. ? Potato chips, hungarian fries, and baked potatoes with skin on. ? Nuts and nut products. ? Chocolate. ??? If you regularly take a diuretic medicine, make sure to eat at least 1 or 2 servings of fruits or vegetables that are high in potassium each day. These include: ? Avocado. ? Banana. ? [place], prune, carrot, or tomato juice. ? Baked potato. ? Cabbage. ? Beans and split peas. Lifestyle ??? Drink enough fluid to keep your urine pale yellow. This is the most important thing you can do. Spread your fluid intake throughout the day. ??? If you drink alcohol: ? Limit how much you have to: ? 0?1 drink a day for women who are not . ? 0?2 drinks a day for men. ? Know how much alcohol is in your drink. In the [place] one drink equals one 12 oz bottle of beer (355 mL), one 5 oz glass of wine (148 mL), or one 1? oz glass of hard liquor (44 mL). ??? Lose weight if told by your health care provider. Work with your dietitian to find an eating plan and weight loss strategies that work best for you. General information ??? Talk to your health care provider and dietitian about taking daily supplements. Depending on your health and the cause of your kidney stones, you may be told: ? Do not take high-dose supplements of vitamin C (1,000 mg a day or more). ? To take a calcium supplement. ? To take a daily probiotic supplement. ? To take other supplements such as magnesium, fish oil, or vitamin B6. ??? Take twnh-nyz-obkluti and prescription medicines only as told by your health (more content not included)... [facility] 01-20-2024 Note Entered by OLU RAMIREZ MA on January 20, 2024 07:37:16 EST From: SONYA RAMIREZ MA To: [place] [id number] Sent: 01/20/2024 07:37:16 EST Subject: Medication Management Submitted: Complete:sucralfate (sucralfate 1 g oral tablet) Signed by SONYA RAMIREZ MA 01/20/2024 07:37:00 EST Approved with modifications: sucralfate (Sucralfate 1 GM Oral Tablet) Take 1 tablet by mouth 4 times daily Qty: 120 tab(s) Days Supply: 30 Refills: 3 Substitutions Allowed Route To Pharmacy - [place] [address] Signed by SONYA RAMIREZ MA -------- From: [place] [address] To: Susan Zavala DO, DO Sent: January 20, 2024 4:43:47 AM [facility] Subject: Medication Management Due: January 21, 2024 12:05:17 AM [facility] On Hold Pending Signature Dispensed Drug: sucralfate (sucralfate 1 g oral tablet), Take 1 tablet by mouth 4 times daily Quantity: 120 tab(s) Days Supply: 30 Refills: 0 Substitutions Allowed Notes from Pharmacy: -------- [facility] 12-25-2023 Note Entered by Bianka Ramirez MA on December 25, 2023 09:46:51 EST From: Catia Ramirez MA To: [place] [id number] Sent: 12/25/2023 09:46:51 EST Subject: Medication Management Submitted: Complete:sucralfate (sucralfate 1 g oral tablet) Signed by Catia Ramirez MA 12/25/2023 09:46:00 EST Approved with modifications: sucralfate (Sucralfate 1 GM Oral Tablet) Take 1 tablet by mouth 4 times daily Qty: 120 tab(s) Days Supply: 30 Refills: 0 Substitutions Allowed Route To Pharmacy - [place] [address] Signed by Caita Ramirez MA -------- From: [place] [address] To: Susan Zavala DO, DO Sent: December 25, 2023 4:44:14 AM [facility] Subject: Medication Management Due: December 26, 2023 12:09:08 AM CH[facility] P[employer]ER On Hold Pending Signature Dispensed Drug: sucralfate (sucralfate 1 g oral tablet), Take 1 tablet by mouth 4 times daily Quantity: 120 tab(s) Days Supply: 30 Refills: 0 Substitutions Allowed Notes from Pharmacy: -------- [facility] 12-24-2023 Radiology Diagnostic study note [facility] [place] [address] Ultrasound Report Signed Patient: Filemon Mendez MR#: [id number] : 1965 Acct:[id number] Age/Sex: 58 / M ADM Date: 4 Loc: Room: Type: [facility] Attending Dr: Sunitha Chan MD Ordering Provider: Sunitha Chan MD Date of Service: 12/24/23 US/US renal BI: N40.1 - Benign prostatic hyperplasia with lower urinary t... Copies to: Sunitha Chan MD~ US renal BI 12/24/2023 10:01 AM SIGNS AND SYMPTOMS: ^N40.1 - Benign prostatic hyperplasia with lower urinary t... COMPARISON: None. FINDINGS: Right kidney measures 10.79 cm x 5.37 cm x 4.96 cm . No hydronephrosis or mass. Left kidney measures 11.07 cm x 5.37 cm x 5.2 cm . No hydronephrosis. There mikel prominent cortical lobule/prominent column of retained on the left measuring 2.2 x 2.1 x 2.0 cm in greatest dimension. There is ongoing clinical concern formass, follow-up with contrast-enhanced MRI or CT is recommended. The urinary bladder is morphologically normal. No free fluid is seen in the pelvis. Before voiding, the bladder measures 5.52 cm x 4.45 cm x 5.08 cm , which corresponds to an estimated volume of 65.34 mL. The prostate is prominent with an estimated volume of 44.6 mm protrusion into the floor of the bladder. US/US renal BI IMPRESSION: There is a prominent cortical lobule/prominent column of retained on the left measuring 2.2 x 2.1 x 2.0 cm in greatest dimension. There is ongoing clinical concern for mass, follow-up with contrast-enhanced MRI or CT is recommended. No hydronephrosis. The prostate is prominent with an estimated volume of 44.6 mm protrusion into the floor of the bladder. Impression dictated by: Kailash Spears M.D.12/24/2023 2:11 PM Dictation Location: [place] [address] Tech: Belinda Hawthorneer Transcribed By: ZACARIAS 12/24/23 1411 Dictated By: Kailash Spears II, MD 12/24/23 1407 Signed By: 12/24/23 1411 [facility] Work Phone: 12-18-2023 History of Present illness Narrative Images from the original note were not included. CHIEF COMPLAINT REASON FOR VISIT : Botox HPI: Filemon Mendez is a 58 y.o. male who presents for Cervical Dystonia Botox. He states he is having daily headaches and pain He has tried steroid injections, tizanidine, baclofen, flexeril, ibuprofen and topical medications for neck pain. He has difficulty driving, reading, working at desk and reading. Declined flu CURRENT MEDICATIONS: ALLERGIES/DISCONTINUE MEDICATIONS Current Outpatient Medications Medication Instructions amantadine (SYMMETREL) 100 mg, Oral, Every 12 hours amitriptyline (ELAVIL) 25 mg, Oral, Nightly ARIPiprazole (ABILIFY) 15 mg, Oral, Nightly ascorbic acid (VITAMIN C) 500 mg, Oral, Daily aspirin 81 mg, Oral, Daily RT atorvastatin (LIPITOR) 40 mg, Oral, Daily B Complex Vitamins (B COMPLEX 1 PO) Oral biotin 5,000 mcg, Oral, Nightly Brexpiprazole 0.5 mg, Oral, Daily RT Dextromethorphan-quiNIDine 20-10 MG capsule 1 capsule, Oral, Nightly diphenhydrAMINE (BENADRYL) 25 mg, Oral, Every 6 hours PRN donepezil (ARICEPT) 10 mg, Oral, Every evening dutasteride (AVODART) 0.5 mg, Oral, Daily hydrOXYzine pamoate (VISTARIL) 25 mg, Oral, Every 8 hours PRN levETIRAcetam (KEPPRA) 500 mg, Oral, 2 times daily Magnesium 400 MG capsule 1 capsule, Oral, Nightly magnesium oxide 500 MG tablet 1 tablet as needed Orally at bedtime Memantine HCl ER 28 MG capsule sustained-release 24 hr 1 capsule, Oral, Daily metoclopramide (REGLAN) 5 mg, Oral, 4 times daily multivitamin with minerals (Cerovite) 18-400 mg-mcg tablet tablet 1 tablet, Oral, Daily Omeprazole 20 MG tablet delayed-release 1 tablet, Oral, Daily onabotulinumtoxinA (Botox 200u vial IJ Soln) 200 units injection Inject up to 400 units intramuscular into neck muscles every 90 days OXcarbazepine (TRILEPTAL) 300 mg, Oral, 2 times daily pantoprazole (ProtoNix) 40 MG EC tablet Every 12 hours propranolol LA (INDERAL LA) 60 mg, Oral, Daily, Do not crush, chew, or split. sildenafil (Viagra) 100 MG tablet TAKE 1 TABLET BY MOUTH DIRECTED ONE HOUR BEFORE SEXUAL ACTIVITY solifenacin (VESICARE) 10 mg, Oral, Daily sucralfate (CARAFATE) 1 g tamsulosin (Flomax) 0.4 MG 24 hr capsule 1 capsule, Every 12 hours thiamine (VITAMIN B-1) 100 mg, Oral, Daily tiZANidine (Zanaflex) 4 MG tablet TAKE 1 TABLET BY MOUTH TWICE DAILY NEEDED FOR MUSCLE SPASM topiramate (TOPAMAX) 100 mg, Oral, 2 times daily traZODone (DESYREL) 200 mg, Oral, Nightly venlafaxine (Effexor) 75 MG tablet TAKE 2 TABLETS BY MOUTH TWICE DAILY WITH FOOD Allergies Allergen Reactions Catnip Hives There are no discontinued medications. PAST MEDICAL HISTORY: SURGICAL/SOCIAL/FAMILY HISTORY DEPRESSION SCREEN: Past Medical History: Diagnosis Date Alcoholism (CMS/HCC) Arthritis Atypical chest pain BPPV (benign paroxysmal positional vertigo) Cervical spondylosis Degenerative joint disease Depression (CMS/HCC) Dysthymia (CMS/HCC) Erectile dysfunction GERD (gastroesophageal reflux disease) Hypercholesterolemia (CMS/HCC) Hypoglycemia Inguinal hernia, bilateral 2012 bilat inguinal and umbilical hernias Lymphadenopathy Migraines (CMS/HCC) Obesity Prediabetes Seizures (CMS/HCC) Sleep apnea Thyroid disorder (CMS/HCC) Umbilical hernia 2012 Past Surgical History: Procedure Laterality Date APPENDECTOMY CARDIAC CATHETERIZATION CARPAL TUNNEL RELEASE Bilateral CHOLECYSTECTOMY COLONOSCOPY HAND TENDON SURGERY 1986 tendon reconstruction-left wrist HEART CATH 2009 HEMORRHOIDECTOMY HERNIA REPAIR 2013 OTHER SURGICAL HISTORY #2 bilateral c3, 4, 5 MBB OTHER SURGICAL HISTORY #1 bilateral C3, 4, 5 MPP OTHER SURGICAL HISTORY sleep apnea surgery RADIOFREQUENCY ABLATION Right C3, 4, 5 RFA, Left C3, 4, 5 RFA TONSILLECTOMY Social History Tobacco Use Smoking status: Every Day Current packs/day: 0.50 Types: Cigarettes Smokeless tobacco: Never Tobacco comments: 6-10 cigarettes/day Substance Use Topics Alcohol use: Never Drug use: Never Family History Problem Relation Name Age of Onset Lung cancer Mother Depression: Not on file REVIEW OF SYMPTOMS: Review of Systems Review of Systems Constitutional: Negative for chills, fatigue and fever. HENT: Negative for tinnitus. Eyes: Negative for photophobia. Respiratory: Negative for shortness of breath. Cardiovascular: Negative for chest pain. Gastrointestinal: Negative for nausea and vomiting. Genitourinary: Negative for frequency. Musculoskeletal: Positive for back pain, neck pain and neck stiffness. Negative for gait problem. Neurological: Positive for headaches. Negative for dizziness, tremors, weakness, light-headedness and numbness. Psychiatric/Behavioral: Negative. OBJECTIVE: 09/04/2023 9:47 AM 07/30/2023 12:45 PM 05/23/2023 12:52 PM Vitals BMI 28.79 kg/m2 27.29 kg/m2 BSA (m2) 1.9 m2 1.85 m2 Systolic 120 140 132 Diastolic 78 86 84 Height (in) 5' 5 Weight (lb) 173 164 Visit Report Report Report EXAM: Neurological Exam Mental Status Awake, alert and oriented to person, place and time. Oriented to person, place and time. Speech is normal. Language is fluent with no aphasia. Motor Increased muscle tone. Increased cervical/neck paraspinal muscles, dystonic features, pulling/drawing of neck muscles, decreased tilt and lateral rotation. PROCEDURE: Procedure - Therapeutic injection, Botulinum Toxin- Dystonia Indication Dystonia Consent The procedure was explained to the patient. Informed consent for the procedure was obtained and risk associated with Botox treatments. Any further questions were answered during this visit. Site Prep The areas to be injected were sterilized with 70% isopropanol. Buy and Bill- Botox 200U x1 100U x1 Lot # [id number] Dilution Per 200 units diluted with 4mL of 0.9% Sodium Chloride Procedure was completed with EMG guidance B/l sternocleidomastoid 25 units B/l upper trap 75 units each B/l longissimus 25 units B/l semispinalis capitis 25 units B/l splenius capitis 25 units TOTAL UNITS INJECTED 250 WASTED 50 Disposition The patient tolerated the procedure well. Post-op care was discussed. The patient is aware that duration of action is 3 months, and that delay in reinjection often results in recurrence of symptoms. Patient Care Instructions Do not rub massage or touch injection sites for 24 hours. Do not lay down for 4 hours after treatment. Avoid hot showers, exercise, and spicy foods for 24 hours to avoid bruising and minimize redness. Discussed signs and symptoms of anaphylaxis and when to seek emergent treatment. Procedure Codes 72104-91 Chemodenervation of neck muscles, bilateral 69728 [EMG] Guidance for chemodenervation J0585 Botulinum toxin a per unit, Units: 325 Follow Up 3 months Botox ASSESSMENT AND PLAN: 58 year old male here for repeat botox injections for cervical dystonia. He monroe greater than 50% reduction in symptoms with first treatment. He will likely have greater second round. He has tried years of provider directed treatment and medications, steroid injections. documented in this encounter [facility] 11-12-2023 Evaluation note Diagnosis Onset Date Resolution Alzheimer disease acute November 12, 2023 10:10am Depression acute November 11 10:10am Hypnotic-dependent sleep disorder acute November 11 10:10am Intolerance to BiPAP/CPAP acute November 11 10:10am Medication side effect acute Oc tober 2023 10:10am Migraine acute November 11 10:10am Obstructive sleep apnea acute O ctober 2023 10:10am Sleep phase syndrome, delayed acute November 11 10:10am TBI (traumatic brain injury) acute November 11 10:10am [facility] Work Phone: 1([phone] 630-921209-03-2024 Hospital Discharge instructions Patient Education 10/14/2023 16:31:24 24-Hour Urine Collection 24-Hour Urine Collection Why am I having this test? A 24-hour urine specimen is a lab test that requires you to collect all of your urine for an entireday. This is sometimes called a timed urine test. It can provide more information than a single urine sample. There are many reasons to have this test. Your health care provider may order the test to check foror monitor the following conditions: High blood pressure. Kidney disease. Kidney stones. Urinary tract infections. . Diabetes. How do I prepare for this test? You may be asked to follow a special diet during or before the collection period. Follow any instructions from your health care provider. If no special instructions are given, you may eat and drink normally. Take vjti-brp-dlozpfn and prescription medicines only as told by your health care provider. Let your health care provider know about any medicines that you are taking, including mayf-ijf-livyjqf medicines, vitamins, herbs, and supplements. Choose a collection day when you can be at home or when you have a place to store the urine. All urine must be collected during the testing period. How do I do a 24-hour urine collection? When you get up in the morning, urinate in the toilet and flush. Write down the time. This will be your start time on the day of collection and your end time on the next morning. From the start time on, all of your urine should be kept in the collection jug that you received from the lab. If the jug that is given to you already has liquid in it, that is okay. Do not throw out the liquidor rinse out the jug. Urinate into a specimen container, such as a urinal or presley that sits over the toilet. Pour the urine from the container into the collection jug. Be careful not to spill any of the urine. Use the equipment provided by the lab. Do not let any toilet paper or stool (feces) get into the jug. This will contaminate the sample. Stop collecting your urine 24 hours after you started. Collect the last specimen as close as possible to the end of the 24-hour period. Keep the jug cool in an ice chest or keep it in the refrigerator during collection. When the 24-hour collection is complete, take the jug to the lab as soon as possible. Keep the jug cool in an ice chest while you are bringing it to the lab. What do the results mean? Talk with your health care provider about what your results mean. Questions to ask your health care provider Ask your health care provider, or the department that is doing the test: When will my results be ready? How will I get my results? What are my treatment options? What other tests do I need? What are my next steps? Summary A 24-hour urine specimen is a lab test that requires you to collect all of your urine for an entireday. When you get up in the morning, urinate in the toilet and flush. Write down the time. For the next 24 hours, collect all of your urine in the collection jug that you received from the lab. Keep the jug cool while collecting the urine and while bringing it back to the lab. Take the jug of urine back to the lab as soon as possible after the collection period has ended. This information is not intended to replace advice given to you by your health care provider. Make sure you discuss any questions you have with your health care provider. Document Revised: 08/03/2021 Document Reviewed: 08/03/2021 [employer] Patient Education 2023 [employer]. 10/14/2023 15:59:17 Steps to Quit Smoking Steps to Quit [...] require a prescription. You can also purchase vtlw-bbe-bxsvvkd medicines. Medicines may have nicotine in them [...] and encouragement. Call telephone quitlines, such as 8-899-KCDJ-NOW, reach out to support groups, or work [...] provider. Document Revised: 01/18/2022 Document Reviewed: 01/18/2022 [employer] Patient Education 2023 [employer]. Follow Up Care 10/02/2023 09:12:03 With:YECENIA BUSTILLO, Buster Tinoco, URL Address: [facility] [address] , [place] [address] [phone] When: Unknown Comments:3-4 mos w/ metabolic workup [facility] 09-03-2024 NotePatient Education Pulmonary Medicine Steps to Quit Smoking [...] require a prescription. You can also purchase rseb-ifb-ssrejwv medicines. Medicines may have nicotine in them [...] and encouragement. Call telephone quitlines, such as 4-299-FUGN-NOW, reach out to support groups, or work [...] Find resources and support systems that can (more content not included)... [facility]2024 History of Present illness Narrative* Michelle Chan, MANAGER PHILOSOPHY - 10/06/2023 2:30 PM EDT Images from the original note were not included. CHIEF COMPLAINT REASON FOR VISIT : neck pain HPI: Filemon Mendez is a 58 y.o. male who presents for televisit. He is at home. He consents to visit. Hehad his first botox injections for neck pain/dystonai. He is good today. He is feeling okay in regards to neck pain is significantly better and he has more movement. He had kidney stent placed and heis having a lot of blood in urine. PCP told him to go to ER. His headaches are less base of skull after the botox. CURRENT MEDICATIONS: ALLERGIES/DISCONTINUE MEDICATIONS Current Outpatient Medications Medication Instructions amantadine (SYMMETREL) 100 mg, Oral, Every 12 hours amitriptyline (ELAVIL) 25 mg, Oral, Nightly ARIPiprazole (ABILIFY) 15 mg, Oral, Nightly ascorbic acid (VITAMIN C) 500 mg, Oral, Daily aspirin 81 mg, Oral, Daily RT atorvastatin (LIPITOR) 40 mg, Oral, Daily B Complex Vitamins (B COMPLEX 1 PO) Oral biotin 5,000 mcg, Oral, Nightly Brexpiprazole 0.5 mg, Oral, Daily RT Dextromethorphan-quiNIDine 20-10 MG capsule 1 capsule, Oral, Nightly diphenhydrAMINE (BENADRYL) 25 mg, Oral, Every 6 hours PRN donepezil (ARICEPT) 10 mg, Oral, Every evening dutasteride (AVODART) 0.5 mg, Oral, Daily hydrOXYzine pamoate (VISTARIL) 25 mg, Oral, Every 8 hours PRN levETIRAcetam (KEPPRA) 500 mg, Oral, 2 times daily Magnesium 400 MG capsule 1 capsule, Oral, Nightly magnesium oxide 500 MG tablet 1 tablet as needed Orally at bedtime Memantine HCl ER 28 MG capsule sustained-release 24 hr 1 capsule, Oral, Daily metoclopramide (REGLAN) 5 mg, Oral, 4 times daily multivitamin with minerals (Cerovite) 18-400 mg-mcg tablet tablet 1 tablet, Oral, Daily Omeprazole 20 MG tablet delayed-release 1 tablet, Oral, Daily onabotulinumtoxinA (Botox 200u vial IJ Soln) 200 units injection Inject up to 400 units intramuscular into neck muscles every 90 days OXcarbazepine (TRILEPTAL) 300 mg, Oral, 2 times daily pantoprazole (ProtoNix) 40 MG EC tablet Every 12 hours propranolol LA (INDERAL LA) 60 mg, Oral, Daily, Do not crush, chew, or split. sildenafil (Viagra) 100 MG tablet TAKE 1 TABLET BY MOUTH DIRECTED ONE HOUR BEFORE SEXUAL ACTIVITY solifenacin (VESICARE) 10 mg, Oral, Daily sucralfate (CARAFATE) 1 g tamsulosin (Flomax) 0.4 MG 24 hr capsule 1 capsule, Every 12 hours thiamine (VITAMIN B-1) 100 mg, Oral, Daily tiZANidine (ZANAFLEX) 4 mg, Oral, 2 times daily PRN topiramate (TOPAMAX) 100 mg, Oral, Every 12 hours traZODone (DESYREL) 150 mg, Oral, Nightly venlafaxine (Effexor) 75 MG tablet TAKE 2 TABLETS BY MOUTH TWICE DAILY WITH FOOD Allergies Allergen Reactions Catnip Hives Medications Discontinued During This Encounter Medication Reason biotin 29853 MCG tablet Ascorbic Acid (Vitamin C) 500 MG capsule PAST MEDICAL HISTORY: SURGICAL/SOCIAL/FAMILY HISTORY DEPRESSION SCREEN: Past Medical History: Diagnosis Date Alcoholism ([facility]) Arthritis Atypical chest pain BPPV (benign paroxysmal positional vertigo) Cervical spondylosis Degenerative joint disease Depression (CMS/HCC) Dysthymia ([facility]/HCC) Erectile dysfunction GERD (gastroesophageal reflux disease) Hypercholesterolemia (CMS/HCC) Hypoglycemia Inguinal hernia, bilateral 2012 bilat inguinal and umbilical hernias Lymphadenopathy Migraines ([facility]/HCC) Obesity Prediabetes Seizures ([facility]/HCC) Sleep apnea Thyroid disorder ([facility]) Umbilical hernia 2012 Past Surgical History: Procedure Laterality Date APPENDECTOMY CARDIAC CATHETERIZATION CARPAL TUNNEL RELEASE Bilateral CHOLECYSTECTOMY COLONOSCOPY HAND TENDON SURGERY 1987 tendon reconstruction-left wrist HEART CATH 2010 HEMORRHOIDECTOMY HERNIA REPAIR 2013 OTHER SURGICAL HISTORY #2 bilateral c3, 4, 5 MBB OTHER SURGICAL HISTORY #1 bilateral C3, 4, 5 MPP OTHER SURGICAL HISTORY sleep apnea surgery RADIOFREQUENCY ABLATION Right C3, 4, 5 RFA, Left C3, 4, 5 RFA TONSILLECTOMY Social History Tobacco Use Smoking status: Every Day Current packs/day: 0.50 Types: Cigarettes Smokeless tobacco: Never Tobacco comments: 6-10 cigarettes/day Substance Use Topics Alcohol use: Never Drug use: Never Family History Problem Relation Name Age of Onset Lung cancer Mother Depression: Not on file REVIEW OF SYMPTOMS: Review of Systems Constitutional: Negative for chills, fatigue and fever. HENT: Negative for tinnitus. Eyes: Negative for photophobia. Respiratory: Negative for shortness of breath. Cardiovascular: Negative for chest pain. Gastrointestinal: Negative for nausea and vomiting. Genitourinary: Positive for hematuria. Negative for frequency. Musculoskeletal: Positive for neck pain and neck stiffness. Negative for back pain and gait problem. Neurological: Negative for dizziness, tremors, weakness, light-headedness, numbness and headaches. Psychiatric/Behavioral: Negative. 09/04/2023 9:47 AM 07/30/2023 12:45 PM 05/23/2023 12:52 PM Vitals BMI 28.79 kg/m2 27.29 kg/m2 BSA (m2) 1.9 m2 1.85 m2 Systolic 120 140 132 Diastolic 78 86 84 Height (in) 5' 5 Weight (lb) 173 164 Visit Report Report Report EXAM: Neurological Exam Mental Status Awake, alert and oriented to person, place and time. Oriented to person, place and time. Speech is normal. Language is fluent with no aphasia. Motor Increased muscle tone. Improving pulling/drawing of neck muscles. Limited cervical/neck ROM. 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 Neck pain also causes him headaches and base of skull pain has reduced too. He has experienced greater than 50% reduction in his symptoms. He recently had kidney stent placed and having significant hematuria. I agree with PCP he needs to go to ER to rule out infection and likely receive fluids to prevent kidney injury from pyelonephritis. This was discussed with patient, all questions answered. Total time 20 minutes spent reviewing records, performing medically appropriate exam, counseling , education, ordering medication, tests, and/or procedures, documenting health information into the health record, communicating results to the patient, and coordinating care. documented in this encounterWestern [facility] [id number] Telephone encounter Note* Telephone Encounter - Michelle Chan NP - 10/02/2023 8:33 AM EDT It was discontinued as the last time meds were checked by nurse it was reported he was taking 150 mg so we discontinued the 100 mg. Was he taking 250 mg every night? Usually for sleep treatment max is 200 mg for depression up to max 400 mg. [facility] [id number] Miscellaneous Notes* Telephone Encounter - Michelle Chan NP - 10/02/2023 8:33 AM EDT It was discontinued as the last time meds were checked by nurse it was reported he was taking 150 mg so we discontinued the 100 mg. Was he taking 250 mg every night? Usually for sleep treatment max is 200 mg for depression up to max 400 mg. * Telephone Encounter - Veronica Moctezuma - 10/01/2023 4:14 PM EDT Patient's girlfriend left message stating that per pharmacy the Trazadone 100 mg was discontinued and wanting to know why. Looks like he was also being prescribed Trazadone 150mg by Ashly Patel NP.When I asked if he is taking both was advised that the pharmacy is still filling but girlfriend is putting them away and he is not taking them. Please advise. [phone] documented in this encounterWestern Missouri Mental Health CenterDyqqszanbl45-56-9087 Telephone encounter Note* Telephone Encounter - Veronica Moctezuma - 10/01/2023 4:14 PM EDT Patient's girlfriend left message stating that per pharmacy the Trazadone 100 mg was discontinued and wanting to know why. Looks like he was also being prescribed Trazadone 150mg by Ashly Patel NP.When I asked if he is taking both was advised that the pharmacy is still filling but girlfriend is putting them away and he is not taking them. Please advise. [phone] [facility] [id number] Miscellaneous Notes* Telephone Encounter - Enid Aguilera RN - 09/17/2023 11:36 AM EDT Surgeon: Dr. Buster Keene Type of surgery: Laser stone surgery Date of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 Heart attack Diabetes [...] <Electronically signed by Boogie Trotter MD> 06/28/21 1426 [facility] Work Phone: 1(863) 504-156405-03-2022 Hospital Discharge instructions Patient Education 06/12/2021 13:11:40 [...] Follow these instructions at home: Medicines Take ivsi-iio-wjamjfp and prescription medicines only as told by [...] 01/24/2001 Document Revised: 01/09/2018 Document Reviewed: 02/12/2017 [employer] Patient Education [employer]. Follow Up Care 05/09/2020 15:19:54 With:Seth La MD, Niall Vail, URO Address: [facility] [address], [place] [address]- When: Unknown Comments:will schedule cysto [facility] 05-03-2022 Evaluation + Plan note Diagnostic Tests Pending * PSA Total 06/12/21 [facility] evaluation + Plan note Future Appointments Appointment Date:05/13/2023 10:15:00 AM Scheduled Provider:Buster KEENE MD [facility] Appointment Type:URO Office Visit [facility] Evaluation + Plan note Future Appointments Appointment Date:11/19/2023 01:45:00 PM Scheduled Provider:[facility] KEENE MD [facility] Office Visit [facility] evaluation + Plan note Future Appointments Appointment Date:01/22/2024 11:00:00 AM Scheduled Provider:GALLO Bingham APRN, [place] [facility] Location:[facility] Appointment Type:URO Office Visit [facility] evaluation + Plan note Future Appointments Appointment Date:03/31/2024 09:45:00 AM Scheduled Provider:Buster KEENE MD Location[facility] Appointment Type:URO Office Visit Diagnostic Tests Pending * Electrolyte Panel 02/12/24 [facility] evaluation + Plan note Future Appointments Appointment Date:11/01/2024 09:30:00 AM Scheduled Provider: Location:[facility] Appointment Type:URO Nurse Visit Appointment Date:11/10/2024 01:45:00 PM Scheduled Provider:Buster KEENE MD Location[facility] Appointment Type:URO Office Visit [facility] evaluation note* Diagnosis Onset Date Resolution Status Alzheimer disease acute Depression acute TBI (traumatic brain injury) [facility] Work Phone: evaluation note* Diagnosis Onset Date Resolution Status Acute kidney injury acute BPH loc w urin obs/LUTS acut e Hydronephrosis acute NSAID long-term use [facility] Work Phone: evaluation note* Diagnosis Seizure (CMS/HCC) Other convulsions [facility] Diagnosis Cervical dystonia- Primary Spasmodic torticollis [facility] Diagnosis Cervical dystonia- Primary Spasmodic torticollis Neck pain Cervicalgia Cervical paraspinal muscle spasm Spasm of muscle Intractable chronic migraine without aura and with status migrainosus (CMS/HCC) [facility]* Diagnosis Intention tremor Essential and other specified forms of tremor Traumatic brain injury, with loss of consciousness of 30 minutes or less, subsequent encounter [facility]* Diagnosis Seizure disorder (CMS/HCC) Unspecified epilepsy without mention of intractable epilepsy [facility]* Diagnosis Chest pain, unspecified type [facility] Diagnosis Cervical dystonia- 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 Degenerative disc disease, cervical [facility]* Diagnosis Intention tremor Essential and other specified forms of tremor Traumatic brain injury, with loss of consciousness of 30 minutes or less, subsequent encounter [facility] Narrative No data available for this section [facility] Hospital Discharge instructions Additional Instructions Regular Diet No Activity [facility] Work Phone[facility] Hospital Discharge instructions No data available for this section [facility]ructionsNot on filedocumented in this encounter [facility] filedocumented in this encounter [facility]ructionsNot on filedocumented in this encounter [facility] No data available for this section [facility] [employer] Summary Purpose Family History No Family History [...] Date/ Time Advance Directives No October 10:40am Advance Directive Response Recorded Date/ Time Advance Directives No October 9:40am Date Activated Date Inactivated Comments 03/18/2017 7:33 AM 03/18/2017 9:47 PM Date Activated Date Inactivated Comments 03/06/2017 3:59 PM 03/09/2017 4:56 PM Healthcare Agents on File Name Relationship Healthcare Agent Relationship Communication Summer Villanueva Significant Other [employer] Care Agent Documents on File Type Date Recorded Patient Online Project Manager Expl anation Advance Directive 07/11/2023 9:26 AM POA Date Activated Date Inactivated Comments 03/18/2017 7:33 AM 03/18/2017 9:47 PM Date Activated Date Inactivated Comments 03/06/2017 3:59 PM 03/09/2017 4:56 PM Healthcare Agents on File Name Relationship Healthcare Agent Relationship Communication Summer Rich Significant Other [employer] Care Agent Documents on File Type Date Recorded Patient Online Project Manager Expl anation Advance Directive 07/11/2023 9:26 AM POA Healthcare Agents on File Name Relationship Healthcare Agent Relationshi p Communication Summer Villanueva Significant Other [facility] Health Care Agent Chief Complaint and Reason for Visit Chief Complaint Major Depresion Reason for Visit Alzheimer disease Depression TBI (traumatic brain injury) Chief Complaint BH RENAL INSUFFICIENCY Reason for Visit Acute kidney injury BPH loc w urin obs/LUTS Chronic kidney disease, stage 3a Hydronephrosis NSAID long-term use Chief Complaint RENAL INSUFFICIENCY g47.33 Reason for Visit Acute kidney injury BPH loc w urin obs/LUTS Hydronephrosis NSAID long-term use Chief Complaint Admit Date g47.33 November 12, 2023 10 :10am November 18, 2023 12 :19pm N20.0 December 18, 2023 1 1:24am Reason for Visit Admit Date Alzheimer disease November 12, 2023 10 :10am Depression November 12, 2023 10 :10am Hypnotic-dependent sleep disorder Octobe r 2023 10:10am Intolerance to BiPAP/CPAP November 11, 024 10:10am Medication side effect November 12, 2023 10:10am Migraine November 12, 2023 10 :10am Obstructive sleep apnea November 11 10:10am Sleep phase syndrome, delayed November 10:10am TBI (traumatic brain injury) November 10:10am Chief Complaint Admit Date g47.33 November 12, 2023 10 :10am BH November 18, 2023 12 :19pm N20.0 December 18, 2023 1 1:24am N40.1/n20.0 December 24, 2023 9:41am Chief Complaint Admit Date g47.33 November 12, 2023 10 :10am BH November 18, 2023 12 :19pm N20.0 December 18, 2023 1 1:24am N40.1/n20.0 December 24, 2023 9:41am hst December 30, 2023 6:25pm Reason for Referral Specialty Diagnoses / Procedures Referred By Contac t Referred To Contact Radiology Diagnoses Chest pain, unspecified type Procedures CT angiogram coronary arteries with or without scoring Khris Mckeon MD [address] [place] [address] [facility] [address] [place] [address] Phone: [phone] Referral ID Status Reason Start Date Expiration Date V isits Requested Visits Authorized [id number] Pending Review 07/11/2023 07/10/2024 1 1 Additional Source Comments (unrecognized sect ion and content) No Status Records FoundNo Status Records FoundNo Status Records FoundNo Status Records FoundNo Status Records FoundNo Status Records FoundNo Status Records FoundNo Status Records Found INFORMATION SOURCE (unrecogn ized section and content) DATE CREATED AUTHOR 09/01/2020 [facility] DATE CREATED AUTHOR AUTHOR'S ORGANIZ ATION 03/06/2022 [facility] dical Specialist DATE CREATED AUTHOR AUTHOR'S ORGANIZ ATION 07/12/2023 [facility] DATE CREATED AUTHOR AUTHOR'S ORGANIZ ATION 10/03/2023 [facility] DATE CREATED AUTHOR AUTHOR'S ORGANIZ ATION 07/10/2024 [facility] d[facility] Specialists EPIC DATE CREATED AUTHOR AUTHOR'S ORGANIZ ATION 07/10/2024 [facility] DATE CREATED AUTHOR AUTHOR'S ORGANIZ ATION 09/27/2024 [facility] DATE CREATED AUTHOR AUTHOR'S ORGANIZ ATION 10/08/[address] [facility] Care Teams (unrecognized sec tion and content) Team Status: Active Member Role Status Dates Susan Zavala DO Primary Care Provider Active Team Status: Inactive Member Role Status Dates Susan Mummert , DO Primary Care Provid er, Referring Provider Active Start: September 03, 2023 End: September 03, 2023 Sunitha Chan MD Attending Provider Active Star t: September 03, 2023 End: September 03, 2023 Team Status: Active Member Role Status Dates Susanlefty MultaniDO andrea Primary Care Provider Active Start: September 08, 2023 Sunitha Chan MD Attending Provider Active Star t: September 08, 2023 Team Status: Active Member Role Status Dates Susan KaceyDO sidra Primary Care Provider Active Start: September 15, 2023 Wolfgang Haddad DO Attending Provider Active Sta rt: September 15, 2023 Team Status: Active Member Role Status Dates Susan Zavala DO Primary Care Provider Active Start: October 21, 2023 Matthew Meyer MD Attending Provider Active Start: October 21, 2023 Team Status: Inactive Member Role Status Dates Susan KaceyDO sidra Primary Care Provider Active Start: November 12, 2023 End: November 12, 2023 Chu Florence MD Attending Provider Active S tart: November 12, 2023 End: November 12, 2023 Team Status: Inactive Member Role Status Dates Susan KaceyDO sidra Primary Care Provider Active Boogie Trotter MD Admit Provider, Attending Provider Active Team Status: Active Member Role Status Dates Susan KaceyDO sidra Primary Care Provider Active Start: July 10, 2023 Matthew Meyer MD Attending Provider Active Start: July 10, 2023 Steel Tester Relationship Specialty Start Date End Date Maco Mccray DO [address] [facility] [address] [place] [address] PCP - [employer] 02/10/22 Steel Tester Relationship Specialty Start Date End Date Maco Mccray DO [address] [place] [address] PCP - [employer] 02/10/22 Steel Tester Relationship Specialty Start Date End Date Maco Mccray DO [address] [facility] [address] [place] [address] PCP - [employer] 02/10/22 Team Status: Active Member Role Status Dates Susan Zavala DO Primary Care Provider Active Start: November 18, 2023 Matthew Meyer MD Attending Provider Active Start: November 18, 2023 Team Status: Inactive Member Role Status Dates Susan Zavala DO Primary Care Provider Active Start: December 18, 2023 End: December 18, 2023 Buster Keene MD Attending Provider Active St art: December 18, 2023 End: December 18, 2023 Team Status: Inactive Member Role Status Dates Susan Zavala DO Primary Care Provider Active Start: December 24, 2023 End: December 24, 2023 Sunitha Chan MD Attending Provider Active Star t: December 24, 2023 End: December 24, 2023 Buster Keene MD Other Provider Active Start: December 24, 2023 End: December 24, 2023 Team Status: Inactive Member Role Status Dates Susanlefty ErazoDO sidra Primary Care Provider Active Start: December 30, 2023 End: December 30, 2023 Chu Florence MD Attending Provider Active S tart: December 30, 2023 End: December 30, 2023 Steel Tester Relationship Specialty Start Date End Date Maco Mccray DO [address] [place] [address] PCP - [employer] 02/10/22 Steel Tester Relationship Specialty Start Date End Date Maco Mccray DO [address] [place] [address] PCP - [employer] 02/10/22 Steel Tester Relationship Specialty Start Date End Date Maco Mccray DO [address] [place] [address] PCP - [employer] 02/10/22 Steel Tester Relationship Specialty Start Date End Date Susan Zavala DO [address] [place] [address] PCP - General Internal Medicine 07/26/16 Steel Tester Relationship Specialty Start Date End Date Susan Zavala DO [address] [place] [address] PCP - General Internal Medicine 07/26/16 Steel Tester Relationship Specialty Start Date End Date Susan Zavala DO [address] [place] [address] PCP - General Internal Medicine 07/26/16 Steel Tester Relationship Specialty Start Date End Date Maco Mccray DO [address] [address] PCP - [employer] 02/10/22 Goals (unrecognized section and content) Goals may be documented in a n alternate section Reason for Visit (unrecogniz ed section and content) Reason Comments Med Refill Reason Comments 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 CHEST PAIN, PT MONROE D STRESS DONE IN 2021, PT PREVIOUSLY SAW CARDIO @ [facility] MANY YEARS AGO, NO HEART SURGERIES/DEVICE Edema FEET, ANKLES Specialty Diagnoses / Procedures Referred By Contac t Referred To Contact Cardiology Diagnoses Chest pain, unspecified type [facility] [address] [place] [address] [facility] [address] [place] [address] Referral ID Status Reason Start Date Expiration Date Visits Requested Visits Authorized [id number] Pending Review Specialty Services Required 06/03/2023 06/02/2024 1 1 Reason Onset Date Comments Cardiac Clearance 09/17/2023 FOR RECORDS PERTAINING TO PATIENTS WHO ARE [...] BE BASED ON THE PRIMARY CLINICAL RECORDS. [facility]. provides no warranty or guarantee of the accuracy or completeness of information in this document.
--- NOTE | 2024-10-20 12:28 | ECG_ITS ---
[facility] Test Date: 2024-10-20 Pat Name: PRISCILLA CERDA Department: Room: - Gender: Male Consulting Senior Practice Director: : 1965 Requested By: LEANDRO KEENE Order Number: [id number] Reading MD: PAYAM MORRIS Measurements Intervals [place] Rate: 59 P: 57 MA: 160 QRS: 80 QRSD: 98 T: 58 QT: 424 QTc: 421 Interpretive Statements SINUS BRADYCARDIA Compared to ECG 09/15/2023 14:10:55 Sinus rhythm no longer present Electronically Signed On 10-21-2024 13:54:03 EDT by PAYAM MORRIS
--- NOTE | 2024-10-20 12:57 | PM.PRESUREVA ---
History of Present Illness History of Present Illness Chief complaint: BPH with Obstruction Narrative: Patient presents for presurgical testing. Please see HPI from Dr. Chavez dated October 06, 2024. Review of Systems ROS Narrative Please see ROS from Dr. Chavez dated October 06, 2024. [facility] Medical History (Updated 10/20/24 @ 12:46 by Karen Cullen NP) BPH with obstruction/lower urinary tract symptoms ?N40.1 - Benign prostatic hyperplasia with lower urinary tract symptoms (ICD-10) ?N13.8 - Other obstructive and reflux uropathy (ICD-10) Cervical dystonia ?G24.3 - Spasmodic torticollis (ICD-10) Neck pain ?M54.2 - Cervicalgia (ICD-10) Back pain ?M54.9 - Dorsalgia, unspecified (ICD-10) Arthritis ?M19.90 - Unspecified osteoarthritis, unspecified site (ICD-10) Depression ?F32.A - Depression, unspecified (ICD-10) Insomnia ?G47.00 - Insomnia, unspecified (ICD-10) PTSD (post-traumatic stress disorder) ?F43.10 - Post-traumatic stress disorder, unspecified (ICD-10) Electronic cigarette use ?Z78.9 - Other specified health status (ICD-10) Sleep apnea ?G47.30 - Sleep apnea, unspecified (ICD-10) Chronic obstructive pulmonary disease ?J44.9 - Chronic obstructive pulmonary disease, unspecified (ICD-10) Seizures ?R56.9 - Unspecified convulsions (ICD-10) Migraine ?G43.909 - Migraine, unspecified, not intractable, without status migrainosus (ICD-10) Ureteral stone ?N20.1 - Calculus of ureter (ICD-10) GERD (gastroesophageal reflux disease) ?K21.9 - Gastro-esophageal reflux disease without esophagitis (ICD-10) Extremity edema ?R60.0 - Localized edema (ICD-10) Dyspnea on exertion ?R06.09 - Other forms of dyspnea (ICD-10) Prediabetes ?R73.03 - Prediabetes (ICD-10) Carpal tunnel syndrome ?G56.00 - Carpal tunnel syndrome, unspecified upper limb (ICD-10) Surgical History (Updated 10/18/24 @ 11:45 by Karen Cullen NP) S/P cystoscopy with ureteral stent placement (09/25/23) ?Z96.0 - Presence of urogenital implants (ICD-10) S/P tendon repair ?Z98.890 - Other specified postprocedural states (ICD-10) H/O hemorrhoidectomy ?Z98.890 - Other specified postprocedural states (ICD-10) History of carpal tunnel surgery ?Z98.890 - Other specified postprocedural states (ICD-10) History of cardiac catheterization ?Z98.890 - Other specified postprocedural states (ICD-10) History of esophagogastroduodenoscopy (EGD) ?Z98.890 - Other specified postprocedural states (ICD-10) H/O colonoscopy ?Z98.890 - Other specified postprocedural states (ICD-10) H/O uvulectomy ?Z90.89 - Acquired absence of other organs (ICD-10) History of hernia repair ?Z98.890 - Other specified postprocedural states (ICD-10) ?Z87.19 - Personal history of other diseases of the digestive system (ICD-10) History of appendectomy ?Z90.49 - Acquired absence of other specified parts of digestive tract (ICD-10) History of cholecystectomy ?Z90.49 - Acquired absence of other specified parts of digestive tract (ICD-10) History of facial surgery ?Z98.890 - Other specified postprocedural states (ICD-10) Family History (Updated 09/15/23 @ 13:56 by Karen Cullen NP) Other Family history of hypertension Family history of myocardial infarction Social History (Updated 09/15/23 @ 13:52 by Karen Cullen NP) Within the past year, how often did you have a drink containing alcohol: never Score interpretation: A score less than 4 is consistent with normal alcohol consumption. Smoking status: Current every day smoker What tobacco products do you use: cigarettes Cigarettes per day: 15 Years smoked: 30 Smoking pack-years: 22.50 Do you use any of these nicotine containing products: e-cigarettes Non-prescribed substance use: cannabis (any form) Highest level of school completed/degree received: high school graduate Meds Home Medications and Allergies Home Medications ?Medication ?Instructions ?Recorded ?Confirmed ?Type amitriptyline 25 mg tablet 25 mg PO QPM 09/15/23 10/20/24 History aspirin 81 mg tablet,delayed 81 mg PO DAILY 09/15/23 10/20/24 History release (Adult Aspirin Regimen) atorvastatin 40 mg tablet 40 mg PO DAILY 09/15/23 10/20/24 History dutasteride 0.5 mg capsule 0.5 mg PO DAILY 09/15/23 10/20/24 History levetiracetam 500 mg tablet 500 mg PO BID 09/15/23 10/20/24 History memantine 28 mg capsule 28 mg PO Q24H 09/15/23 10/20/24 History sprinkle,extended release 24hr multivitamin (Daily Multi-Vitamin 1 tab PO DAILY 09/15/23 10/20/24 History tablet) sildenafil 100 mg tablet 100 mg PO Q24H PRN sexual activity 09/15/23 10/20/24 History sucralfate 1 gram tablet 1 g PO QID 09/15/23 10/20/24 History tamsulosin 0.4 mg capsule 0.4 mg PO Q24H 09/15/23 10/20/24 History thiamine HCl (vitamin B1) 100 mg 100 mg PO DAILY 09/15/23 10/20/24 History tablet tizanidine 4 mg tablet 4 mg PO BID 09/15/23 10/20/24 History topiramate 100 mg tablet 100 mg PO Q12H 09/15/23 10/20/24 History trazodone 100 mg tablet 200 mg PO QPM 09/15/23 10/20/24 History omeprazole 40 mg capsule,delayed 40 mg PO DAILY 10/20/24 10/20/24 History release potassium bicarbonate-citric acid 25 meq PO DAILY 10/20/24 10/20/24 History 25 mEq effervescent tablet (Klor-Con/EF) Allergies Allergy/AdvReac Type Severity Reaction Status Date / Time No Known Drug Allergies Allergy Verified 10/20/24 12:41 Exam Narrative Exam Narrative: Constitutional: Awake, alert, comfortable, well-appearing, nontoxic, interactive, vital signs as charted Head: Normocephalic, atraumatic Neck: Supple, normal appearance, normal range of motion, no meningeal signs, no lymphadenopathy Respiratory: No respiratory distress, breath sounds clear Cardiovascular: Regular rate and rhythm, strong and regular heart tones Abdomen: Nontender, normal bowel sounds, soft, no CVA tenderness Musculoskeletal: Antalgic gait, no swelling or edema Skin: No rashes or induration, no lesions, only visible skin inspected Neuro: No neurological deficits, normal sensation Psychiatric: Oriented ?3, normal affect Assessment and Plan Assessment and Plan (1) BPH with obstruction/lower urinary tract symptoms: Plan Cystoscopy, TURP scheduled with Dr. Chavez October 28, 2024.
--- NOTE | 2024-10-20 13:00 | XR_ITS ---
The [address] [address] Patient Name: PRISCILLA CERDA MRN: [id number] date: 1965 Sex: M Assigned Patient Location: [facility] Current Patient Location: [facility] Accession/Order Number: [id number] Exam Date: 10/20/2024 13:00 Report Date: 10/20/2024 15:46 At the request of: LEANDRO KEENE MD Procedure: XR chest 2V Chest 2 views CLINICAL HISTORY: Preop exam COMPARISON: Chest 09/15/2023 FINDINGS: Heart normal in size. Lungs are clear. No free air. XR/XR chest 2V IMPRESSION: NO ACUTE CARDIOPULMONARY ABNORMALITY. Impression dictated by: Michael Jonas Jr., [email or web address] 10/20/2024 3:46 PM Dictation Location: [place] [address] Electronically authenticated by: [id number] Y Date: 10/20/2024 15:46
[2024-10-20 13:15] LABS: Anion Gap 12.1; Blood Urea Nitrogen 15.0 mg/dL (7.0-18.0); Calcium 9.3 mg/dL (8.5-10.1); Carbon Dioxide 26.8 mmol/L (21.0-32.0); Chloride 108 mmol/L (98-107); Estimated GFR (African America >60 (>=60 mL/min/1.73m^2); Estimated GFR (Non-African Ame >60 (>=60 mL/min/1.73m^2); Glucose 98 mg/dL (74-106); Potassium 3.9 mmol/L (3.5-5.1); Sodium 143 mmol/L (136-145)
[2024-10-20 13:28] LABS: INR 1.05; Partial Thromboplastin Time 29.9 sec (22.3-36.2); Prothrombin Time 11.1 sec (9.0-11.6)
[2024-10-20 14:06] LABS: Hematocrit 44.3 % (42.0-54.0); Hemoglobin 15.4 g/dL (14.0-18.0); Immature Granulocytes Abs Auto 0.00 10^3/uL (0.00-0.03); Immature Granulocytes Pct Auto 0.0 % (0.0-0.5); Lymphocytes Absolute Auto 2.2 10^3/uL (1.2-3.8); Mean Corpuscular HGB Conc 34.8 g/dL (29.9-35.2); Mean Corpuscular Hemoglobin 30.9 pg (25.9-34.0); Mean Corpuscular Volume 89.0 fL (80.0-94.0); Platelet Count 232 10^3/uL (150-450); Red Blood Count 4.98 10^6/uL (4.70-6.10); White Blood Count 6.3 10^3/uL (4.0-11.0)
== END 2024-10-20 12:08 | disposition home or self-care (01) ==
LOC: PST 12:08
PROVIDERS: PCP Internal Medicine; Visit Provider Urology
DX: Z01.810 Encounter for preprocedural cardiovascular examination (principal); Z01.812 Encounter for preprocedural laboratory examination; Z01.818 Encounter for other preprocedural examination; N40.1 Benign prostatic hyperplasia with lower urinary tract symptoms; E78.5 Hyperlipidemia, unspecified; K21.9 Gastro-esophageal reflux disease without esophagitis
CPT/HCPCS: 71046; 80048; 85025; 85610; 85730; 93005; G0463

== ENCOUNTER 2024-10-28 10:53 | Day surgery (SDC) | payer MEDICARE, SELFPAY ==
--- OUTSIDE RECORDS SUMMARY | 2010-03-30 06:30 | XMS_ITS | Encounter Summary ---
Author Organization [facility] Address [address] [place] [address], [address] [place] [address] Care Team Providers Care Gas Maker Name Role Phone Unavailable Primary Care Provider Unavailabl e Encounter Details Date Type Department Care Team (Late st Contact Info) Description 03/30/2010 5:30 AM EST [facility] [address] [place] [address] Social History Tobacco Use Types Packs/Day Years Used Date Smoking Tobacco: Never Assessed Sex and Gender Information Value Date Recorded Sex Assigned at Not on file Legal Sex Male 1:58 PM EST Gender Identity Not on file Sexual Orientation Not on file documented as of this encounter Plan of Treatment Not on file documented as of this encounter Visit Diagnoses Not on filedocumented in this encounter
[2024-10-20 12:56] VITALS: BP 122/81; PULSE 61; TEMP 36.4; O2SAT 98; BMI 29.3
[2024-10-28] VITALS (14 sets, daily range): BP systolic 103–139; BP diastolic 63–99; PULSE 65–101; TEMP 36.1–36.8; O2SAT 94–100; BMI 29.0
--- OUTSIDE RECORDS SUMMARY | 2024-10-28 10:56 | XMS_ITS | Clinical Summary ---
Author Organization [facility] Address [address] [place] [address] Care Team Providers Care Shop Manager Name Role Phone Unavailable Primary Care Provider Unavailabl e Allergies Active Allergy Reactions Criticality Noted Date Comments Catnip Hives 09/06/2015 Medications aspirin 81 MG EC tablet Take 81 mg by mouth in the morning. Active magnesium oxide 500 MG tablet 1 tablet as needed Orally at bedtime Active pantoprazole (ProtoNix) 40 MG EC tablet every 12 (twelve) hours. Active tamsulosin (Flomax) 0.4 MG 24 hr capsule 1 capsule every 12 (twelve) hours. Active sildenafil (Viagra) 100 MG tablet TAKE 1 TABLET BY MOUTH DIRECTED ONE HOUR BEFORE SEXUAL ACTIVITY 05/15/19 23 Active Brexpiprazole 0.5 MG tablet Take 0.5 mg by mouth in the morning. Active donepezil (Aricept) 10 MG tabletIndications :Mild cognitive impairment Take 1 tablet (10 mg) by mouth in the evening. 90 tablet 3 10/24/19 23 Active hydrOXYzine pamoate (Vistaril) 25 MG capsuleIndication s:Vertigo Take 1 capsule (25 mg) by mouth every 8 (eight) hours if needed for itching. 270 capsule 3 10/24/19 23 Active Memantine HCl ER 28 MG capsule sustained-release 24 hrIndications:Mil d cognitive impairment Take 1 capsule by mouth in the morning. 90 capsule 3 10/24/19 23 Active sucralfate (Carafate) 1 g tablet 1 g. 01/12/20 22 Active atorvastatin (Lipitor) 40 MG tablet Take 40 mg by mouth in the morning. 11/15/19 23 Active B Complex Vitamins (B COMPLEX 1 PO) Take by mouth Ac tive diphenhydrAMINE (BENADryl) 25 MG capsule Take 25 mg by mouth every 6 (six) hours if needed for itching Active amantadine (Symmetrel) 100 MG capsule Take 100 mg by mouth every 12 (twelve) hours 02/12/19 24 Active dutasteride (Avodart) 0.5 MG capsule Take 0.5 mg by mouth Daily 05/13/19 24 Active propranolol LA (Inderal LA) 60 MG 24 hr capsule Take 60 mg by mouth Daily Do not crush, chew, or split. Active Dextromethorphan- quiNIDine 20-10 MG capsule Take 1 capsule by mouth at bedtime 06/02/19 24 Active ARIPiprazole (Abilify) 15 MG tablet Take 15 mg by mouth at bedtime 07/10/19 24 Active metoclopramide (Reglan) 5 MG tablet Take 5 mg by mouth in the morning and 5 mg at noon and 5 mg in the evening and 5 mg before bedtime. 06/05/19 24 Active onabotulinumtoxin A (Botox 200u vial IJ Soln) 200 units injectionIndicati ons:Spasmodic Torticollis Inject up to 400 units intramuscular into neck muscles every 90 days 2 each 3 08/25/19 24 Active ascorbic acid (Vitamin C) 500 MG tablet Take 500 mg by mouth Daily 09/03/19 24 Active biotin 5 MG capsule Take 5,000 mcg by mouth at bedtime Active Magnesium 400 MG capsule Take 1 capsule by mouth at bedtime 09/03/19 24 Active multivitamin with minerals (Cerovite) 18-400 mg-mcg tablet tablet Take 1 tablet by mouth Daily 09/03/19 24 Active Omeprazole 20 MG tablet delayed-release Take 1 tablet by mouth Daily 09/01/19 24 Active solifenacin (VESIcare) 10 MG tablet Take 10 mg by mouth Daily 09/25/19 24 Active topiramate (Topamax) 100 MG tabletIndications :Seizure (HCC) Take 1 tablet (100 mg) by mouth in the morning and 1 tablet (100 mg) before bedtime. 180 tablet 3 11/25/19 24 025 Active levETIRAcetam (Keppra) 500 MG tabletIndications :Seizure (HCC) Take 1 tablet (500 mg) by mouth in the morning and 1 tablet (500 mg) before bedtime. 180 tablet 3 11/25/19 24 025 Active thiamine (Vitamin B-1) 100 MG tabletIndications :Seizure disorder (HCC) Take 1 tablet (100 mg) by mouth in the morning. 90 tablet 3 03/12/19 25 026 Active amitriptyline (Elavil) 25 MG tabletIndications :Intention tremor,Traumatic brain injury, with loss of consciousness of 30 minutes or less, subsequent encounter TAKE 1 TABLET BY MOUTH AT BEDTIME 90 tablet 3 08/02/19 25 Active tiZANidine (Zanaflex) 4 MG tabletIndications :Cervical paraspinal muscle spasm TAKE 1 TABLET BY MOUTH TWICE DAILY NEEDED FOR MUSCLE SPASM 180 tablet 08/15/19 25 Active traZODone (Desyrel) 100 MG tabletIndications :Depression, unspecified depression type TAKE 2 TABLETS BY MOUTH AT BEDTIME 180 tablet 09/28/19 25 Active Active Problems Problem Noted Date Diagnosed Date Degeneration of intervertebr al disc of lumbar region with lower extremity pain 07/08/2024 Degenerative disc disease, cervical 07/08/2024 Acute kidney injury 12/18/2023 Alzheimer disease 12/18/2023 Benign localized prostatic h yperplasia with lower urinary tract symptoms (LUTS) 12/18/2023 Elevated serum creatinine 12/18/2023 Gastroparesis 12/18/2023 GERD (gastroesophageal reflux disease) Hydronephrosis 12/18/2023 NSAID long-term use 12/18/2023 Abdominal pain 12/18/2023 Stage 3a chronic kidney disease 12/18/2023 Chest pain 12/18/2023 Depression 12/18/2023 TBI (traumatic brain injury) 12/18/2023 Cervical dystonia 07/30/2023 Left groin pain 05/23/2023 Cigarette nicotine dependence 05/23/2023 Arthritis 12/04/2022 Atypical chest pain 12/04/2022 BPPV (benign paroxysmal positional vertigo) 11/11 Diminished gastric emptying 12/04/2022 Dysthymia 12/04/2022 Family history of thyroid disease 12/04/2022 Overview (12/04/2022): history of low thyroid, no medication used Generalized osteoarthritis 12/04/2022 Hypercholesterolemia 12/04/2022 History of alcoholism 12/04/2022 Hypoglycemia 12/04/2022 Lymphadenopathy 12/04/2022 Moderate episode of recurrent major depressive d isorder 12/04/2022 Obesity 12/04/2022 Peptic ulcer disease 12/04/2022 Prediabetes 12/04/2022 Respiratory syncytial virus pneumonia 12/04/2022 Right shoulder pain 12/04/2022 Inattention 12/04/2022 Bilateral occipital neuralgia 10/23/2022 Neck pain 10/23/2022 Diplopia 10/16/2022 Median neuropathy 10/16/2022 Migraine 10/16/2022 Pain in limb 10/16/2022 Tardive dyskinesia 10/16/2022 Weakness 10/16/2022 Tinnitus 10/16/2022 Seizure disorder 08/20/2022 Cervical paraspinal muscle spasm 08/20/2022 Mild cognitive impairment 08/20/2022 Intractable chronic migraine without aura and with status migrainosus 08/20/2022 Cervical radiculopathy 08/20/2022 Spinal stenosis in cervical region 08/20/2022 Dizziness 08/20/2022 Intention tremor 08/20/2022 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 seizures, intractable, without status epilepticus 08/20/2022 Traumatic brain injury 08/20/2022 Oropharyngeal bleeding 03/18/2017 S/P uvulopalatopharyngoplasty 03/13/2017 Allergic rhinitis 11/27/2016 Bilateral hearing loss 11/27/2016 Obstructive sleep apnea syndrome 11/27/2016 Chronic fatigue 11/27/2016 Encounters Date Type Department Care Team Description 09/26/2024 Refill [facility] [address] [place] [address] Michelle Brasher, POOL LIFEGUARD Depression, unspecified depression type (Primary Dx) 08/13/2024 Refill [facility] [address] [place] [phone] Mode Leonardo MD Cervical paraspinal muscle spasm (Primary Dx) 07/31/2024 Refill [facility] [address] [facility] [address] [place] [phone] Mode Leonardo MD Intention tremor; Traumatic brain injury, with loss of consciousness of 30 minutes or less, subsequent encounter from Last 3 Months Immunizations Immunization Administration Dates Next Due Influenza, High Dose Seasona l, Preservative Free 12/05/2017 Influenza, injectable, quadrivalent 08/2016,01/31/2016,01/18/2016,2014 Influenza, injectable, quadr ivalent, preservative free 12/22/2019 Influenza, seasonal, injectable 02/21/2012 Family History Medical History Relation Name Comments Lung cancer Mother Relation Name Status Comments Father Mother Social History Tobacco Use Types Packs/Day Years Used Date Smoking Tobacco: Every Day Cigarettes Smokeless Tobacco: Never Tobacco Cessation:Ready to Q uit: Yes; Counseling Given: Yes Comments:6-10 cigarettes/day Alcohol Use Standard Drinks/Week Comments Never 0 (1 standard drink = 0.6 oz pur e alcohol) Sex and Gender Information Value Date Recorded Sex Assigned at Male 08/19/2022 2:26 PM EDT Legal Sex Male 6:40 PM EDT Gender Identity Male 08/18/2022 5:55 PM EDT Sexual Orientation Not on file Last Filed Vital Signs Vital Sign Reading Time Taken Comments Blood Pressure 136/80 12/18/2023 10:45 AM EST Pulse 71 12/04/2022 2:27 PM EDT Temperature - - Respiratory Rate - - Oxygen Saturation - - Inhaled Oxygen Concentration - - Weight 78.5 kg (173 lb) 04/01/2024 9:30 AM EST Height 165.1 cm (5' 5 ) 04/01/2024 9:30 AM EST Body Mass Index 28.79 04/01/2024 9:30 AM EST Plan of Treatment Upcoming Encounters Date Type Department Care Team (Late st Contact Info) Description 11/30/2024 1:00 PM EDT Procedure Visit [facility] [address] [place] [phone] Michelle Brasher, POOL LIFEGUARD [address] [facility] [address] [place] [address] [phone] Insurance [employer] MEDICARE ADVANTAGE
--- OUTSIDE RECORDS SUMMARY | 2024-10-28 10:56 | XMS_ITS | Clinical Summary ---
Author Organization [facility] Address [id number] [address] [place] [address] Care Team Providers Care Communication Analyst Name Role Phone Tavo Zavala Primary Care Provider [phone] Allergies Active Allergy Reactions Criticality Noted Date Comments Catnip Hives 09/06/2015 Medications atorvastatin (LIPITOR) 40 mg tablet Take 1 tablet (40 mg total) by mouth in the morning. Active magnesium oxide (MAG-OX) 400 mg tablet Take 1 tablet (400 mg total) by mouth in the morning and 1 tablet (400 mg total) before bedtime. Active amitriptyline (ELAVIL) 25 mg tablet Take 1 tablet (25 mg total) by mouth nightly. Active metoclopramide (REGLAN) 10 mg tablet Take 1 tablet (10 mg total) by mouth in the morning and 1 tablet (10 mg total) at noon and 1 tablet (10 mg total) in the evening and 1 tablet (10 mg total) before bedtime. Active tiZANidine (ZANAFLEX) 4 mg tablet Take 1 tablet (4 mg total) by mouth in the morning and 1 tablet (4 mg total) before bedtime. Active OXcarbazepine (TRILEPTAL) 300 mg tablet Take 1 tablet (300 mg total) by mouth in the morning and 1 tablet (300 mg total) before bedtime. Active trazodone HCl (TRAZODONE ORAL)Indication s:insomnia associated with depression Take 200 mg by mouth nightly Indications: insomnia associated with depression. Active BIOTIN ORAL Take 5,000 mcg by mouth nightly. Active levETIRAcetam (KEPPRA) 500 mg tablet Take 1 tablet (500 mg total) by mouth in the morning and 1 tablet (500 mg total) before bedtime. Active sucralfate (CARAFATE) 1 gram tablet Take 1 tablet (1 g total) by mouth in the morning and 1 tablet (1 g total) at noon and 1 tablet (1 g total) in the evening and 1 tablet (1 g total) before bedtime. 0 Active melatonin 10 mg capsule Take 1 capsule (10 mg total) by mouth nightly as needed. Active aspirin 81 mg Take 1 tablet (81 mg total) by mouth in the morning. Active multivit-min/fe rrous fumarate (MULTI VITAMIN ORAL) Take by mouth. Activ e donepeziL (ARICEPT) 10 mg tablet Take 1 tablet (10 mg total) by mouth nightly. 0 Active memantine (NAMENDA XR) 28 mg capsule,sprinkl e,ER 24hr Take 1 capsule (28 mg total) by mouth in the morning. 0 Active venlafaxine (EFFEXOR) 75 mg tablet Take 1 tablet (75 mg total) by mouth in the morning and 1 tablet (75 mg total) in the evening. Take with meals. 0 Active tamsulosin (FLOMAX) 0.4 mg capsule Take 1 capsule (0.4 mg total) by mouth daily. 10 capsule 1 Active Additional Information Patient taking differently:0.4 mg oral2 times daily, Reported on 07/11/2023 topiramate (TOPAMAX) 100 mg tablet Take 1 tablet (100 mg total) by mouth in the morning and 1 tablet (100 mg total) before bedtime. Active propranolol LA (INDERAL LA) 60 mg 24 hr capsule Take 1 capsule (60 mg total) by mouth in the morning. Active hydrOXYzine (VISTARIL) 25 mg capsule Take 1 capsule (25 mg total) by mouth 3 (three) times a day. Active LYSINE ORAL Take 100 mg by mouth in the morning. Active ascorbic acid (VITAMIN C ORAL) Take by mouth daily. Active dutasteride (AVODART) 0.5 mg capsule Take 1 capsule (0.5 mg total) by mouth in the morning. Active dextromethorpha n-quiNIDine (NUEDEXTA) 20-10 mg capsule Take 1 capsule by mouth nightly. Active Active Problems Problem Noted Date Diagnosed Date Oropharyngeal bleeding 03/18/2017 S/P uvulopalatopharyngoplasty 03/13/2017 LUIS (obstructive sleep apnea) 03/06/2017 Obstructive sleep apnea 11/27/2016 Bilateral hearing loss 11/27/2016 Epistaxis 11/27/2016 Allergic rhinitis 11/27/2016 Chronic fatigue 11/27/2016 Family History * Patient is adopted Medical History Relation Name Comments Heart disease Maternal Grandfather Hypertension Maternal Grandfather Heart disease Maternal Grandmother Alcohol abuse Mother Lung cancer Mother Relation Name Status Comments Maternal Grandfather Maternal Grandmother Mother Social History Tobacco Use Types Packs/Day Years Used Date Smoking Tobacco: Every Day Cigarettes 0.8 30 Smokeless Tobacco: Former Chew Tobacco Cessation:Ready to Q uit: Not Asked; Counseling Given: Not Answered Alcohol Use Standard Drinks/Week Comments Not Currently 0 (1 standard drink = 0.6 oz pur e alcohol) past ETHO abuse, none Childcare Answer Date Recorded Childcare Unknown 07/22/2018 Employment Answer Date Recorded Employment Unknown 07/22/2018 Purpose - Life Answer Date Recorded Purpose and direction in life Unknown Sex and Gender Information Value Date Recorded Sex Assigned at Not on file Legal Sex Male 11:59 AM EDT Gender Identity Not on file Sexual Orientation Not on file Last Filed Vital Signs Vital Sign Reading Time Taken Comments Blood Pressure 118/90 07/11/2023 9:48 AM EDT Pulse 95 07/11/2023 9:48 AM EDT Temperature 37 C (98.6 F) 08/02/2021 3:16 PM EDT Respiratory Rate 18 04/12/2020 4:12 AM EST Oxygen Saturation 98% 07/11/2023 9:48 AM EDT Inhaled Oxygen Concentration - - Weight 77.1 kg (170 lb) 07/11/2023 9:48 AM EDT Height 165.1 cm (5' 5 ) 07/11/2023 9:48 AM EDT Body Mass Index 28.29 07/11/2023 9:48 AM EDT Plan of Treatment Health Maintenance Due Date Last Done Comments Depression Screening 1979 DTaP,Tdap and Td Vaccines (1 - Tdap) 08/25/1986 Zoster (Shingles) Vaccine (1 of 2) 08/25/2017 Adult BMI Screening 07/10/2024 07/11/2023 Tobacco Screening 07/10/2024 07/11/2023 Influenza Vaccine 10/11/2024 12/22/2019, , 12/17/2016, Additional history exists Medical Devices Not on file Insurance [employer] MEDICARE Advance Directives Documents on File Type Date Recorded Patient Senior Infrastructure Architect Expl anation Advance Directive 07/11/2023 9:26 AM POA * Full Code (Latest Code Status on File) Date Activated Date Inactivated Comments 03/18/2017 7:33 AM 03/18/2017 9:47 PM * Full Code Date Activated Date Inactivated Comments 03/06/2017 3:59 PM 03/09/2017 4:56 PM Healthcare Agents on File Name Relationship Healthcare Agent [facility] p Communication Summer Villanueva Significant Other First Alternat e Health Care Agent Care Teams Communication Analyst Relationship Specialty Start Date End Date Tavo Zavala DO PCP - General Internal Medicine 07/26/16
--- OUTSIDE RECORDS SUMMARY | 2024-10-28 10:56 | XMS_ITS | Clinical Summary ---
Author Organization [facility] Address [address] [place] [address], [address] [place] [address] Care Team Providers Care It Software Engineer Name Role Phone Unavailable Primary Care Provider Unavailabl e Social History Tobacco Use Types Packs/Day Years Used Date Smoking Tobacco: Never Assessed Sex and Gender Information Value Date Recorded Sex Assigned at Not on file Legal Sex Male 1:58 PM EST Gender Identity Not on file Sexual Orientation Not on file Plan of Treatment Not on file
--- OUTSIDE RECORDS SUMMARY | 2024-10-28 10:56 | XMS_ITS | Encounter Summary ---
Author Organization [facility] Address [address] [place] [address] Care Team Providers Care Acrobatic Rigger Name Role Phone Maco Mccray DO Unavailable [phone] Dee Bennett LPN Unavailable [phone] Encounter Details Date Type Department Care Team (Late st Contact Info) Description 09/03/2022 Abstract [facility] [address] [facility] [phone] Mode Leonardo MD [address], [place] [id number] Social History Tobacco Use Types Packs/Day Years Used Date Smoking Tobacco: Every Day Cigarettes Smokeless Tobacco: Never Tobacco Cessation:Ready to Q uit: Not Asked; Counseling Given: Not Answered Comments:6-10 cigarettes/day Alcohol Use Standard Drinks/Week Comments Never 0 (1 standard drink = 0.6 oz pur e alcohol) Sex and Gender Information Value Date Recorded Sex Assigned at Male 08/19/2022 2:26 PM EDT Legal Sex Male 6:40 PM EDT Gender Identity Male 08/18/2022 5:55 PM EDT Sexual Orientation Not on file documented as of this encounter Plan of Treatment Upcoming Encounters Date Type Department Care Team (Late st Contact Info) Description 11/30/2024 1:00 PM EDT Procedure Visit [facility] [address] [facility] [address] Michelle Brasher, SEWER TAPPER [address] [place] [address] documented as of this encounter Visit Diagnoses Not on filedocumented in this encounter Care Teams Acrobatic Rigger Relationship Specialty Start Date End Date Maco Mccray DO [address] [facility] [address] [place] [address] PCP - [employer] 02/10/22 04/16/24 Dee Bennett LPN [address] [facility] [address] [place] [address] Licensed Practical Nurse Family Medicine 05/20/2305/27 documented as of this encounter
--- OUTSIDE RECORDS SUMMARY | 2024-10-28 10:56 | XMS_ITS | Clinical Summary ---
Author Organization [facility] Address [address] [place], [place] [address] Care Team Providers Care Cutter Grinder Name Role Phone Tavo Zavala DO Primary Care Provider [phone] Michelle Brasher RN Unavailable [phone] Allergies Active Allergy Reactions Criticality Noted Date Comments Catnip Hives 09/06/2015 Social History Tobacco Use Types Packs/Day Years Used Date Smoking Tobacco: Former Cigarettes Q uit: 05/07/2015 Alcohol Use Standard Drinks/Week Comments No 0 (1 standard drink = 0.6 oz pur e alcohol) no drinks in 5 yrs Sex and Gender Information Value Date Recorded Sex Assigned at Not on file Legal Sex Male 12:25 PM EDT Gender Identity Not on file Sexual Orientation Not on file Last Filed Vital Signs Vital Sign Reading Time Taken Comments Blood Pressure 123/83 09/06/2015 2:51 PM EDT Pulse 71 09/06/2015 2:51 PM EDT Temperature 36.6 C (97.9 F) 09/06/2015 12:52 PM EDT Respiratory Rate 18 09/06/2015 2:51 PM EDT Oxygen Saturation 98% 09/06/2015 2:51 PM EDT Inhaled Oxygen Concentration - - Weight 86.2 kg (190 lb) 09/06/2015 12:52 PM EDT Height - - Body Mass Index - - Plan of Treatment Health Maintenance Due Date Last Done Comments Anxiety Screening 08/25/1985 Depression Screening 08/25/1985 HIV Screening 08/25/1985 Hepatitis C Screening 08/25/1985 DTaP,Tdap,Td Vaccine (1 - Tdap) 08/25/1986 Hepatitis B Vaccine (1 of 3 - 19+ 3-dose series) 08/25/1986 Lipid Screening 08/25/2002 CT Colonography 08/25/2012 Cologuard (FIT-DNA) 08/25/2012 Colonoscopy 08/25/2012 Colorectal Cancer Screening 08/25/2012 Fecal Occult Blood 08/25/2012 Prostate Cancer Screening Discussion 08/25/2012 Sigmoidoscopy 08/25/2012 Pneumococcal Vaccine: 50+ (1 of 1 - PCV) 08/25/2017 Shingrix Vaccine (1 of 2) 08/25/2017 Diabetes Screening 01/18/2021 01/18/2018, 0 03/07/2017, 02/18/2017, Additional history exists Influenza Vaccine (#1) 2024 Procedures Procedure Name Priority Date/Time Associated Diagnosis Comments BASIC METABOLIC PANEL STAT 09/06/2015 1:20 PM EDT from Last 3 Months or Most Recently Relevant to Health Maintenance Results * (ABNORMAL) BASIC METABOLIC PNL (09/06/2015 1:20 PM EDT) Glucose 125(H) 65 - 100 mg/dL 09/06/2015 1:54 PM EDT [facility] BUN 11 10 - 25 mg/dL 09/06/2015 1:54 PM EDT [facility] Creatinine 0.94 0.70 - 1.40 mg/dL 09/06/2015 1:54 PM EDT [facility] Sodium 139 135 - 146 mmol/L 09/06/2015 1:54 PM EDT [facility] Potassium 3.6 3.5 - 5.0 mmol/L 09/06/2015 1:54 PM EDT [facility] Chloride 103 98 - 110 mmol/L 09/06/2015 1:54 PM EDT [facility] CO2 24 23 - 32 mmol/L 09/06/2015 1:54 PM EDT [facility] Anion Gap 12 0 - 15 mmol/L 09/06/2015 1:54 PM EDT [facility] Calcium 9.0 8.5 - 10.5 mg/dL 09/06/2015 1:54 PM EDT [facility] eGFR- >60 09/06/2015 1:54 PM EDT [facility] eGFR-All Other Races >60 . 09/06/2015 1:54 PM EDT [facility] Comment: eGFR (Estimated GFR) Units of measure: mL/min/1.73 meters squared eGFR is derived from the reexpressed MDRD Study equation using the following parameters: serum creatinine, age, gender and race. The creatinine assay has been calibrated to be traceable to IDMS. An eGFR <60 mL/min/1.73m2 for >3 months is consistent with chronic kidney disease. Refer to KDOQI guidelines for clinical interpretation. In patients with unstable renal function, e.g. those with acute kidney injury, the eGFR may not accurately reflect actual GFR. Blood specimen (specimen) BLOOD SPECIMEN / Unknown 09/06/2015 1:20 PM EDT 09/06/2015 1:32 PM EDT Lena Duque PA-C LABORATORY Final Result [facility] [address] [place] [address] from Last 3 Months or Most Recently Relevant to Health Maintenance Insurance [employer] MEDICARE Care Teams Cutter Grinder Relationship Specialty Start Date End Date Tavo Zavala DO PCP - General Internal Medicine 09/06/15 Michelle Brasher, ODALYS Referring Neurology 09/30/18
--- OUTSIDE RECORDS SUMMARY | 2024-10-28 10:56 | XMS_ITS | Encounter Summary ---
[facility] Organization [id number] [address] [place] [address] Care Team Providers Care Typecasting Machine Operator Name Role Phone Tavo Zavala DO Primary Care Provider [phone] Encounter Details Date Type Department Care Team (Late st Contact Info) Description 07/11/2023 Orders Only [facility] [address] [place] [address] External, Scanning Provider Social History Tobacco Use Types Packs/Day Years Used Date Smoking Tobacco: Every Day Cigarettes 0.8 30 Smokeless Tobacco: Former Chew Alcohol Use Standard Drinks/Week Comments Not Currently [...] on file documented as of this encounter Procedures Procedure Name Priority Date/Time Associated Diagnosis Comments CT LOW DOSE LUNG SCREENING Routine 07/02/2023 2:07 PM EDT BASIC METABOLIC PANEL Routine 07/01/2023 2:06 PM EDT MULTIPLE LABS Routine 05/15/2023 1:54 PM EDT LIPID PROFILE Routine 12/11/2022 2:05 PM EDT MULTIPLE LABS Routine 12/11/2022 2:04 PM EDT ECG 12-LEAD Routine 09/30/2022 2:11 PM EDT ECG 12-LEAD Routine 02/13/2022 2:10 PM EST ECG 12-LEAD Routine 11/30/2021 2:09 PM EDT NUC STRESS LEXISCAN/EXERCISE Routine 10/22/2021 1:53 PM EDT ECG 12-LEAD Routine 06/27/2021 2:09 PM EDT ECHO COMPLETE WO CONTRAST Routine 09/06/2019 1:49 PM EDT NUC STRESS LEXISCAN/EXERCISE Routine 06/21/2015 1:52 PM EDT NON [facility] Routine 03/30/2010 2:12 PM EST NUC STRESS LEXISCAN/EXERCISE Routine 07/07/2007 1:51 PM EDT documented in this encounter Results * CT low dose lung screening (Annual) (07/02/2023 2:07 PM EDT) Anatomical Region Laterality Modality Body, Lung, Chest, Body Covera C omputed Tomography us Scanning Provider External IMG CT ORDERABLES Fin al Result * Basic Metabolic Panel (07/01/2023 2:06 PM EDT) us Scanning Provider External LAB BLOOD ORDERABLES Final Result Performing Organization Address [facility] de Phone Number MANUALLY TRANSCRIBED RESULTS * Multiple labs (05/15/2023 1:54 PM EDT) us Scanning Provider External [place] IMAGING Final Result Performing Organization Address [facility] de Phone Number MANUALLY TRANSCRIBED RESULTS * Lipid profile (12/11/2022 2:05 PM EDT) External Cholesterol 165 MANUALLY TRANSCRIBED RESULTS External Cholesterol:Hdl 3.5 MANUALLY TRANSCRIBED RESULTS External Hdl Cholesterol 46 MANUALLY TRANSCRIBED RESULTS External Ldl (Calc) 92 MANUALLY TRANSCRIBED RESULTS External Triglycerides 137 MANUALLY TRANSCRIBED RESULTS External Very Low Lipoprotein 27 MANUALLY TRANSCRIBED RESULTS us Scanning Provider External LAB BLOOD ORDERABLES Edited Result - Final Performing Organization Address [facility] de Phone Number MANUALLY TRANSCRIBED RESULTS * Multiple labs (12/11/2022 2:04 PM EDT) us Scanning Provider External [place] IMAGING Final Result Performing Organization Address [facility] Phone Number MANUALLY TRANSCRIBED RESULTS * ECG 12 lead (09/30/2022 2:11 PM EDT) us Scanning Provider External ECG ORDERABLES Final Result Performing Organization Address [facility] Phone Number MANUALLY TRANSCRIBED RESULTS * ECG 12 lead (02/13/2022 2:10 PM EST) us Scanning Provider External ECG ORDERABLES Final Result Performing Organization Address [facility] Phone Number MANUALLY TRANSCRIBED RESULTS * ECG 12 lead (11/30/2021 2:09 PM EDT) us Scanning Provider External ECG ORDERABLES Final Result Performing Organization Address [facility] Phone Number MANUALLY TRANSCRIBED RESULTS * Nuc stress Lexiscan/Exercise (10/22/2021 1:53 PM EDT) Anatomical Region Laterality Modality Chest N/A Nuclear Medicine us Scanning Provider External CV STRESS ORDERABLES Final Result * ECG 12 lead (06/27/2021 2:09 PM EDT) us Scanning Provider External ECG ORDERABLES Final Result Performing Organization Address [facility] Phone Number MANUALLY TRANSCRIBED RESULTS * Echo complete W/O contrast (09/06/2019 1:49 PM EDT) Anatomical Region Laterality Modality Chest N/A Ultrasound us Scanning Provider External CV ECHO ORDERABLES Fi nal Result * Nuc stress Lexiscan/Exercise (06/21/2015 1:52 PM EDT) Anatomical Region Laterality Modality Chest N/A Nuclear Medicine us Scanning Provider External CV STRESS ORDERABLES Final Result * Non [facility] (03/30/2010 2:12 PM EST) Anatomical Region Laterality Modality N/A Other us Scanning Provider External CV CARDIAC SERVICES O RDERABLES Final Result * Nuc stress Lexiscan/Exercise (07/07/2007 1:51 PM EDT) Anatomical Region Laterality Modality Chest N/A Nuclear Medicine us Scanning Provider External CV STRESS ORDERABLES Final Result documented in this encounter Visit Diagnoses Not on filedocumented in this encounter Care Teams Typecasting Machine Operator Relationship Specialty Start Date End Date Tavo Zavala DO PCP - General Internal Medicine 07/26/16 documented as of this encounter
--- OUTSIDE RECORDS SUMMARY | 2024-10-28 10:56 | XMS_ITS | Encounter Summary ---
Author Organization [facility] Address [facility] [id number] [place] [address] Care Team Providers Care Time Clerk Name Role Phone Tavo Zavala DO Primary Care Provider [phone] Encounter Details Date Type Department Care Team (Late st Contact Info) Description 09/17/2023 Orders Only [facility] [address] [place] [id number] Agnes Ware CMA Chest pain, unspecified type Social History Tobacco Use Types Packs/Day Years [...] Procedure Name Priority Date/Time Associated Diagnosis Comments XR CHEST 2 VWS Routine 09/17/2023 11:13 AM EDT ECG 12-LEAD Routine 09/17/2023 11:[address] ABDOMEN AND PELVIS W CONT Routine 09/17/2023 11:05 AM EDT MULTIPLE LABS Routine 09/17/2023 11:04 AM EDT BASIC METABOLIC PANEL Routine 09/08/2023 Chest pain, unspecified type documented in this encounter Results * X-ray chest 2 views (09/17/2023 11:13 AM EDT) Anatomical Region Laterality Modality Body, Chest N/A Computed Radiogr aphy us Scanning Provider External IMG DIAGNOSTIC IMAGIN G ORDERABLES Final Result * ECG 12 lead (09/17/2023 11:07 AM EDT) us Scanning Provider External ECG ORDERABLES Final Result Performing Organization Address [facility] de Phone Number MANUALLY TRANSCRIBED RESULTS * CT abdomen and pelvis with contrast (09/17/2023 11:05 AM EDT) Anatomical Region Laterality Modality Body, Abdomen, Body Covera N/A Compu alfonso Tomography us Scanning Provider External IMG CT ORDERABLES Fin al Result * Multiple labs (09/17/2023 11:04 AM EDT) us Scanning Provider External [place] IMAGING Final Result Performing Organization Address [facility] de Phone Number MANUALLY TRANSCRIBED RESULTS * Basic Metabolic Panel (09/08/2023) 09/08/2023 us Khris Mckeon MD LAB BLOOD ORDERABLES Final Res ult Performing Organization Address [facility] de Phone Number SUNQUEST documented in this encounter Visit Diagnoses Diagnosis Chest pain, unspecified type documented in this encounter Care Teams Time Clerk Relationship Specialty Start Date End Date Tavo Zavala DO PCP - General Internal Medicine 07/26/16 documented as of this encounter
--- OUTSIDE RECORDS SUMMARY | 2024-10-28 10:56 | XMS_ITS | Encounter Summary ---
Author Organization [facility] Address [facility] [id number] [address] [place] [address] Care Team Providers Care [place] Boatman Name Role Phone Tavo Zavala DO Primary Care Provider [phone] Encounter Details Date Type Department Care Team (Late st Contact Info) Description 03/07/2017 Documentation [facility] [address] [place] [address] Luis Tim MD PhD [address] [id number] RETIRED 09/10/2023 [place] [address] Social History Tobacco Use Types Packs/Day Years Used Date Smoking Tobacco: Every Day Cigarettes 0.3 30 Smokeless Tobacco: Never Alcohol Use Standard Drinks/Week Comments No 0 (1 standard drink = 0.6 oz pur e alcohol) past ETHO abuse Sex and Gender Information Value Date Recorded Sex Assigned at Not on file Legal Sex Male 11:59 AM EDT Gender Identity Not on file Sexual Orientation Not on file documented as of this encounter Plan of Treatment Not on file documented as of this encounter Visit Diagnoses Not on filedocumented in this encounter Care Teams [place] Boatman Relationship Specialty Start Date End Date Tavo Zavala DO PCP - General Internal Medicine 07/26/16 documented as of this encounter
--- OUTSIDE RECORDS SUMMARY | 2024-10-28 10:56 | XMS_ITS | Encounter Summary ---
Author Organization [facility] Address [facility] [place] [id number] [place] [address] Care Team Providers Care Fruit Worker Name Role Phone Tavo Zavala DO Primary Care Provider Encounter Details Date Type Department Care Team (Late st Contact Info) Description 08/11/2023 Orders Only [facility] [address] [place] [phone] Sandra Christensen RN Chest pain, unspecified type (Primary Dx) Social History Tobacco Use Types Packs/Day Years [...] on file documented as of this encounter Results * Basic Metabolic Panel (09/08/2023) 09/08/2023 us Khris Mckeon MD LAB BLOOD ORDERABLES Final Res ult SUNQUEST documented in this encounter Visit Diagnoses Diagnosis Chest pain, unspecified type- Primary documented in this encounter Care Teams Fruit Worker Relationship Specialty Start Date End Date Tavo Zavala DO PCP - General Internal Medicine 07/26/16 documented as of this encounter
--- OUTSIDE RECORDS SUMMARY | 2024-10-28 11:11 | XMS_ITS | CCD ---
Author Organization [facility] Inform ion Partnership [facility] Care Team Providers Care Plant Guide Name Role Phone DR DESIREE BATISTA Attending Unavailable DR DESIREE BATISTA Admitting Unavailable DAMIÁNT, SUSAN Primary Care Physician Damiánt, DO Susan Primary Care Provider MD Boogie Trotter Admit Provider [phone] MD Boogie Trotter Attending Provider [phone] MUMMERT, SUSAN Referring Unavailable MUMMERT, SUSAN Primary Care Unavailable KHRIS MCKEON Attending Unavailable MUMMERT, SUSAN Referring Unavailable MUMMERT, SUSAN Primary Care Unavailable Mummert, DO Susan Primary Care Provider MD Matthew Meyer Attending Provider KHRIS MCKEON Attending Unavailable KHRIS MCKEON Referring Unavailable MUMMERT, SUSAN Primary Care Unavailable Mummert, DO Susan Primary Care Provider MD Matthew Meyer Attending Provider [phone] Maco Mccray DO Unavailable [phone] Susan Zavala DO Primary Care Provider Matthew Meyer MD Attending Provider [phone] Buster Keene MD Attending Provider [phone] Sunitha Chan MD Attending Provider Buster Keene MD Other Provider Chu Florence MD Attending Provider Mummert DO, Susan Primary Care Provider Unavailable Primary Care Provider UnavailMICHELLE Todd Attending Unavailab le GRAZIANI, MICHELLE Shell Attending Unavailab le GRAZIANMichelle, MICHELLE Shell Attending Unavailab le GRAZIANI, MICHELLE Shell Attending Unavailab le GRAZIANI, MICHELLE Shell Attending Unavailab le GRAZIANI, MICHELLE Shell Attending Unavailab le Mummert, Susan Primary Care Unavailable Bakhous, Aziz Admitting Unavailable Bakhous, Aziz Attending Unavailable Mummert, Susan Primary Care Unavailable Keene, Buster Admitting Unavailable Keene, Buster Attending Unavailable Mummert, Susan Primary Care Unavailable Mitch, Matthew Admitting Unavailab le Mitch, Matthew Attending Unavailab le Mummert, Susan Primary Care Unavailable Bakhous, Aziz Admitting Unavailable Bakhous, Aziz Attending Unavailable Keene, Buster Consulting Unavailable Chu Florence Admitting Unavailable Chu Florence Attending Unavailable Mummert, Susan Primary Care Unavailable KEENE, Buster R Attending Unavailable KEENE, [...] Attending Unavailable Orzech, Drea X Attending Unavailable Mummert DO, Susan Primary Care Unavailable Mummert DO, Susan Attending Unavailable Veliz PAC, Bunny Rosenberg Admitting Unavailable Mummert DO, Susan Primary Care Unavailable Veliz PAC, Bunny Rosenberg Attending Unavailable Mummert DO, Susan Primary Care Unavailable Mummert DO, Susan Attending Unavailable Mummert DO, Susan Admitting Unavailable Mummert DO, Susan Primary Care Unavailable Orzech INTERIOR DESIGN DIRECTOR-WASTE MACHINE OPERATOR-C, Drea Attending Unavai lable Orzech INTERIOR DESIGN DIRECTOR-WASTE MACHINE OPERATOR-C, Drea Admitting Unavai lable Mummert DO, Susan Primary Care Unavailable Orzech INTERIOR DESIGN DIRECTOR-WASTE MACHINE OPERATOR-C, Drea Attending Unavai lable Orzech INTERIOR DESIGN DIRECTOR-WASTE MACHINE OPERATOR-C, Drea Admitting Unavai lable Bakjose antonio, Sunitha Attending Unavailable Bakhous, Aziz Admitting Unavailable Mummert DO, Susan Primary Care Unavailable Mummert DO, Susan Primary Care Unavailable Mummert DO, Susan Attending Unavailable Mummert DO, Susan Primary Care Unavailable Mummert DO, Susan Attending Unavailable Mummert DO, Susan Primary Care Unavailable Mummert DO, Susan Attending Unavailable Allergies Allergy Classification Reported Allergen(s) [...] Start: 09-03-2023 take 1 tablet by sushma once daily Ascorbic Acid (Vitamin C) 500 [...] mg oral capsule (15 sources) Antiarrhythmic, Uncompetitive A-wjgyxo-F-aspartate Receptor Antagonist, Cytochrome P450 2D6 Inhibitor, Sigma-1 Agonist Start: 06-02-2023 take 1 capsule by mouth at bedtime Dextromethorphan-q uiNIDine 20-10 MG capsule Take 1 capsule by mouth at bedtime 06/02/2023 Active take 1 capsule by [facility] once daily dextromethorphan-quiNIDine (NUEDEXTA) 20 -10 mg [...] Daily, # 30 cap(s), Refills(s) 11, Pharmacy: [facility], 167, cm, 03/31/24 9:37:00 EST, Height/Length Dosing, 78.7, kg, 03/31/24 9:37:00 EST, Weight Dosing Start Date: 05/10/24 Status: Ordered Quantity: 30.0 Unit: cap(s) Repeat number: 12 levETIRAcetam 500 mg oral tablet (20 sources) Start: 022 End: 025 take 1 tablet by mouth in [...] 1 Start: 10-27-2018 take 1 capsule by [facility] once daily Lipoflavonoid 1 cap(s), Oral, Daily, [...] sources) Start: 09-03-2023 take 1 capsule by [facility] at bedtime Magnesium 400 MG capsule Take [...] mg extended release oral capsule (20 sources) C-hedbqx-W-aspart ate Receptor Antagonist Start: 06-24-2019 End: 10-23-2023 take 1 capsule by mouth every twenty-four hours in the morning Memantine HCl ER 28 MG capsule sustained-release 24 hr Indications: Mild cognitive impairment Take 1 capsule by mouth in the morning. 90 capsule 3 10/23/2022 Active Start: 10-27-2018 take 1 capsule by [facility] once daily memantine 28 mg oral capsule, [...] 1 tablet by sushma th once daily Nature's Bounty Probiotic 1 tab(s), Oral, Daily, Refill(s) 0 Start Date: 10/27/18 Status: Ordered omeprazole 20 mg delayed release oral capsule (20 sources) Proton Pump Inhibitor Start: 09-03-2023 omeprazo le 20 mg Cap-DR Refills(s) 0 Start Date: 09/10/23 Status: Ordered Repeat number: 1 Start: 09-01-2023 take 1 tablet by sushma th once daily Omeprazole 20 MG tablet delayed-release Take 1 tablet by mouth Daily 09/01/2023 Active 24 hr propranolol hydrochloride 60 mg extended release oral capsule (20 sources) beta-Adrenergic Kermit Start: 05-13-2023 End: 11-12-2023 propranolol 60 mg Cap-ER Refills(s) 0 Start Date: 05/13/23 Status: Ordered Repeat number: 1 take 1 capsule by [facility] every twenty-four hours in the morning propranolol [...] hrs., # 30 tab(s), Refills(s) 5, Pharmacy: [facility], 167, cm, 03/31/24 9:37:00 EST, [...] activity, # 30 tab(s), Refills(s) 2, Pharmacy: [facility], 167, cm, 06/12/21 12:14:00 [...] BID, # 180 cap(s), Refills(s) 3, Pharmacy: [facility], 167, cm, 03/31/24 9:37:00 EST, Height/Length Dosing, 78.7, kg, 03/31/24 9:37:00 EST, Weight Dosing Start Date: 05/10/24 Status: Ordered Quantity: 180.0 Unit: cap(s) Repeat number: 4 Start: 06-27-2021 End: 04-23-2024 take 1 capsule by mouth twice daily Flomax 0.4 mg Cap 0.4 mg = 1 cap(s), Oral, BID, X 90 day(s), # 180 cap(s), Refills(s) 3, Pharmacy: [facility], 167, cm, 06/12/21 12:14:00 EDT, Height/Length Dosing, 80.3, kg, 06/12/21 12:14:00 EDT, Weight Dosing Start Date: 04/29/23 Stop Date: 04/23/24 Status: Ordered Start: 06-12-2021 take 1 capsule by ia ut twice daily Flomax 0.4 mg Cap 0.4 mg = 1 cap(s), Oral, BID, # 30 cap(s), Refills(s) 3, Pharmacy: [facility], 167, cm, 06/12/21 12:14:00 EDT, Height/Length Dosing, 80.3, kg, 06/12/21 12:14:00 EDT, Weight Dosing Start Date: 06/12/21 Status: Ordered Start: 04-12-2020 End: 07-11-2023 take 1 capsule by mouth once daily tamsulosin (FLOMAX) 0.4 mg capsule Take 1 capsule (0.4 mg total) by mouth daily. 10 capsule 04/12/2020 Active take 1 capsule by mo [facility] every twelve hours tamsulosin (Flomax) 0.4 MG [...] Active Start: 03-11-2024 take 1 tablet by [facility] twice daily as needed for muscle spasms [...] Discontin ued 150 MG PO Twice daily 30 July 01, 2021 12:00am November 12, 2023 10:54am Start: 07-03-2019 take 1 tablet by sushma th in the morning, then take 1 tablet [...] 10:35am Start: 10-27-2018 take 1 capsule by [facility] once daily venlafaxine 150 mg Cap-ER 150 mg = 1 cap(s), Oral, Daily, Refills(s) 0 Start Date: 10/27/18 Status: Ordered Repeat number: 1 Start: 10-27-2018 take 1 capsule by mo [facility] once daily venlafaxine 150 mg Cap-ER 150 mg = 1 cap(s), Oral, Daily, Refills(s) 0 Start Date: 10/27/18 Status: Ordered Completed/Discontinued Medications Medication Drug Class(es) Dates Sig (Normalized) Sig (Original) acetaminophen 325 mg / HYDROcodone bitartrate 10 mg oral tablet (6 sources) Opioid Agonist Start: 11-03-2018 End: 06-27-2021 Hydrocodone-Acetami nophen 10-325 mg tablet Discontinued 1 TAB PO As Directed November 02, 2018 11:00pm June 27, 2021 7:14pm biotin 10 mg oral tablet (20 sources) Start: 10-23-2022 End: 10-23-2023 take 1 tablet by mouth once biotin 76719 MCG tablet Indications: Mild cognitive impairment , [...] procedure., # 2 cap(s), Refills(s) 0, Pharmacy: [facility], 167, cm, 06/12/21 12:14:00 [...] completed., # 2 cap(s), Refills(s) 0, Pharmacy: [facility], 167, cm, 03/31/24 9:37:00 EST, [...] 1 take 1 capsule by mo [facility] three times daily hydrOXYzine (VISTARIL) 25 mg [...] Daily, # 30 tab(s), Refills(s) 11, Pharmacy: 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 [address] Additional Instructions: sched TURP Patient Education Transurethral Resection of the Prostate, Care After Transurethral Resection of the Prostate Steps to Quit Smoking IKera, personally scribed for Dr. Keene on 10/06/2024 10:15:30. . Documentation recorded by the scribe, Kera Elam, accurately reflects the services(s) I performed and decisions made by me. Authenticated by Dr. Keene on 10/06/2024 10:17:55. 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 Normal [facility] Comment on above: Result Comment: Elec tronically Signed By: YECENIA BUSTILLO, Buster Tinoco\.br\Date and Time Signed: 10/06/24 10:18 EDT\.br\Electronically Co-Signed By: Kera Elam\.br\Date and Time Co-Signed: 10/06/24 10:16 EDT Coding Summaryon 07-27-2024 Coding Summary HTMLBase 64 ZhylunhyRAs8eLt+PGhlYWQ+PE1 LVDXxY14phNOubC0oO9NDFAmXAo dcJRSPUNbQBgSfgcSlAO9xfGKbH XJu IC8+QG8vNTTuIpvxaMJxc0L7hLR 9T95pal2iUBrknUK7XKGfLkEjdc kug8occTr6ZXwxPkwfOtQv HXDwaP28ERD2jE02Jv64vINzrUL rg0iwpIh5RsTdHFXcCUL7cParDT hxi2NyPSFdJ04aoMTgf1P3 HYIzuVmmrBGuUeUztBO2zL0eUGy ttoqly4ukappxLfy7aq32jGPoc1 N5xVI2H6YhrqG9ONIfjCMj GuhvpOZVoV4gjsruj1vsukscPfJ iWUTbCAf5NWh3QZZfzZweWbIkYV 10BZM6UWWspsTxX8WfLKTo yZphXxW1x4T8Wq0YE4NPTvlvH6L NTUFSWTwvdGQ+DQ70xd09Z6IbTh tiJyk7FSHiBSV3oFE6hF2j GMPwOXmio3J3kML1I2SmvvVgqs8 ln5zyMGBhWGqgT06flMJzx4Y0UH EuqEZ6VIKbkOamSfUnwB23 Oyc+EHZbfPfqa9VvFxkwo0uiq9i piKd3QtizZSIxwyOriOrpUYT5x7 OvCs9dCTMykON1oYO5dE2s DuLrBwR1NMzxS173HsQdmMXcKdk aX77gJ7EdxKG+RMGeOcs1WWShoW vzUX2qX6AhPSSehuxcxGPx pIbzHU2sDCPbsnozJFBwiN8sKIM uV0u7ZzKfSxU3FAprL0NkIECsxn ahSi01lZ6mRtBsDpC9NLse S2UjgjJ8JNMgxEGlSEcbFUU7M31 hu6Q2LFVxPXBePLZ8bFU0bS8mhK lnbjogbGVmdDsgdmVydGlj MHzkHPjkU187WZNrvHhvPiDzAMs uZyBEYXRlOiAgMDYvMTcvMjAyNT wvdGQ+UFIbEIC2uZvmWIXw aIHlRHuyJs0mqZyufXjhAO4wWVB qndpnXXTxdY7rMMTrrAPacRrvLU 3yHZSeoryyh259LsBqDGZ9 NCTkgDSxB6FshE9jNqBuSOIfCHC kW3XazVHpXGcfV208UIovPyR0EO GdajOdV7LrFQMfpRkuTbA4 e7B2Ed2Gd0KqjoztP4LyzFVfTuU dJjsnWZa6D4QdSgjchIC+PC90YW ZsRB43VAv6RVF0qFosFCqc BYMdX7YefV9jXkNhNENnOQFtFsr +PHRhYmxlIHdpZHRoPScxMDAlJy YzaIuyDO4vPd7gDEMgPUIz jQoayWWtYiSpv0auZBCpHNhbGY5 jiWegQ4OjuIO3ZLAfv2d3St43L2 1vF1UzfDA+PCHijNO9bUZ6 pB7mYdPpGeY4AHctD898RqWeaKV mCxpwe4nbe1jlcCo0EdX1ULSyuq CblAwwOWO9f9BrMw90E42t IHdpZHRoPSIxNSUiIHZhbGlnbj0 qoI9pZe0+GVUjqVL8cSB3fH3lFq XfHrW7QJeoR315WuDttLYh Plwdu8zmf2ubeWz0BbHvDPLjxxW hmGkyVUU8m7LtVy84K9SdkNoaa5 HlFbr4ov75rYXov6R3eZQ5 T9SlVJJibsqnpQJprFmxGP1bLSY efzjtJLNgdF2zARUiR0l7IsWzPq M4QNqsO8NchsD9XPVnpFNx GCSpmAGJbD5ghoupc3bumqafEdP oVMJcPTn2KRl4OXEezMlqKhXeSH T7DrG0TXL2mXYyrB3upYry voghpH0dOkn+BAT7eIKbkFNMUF0 lOjwvdGQ+JAFlPLA7dMuqGKpdFS QrvD0tKULqO0z4DiQxUjD5 YVhlF3DcptE1WJOliIMmZRQsgZI HfO7idirlv3otunhzDiRlXVSfZM p1MKm2ZVXvxMwzNvDqJOT0 DrZ7BFH2aHXeiV2edJqnkgxrhV2 wOyc+ShkukYfiTTW8PLz6K7HdIw r9KSNrdInzJT7qcAReHEvt Nq6ooIrvdSfrEP1wDMLsozsoe12 0CvJns8stFGNalRZiJXlfMJB7Y3 9no0E1ZTLpLLJtEQN3gAE5 pI2snJzvdfaxpPGvnVgttqLcsZh sKWgmPOruH928QCWmkGvrFbEbUF f7F3CtKyw0NANzcMolUA8b hJEiBKqyCd1hiPbrhPbnPJ7eESV fdetlc262LsOnm2geCUKigZXjZN ovDEV9V02gf5C4ZDSuVLUc BAY9uUG5tP3ytQxysxvkyRHmoBt kjdEqoCuzTPhcJIweD518CUHegK noPfNfmPi2R6KsRvg9KHVp dMauJX8ogCBlKKqcGd2heVspdFf aRB3xAZNtwadfp072YxBlb7qqVF UobUVkJTywKGC2K56hj0N3 PLQcTKTeIXU1xZY1hL7zpJwwuhh gbGVmdDsgdmVydGljYWwtYWxpZ2 46IHRvcDsnPlBhdGllbnQg GQewMSx2P8AnPsqvrWP+TH06KMN bDR96pHXdaCGbx5kehHr7NvXvHS FfNAH8tKxkPVsmk5TlUVCx W37bfMTdd4J3MFIlhJhpfYHbXjK svNL0pH7vQMxseabws5ytsrclXk zkl2cywv81vO08Y39nYEab QEJqYHRjFOIvFYXwqRxomk0kuG8 wIi8+PJUmkMU3jQV3lJ7sITVpBx U9XVeoZ070VpGmlNBuStzo u4han6zhgKa8UdJ9GMRqcsZyvEa eAPL6b2XuRx69Q84aYNmzPMNyMN PfDJNyMGNwlOsfpl6kcW8u Ii8+NCMtgFX2eYG5tE9zSdAuWpE 1EYavB217SqFlaJIbFxnjG58gX3 JvdXA+OEJqKwf0EJTscSon VW5spSZyNPkoAi1rBLK7ToKqIpP gNAquX3JnKXNbgvzqftledSJ9GA UqEOVuvT91Xw6eeDdeSGKl qEYFiP4cvwzlf8xvchczUwYeGAN rMGc0GTf7ANVgdOvhRzIgXPN0Qt E3YMZ5sUUzsR9ixLlnccxa lV4lN7TxRDDkevvmFw09oL2xGwK bFxU9GZbfWtu+UllGLCBXSUxMSU VFQKt5X9EtWph3RFAfdFtc QC5ybWSiLGhzGn9fcQrogQevVP4 eHMCacayoHTRxnV8rGWStzPZxjE hvAD5qYWLprichi833FoXn RRN4HNIrwVPqT1KkzK7oErXtHTP uCHSeK5QpqWVaJGmcA572ORuzXy R8IALvdqGzJ3PxJSXupQwt FrE5k2P6Ex7hMg1wXy0fNSA8LH5 2WI24uOHxh2B2uEP9R4MqTMMdor tmivrvyJD6NNSrQBRgyN32 dZLmITceHj1bn5S0o396DLPfWRM yiQ23Ge5ztRwwPAIlfUWGrU4pcr wth1trrumvJuGfCMGiKBv3 SBy9QBCvnUyaIlCaHFW3WxY5PJK 3cJRkrG2yaWjfcypbnW7pDak+NT PxJSSxjgP2G4MlEcx8ZIUj sJjqIC0oxTSaAEdfNk9qhHuuwCq kSP5zIPAzjbtjOAWnmB6zZZGzeL BybHtnJG0wVWMheqtqy345 NcYeRJM4EIAjbENjR1SekB0sNtX eNMMzRIMgT4YcuMYqJAerW477ZC cvPuM7FLXvhhYdQ2YmFKSj yHrjFqA8r1J2Sx4KSBdPXK24NL0 0sZOic5G7dCF1B3CnSAYgmqxrvq bsrDJ9UIYyIHFbzO01lFJq KRpuDn8ph7J6d799WKZoFODiuC1 3Vn3ylDvvJXCojKPOeM2pdnihx9 hejlqtTuFdVEEhQWw7YAu3 NVAbaKujCzOwUEF6WgK0EMP7aXP gtB8kuQwflhyujQ3iYsj+T1A8L3 RkPjwvdHI+DB29CNZhMS32 xBLgzGYao3potCj4NzDcCQEhLSY 1nHupLTkuk4IyYBWiB29xfOEqr6 C3BUFjzPkspEYxHvQkjIU6 fD1wRWbwktsxf7kczwysOyhnj9q rhn29vJ26B39pXYobGBCbMBCbYW TqSPAlgDfpty9rfA7pBm0+ XEZxoCJ7gJY0yE8oNyGuDiY7EJe pQ135JjZnpSEiOhrzy0dbs9hzqO r8QbOwKQOamaQhpXexWNK2 a1ZiPk32C54sNExbKADlTSMeXJB xVNKycUkatc8alX8jYj5+PC9jb2 cufu77aZ20gQO+PHRkIHN0 tCgxUOxyIGJfsZ8uCTijVxC1KAE fTtZdwQ01yDNpKPmmMa4vwKxvyC enRT4dAQSediwrm229PdPx q5rqBUMvaQWsXJjiQLF0G89tf4L 7MVPxZQGhUYD9pNW9iM2qhCjpjc ogbGVmdDsgdmVydGljYWwt SPovM005NSNsjVijYmDypANgL4k pvqRBWY9uBzjubTN+DTZrZQJ3zI oxSLdlRIYmrI0vBYTcZ8m9 KbJmAyV0RWxmX2QlbiR1OTCqqDE jOAHnzHJJqG2yipbrc1zhphuqXw MsKDGhCYb1DNg0XPNldXqj EgNqLBK8HiK8NXW1aFRhyS2caWg zyirkyD7nZer+RklOOjwvdGQ+PH WwLDL7qQcyRSblTTFoaO5p BTWsZ0m1GqSsYeG0LNzzS3YeeuG 0EJOzvGNfXQGalDJPjK4vytlxx7 nevjeeKtDiPPIcPYy4JXp6 SUTdsLetSeYcWOS0IcC1DJQ9qFQ rfW6gjBugnioijE2sFpr+TVJOOj wvdGQ+XWAdAYM6eHcyWHyi GMHkyA2nQOXnD6e2CmHsVnU9BVd wS0LprvZ5HMCmdAYgREXfeGUCpN 3soaadq1axahvqEiTiKZUy MVx9LJy5SMYmlRgaKvIwWFP9WnV 2KWZ5eNHrzJ5llLedhtgzuO1pGh c+AVL0EVH9YC54XC88V3Uu PjwvdGFibGU+PHRhYmxlIHdpZHR tADsrTOJpPcAqiXsfXW6bPs3lYD AhJPBhpEeqhSBwDhJvv9xy YXB (more content not included)... [facility] Consultation/Specialist Note on 07-22-2024 Consultation/Specialis t Note [id number] [facility] C Urineon 07-21-2024 C Urine <10,000 cfu/ml [facility] Comment on above: Performed By: #### 6 [id number] ####[facility] (DEFAULT)[address] [place] [address] UA Frpgk0vv 07-18-2024 UA Amorph. 1+ [facility] Comment on above: Order Comment: Urina lysis Microscopic order added on by [employer] Rules system. Performed By: #### 5 [id number] #### [facility] (DEFAULT) [address] [place] [address] UA Bacteria Trace [facility] Comment on above: Order Comment: Urina lysis Microscopic order added on by [employer] Rules system. Performed By: #### 5 [id number], [id number] #### [facility] (DEFAULT) [address] [place] [id number] UA RBC None Seen [facility] Comment on above: Order Comment: Urina lysis Microscopic order added on by teextee Expert Rules system. Performed By: #### 5 [id number], [id number] #### [facility] (DEFAULT) [address] [place] [address] UA Squam Epi Rare [facility] Comment on above: Order Comment: Urina lysis Microscopic order added on by [employer]tee Expert Rules system. Performed By: #### 5 [id number], [id number] #### [facility] (DEFAULT) [address] [place] [address] UA WBC 0-2 [facility] Comment on above: Order Comment: Urina lysis Microscopic order added on by [employer]extee Expert Rules system. Performed By: #### 5 [id number], [id number] #### [facility] (DEFAULT) [address] [place] [address] UA w Culture if Ind Standard on 07-18-2024 Breakpoint UA [facility] Comment on above: Performed By: #### 5 [id number], [id number] #### [facility] (DEFAULT) [address] [place] [address] Color (U) Yellow [facility] Comment on above: Performed By: #### 5 [id number], [id number] #### [facility] (DEFAULT) [address] [place] [address] Culture? Not Indicated Invalid Interpretation Code [facility] Comment on above: Result Comment: Resu lt created by rule GL_MAGR_ADD_UA_CULT Result created by rule GL_MAGR_ADD_UA_CULT Result created by rule GL_MAGR_ADD_UA_CULT1 Performed By: #### 5 [id number], [id number] #### [facility] (DEFAULT) [address] [place] [address] Glucose (U) [Mass/Vol] Negative [facility] Comment on above: Performed By: #### 5 [id number], [id number] #### [facility] (DEFAULT) [address] [place] [address] Ketones Ql (U) Negative [facility] Comment on above: Performed By: #### 5 [id number], [id number] #### [facility] (DEFAULT) [address] [place] [address] Micro? Indicated Invalid Interpretation Code [facility] Comment on above: Result Comment: Resu lt created by rule GL_MAGR_ADD_UA_MICRO Performed By: #### 5 [id number], [id number] #### [facility] (DEFAULT) [address] [place] [address] UA Bilirubin Negative Normal [facility] Comment on above: Performed By: #### 5 [id number], [id number] #### [facility] (DEFAULT) [address] [place] [address] UA Blood Negative Normal NEGATIVE [facility] Comment on above: Performed By: #### 5 [id number], [id number] #### [facility] (DEFAULT) [address] [place] [address] UA Clarity SL CLOUDY Abnormal CLEAR [facility] Comment on above: Performed By: #### 5 [id number], [id number] #### [facility] (DEFAULT) [address] [place] [address] 15008 UA Leuk Est SMALL Abnormal NEGATIVE [facility] Comment on above: Performed By: #### 5 [id number], [id number] #### [facility] (DEFAULT) [address] [place] [address] [id number] UA Nitrite Negative Normal NEGATIVE [facility] Comment on above: Performed By: #### 5 [id number], [id number] #### [facility] (DEFAULT) [address] [place] [address] 47469 UA pH 7.5 Normal 5-8 [facility] Comment on above: Performed By: #### 5 [id number], [id number] #### [facility] (DEFAULT) [address] [place] [address] 88543 UA Protein Negative Normal NEGATIVE [facility] Comment on above: Performed By: #### 5 [id number] #### [facility] (DEFAULT) [address] [place] [address] 29480 UA Spec Grav <=1.005 Normal 1.001-1.03 5 [facility] Comment on above: Performed By: #### 5 [id number], [id number] #### [facility] (DEFAULT) [address] [place] [address] UA Urobilinogen 0.2 mg/dL Normal 0.2-1.0 [facility] Comment on above: Performed By: #### 5 [id number] #### [facility] (DEFAULT) [address] [place] [address] Urine Source Clean Catch Normal [facility] Comment on above: Performed By: #### 5 [id number], [id number] #### [facility] (DEFAULT) [address] [place] [address] Dipstick and Microscopicon 0 06-29-2024 Amorphous Crystal,Urine Rare Normal [facility] Comment on above: Order Comment: Name Collection Type:: Clean-Voided Midstream Performed By: #### C REAT, LYTES, BUN, PTH, URIC, [place] #### [place] [id number] [place] Appearance (U) Cloudy Critically abnormal Clear [facility] Comment on above: Order Comment: Name Collection Type:: Clean-Voided Midstream Performed By: #### C REAT, LYTES, BUN, PTH, URIC, CA #### [facility] [address] [id number] [place] Bacteria,Urine None Seen Normal None Seen [facility] Comment on above: Order Comment: Name Collection Type:: Clean-Voided Midstream Performed By: #### C REAT, LYTES, BUN, PTH, URIC, CA #### [facility] [address] [id number] [place] Bilirubin,Urine Negative Normal Negative [facility] Comment on above: Order Comment: Name Collection Type:: Clean-Voided Midstream Performed By: #### C REAT, LYTES, BUN, PTH, URIC, CA #### [place] [id number] [place] Color (U) Yellow Normal Yellow [facility] Comment on above: Order Comment: Name Collection Type:: Clean-Voided Midstream Performed By: #### C REAT, LYTES, BUN, PTH, URIC, [place] #### [address] Glucose Ql (U) Normal Normal Normal [facility] Comment on above: Order Comment: Name Collection Type:: Clean-Voided Midstream Performed By: #### C REAT, LYTES, BUN, PTH, URIC, [place] #### [address] Hyaline Casts,Urine None Normal 0-8 [facility] Comment on above: Order Comment: Name Collection Type:: Clean-Voided Midstream Performed By: #### C REAT, LYTES, BUN, PTH, URIC, [place] #### [address] Ketones Ql (U) Negative Normal Negative [facility] Comment on above: Order Comment: Name Collection Type:: Clean-Voided Midstream Performed By: #### C REAT, LYTES, BUN, PTH, URIC, [place] #### [address] Leukocyte esterase Test strip Ql (U) Negative Normal Negative [facility] Comment on above: Order Comment: Name Collection Type:: Clean-Voided Midstream Performed By: #### C REAT, LYTES, BUN, PTH, URIC, [place] #### [address] Mucus,Urine Rare Normal [facility] Comment on above: Order Comment: Name Collection Type:: Clean-Voided Midstream Result Comment: PERF ORMED BY: [place] [address] PATHOLOGIST [employer] TECHNICIAN CHANNING MEDRANO M.D. Performed By: #### C REAT, LYTES, BUN, PTH, URIC, [place] #### [address] Nitrite,Urine Negative Normal Negative [facility] Comment on above: Order Comment: Name Collection Type:: Clean-Voided Midstream Performed By: #### C REAT, LYTES, BUN, PTH, URIC, [place] #### [address] Occult Blood,Urine Negative Normal Negative [facility] Comment on above: Order Comment: Name Collection Type:: Clean-Voided Midstream Result Comment: PERF ORMED BY: [place] [address] PATHOLOGIST [employer] MECHAN[employer] TECHNICIAN CHANNING MEDRANO M.D. Performed By: #### C REAT, LYTES, BUN, PTH, URIC, [place] #### [address] pH (U) 6.5 [pH] Normal 5.0-9.0 [facility] Comment on above: Order Comment: Name Collection Type:: Clean-Voided Midstream Performed By: #### C REAT, LYTES, BUN, PTH, URIC, [place] #### [address] Protein,Urine Negative Normal Negative [facility] Comment on above: Order Comment: Name Collection Type:: Clean-Voided Midstream Performed By: #### C REAT, LYTES, BUN, PTH, URIC, [place] #### [address] RBC,Urine 1-2 Normal 0-4 [facility] Comment on above: Order Comment: Name Collection Type:: Clean-Voided Midstream Performed By: #### C REAT, LYTES, BUN, PTH, URIC, [place] #### [address] Specificy [place],Urine 1.017 Normal 1.001-1.03 0 [facility] Comment on above: Order Comment: Name Collection Type:: Clean-Voided Midstream Performed By: #### C REAT, LYTES, BUN, PTH, URIC, [place] #### [address] Urobilinogen,Urine Normal Normal Normal [facility] Comment on above: Order Comment: Name Collection Type:: Clean-Voided Midstream Performed By: #### C REAT, LYTES, BUN, PTH, URIC, [place] #### [address] WBC,Urine 5-9 High 0-4 [facility] Comment on above: Order Comment: Name Collection Type:: Clean-Voided Midstream Performed By: #### C REAT, LYTES, BUN, PTH, URIC, [place] #### [address] Hemogram CBC Without Diffon 06-29-2024 Erythrocyte distribution width (RBC) [Ratio] 12.8 % Normal 12.0-14.8 [facility] Comment on above: Performed By: #### C REAT, LYTES, BUN, PTH, URIC, [place] #### [address] Hematocrit (Bld) [Volume fraction] 45.4 % Normal 38.8-50.0 [facility] Comment on above: Performed By: #### C REAT, LYTES, BUN, PTH, URIC, [place] #### [address] Hemoglobin (Bld) [Mass/Vol] 15.9 g/dL Normal 13.0-17.0 [facility] Comment on above: Performed By: #### C REAT, LYTES, BUN, PTH, URIC, [place] #### [address] MCH (RBC) [Entitic mass] 31.7 pg Normal 27.5-35.2 [facility] Comment on above: Performed By: #### C REAT, LYTES, BUN, PTH, URIC, [place] #### [address] MCV (RBC) [Entitic vol] 90.8 fL Normal 83.5-101 [facility] Comment on above: Performed By: #### C REAT, LYTES, BUN, PTH, URIC, [place] #### [address] Mean Corpuscular HGB Conc 34.9 g/dL Normal 32.5-35.6 [facility] Comment on above: Performed By: #### C REAT, LYTES, BUN, PTH, URIC, [place] #### [address] Platelet mean volume (Bld) [Entitic vol] 7.3 fL Normal 6.6-10.1 [facility] Comment on above: Result Comment: PERF ORMED BY: [place] [address] PATHOLOGIST [employer] MECH[employer] TECHNICIAN CHANNING MEDRANO M.D. Performed By: #### C REAT, LYTES, BUN, PTH, URIC, [place] #### [address] Platelets (Bld) [#/Vol] 240 10*3/uL Normal 150-450 [facility] Comment on above: Performed By: #### C REAT, LYTES, BUN, PTH, URIC, [place] #### [address] RBC (Bld) [#/Vol] 5.00 10*6/uL Normal 3.90-5.60 [facility] Comment on above: Performed By: #### C REAT, LYTES, BUN, PTH, URIC, [place] #### [address] WBC (Bld) [#/Vol] 5.7 10*3/uL Normal 4.1-10.5 [facility] Comment on above: Performed By: #### C REAT, LYTES, BUN, PTH, URIC, [place] #### [address] Magnesiumon 06-29-2024 Magnesium [Mass/Vol] 2.0 mg/dL Normal 1.9-2.7 [facility] Comment on above: Performed By: #### C REAT, LYTES, BUN, PTH, URIC, [place] #### [address] Parathyroid Hormone Intacton 06-29-2024 Parathyroid Hormone Intact 16.6 pg/mL Normal 12-88 [facility] Comment on above: Result Comment: PERF ORMED BY: [place] [address] PATHOLOGIST [employer] MECHAN[employer] TECHNICIAN CHANNING MEDRANO M.D. Performed By: #### C REAT, LYTES, BUN, PTH, URIC, [place] #### [address] Protein Creat Ratio Ur Rando mon 06-29-2024 Creatinine, Urine (Random) 95.00 mg/dL Normal [facility] Comment on above: Result Comment: No r eference range established Performed By: #### C REAT, LYTES, BUN, PTH, URIC, [place] #### [address] Protein (U) [Mass/Vol] 9 mg/dL Normal 0-9 [facility] Comment on above: Performed By: #### C REAT, LYTES, BUN, PTH, URIC, [place] #### [address] Urine Protein/Creatinine Ratio 95 mg/g{Cre} Normal 0-200 [facility] Comment on above: Result Comment: PERF ORMED BY: [place] [address] PATHOLOGIST [employer] MECH[employer] TECHNICIAN CHANNING MEDRANO M.D. Performed By: #### C REAT, LYTES, BUN, PTH, URIC, [place] #### [address] Renal Function Panelon 06-29 Albumin [Mass/Vol] 4.5 g/dL Normal 3.5-5.7 [facility] Comment on above: Performed By: #### C REAT, LYTES, BUN, PTH, URIC, [place] #### [address] Anion gap [Moles/Vol] 11.6 mmol/L Normal 6.0-15.0 [facility] Comment on above: Performed By: #### C REAT, LYTES, BUN, PTH, URIC, [place] #### [facility] [address] Calcium [Mass/Vol] 9.6 mg/dL Normal 8.6-10.3 [facility] Comment on above: Performed By: #### C REAT, LYTES, BUN, PTH, URIC, [place] #### [facility] [address] Chloride [Moles/Vol] 108 mmol/L High 98-107 [facility] Comment on above: Performed By: #### C REAT, LYTES, BUN, PTH, URIC, [place] #### [address] CO2 [Moles/Vol] 26.2 mmol/L Normal 21.0-31.0 [facility] Comment on above: Performed By: #### C REAT, LYTES, BUN, PTH, URIC, [place] #### [address] Creatinine [Mass/Vol] 1.27 mg/dL Normal 0.70-1.30 [facility] Comment on above: Performed By: #### C REAT, LYTES, BUN, PTH, URIC, [place] #### [address] GFR/1.73 sq M.predicted MDRD (S/P/Bld) [Vol rate/Area] mL/min/{1.73_m2} Normal [facility] Comment on above: Performed By: #### C REAT, LYTES, BUN, PTH, URIC, [place] #### [address] Glucose [Mass/Vol] 90 mg/dL Normal 70-100 [facility] Comment on above: Result Comment: [place] Glucose Reference Range is dependent on time and content of last meal. Glucose of more than 200 mg/dL in a nonstressed, ambulatory subject supports the diagnosis of Diabetes Mellitus. ADA recommended reference range Performed By: #### C REAT, LYTES, BUN, PTH, URIC, [place] #### [address] Phosphate [Mass/Vol] 3.2 mg/dL Normal 2.5-4.5 [facility] Comment on above: Performed By: #### C REAT, LYTES, BUN, PTH, URIC, [place] #### [address] Potassium [Moles/Vol] 3.8 mmol/L Normal 3.5-5.1 [facility] Comment on above: Performed By: #### C REAT, LYTES, BUN, PTH, URIC, [place] #### [address] Sodium [Moles/Vol] 142 mmol/L Normal 136-145 [facility] Comment on above: Performed By: #### C REAT, LYTES, BUN, PTH, URIC, [place] #### [address] Urea nitrogen [Mass/Vol] 17 mg/dL Normal 7-25 [facility] Comment on above: Performed By: #### C REAT, LYTES, BUN, PTH, URIC, [place] #### [address] Uric Acidon 06-29-2024 Urate [Mass/Vol] 4.1 mg/dL Low 4.4-7.6 [facility] Comment on above: Result Comment: PERF ORMED BY: [place] [address] PATHOLOGIST [employer] MECHANICAL TECHNICIAN CHANNING MEDRANO M.D. Performed By: #### C REAT, LYTES, BUN, PTH, URIC, [place] #### [address] Ambulatory Visit Summaryon 0 05-25-2024 Ambulatory Visit Summary Ambulatory Visit Summary FILEMON MENDEZ Dee :1965 Visit Date:05/25/2024 Ambulatory Visit Instructions Your [...] [facility] [address], [place] [address]- Medications What How Much When Instructions Changed doxycycline (doxycycline hyclate 100 mg Cap) 1 Capsules By Mouth 2 times a day Duration: [address] [facility] 3645 Changed doxycycline (doxycycline hyclate 100 mg Cap) [...] potassium bicarbo (more content not included)... Normal [facility] Ambulatory Visit Summary Ambulatory Visit Summary FILEMON MENDEZ :1965 Visit Date:05/25/2024 Ambulatory Visit Instructions Your Diagnosis BPH with urinary obstruction Kidney stone Hypocitraturia Erectile dysfunction Smoker Prostatitis Post-void dribbling Feeling of incomplete bladder emptying Your Care Team Attending Physician - YECENAI BUSTILLO, Buster Tinoco Primary Care Physician - [...] [facility] [address], [place] [address]- Medications What How Much When Instructions Changed doxycycline (doxycycline hyclate 100 mg Cap) 1 Capsules By Mouth As Directed Patient to take 1 tab the day before procedure and the 2nd tab the day of procedure once completed. Changed doxycycline (doxycycline hyclate 100 mg Cap) 1 Capsules By Mouth 2 times a day Duration: [address] [facility] 6069 Unchanged dutasteride (dutasteride 0.5 mg Cap) 1 [...] potassium bicarbo (more content not included)... Normal [facility] Urology Office/Clinic Noteon 05-25-2024 Urology Office/Clinic Note [...] x 3 wks. SEs discussed. Sent to . Follow-up With When Contact Information YECENIA BUSTILLO, Buster Tinoco, URL [facility] [address], [place] [address]- Additional Instructions: sched UDS, sched TURP Patient [...] Feeling of incomplete bladder emptying Hx of nursing home use of blood thinners Hypocitraturia Kidney stone Pros (more content not included)... Normal [facility] Comment on above: Result Comment: Elec tronically Signed By: Nirmala Galeana\.br\Date and Time Signed: 05/25/24 14:01 EDT\.br\Electronically Co-Signed By: Buster KEENE MD\.br\Date and Time Co-Signed: 06/16/24 15:36 EDT Coding Summaryon 04-05-2024 Coding Summary HTMLBase 64 JtcttcazGRp9cPm+PGhlYWQ+PE1 VQAQpC14krEFqaO3zN0VOBRmRNs heKLYNXRtGNqIwriLyNF2egLWoZ XJu IC8+OM4tTXAzXxzazIDvq5N6sVY 9C92ljx0wXIrxaLQ3XWFuTxVjwx ahc8wdxGd4MSjaHbybLxKn BDGfiI23VBA9gY32Kb64fUYvyWD uf7vkdDy5CzEcBJKhPJZ6jCukTD jnk9MzEMWqU82oyABtb8B2 OFXvuIervBYvNjBchWC8qE1vMKn nxrzwy6xpseagApr2hx61jECbo2 R7aMO7K4XajkF2HWYvwBDl KxrajVWSdM6zfvmbm2uahxbzWaV dYLQbRSu6ZZr3CELzjViiFmPiJQ 67FRJ7KXYpjvXoR9JvFVIn dSmvScT2w4L1Og7CD4BKJxshD1Q NTUFSWTwvdGQ+AJ27vx27C9AzUv ktKfp9UJUsKRF1pDD2wR2l TXYaHVuku0Y4sGW6S7NtuhYqgk0 jp4gdPVGwOGenR60ebDVer3E4HP BvnOP6ZJQefApuNhDzeN27 Oyc+DINsqRdir8ZqOuwmh3pmg6f trBm2MwlaFTVmjbPrpCdzGRX7i4 YeFu5qJAWdpQR8kMR8dG3a NtZyVrU8RZejP332PfOgnVJfKwj pN22kM0LpxGW+RDTdCcv7PWZdpR acBW5jJ1QaJBEwghgbaCDo sUjxID1iJBIfzwhmMYInhY2aKYU tW5i5AsGiLmN1XGlwR2BqSBWdhx osYn36rS6gHnVyMwG7JAuj N8QzxyL4LAZfbBCsTXgyCME7V30 tb5U3HKIhDWOgJGF3nFM8iB5osC lnbjogbGVmdDsgdmVydGlj TZssZNzoP045ZYKieIwrPaJsYZp uZyBEYXRlOiAgMDIvMjQvMjAyNT wvdGQ+ZHDjUTE3aTqcIESw cVPxAQvdTl6qeFqbwNsvDR3hPBQ ryabpSOLmlV2tWBXoyRGygDxwEG 7qQYUutidqw846XaOkZFN6 VYWntCYrV1SjdY2zZzKoUPElZVF rT4UcjFVsVKmeK373YIebEqC7WL AaaoNoG7WzRWPyqWlwMtG5 a2X2Ps4By0UigvciO1NkwRJgLoD jPganFFy1C6FqFttnsHS+PC90YW DhYN28KMv4FWM0jFjvYCou MLXqV4QltB9qZcEsTWEoIAVtNah +PHRhYmxlIHdpZHRoPScxMDAlJy YatUmbBQ3dRs4mNWHzAUIk yScmdTGyMsOvr6utVAFzUPdvWF2 auEkhL9GxiRV6YWWqn1v6Kc69P6 0xI0RxcME+OKSrkSZ3zUB2 sN6oWiDkYpW7RFlqE045PjXphSA cPwlue5gam3zwvYk1VpY8ZNPyxi EktIkeMXI9r4WmGj93U14t IHdpZHRoPSIxNSUiIHZhbGlnbj0 mnS8gGa1+NUOfzMD4qYG6uL4cXp NnWtS0XIblU947RuUkjWVi Qhmhz2qih9vhuBf7NgDqFQCcxcV jhKcgIME6x5FsKa46V2PgbYxko9 UpPsr7jb93jEIly2J1yIY2 G3SwHZJhxyruvURccHwrUF6pTTL znsmsALJveM5mAZUfD9k5CsIjXj Z3USmxV1AhjtF1QCZcfJNo ISBzqYTZrT0gwxlqi7isdlirNdN oFOCcJQl6FPk1JAEocTtsIjGqDU N4HzY4MKX4rQCcqU3vaVgs amezkB3nXuw+YPX5hXIjvIFHXD1 lOjwvdGQ+HUZrTCY8cAroZYygWB JmuC0gEWSdN1o3KvBvYoX0 VPzeZ0EoxtC0NOVtrIQtFPYukML EpT2mrglvl5pfkrsuMcTbGOHdDN m1VPe5UTGcwOcfPoQzAMW3 ThP8OMS5qFYpoW9zhXiacckanX6 wOyc+IvwqwImnKRI9TNw6T3TjLr f7YHCekOsbEP0uuQDdVWmr Iv1snWxewQeeEM3hCMWacvyvr54 0VmRcq8pyLKRiuHSzGXjjHTM6T3 8lr6B6SFGbOWDmGRV0tOA8 dV7ueNjsvdhgnHHonDuccaBzzRu dRPthKKprE306VRHggIvrQnAlRU k5U5MqKcy5UTZhkTabRD1w bSBaRGvoCa0nyEhiaXvvKU1bZTD fwuolw983MjTdp6deRHKhnYXoNT ojNTQ9T51hp5Z0IEZbSUFf GNU2jBC1rC1zxZljnulnoCGjtHh rbvXqmHdzAXlcWLlmH511FESvyU gdAdLcbQx3M5PpFeu1KOZc sDyfUX3cbRNxMBovEc3piZkrmMq pLM0mCBKcdnbku268OrLmm6juXI RdoIZaHMrwVJP7N33uq2S1 FHPvBUHzXGD0bYL7oY8jxYgsqdf gbGVmdDsgdmVydGljYWwtYWxpZ2 46IHRvcDsnPlBhdGllbnQg HIfxEAl0W5DoFdsbkAF+ZW15JFO bRD69pIVcoRGtx2cluZh4FrYkGI LuUTT4tZajFEsld3FiIEIm M38usAZgi3U7NGUejZqouYZoZsN jeLN3aK5jEAebbihcf8hpwrqnZb sva6rjvl02gM41D30fWZmc UGVuDLHdQNWxYERjkWyzcf3ziH3 wIi8+KIJzfKW4xMD4pY5mPHYqTl M4DTcfR397QqNfaYXmPhuy l0lcv7eupYw5AeJ3OGRmfoGkhMd pKGM4t7MfYn77C86nQQeyOJQsMR XmHYCqFKLhhQyshk5uvY1y Ii8+FGCrkGD5xME7fC9tTxXcHyZ 4TAhiC297AyUltNUeEsmsM85dZ1 JvdXA+CMLcRzd7HOJteCuo TM9omLLdBTbqLd3iUTX9LiAeUiI dSGdyQ2FdZQLfwtlmfczwlEG7PC NnGKFkpK19Pc7ylUnuEZAs dFESqG1lzagnm5fjtisaUaNyQHS gYLx9YSp0JBManIrsSoYcSNW2Hg M9TEN5zKOhoT9gaVkggtho eZ3mE2BmQXVrvzsuZm07sR5mXdT sGlA2PMmbVoa+UllGLCBXSUxMSU CMEXt9O9UuMms1WLBwfEho UH9lfVAgHEchVh0hsXkjwVhiCP9 yKADmygfyJLOhjG3gDIFdtQPtbC taPY6lDICdussuh775RlXt IHI1BHRtdXKpA8WmxR9jAyGdQCE eVTXtN0NzkSVkROpoD622XJpsJi L6VZNcvwLdO9QhBUTkmJso YqL8u3X2Kg4zVj6gWt8oOJM9WU4 4UY60rMPan2G4xBD3O1AyXMYnrw wiwlokkLU7PHRwEZWskG92 fSZoQCwiPn2wn7A1e342PWSqHRK luK89Pe5fsYhpFDOknNXHuV2ipf hoj3gjlxyvAlKjQGWhDPp0 XYj1VYFynQofWiYySNA2ExD6ZZQ 0iTLijT5rpIzewhizhD9yXlo+NT PuTLIxgaM9G7HjTlc5BAXw mZwsXE7ryOLwVLqkFt6rqLpmxRn xQS2wATRoeuytDTAtuY7tUJAvnJ CcnMcmZM8iMQHrscpgj893 JsTpQYG9RPXrqEBbU9EyiC3fWgE uWPZxWKHlW9FzcJCkABqdT144RL fcLfX0RJMsfgDeK9RwOEXn dZddIfN8m9N8Uh5PYHoEXM89HT4 7eZCkf9E3iZF8P4WnLNKvxujygk lzgHU9GGWwZMNnnP89uSZy OQmcSx7ua5Y9z732PBQcZOAvrL6 4Ad1vzKjyIJCepQEWsS0bwaaur8 wymhfwPeRgIIUpCUy8XQl1 XAIbmFmzAiOvJNO1WiS8AYB5iTV qqG0jcVqmgnclbE6tEwp+T1A8L3 RkPjwvdHI+BO16YEDzBC30 mJLlxVLwz6xudBw0BpOwTCVrXLY 4hTieJFamj9FhUZQjK74teTArz0 T3XPSppQuovBRpYmRsjFK9 mI5zRXycybuob3wvmlerXepis7m ske91qM60U23uMLitTDObYFZwSI FjZUEyhRxnyv5pwS4gId6+ CKOvdUD9tGV5pZ2cOoHqEsU8XLj bH221HbQpoPJoCpofy7ynb0fapT i0GlHnOJVeaxKtoYzlAVW5 v9CkUd51J49jWAepWEBpFWXkJFS bGVHkcGujlm4ewY1vEq1+PC9jb2 yzfc88mZ70jFZ+PHRkIHN0 vUmuUJhfBALzmI3lOEfjIuQ2LOY lGtClrC77aOEvCSprGj5liMorzU zeDU4pBQRgmyllx410NtVy o1dcUIDprCMpLKfzICC4R60uy5C 9GBYdKOTqFIS3oCT1bN4yqTvgwm ogbGVmdDsgdmVydGljYWwt LFyzK611TZPseWvgArVmhXNwZ7q duuWFEJ2dNrpbwUM+ZUZaXSY9dR tkCGlfDCQdoH0gGMFyK7o4 KoQbOcM7ATgdY0TupcQ2RQUkdAG kWIKqjTFKcF7jwkeyz8msplbpYf DjWKExDOg3BAd4GIRblUzp HoRtYKH2NhI2KRZ0wPVxwD4bnKh lwhngqD1yQrj+RklOOjwvdGQ+PH AiTMQ0bLwmYPhmUATbqA9o DIUdB6u6ElLuNtI9MWezL6FgejK 3UHUbwZBmYAWopVTZiU2ldcltv9 mhggrtHiAlXXNmCBg5GOl7 MQTqcKmiJzSvGJQ5HrR5YLI2wZS prI9apLxhpzresW9pXmt+TVJOOj wvdGQ+QKFlXYJ0lRzwWKqp LIRayT1hWWFpE7g3HdMrNwR1HWj kZ4MlqyH8FQRlqEOnFNVjuDOThM 9yfyloe0aymemzPmCiQBUj TYb9WRc4SHNyrRtbXqSdJUE6XfI 8HIR8qOUevE0moWjwxczsjS4eYg c+JZI1DSO0OB39TH40B2Eh PjwvdGFibGU+PHRhYmxlIHdpZHR iDVfdQMXnQtEupHgcAB9nGz8dQJ ZqAQSrbYmzfMJyPmCcq8uu YXB (more content not included)... [facility] Coding Summary HTMLBase 64 MfxeiuxpMBj0kRc+PGhlYWQ+PE1 QORJzJ56qpEPbkR7pL0ZYTFwBDa oyPGSQWHgBVfWcreWrKK8tgDTaR XJu IC8+IO2kOUFcAlkevGBzx9G1pBV 8Y13gsh5fPIqdoPF6BYWxNpNjuw xaz0krqXs4GFsoKuxoVgMd OQSabD43LLN0jL88Nx34fJKnfPQ sl7bimNc0TxQuADOuEHY1sItgYG phf8MmGJMhE72quVAai6I4 VLYohHswgBGpUzKepPV8rE2bEXs jssjdv7ltgfowLlb6mk97bJEdh1 R4cTR4F8RmrbP6YSQxcFWu YjcdaWSEeB8weupfp6kbdrcmUwI iYTLjQXc7KMn1SSWxcEhyFlSxNB 16STW3GEPpkzUtR9DxNFOq mQaiIfP3v9Z0Jo2QB5EKLracA7W NTUFSWTwvdGQ+LI62vj30I1PxYq xyCla3TYRpZXJ2vSO9hV9r RBZlWMrqz3G2dEO3I5RlqpBxmp2 ko8bcNIZfOKfvD62kuGCwp9U4WP PeqRC5PRCvtTtlOnJrdZ35 Oyc+DPLfvUjxq7HpTdvij4qmr8s slKq3PkhfTZXdjkSvcSewBSC6x0 FsEy7oPOZoyXH8nFO3xH3o KrSoPpB3ODjmG687AzCsvNPjAff yY26cL5GjxYL+WTXiVdu6THBvwE rlXM2tM5IgJFZocfsvkIPt rMnqQJ8cQXBwopeoTBHvtM9yNKJ qF4v5RoLzSxR1FZwaJ0OpVCKmgo meCb17hG2gFeVtVkJ7NJee W2ZlcnX5RTQvlGPfHTsqMAV5I09 zs1R4WNAhNLSmJWB2vTA0rV5oxK lnbjogbGVmdDsgdmVydGlj YHzsSGzaB032EEJnyDvaBfPwNAo uZyBEYXRlOiAgMDIvMjQvMjAyNT wvdGQ+BAXoDZH1uDfzDAHs nECbOBhzSt2dlEewuDjfTN9jEZJ tfgueOQZauB8nWBZpyBUaxYgmNK 7bBTUcdoznj177DsTfAPA5 MFPpfVGxK7EsfC2tZyDtJYYkKIM fA0FgwBQkWRmnW197DJsuGjQ3AF AkuaZhS6HlUJDdkRxcMxC2 c6S2Rh6Gx1FsuifvU9VcsCGsJbW cMzkzDHq1L2GeRasskJR+PC90YW IuXZ13AMz2WKN3lYnqFPgy VHPdN0JtuM7vZfUsDUKgWPQaClj +PHRhYmxlIHdpZHRoPScxMDAlJy SpyHqwUA2jTy9vLLWeARKc qIsxfTEkUfYfb5kyGMXvMRbnCR5 ffPsxV5HdnJL3RSDok8q3Go52F1 6tX9BmcDO+JPBagTW8zJB3 dA8hIjAvNwT1UMdkC967MnMykYE dBtbat2axg7umvIb8TyM6HEGhtj QlpMrfRHS1e4FeIz41W80g IHdpZHRoPSIxNSUiIHZhbGlnbj0 haC9fUo8+DUSgeBB8oDO7rK1mOq PfNfV2XMsrQ875CzAvtZKl Hnnad3evx0njsOj7QnQoZJLbttQ feSkwUQT1x5SwSq33U8ZskDbhm6 EiHjg2us20qXWsv2Z0aYY2 H9UbVDEfnozflIYcvBlsDP9kNHN nxolkQHEvqX3hBRWnC9j5VsInPx M3POfiC4ZcxwC7IDXlgXHb KHPtjELKiW2zdpzaf8vokplnRfI pDHYaQUi3XVy7IPLnqLysDjQlXZ B8YgC4CCV6tKZmxM5bxRtr ykxqtV7lDlt+IIJ8qWDorAPLMV6 lOjwvdGQ+ALExKZK7fQzrFQotMK XjaJ6jGUSdE2i9AnZrZuJ5 LZhhK3XeryY9YVHmsKKqUCHyiFL HgK3fchtss1geyhbtJmLqPESrKW j8KQy3RAVlpPmyPaBhKFA3 DwY9LOQ2pYXgwD7dsEmsbdhzzY5 wOyc+VlrlvHtkUOD8LKl4G7SwMv c6VEWhqRnrVS6njXBfSIjw Mr8xjMiukMmlNI1aVUKeaabhk58 7YpOvz1xcCLWezOMkPFonQGT5V1 6gm7P8XUMyZGDrQAA6yML1 tY1zyNbhjjwvcNQgxYfcsbNytCj pRWspMNbfR745SPUdtOdaRaZbSD u8E0ReCay4TPOweVztBH0t pSSqWLswRb7fsAsfbLuyDN1rMAW socyhv984YqXfz7yfBSWbiAIfHM nxTOU9P32vn5Y0MYRmXSIc ESY4bQZ2aQ5vjTsykghszQLnkMd xtpBlxOqyRTxcBDdfT990INIucD rgPlHetJu4V0CfPui3HFVi cNedLL0ypOWvPCkmRj3fiZkfcNd eZS2mYLTiypgxx956EzZkl9bcKB GhzLMrZPajVCD2C25ut8J9 QLRlZKPbPXK4vSC6hE0afIvqexr gbGVmdDsgdmVydGljYWwtYWxpZ2 46IHRvcDsnPlBhdGllbnQg MBaeWJj6P6WfZyxitGH+JE68JOL vOC98lUUbxRHzt5kdnZb9CeOqWH VoMNT7yLkzADgmd7OfHWLn E11thZSpu9T8KHBrsPwehSRpZgM tjAN9xP6mZFumejrtf6ltzhkhCg enj3sztm42hF02O51wVCgk YTLlHOZqRXYbQCGtjTlcdy4ijP6 wIi8+RJTiyIG0fBK9gI4wBYPuZo F4XPmuQ843TgEmfEIlCpkq b2bfx2dpgUs1YmF4MUAerpYjjNv tKAF6l1PhNm04W24lLUdtJGDnPM OfELNiWWMbaTtxhh8riO5q Ii8+RCVcvRU3nWD7vA3nArBmXeF 7KZknI940HeIytDVyXiobN38pN7 JvdXA+JUGaKyd8NYVbzXut ET9xhNNuRRkeRv2zDWA1VxSuWxQ pQPkbV1YpWDBrflosisatqOM3IJ NzGJPdyS00Xv2glTzzCXDo lDLEaN9snqkje8xfoqjkKnKlOGF eAUh7NDp5OUWgxDhkEjAvGNR3Dm S4LKZ6fUNvuQ9llAjnnokd vH4jP4IzVHZzhryiDh03bK4rRdH dPpT0CHtjHdr+UllGLCBXSUxMSU NSVEz2Y8DhDjn1LMSpyAsf YR2jnIMxNWlpRc3myEhfyQopRS6 yCRNpohhqGHHopA5rNSMjePLygD gnPZ2bDMFduhhft191PcQm LVP2OFCttENjI6YauY1rVzDtIPI dODIbF7SjoUEuCPqbK025WJusUj X8BQFxvvPmQ0IxGUWgcLkr YkT5j7I8Au0mEu4wJr7wKIZ6EZ5 0JL61oUBcr2O5wXU6R2IoLZKmko niqacviIF3QJDySOOplZ63 xAMeGMyuFv3uf8J5a972VSWoLGL jiT28Uz9aaFrtXASwoSZBiQ3xpy zoa8tzdjxjVnSrSNNoSMz2 UEk0ZRZbgNgfCnZnVNA3PpH9RIG 9lYVqsG2qwDhmtxawlU8aEky+NT JvANHsvtF3M7UlMvq5MGOp bCcxSN5baRCfXPdzNe2isGvqwSo mPA6iRMWrystkKPDuiW0jHWQypF PvjYrqAC2jNQGmcawak369 DfVnZQO3EBKkiUXsU1GluM6tCdH zFZDdGKYpZ5XwjHDfDWnmW003UG xxBuQ6EJEzivZyL8DnXWTo gBjcIqL7j4F2Zn5CWLiQGA13IT6 1aNUba1L4yNF1G9GbXYIrhbviza nlrLR7VMKuYRBbcN89iQJf QBulYr6qe2N8k575WVQxUKErtK6 7Oc3pwIjxEXMasDSVvB9sosfkw3 jcfbcsDaHfJXGiGMg0LFo3 PLNuhBkrTqRhTVV9HgF6KGI3wNX hsX4ziAanjimrmA6lWnr+T1A8L3 RkPjwvdHI+PU67ZWDdLI54 bKYemOZmy9lonQr5BsYkNJUmVBL 7eCsyLWadh8ZnJJDsK26cwRKcw9 J4ZZJddXinlPTbOdZkzFV7 oY8cGOvhxlytj8xcbzarKsvrr6r dcc51cO19Q31pNBbwRFVoULXsDD GeNEKoyVlqff6jjP4vXe8+ OZEzlTV5rBN3iY8nAtWaIkU6IAw jV867ZcFmrARcCynuh2usd4gsqW d4PlWjONBhmgRleMwbGMG7 r5SmYc24O57mKWhvNFXbLXGdKDE gDFHpqFlrut9ejV6dHf1+PC9jb2 lche67fM74cXH+PHRkIHN0 uKzyYGalVAJysR1tLWzzXlO5OBW oZbRwgW02pYRmHXpaFj3xkGfwrW ewXM1xNFTktglge074TcJt g6xmGECsgUClCHynGNB7S25tk1A 2HHMeNUMxMBR0oXA3yT1tqAsuul ogbGVmdDsgdmVydGljYWwt ELmpO769CCRywTpaPbNdkIXcT1h orkNOEQ5xQkaqsZG+NJPrYZP8qO avIBonSQOemJ6hKGOsF2p9 AwMhTdR4EKaiT9CvwrM8AMAhvNV sGEZypRBNhX6dbkenb2yyxhnzHz DjSQPoELp8RUm8NLIlyNjh RhBjIFH5LyL5MXW0xWYoyA7qiLn iriwviI0sVyb+RklOOjwvdGQ+PH YkZVI1cAitPMudGZGiyQ9r MDVfT9x7LvDhFzD5HXwmC4PqpgW 4XQGkgEFmAIExdLJPhF7ywtlfg8 koesczLmUpRRMjDGn1NXy0 YZBjwPdhRaJfKJA4IgS3BCS8oYR weX2fsBjudstrbA4hOvl+TVJOOj wvdGQ+ZYHaABV3qKueEAxv WBOseX8iVJVtT8o2LbIxSbK6WJd bO8CcmqA1YUTnoFBuSNMioFGEoQ 7uujbdn1ykilbzBuOjLJPi KYo7UEb3WTKweQtuYcIxIAO0AbW 7COS2sXFfbE6xyIyckbybdC0gUv c+KXX0HUQ7OV12BL74L4Lk PjwvdGFibGU+PHRhYmxlIHdpZHR nLJfcXKPsOsFcrRjxXQ1nYj0kFY AuAHXohDmnuCQcPtJaf3jh YXB (more content not included)... Normal [facility] Urology Office/Clinic Noteon 03-31-2024 Urology Office/Clinic Note Urology Office/Clinic Note Chief Complaint 6 week follow up w/CT Scan HPI Staff 6 week follow up w/CT SCAN 02/19/24 at [facility] Previous DX: BPH with urinary obstruction,foreign body [...] MD, URL [facility] [address], [place] [address]- Additional Instructions: schedule cysto Patient Education Cystoscopy Steps to Quit Smoking I, Nirmala Galeana, personally scribed for Dr. Keene on (more content not included)... Normal [facility] Comment on above: Result Comment: Elec tronically Signed By: Buster KEENE MD\.br\Date and Time Signed: 03/31/24 10:44 EST\.br\Electronically Co-Signed By: Nirmala Galeana\.br\Date and Time Co-Signed: 03/31/24 10:39 EST Electrolyte Panel Standardon 03-29-2024 Anion gap [Moles/Vol] 11.9 mmol/L Normal 5.0-19.0 [facility] Comment on above: Performed By: #### 1 [id number] ####[facility] (DEFAULT)[address] [place] [address] Chloride [Moles/Vol] 105 mmol/L Normal 101-111 [facility] [place] [facility] Comment on above: Performed By: #### 1 [id number] ####[facility] (DEFAULT)[address] [place] [address] 42228 CO2 [Moles/Vol] 26 mmol/L Normal 21-32 [facility] Comment on above: Performed By: #### 1 [id number] ####[facility] (DEFAULT)[address] [place] [address] 04676 Potassium [Moles/Vol] 3.9 mmol/L Normal 3.6-5.1 [facility] Comment on above: Performed By: #### 1 [id number] ####[facility] (DEFAULT)[address] [place] [address] 27514 Sodium [Moles/Vol] 139.0 mmol/L Normal 136.0-144 . 0 [facility] Comment on above: Performed By: #### 1 [id number] ####[facility] (DEFAULT)[address] [place] [address] 69730 Lipid Profile 1 w/ Reflex, F astingon 03-29-2024 Cholesterol [Mass/Vol] 163.0 mg/dL Normal 66.0-200.0 [facility] Comment on above: Performed By: #### 1 [id number] ####[facility] (DEFAULT)[address] [place] [address] 61574 Cholesterol in HDL [Mass/Vol] 40 mg/dL Normal 40-71 [facility] Comment on above: Performed By: #### 1 [id number] ####[facility] (DEFAULT)[address] [place] [address] 74563 Cholesterol in LDL [Mass/Vol] 76 mg/dL Normal 1-100 [facility] Comment on above: Performed By: #### 1 [id number] ####[facility] (DEFAULT)[address] [place] [address] 98081 Cholesterol.total/Chol esterol in HDL [Mass ratio] 4.0 {ratio} Normal 0.0-4.5 [facility] Comment on above: Performed By: #### 1 [id number] ####[facility] (DEFAULT)[address] [place] [address] 14562 Triglyceride [Mass/Vol] 232.0 mg/dL High 0.0-150.0 [facility] Comment on above: Performed By: #### 1 [id number] ####[facility] (DEFAULT)[address] [place] [address] VLDL. 46 mg/dL High 5-40 [facility] Comment on above: Performed By: #### 1 [id number] ####[facility] (DEFAULT)[address] [place] [address] Provider Orderson 03-29-2024 Provider Orders [id number] Normal [facility] Coding Summaryon 02-24-2024 Coding Summary HTMLBase 64 VcyigyqgTSm6wVg+PGhlYWQ+PE1 VSTHnA14mwBIowO0rM5KCVOoKGv vgPZJGGRqSKwTgleSoZA3dgVFoS XJu IC8+PU2pRHBkDkzotFSeo7E9bIB 5V43wiq0fHEswwSF3KJGaZtLeab ovy5mwkFq9WYapSsiwEuNl SFXzrD57BUS8cB68Lg08xOAzuSC db9knkDq5EhIaLKLqSUA0iIjpUW wlm2GfIRPfN94cwGCqn5C6 IQPzuAbqhCLaYrEofXJ0dM7tHFv jhlwfx3betrzmYkw0cp38jTSbg5 V1sOT2X2PtnyA2ZYIwnRGr KbanyJESgI5odjxei7wevmhjGyQ hWWAiDNd7JOg4KACsyBwwSiPsTZ 51ISW3MJDyawOyL4NgQYCd sLayNtJ7d2Z7Qp9NG7RXEmsaZ4L NTUFSWTwvdGQ+TE34gd31J5CpTf bmIrz5SUCkADY4nDS1lK8i NNGvSWffk7B8oEH4W6AzcxPypp6 mt2yvAPBoYIoqC99fdMUdb2G2XX OuuAY5JQXtbTpkWdMpbK35 Oyc+BPFceTxbr2KnIchxm9gvn4n yeTv6HeyyYGBnsdKjxVrzEXM8z0 QuVc9hEEGfxPZ4gZP4mD9n ViJaIwJ0YFppY445AgLjrTCmGvd aX44mS6NxrPC+ZZRgQki4ZVThqJ ddXW9gU9SgHYIkymzkuOAb uOaxRI0zVNWtqmzlCDRtuZ7hAEM yS5q2QtIaOmW5VZagM0IpJUGzdn kcGc54qO0iGlIeFiU5MZyf E0NxicI8MUFlzBFcNUqoAOM7T64 mx2Y5QZZtBSFbPTF6kFL3xO5mtU lnbjogbGVmdDsgdmVydGlj MIdnPWtoM679HNXwsUasLxJeOUq uZyBEYXRlOiAgMDEvMTQvMjAyNT wvdGQ+FZHfLFQ0iLgvEPZs kGYkCPurOu8cuNtgxIuzSV8fHNQ mxcqqEVMckM9wKULksDPjtIahAZ 1zDETjbeakj310DdJjGDG1 CEQkfOOnB2KslS9cXmWvADDrPAT uM9WbhMYrCRxfW072PHywYqL1AN IxziWhG4AfIKWarRscIgK1 y9Y6Vp3Vj2PwajhxI2PbvKFkLhI dWbepZGm8N7TcGiywxHA+PC90YW AkQS64CJe0TSN2kIakCBij UQEqW1FqsY7iEqPhQDQsCCHcTyw +PHRhYmxlIHdpZHRoPScxMDAlJy IrbMwnXF8rSl1sFHRdBWOo bKngiIVxQfUvg8xzBFYmYJwjUZ5 yzTkeE7EqaTI8DNUqg0s4Sz47Y1 5oZ7BhtOO+AROayCH7oUQ8 wD0oKfAdHiN3KBegB174SoMwrKE oRqnja5cuc8pkdOp5HoO1CLDzag DglGnaRNC9a0ZpRp73H14y IHdpZHRoPSIxNSUiIHZhbGlnbj0 xaS6tAy0+LKMveQC3mXZ1kG0gZf ChZbQ9GBktA231KfNmcSVv Utnsz1cqq9fslQw2QkCdZFOgpcH xgZtqBXY4i9QxNi31Z3YdlVkce5 DdDcb6cp88fXBja9M2sGH7 Z0ArVMNiqatgzUGtpUheAX9oNRW hgyxvOEKmnI9nESLmN7c7VyOrVs X0FKjuH0ZqcsQ5OLWofNIi MILfbKPGsW7nesqkp7bnldqhEsU lXEYsMWr4QEu2IFGezHdtSpLwDO F1PtT7UJF7aDOckN6iiJdx rctuzJ6cWea+JOE8pNJpiKWPIU4 lOjwvdGQ+ZCWjAQX1gNfyPEkzRD BknF9jNXUdB1y0RuGnHpR6 DOmdW9VeogE0OXRgvUWiTHXryBE BnK5jftrkc6yshignRoTuLTZbIS a3NSs7ONJzjQbhWcLwSEQ8 XjZ3VZQ9nCMcmQ9nuHdmbsrzgS8 wOyc+MlwlkLvbCTC9VOp9I7HqZa a6CYNymRbsQG3mpTCbCZwa Dr4phMwglHszRQ4fEAKtjpecj57 2BeDkl6qhACDuuFKsFOeaJWH1A8 9pb6C4LNMvEOZoRYU6gUD8 lX3boPtivqqohPFekFtzsjLegKa sZHpiIFtoQ799IALjyZqzIgYpGH x0Q3VaYqa2HOEjfVqgRN9x tILxMWsqAd4jxZltjYnpXU0wXRZ hbdabb641FsGyc5luOZBlqNIsYW eoFSI3P70um1H8DBAlDBFd PSC3bOH5zO7jeHcwqxzmiOEnxZb fwdVjrUfaNLbzHTduJ583YHKbsV ufXmTiiFe2W6WxArm0POKs kTvfXW2zqHXvREtbNc9ogEnahPy kUJ0xLUMyhsbyw309RbZzo5rbEI EpjCVrHQcgTXX9C57vo3A6 SLYoDDUjOXS6nVE7gV4phPtugjq gbGVmdDsgdmVydGljYWwtYWxpZ2 46IHRvcDsnPlBhdGllbnQg NLrvZNq0H7DfDlbmdXO+TT95TRV pWQ45rSLbwIIgm4bolFs3QfVpFL KgLGL1iUehDVwyi2AfIWYd E83upQUio1A6VHKsvXdryEMmZtC vaCM0yZ4zTHflhiihe7fhtplwHj xhf6sbjc95lN52Z90vPLjd FLOcZYQfHYFcUEYguEkwvs3zgJ8 wIi8+IHSpoHM1iCM2kF2vUCYhRu G0CQduS208BhWwlWJbFptd v6voi4kzzBo6LuB0CVZslvQybJf xNGD9c3VmMt94Z53mZHflLRVwMR BmZKFcJBKqwIippn5fpM4t Ii8+QGPbjTU3uQT0eU3oZuZvXxU 5YVycP279LcMohQVcJfbkG32iQ4 JvdXA+TPLbRhh7CDWghLza LG0eiMAxYRbfOo2xJJB0UeYmGwO qEDbqB1KsJMSzwnebamkobBJ6PW QnUMCvoP55Tf4oxHefUPIq xLZUrT0sclzfz2unmfncAsPrWRL xVCz8TFv8TQKhjWxkFzFkKID0Of W3FQE9vUYygN6juKblcgwq uN3aK0EoAHXavbzuSk37bM3hSmP cRnF9FCrfWue+UllGLCBXSUxMSU LHRKv7H6KpKfj6OTPhaWxe KW9rnEHzPSslIr7pkUhqsNbqYB4 sSKJwzjjtOVPajX9eTUOuuMGvpZ jqDH0oCRNhduniv946NqOq ILC2EKJghIKwS6XlzX9bVeRcOVU mQMEmB1YdwQSdZSipQ888DIclHr D9RVOhywDcT5PmERFosWmt StM9n1D5Zd8pVy6cMn2tSCT6II4 5VA09pQQno8N8bKY5P3QcIZNkvd yievmukVS9ERPmSBFkqU97 fRSoMHndLe4bn7A9y635PAAfFPS vmP96Cu5eaQtzMMVxlANUzT0gxw hdw1qsxcbpCmLuCJXyYWc7 QSi6LGVsiTzsMaOuEDH8TiX7HVZ 8sGYoqL5ndCyhgevatM7gCmy+NT NfTZDzitH5J8PeFcj8UELx nGmbPX8uaBYqYAhaRl5sjZuczRi aEZ3yFFEntjtoHFKqjP1rOOIkyF PqnWibFY7jTLRnaexdd874 TqNqVIF5SGKxlYFhQ4OkkT2kPkQ xARVqZPFyA1YydJXkFCxeE772YE tuTzH7YYMmnxFoN2VlOYJx iYvvGdC3r3X4Hc3AJPtFLY23AQ4 0qEYcj4A7rRK2U9EqAMIbjvapcn lyiEJ0FXVoDXEmkX30sFAq JUneEf9km3S9o421XRLfKZJlmX2 8Ma0ljVzpJCHfeZNUpQ2dlffxq3 mwiosoFjQxHPPtFWy7VTl4 BLOdrVwpDwOoSCE5InS4GKE5cKG hcD7ugWezopsovS9bGok+T1A8L3 RkPjwvdHI+SR46BPMlNK55 qCWpaCUgl5unkLk5UfBmZFQqCLL 9rFhqJQgrn1YyDRExR14mfYGjv6 N2CTRazGvyxMAwSxRmsBS7 gN0pRStthhasi9cgklvqQzewt1n xnk72vM19B98qQAdmQWQwCFAlYL EvSLOveRimrt2lqP1zTx9+ QHPigKB7fMR9cS5tKdHqLzG0XUi aZ098BbVaoCUwHexsw3vms8xwxC u4CgPeWEOsisMtrEvmOWD2 d7WiEq03M97bPRmyXZGuGZCoKVN wDBEnlIyjkp5ppC4oNp8+PC9jb2 iupw71mL60wXP+PHRkIHN0 vGyuBWajIRRdwC7wKWevFoT7ZKQ xUhQenJ78tBPyQShqIq8foRtqzW wjOQ0pDZGfvvell062YpCe n6ziWOOjnLClYYquZTZ4H13yg6R 3JQFqADNiSJI6iQX2wE0ilJpvgy ogbGVmdDsgdmVydGljYWwt TZepY338BEBbhAbhGaAbvAAiZ5n hmvRYMV5gZjpgkGE+TYCgOLU2yP hgKQgrRJJdiT0uYKRxC7v8 BvBsJrM0CFxuK2SajhI2WMDdqVJ qMHFayCTQlY9ihstbl5ekhwnuYf UmEOXlUXz7ACf0GEBirYlp VzJkWVU2IeR4YDP3rQCsrD9ghDe qngykpD6yPjn+RklOOjwvdGQ+PH AdCXY8xHwhQEbjHZNkeJ2y TLOxE4v3QfLrHcZ6WTksI0LdahD 5CXDkwOOvZIWdhFHEgZ6yayaqo8 xlukvlFbYyXCQxRQa6VWq0 DHDpmApvKfHpUDV0NjM3JFP9mTH abI6fyEuglawpuM9oDiw+TVJOOj wvdGQ+BVKqYKC7uZkuKCln TRNskO4bZGOgH0m6AmJuNeP2RKa wH3IhtrG3PBEyzAYsXWJhsWUQjM 8xxjqvb2hcmwgvEyJfJQDb SAh2VHx7SVEfbCziQwVaTXR0IuY 5DUP7eHQapQ2zmPrbooedwX2sIk c+IIV7AHN5ZR76RA68H7Fk PjwvdGFibGU+PHRhYmxlIHdpZHR eBMgqKUTzWzOicKvzLF2eKv1tLS ZcJORhpPjeuBXsLoFbp5me YXB (more content not included)... Normal [facility] CT Abdomen/Pelvis w/o Contra ston 02-19-2024 [...] MD 02/19/24 3:53 pm Technologist: Dee DEVINE [facility] Ambulatory Visit Summaryon 0 02-12-2024 Ambulatory Visit Summary Ambulatory Visit Summary FILEMON MENDEZ :1965 Visit Date:02/12/2024 Ambulatory Visit Instructions Your Diagnosis Hypocitraturia Kidney stone BPH with urinary obstruction Erectile dysfunction Smoker Your Care Team Attending Physician - GALLO Bingham APRN, [place] X Primary Care Physician - SUSAN ZAVALA DO [...] BUSTILLO, Buster Tinoco Where: [facility] Monisha [address] [place] [address]- Medications What How Much When Instructions Unchanged [...] emptying Flank pain Gross hematuria Hx of nursing home use of blood thinners Hypocitraturia Kidney [...] you for choosing us for your care. [facility] Provider Orderson 02-12-2024 Provider Orders [id number] [facility] Urology Office/Clinic Noteon 02-12-2024 Urology Office/Clinic [...] with voice recognition artificial intelligence software, specifically [employer], [employer] and or [employer]. Substitutions may have occurred due to the [...] Contact Information YECENIA BUSTILLO, Buster Tinoco, URL [address] [place] [address]- Additional Instructions: about [address] Patient Education Renal Mass Kidney Stones, Dvib-om-Zadd Erectile Dysfunction Dietary Guidelines to Help Prevent Kidney Stones Problem List/Past Medical History Ongoing BPH with urinary obstruction BPH without urinary obstruction Dorsalgia Drug-induced impotence Erectile dysfunction Feeling of incomplete bladder emptying Flank pain Gross hematuria Hx of nursing home use of blood thinners Hypocitraturia Kidney stone Micturition frequency Nocturia Renal mass Smoker Ureteral stone with hydronephrosis Urge incontinence UTI symptoms Historical Anxiety Depression GERD - Gastro-esophageal reflux disease Obstructive sleep apnea PTSD - Post-traumatic stress disorder Procedure/Surgical History Cystoscopic removal of ureteric stent (10/14/2023), Cholecystectomy (12/12/2019), Cystoscopy (08/31/2012), hernia repair (05/06/2012), Colonoscopy (10 (more content not included)... Normal [facility] Comment on above: Result Comment: Elec tronically Signed By: GALLO Bingham APRN, Drea Hagen\.alis\Date and Time Signed: 02/12/24 12:38 EST Consultation/Specialist Note on 02-09-2024 Consultation/Specialis t Note [id number][id number] Hr Urine Uric Acidon 12-11 Uric Acid, 24 Hr Urine 523.6 Normal 197.2 -1078 .7 [facility] Comment on above: Order Comment: URINE VOLUME (MILLILTERS): 1700 Result Comment: Perf ormed at: CB - [facility] [place] [address] [place], [place] [id number] [place] Operator: Jhony Kwok PhD, Phone: [phone] Performed By: #### P HOS 24HRU, URIC 24HRU, U24 CA, OXAL 24HRU, CITRIC UR, MAG 24HRU #### [facility] , #### U24 NA, CREA24, COL T V #### [facility] [address] Urine Uric Acid 30.8 mg/dL Normal Not Estab. [facility] Comment on above: Order Comment: URINE VOLUME (MILLILTERS): 1700 Performed By: #### P HOS 24HRU, URIC 24HRU, U24 CA, OXAL 24HRU, CITRIC UR, MAG 24HRU #### [facility] , #### U24 NA, CREA24, COL T V #### [facility] [address] 24 hour urine creatinine mp surementOrdered By: Buster Keene on 12-24-2023 Urine Creatinine 24 Hour 1.39 g/24 hr 1.00-2.[address] [facility] 24 hour urine sodium measure ment (moles/time)Ordered By: Buster Keene on 12-24-2023 Sodium (24H U) [Moles/Time] 24 hour urine sodium measurement (moles/time) 40-[address] [facility] 24 hour urine uric acid ar urement (mass/time)Ordered By: Buster Keene on 12-24-2023 Urate (24H U) [Mass/Time] 24 hour urine uric acid measurement (mass/time) 197.2-[address] [facility] Comment on above: Performed at: CB - [facility] [id number] [place], [place] [id number] Director: Jhony Kwok PhD, Phone: [phone] Calcium [Mass/time] in 24 ho ur UrineOrdered By: Buster Keene on 12-24-2023 Calcium (24H U) [Mass/Time] Calcium [Mass/time] in 24 hour Urine 0-[address] [facility] Calcium [Mass/volume] in 24 hour UrineOrdered By: Buster Keene on 12-24-2023 Calcium (24H U) [Mass/Vol] Calcium [Mass/volume] in 24 hour Urine Not Estab. [facility] Calcium, 24Hr Urineon 2023 Calcium, Urine 13.3 mg/dL Normal Not Estab. [facility] Comment on above: Order Comment: URINE VOLUME (MILLILTERS): 1700 Performed By: #### C REAT, LYTES, BUN, PTH, URIC, CA #### [address] Calcium, Urine 24 Hr 226 Normal 0-320 [facility] Comment on above: Order Comment: URINE VOLUME (MILLILTERS): 1700 Performed By: #### C REAT, LYTES, BUN, PTH, URIC, CA #### [address] Citric Acid, Urine, 24 Houro n 12-24-2023 Citric Acid, Urine 41 mg/L Normal Undefined [facility] Comment on above: Order Comment: URINE VOLUME (MILLILTERS): 1700 Result Comment: This test was developed and its performance characteristics determined by [facility]. It has not been cleared or approved by the Food and Drug Administration. Performed By: #### C REAT, LYTES, BUN, PTH, URIC, CA #### [place] [id number] [facility] Citric Acid, Urine, 24HR 70 Low 320-1240 [facility] Comment on above: Order Comment: URINE VOLUME (MILLILTERS): 1700 Result Comment: Perf ormed at: - [facility] [id number] [place] Operator: Blanche Vincent MD, Phone: [phone] PERFORMED BY: [place] [address] PATHOLOGIST [employer] MECHANICAL TECHNICIAN CHANNING MEDRANO M.D. Performed By: #### C REAT, LYTES, BUN, PTH, URIC, CA #### [address] Annette Time and Vol 24 hr uron 12-24-2023 Total Volume, Urine 1700 Normal [facility] Comment on above: Order Comment: URINE COLLECTION TIME (HRS): 24 URINE VOLUME (MILLILTERS): 1700 Result Comment: PERF ORMED BY: [place] [address] PATHOLOGIST [employer] MECHANICAL TECHNICIAN CHANNING MEDRANO M.D. Performed By: #### P HOS 24HRU, URIC 24HRU, U24 CA, OXAL 24HRU, CITRIC UR, MAG 24HRU #### [facility] , #### U24 NA, CREA24, COL T V #### [address] Urine Collection Time 24 Normal [facility] Comment on above: Order Comment: URINE COLLECTION TIME (HRS): 24 URINE VOLUME (MILLILTERS): 1700 Performed By: #### P HOS 24HRU, URIC 24HRU, U24 CA, OXAL 24HRU, CITRIC UR, MAG 24HRU #### [facility] , #### U24 NA, CREA24, COL T V #### [address] Creatinine [Mass/volume] in UrineOrdered By: Buster Keene on 12-24-2023 Creatinine (U) [Mass/Vol] Creatinine [Mass/volume] in Urine [facility] Comment on above: No reference range e stablished Creatinine, 24 Hr Urineon Creatinine 24 Hour, Urine 1.39 g/24_hr Normal 1.00-2.09 [facility] Comment on above: Order Comment: URINE COLLECTION TIME (HRS): 24 URINE VOLUME (MILLILTERS): 1700 Performed By: #### P HOS 24HRU, URIC 24HRU, U24 CA, OXAL 24HRU, CITRIC UR, MAG 24HRU #### [facility] , #### U24 NA, CREA24, COL T V #### [facility] [address] Creatinine, Urine 82.00 mg/dL Normal [facility] Comment on above: Order Comment: URINE COLLECTION TIME (HRS): 24 URINE VOLUME (MILLILTERS): 1700 Result Comment: No r eference range established Performed By: #### P HOS 24HRU, URIC 24HRU, U24 CA, OXAL 24HRU, CITRIC UR, MAG 24HRU #### [facility] , #### U24 NA, CREA24, COL T V #### [facility] [address] [place] [address] [place] Magnesium [Mass/time] in 24 hour UrineOrdered By: Buster Keene on 12-24-2023 Magnesium (24H U) [Mass/Time] Magnesium [Mass/time] in 24 hour Urine 12.0-293.[address] [facility] Magnesium [Mass/volume] in U rineOrdered By: Buster Keene on 12-24-2023 Magnesium (U) [Mass/Vol] Magnesium [Mass/volume] in Urine Not Estab. [facility] Magnesium, Urine 24Hron 12-11 Magnesium, 24Hr Urine 69.7 Normal 12.0-293.0 [facility] Comment on above: Order Comment: URINE VOLUME (MILLILTERS): 1700 Performed By: #### C REAT, LYTES, BUN, PTH, URIC, CA #### [facility] [address] [place] [id number] [facility] Magnesium, Urine 4.1 mg/dL Normal Not Estab. [facility] Comment on above: Order Comment: URINE VOLUME (MILLILTERS): 1700 Performed By: #### C REAT, LYTES, BUN, PTH, URIC, CA #### [facility] [address] No Panel InformationOrdered By: Buster Keene on 12-24-2023 Urine Citric Acid 41 mg/L Undefined [facility] Comment on above: This test was develo ped and its performance characteristicsdetermined by [facility]. It has not been cleared orapproved by the Food and Drug Administration. Urine Citric Acid 24 Hour 70 mg/24 hr Low 320-[address] [facility] Comment on above: Performed at: [facility] [address] [id number] Director: Blanche Vincent MD, Phone: [phone] Oxalate [Mass/time] in 24 ho ur UrineOrdered By: Buster Keene on 12-24-2023 Oxalate (24H U) [Mass/Time] Oxalate [Mass/time] in 24 hour Urine - [facility] Comment on above: Performed at: [facility] [address] [id number] Director: Blanche Vincent MD, Phone: [phone] Oxalate [Mass/volume] in Uri neOrdered By: Buster Keene on 12-24-2023 Oxalate (U) [Mass/Vol] Oxalate [Mass/vol ume] in Urine Undefined [facility] Oxalate, Quant, 24Hr Urineon 12-24-2023 Oxalates, Urine 11 mg/L Normal Undefined [facility] Comment on above: Order Comment: URINE VOLUME (MILLILTERS): 1700 Performed By: #### C REAT, LYTES, BUN, PTH, URIC, CA #### [facility] [address] [place] [address] [place] Oxalates, Urine 24Hr 19 Normal [facility] Comment on above: Order Comment: URINE VOLUME (MILLILTERS): 1700 Result Comment: Perf ormed at: [facility] [address] [id number] [place] Operator: Blanche Vincent MD, Phone: [phone] Performed By: #### C REAT, LYTES, BUN, PTH, URIC, CA #### [facility] [address] [place] [id number] [place] Phosphate [Mass/time] in 24 hour UrineOrdered By: Buster Keene on 12-24-2023 Phosphate (24H U) [Mass/Time] Phosphate [Mass/time] in 24 hour Urine [phone] [facility] Phosphate [Mass/volume] in U rineOrdered By: Buster Keene on 12-24-2023 Phosphate (U) [Mass/Vol] Phosphate [Mass/volume] in Urine Not Estab. [facility] Phosphorus, 24Hr Urineon Phosphorous, Urine 30.4 mg/dL Normal Not Estab. [facility] Comment on above: Order Comment: URINE VOLUME (MILLILTERS): 1700 Performed By: #### C REAT, LYTES, BUN, PTH, URIC, CA #### [facility] [address] Phosphorus, Urine 24Hr 517 Normal [phone] [facility] Comment on above: Order Comment: URINE VOLUME (MILLILTERS): 1700 Performed By: #### C REAT, LYTES, BUN, PTH, URIC, CA #### [facility] [address] Sodium [Moles/volume] in Uri neOrdered By: Buster Keene on 12-24-2023 Sodium (U) [Moles/Vol] Sodium [Moles/vol ume] in Urine [facility] Comment on above: No reference range e stablished Sodium, 24 Hr Urineon 2023 Sodium (U) [Moles/Vol] 86.0 mmol/L Normal T he [facility] Comment on above: Order Comment: URINE COLLECTION TIME (HRS): 24 URINE VOLUME (MILLILTERS): 1700 Result Comment: No r eference range established Performed By: #### P HOS 24HRU, URIC 24HRU, U24 [place], OXAL 24HRU, CITRIC UR, MAG 24HRU #### [facility] , #### U24 NA, CREA24, COL T V #### [facility] [address] [place] [address] [place] Sodium 24 Hour Urine 146 Normal 40-220 [facility] Comment on above: Order Comment: URINE COLLECTION TIME (HRS): 24 URINE VOLUME (MILLILTERS): 1700 Performed By: #### P HOS 24HRU, URIC 24HRU, U24 CA, OXAL 24HRU, CITRIC UR, MAG 24HRU #### [facility] , #### U24 NA, CREA24, COL T V #### [facility] [address] [place] [id number] [facility] Total urine volume measureme ntOrdered By: Buster Keene on 12-24-2023 Specimen volume (U) Urine volume measurement [facility] US renal BIon 12-24-2023 US renal BI [facility] [employer] [address] [place] [address] Ultrasound Report Signed Patient: Filemon Mendez MR#: [id number] 4 : 1965 Acct:[id number] Age/Sex: 58 / M ADM Date: 12/24/23 Loc: Room: Type: [facility] Attending Dr: Sunitha Chan MD Ordering [...] Kailash Spears M.D.12/24/2023 2:11 PM Dictation Location: [place] [address] Tech: Belinda Byrd Transcribed By: ZACARIAS 12/24/23 1411 Dictated By: Kialash Spears II, MD 12/24/23 1407 Signed By: 12/24/23 1411 Normal [facility] Urine collection time durati onOrdered By: Buster Keene on 12-24-[address] [facility] Urine uric acid measurement (mass/volume)Ordered By: Buster Keene on 12-24-2023 Urate (U) [Mass/Vol] Urine uric acid mp surement (mass/volume) Not Estab. [facility] Blood Urea Nitrogenon 2023 Urea nitrogen [Mass/Vol] 20 mg/dL Normal 7-25 [facility] Comment on above: Performed By: #### C SHERMAN SMILEY, BUN, PTH, URIC, [place] #### [facility] [address] [place] [address] Calciumon 12-18-2023 Calcium [Mass/Vol] 9.3 mg/dL Normal 8.6-10.3 [facility] Comment on above: Performed By: #### C SHERICE LYDEREK, BUN, PTH, URIC, [place] #### [facility] [address] [place] [address] Calcium [Mass/volume] in Ser um or PlasmaOrdered By: Buster Keene on 12-18-2023 Calcium [Mass/Vol] Calcium [Mass/volume ] in Serum or Plasma 8.6-10.[address] [facility] Carbon dioxide, total [Moles /volume] in Serum or PlasmaOrdered By: Buster Keene on 12-18-2023 CO2 [Moles/Vol] Carbon dioxide, tota l [Moles/volume] in Serum or Plasma 21.0-31.[address] [facility] Chloride [Moles/volume] in S jose antonio or PlasmaOrdered By: Buster Keene on 12-18-2023 Chloride [Moles/Vol] Chloride [Moles/vol ume] in Serum or Plasma High 98-[address] [facility] Creatinineon 12-18-2023 Creatinine [Mass/Vol] 1.31 mg/dL High 0.70-1.30 [facility] Comment on above: Performed By: #### C REAT, LYTES, BUN, PTH, URIC, [place] #### [address] GFR/1.73 sq M.predicted MDRD (S/P/Bld) [Vol rate/Area] mL/min/{1.73_m2} Normal [facility] Comment on above: Performed By: #### C REAT, LYTES, BUN, PTH, URIC, [place] #### [address] Creatinine [Mass/volume] in Serum or PlasmaOrdered By: Buster Keene on 12-18-2023 Creatinine [Mass/Vol] Creatinine [Mass/v olume] in Serum or Plasma High 0.70-1.[address] [facility] Electrolyteson 12-18-2023 Anion gap [Moles/Vol] 11.3 mmol/L Normal 6.0-15.0 Th e [facility] Comment on above: Performed By: #### C REAT, LYTES, BUN, PTH, URIC, [place] #### [address] Chloride [Moles/Vol] 110 mmol/L High 98-107 [facility] Comment on above: Performed By: #### C REAT, LYTES, BUN, PTH, URIC, [place] #### [address] CO2 [Moles/Vol] 24.6 mmol/L Normal 21.0-31.0 [facility] Comment on above: Performed By: #### C REAT, LYTES, BUN, PTH, URIC, [place] #### [address] Potassium [Moles/Vol] 3.9 mmol/L Normal 3.5-5.1 [facility] Comment on above: Performed By: #### C REAT, LYTES, BUN, PTH, URIC, CA #### [facility] [address] [place] [address] Sodium [Moles/Vol] 142 mmol/L Normal 136-145 [facility] Comment on above: Performed By: #### C SHERMAN SMILEY, BUN, PTH, URIC, [place] #### [address] No Panel InformationOrdered By: Buster Keene on 12-18-2023 Estimated GFR (CKD-EPI) > 60.0 mL/Min [facility] Creatinine Clearance (Chem N/A [facility] Parathyrin.intact [Mass/volu me] in Serum or PlasmaOrdered By: Buster Keene on 12-18-2023 Parathyrin.intact [Mass/Vol] Parathyrin.intact [Mass/volume] in Serum or Plasma [facility] Parathyroid Hormone Intacton 12-18-2023 Parathyroid Hormone Intact 16.1 pg/mL Normal [facility] Comment on above: Result Comment: PERF ORMED BY: [place] [address] PATHOLOGIST OPTO MECHANICAL TECHNICIAN ORION FIORE M.D. Performed By: #### C SHERMAN SMILEY, BUN, PTH, URIC, [place] #### [address] Potassium [Moles/volume] in Serum or PlasmaOrdered By: Buster Keene on 12-18-2023 Potassium [Moles/Vol] Potassium [Moles/v olume] in Serum or Plasma 3.5-5.[address] [facility] Serum or plasma anion gap de terminationOrdered By: Buster Keene on 12-18-2023 Anion gap [Moles/Vol] Serum or plasma an ion gap determination 6.0-15.[address] [facility] Sodium [Moles/volume] in Ser um or PlasmaOrdered By: Buster Keene on 12-18-2023 Sodium [Moles/Vol] Sodium [Moles/volume ] in Serum or Plasma 136-[address] [facility] Urate [Mass/volume] in Serum or PlasmaOrdered By: Buster Keene on 12-18-2023 Urate [Mass/Vol] Urate [Mass/volume] in Serum or Plasma 4.4-7.[address] [facility] Urea nitrogen [Mass/volume] in Serum or PlasmaOrdered By: Buster Keene on 12-18-2023 Urea nitrogen [Mass/Vol] Urea nitrogen [Mass/volume] in Serum or Plasma 7-[address] [facility] Uric Acidon 12-18-2023 Urate [Mass/Vol] 4.6 mg/dL Normal 4.4-7.6 [facility] Comment on above: Result Comment: PERF ORMED BY: [facility] [address] [place] [address] PATHOLOGIST OPTO MECHANICAL TECHNICIAN ORION FIORE M.D. Performed By: #### C REAT, LYTES, BUN, PTH, URIC, [place] #### [address] Consultation/Specialist Note on 11-17-2023 Consultation/Specialis t Note [id number] [facility] Ambulatory Visit Summaryon 0 10-14-2023 Ambulatory [...] Buster KEENE MD Where: [facility] [address] [place] [address]- You Need to Schedule the Following Appointments Follow Up with Buster KEENE MD, URL When: Comments: 3-4 mos w/ metabolic workup Where: [facility] [address] , [place] [phone] Medications What How Much When Instructions Unchanged [...] 1 Capsules (more content not included)... Normal [facility] Urology Office/Clinic Noteon 10-14-2023 Urology Office/Clinic Note [...] attached. [3] Follow-up With When Contact Information YECENIA BUSTILLO, Buster Tinoco, URL [facility] [address], [place] [phone] Additional Instructions: 3-4 mos w/ metabolic workup Patient Education 24-Hour Urine Collection Steps to Quit Smoking Kera Martinez, personally scribed for Dr. Keene on 10/14/2023 16:31:42. . Documentation recorded by the scribKera rubio, accurately reflects the services(s) I performed and decisions made by me. Authenticated by Dr. Keene on 10/14/2023 16:33:53. Problem List/Past Medical History Ongoing BPH with urinary obstruction BPH without urinary obstruction Dorsalgia Drug-induced impotence Erectile dysfunction Feeling of incomplete bladder emptying Flank pain Gross hematuria Hx of nursing home use of blood thinners Kidney stone Micturition frequency Nocturia Smoker Ureteral stone with hydronephrosis Urge incontinence UTI symptoms Historical Anxiety Depression GERD - Gastro-esophageal reflux disease Obstructive sleep apnea PTSD - Post-traumatic stress disorder Procedure/Surgical History Cystoscopic removal of ureteric stent (10/14/2023), Cholecystectomy (12/12/2019), Cyst (more content not included)... Normal [facility] Comment on above: Result Comment: Elec tronically Signed By: Buster KEENE MD\.br\Date and Time Signed: 10/14/23 16:33 EDT\.br\Electronically Co-Signed By: Kera Elam\.br\Date and Time Co-Signed: 10/14/23 16:32 EDT Erythrocyte distribution wid th Auto (RBC) [Ratio]on 09-08-2023 Erythrocyte distribution width (RBC) [Ratio] 12.4 % 11.5-15.[address] [facility] Estimated glomerular filtrat ion rate (GFR) non- Americanon 09-08-2023 GFR/1.73 sq M.predicted among non-blacks MDRD (S/P/Bld) [Vol rate/Area] 58 mL/min/{1.73_m2} [facility] Hematocrit Auto (Bld) [Volum e fraction]on 09-08-2023 Hematocrit (Bld) [Volume fraction] 45.8 % 34.8-51.[address] [facility] Hemoglobin [Mass/volume] in Bloodon 09-08-2023 Hemoglobin (Bld) [Mass/Vol] 15.6 g/dL 11.8-17.[address] [facility] Laboratory - Chemistry and C hemistry - challengeon 09-08-2023 Albumin [Mass/Vol] 4.4 g/dL 3.5-5.0 [facility] Bilirubin Ql (U) Negative [facility] Calcium [Mass/Vol] 9.3 mg/dL 8.9-10.3 [facility] Chloride [Moles/Vol] 109 mmol/L 101-111 [facility] CO2 [Moles/Vol] 26 mmol/L 21-[address] [facility] Creatinine [Mass/Vol] 1.28 mg/dL 0.90-1.30 [facility] GFR/1.73 sq M.predicted MDRD (S/P/Bld) [Vol rate/Area] mL/min/{1.73_m2} [facility] Glucose (U) [Mass/Vol] [facility] Glucose [Mass/Vol] 90.0 mg/dL 74.0-118.0 [facility] Ketones Ql (U) Negative [facility] Magnesium [Mass/Vol] 2.08 mg/dL 1.80-2.50 [facility] Potassium [Moles/Vol] 3.7 mmol/L 3.6-5.1 [facility] Sodium [Moles/Vol] 141.0 mmol/L 136.0-144 . [address] [facility] Specific gravity (U) [Rel density] 1.015 1.015 1.001-1.[address] [facility] Urate [Mass/Vol] 3.3 mg/dL Low 4.8-8.7 [facility] Urea nitrogen [Mass/Vol] 15 mg/dL 8- [facility] Urea nitrogen/Creatinine [Mass ratio] 11.7 mg/mg 4.6-16.[address] [facility] Laboratory - Specimen inform ationon 09-08-2023 Appearance (U) CLOUDY CLOUDY Abnormal CLEAR [facility] Color (U) Yellow Yellow [facility] Laboratory - Urinalysison Amorphous sediment LM Ql (Urine sed) 4+ 4+ [facility] Leukocyte esterase Test strip Ql (U) Negative NEGATIVE [facility] Nitrite Ql (U) Negative NEGATIVE [facility] Protein (U) [Mass/Vol] 11.70 mg/dL High <=9.90 [facility] Protein Ql (U) Negative NEGATIVE [facility] Leukocytes [#/volume] correc alfonso for nucleated erythrocytes in Blood by Automated counon 09-08-2023 WBC corrected for nucl RBC Auto (Bld) [#/Vol] 6.6 x10 3.5-10.[address] [facility] MCH Auto (RBC) [Entitic mass ]on 09-08-2023 MCH (RBC) [Entitic mass] 31 pg 24-[address] [facility] MCHC Auto (RBC) [Mass/Vol]on 09-08-2023 MCHC (RBC) [Mass/Vol] 34 g/dL 26-37 [facility] MCV Auto (RBC) [Entitic vol] on 09-08-2023 MCV (RBC) [Entitic vol] 92 fL 81-[address] [facility] No Panel Informationon 09-07 25-Hydroxy Vitamin D Total 34 ng/mL 30-[address] [facility] Osmolality 282 mOsm/L [facility] Parathyroid Hormone (Intact) 21 pg/mL 15-[address] [facility] Comment on above: Performed At: [facility] [address] [id number] Vincent PhD Ph:[phone] Phosphorus Level 2.7 mg/dL 2.5-4.6 [facility] Urine Bacteria None None [facility] Urine Collection Type Voided Voided [facility] Urine Microalbumin mg/dl 36.9 mcg/mL High 0.0-18.[address] [facility] Urine Occult Blood Negative NEGATIVE [facility] Urine pH 7.5 7.5 5-[address] [facility] Urine Random Creatinine 75.42 mg/dL [facility] Urine RBC None Seen None Seen [facility] Urine Urobilinogen 0.2 0.2 mg/dL 0.2-1.0 [facility] Urine WBC 0-2 0-[address] [facility] Platelet mean volume Auto (B ld) [Entitic vol]on 09-08-2023 Platelet mean volume (Bld) [Entitic vol] 7.4 fL 6.3-10.[address] [facility] Platelets Auto (Bld) [#/Vol] on 09-08-2023 Platelets (Bld) [#/Vol] 266 x10 138-[address] [facility] RBC Auto (Bld) [#/Vol]on RBC (Bld) [#/Vol] 4.99 x10 3.70-5.30 [facility] Serum or plasma anion gap de terminationon 09-08-2023 Anion gap [Moles/Vol] 9.7 mmol/L 5.0-19.0 [facility] Urine microalbumin/creatinin e mass ratioon 09-08-2023 Albumin/Creatinine DL <= 20 mg/L (U) [Mass ratio] 49 mcg/mg High 0-[address] [facility] Urine protein/creatinine rat ioon 09-08-2023 Protein/Creatinine (U) [Ratio] 155 mg/gm 0-[address] [facility] CHEMISTRYOrdered By: SYSTEM SYSTEM on 05-13-2023 Free PSA [Mass/Vol] 0.7 ng/mL Invalid Interpretation Code [facility] Comment on above: Interpretive Data: T he concentration of free PSA and total PSA determined with assays from different manufacturers can vary due to differences in assay methods and specificity. Values obtained with different hogshead weigher's assays cannot be used interchangeably. The methodology used to obtain this result was chemiluminescence using [email or web address]'s Access Hybritech PSA reagent and Access Hybritech [...] used for this result was chemiluminescence using [email or web address]'s Access Hybritech PSA reagent. MRI Cervical Spine [...] by Ludwig Trinidad on 03/05/2022 1502 Normal [facility] Agronomy Research Manager Prolactin [Mass/volume] in S jose antonio or PlasmaOrdered By: Boogie Trotter on 06-30-2021 Prolactin [Mass/Vol] 28.82 ng/mL 2.64-13.13 [facility] Troponin I.cardiac [Mass/vol ume] in Serum or Plasma by High sensitivity methodOrdered By: Boogei Trotter on 06-30-2021 Troponin I.cardiac High sensitivity method [Mass/Vol] < 3 pg/mL 0-[address] [facility] Cholesterol [Mass/volume] in Serum or PlasmaOrdered By: Boogie Trotter on 06-28-2021 Cholesterol [Mass/Vol] 127 mg/dL 140-200 [facility] Comment on above: Chol less than 200 m g/dl low risk Chol 201-239 mg/dl borderline risk Chol 240 mg/dl and greater high risk Cholesterol in LDL Calc [Mas s/Vol]Ordered By: Boogie Trotter on 06-28-2021 Cholesterol in LDL [Mass/Vol] 71 mg/dL 0-[address] [facility] Comment on above: LDL ATP III CLASSIFI CATION LDL less than 100 mg/dL Optimal LDL 100-129 mg/dL Near or above optimal LDL 130-159 mg/dL Borderline high LDL 160-189 mg/dL High LDL greater than 189 mg/dL Very high Cholesterol in VLDL Calc [Ma ss/Vol]Ordered By: Boogie Trotter on 06-28-2021 Cholesterol in VLDL [Mass/Vol] 16 mg/dL [facility] No Panel InformationOrdered By: Boogie Trotter on 06-28-2021 25-Hydroxy Vitamin D Total 14.5 ng/mL 30-[address] [facility] Comment on above: VITAMIN D STATUS 25( [place])VITAMIN D RANGE (ng/mL) Deficient <20 Insufficient 20 to <30 Sufficient 30 to 100 Reference: Sebastian MF,Carmen VALENTINE, Yvrose MONROE, et al. Evaluation,treatment, and prevention of vitamin D deficiency; an Endocrine Society clinical practice guideline. JCEM. 2010; 96(7):1911-30. Serum or plasma high density lipoprotein (HDL) cholesterol measurementOrdered By: Boogie Trotter on 06-28-2021 Cholesterol in HDL [Mass/Vol] 39 mg/dL 29-[address] [facility] Comment on above: HDL CHOL ATP-III CLA SSIFICATION Cardiovascular Risk HDL > or equal to 60 mg/dL LOW HDL < 40 mg/dL HIGH Serum or plasma total choles terol/high density lipoprotein (HDL) cholesterol mass ratOrdered By: Boogie Trotter on 06-28-2021 Cholesterol.total/Chol esterol in HDL [Mass ratio] 3.3 {ratio} [facility] TSH DL <= 0.005 mIU/L QnOrde red By: Boogie Trotter on 06-28-2021 TSH Qn 0.97 m[IU]/L 0.45-5.[address] [facility] Triglyceride [Mass/volume] i n Serum or PlasmaOrdered By: Boogie Trotter on 06-28-2021 Triglyceride [Mass/Vol] 84 mg/dL 35-[address] [facility] Comment on above: TRIG ATP III CLASSIF ICATION TRIG less than 150 mg/dL Normal TRIG 150-199 mg/dL Borderline high TRIG 200-500 mg/dL High TRIG greater than 500 mg/dL Very high Standard traceable to the Center for Disease Conrtrol and Prevention (CDC) test method. Vital Signs Date Time Vital Sign Value Performing Clinician Facility 04-01-2024 09:30-0500 Body height 165.1 cm Michelle Chan ASSEMBLER SHOW MOTOR Work Phone: [facility] 04-01-2024 09:30-0500 Body mass index (BMI) [Ratio] 28.79 kg/m2 Michelle Chan ASSEMBLER SHOW MOTOR Work Phone: [facility] 04-01-2024 09:30-0500 Body weight 78.47 kg Michelle Chan ASSEMBLER SHOW MOTOR Work Phone: [facility] 03-31-2024 09:34-0500 Blood Pressure Location Bustermarilyn KEENE [facility] 03-31-2024 09:34-0500 Diastolic blood pressure 79 mm[Hg] Buster KEENE [facility] 03-31-2024 09:34-0500 Heart rate 63 /min Buster KEENE [facility] 03-31-2024 09:34-0500 Systolic blood pressure 124 mm[Hg] Buster KEENE [facility] 02-12-2024 11:56-0500 Diastolic blood pressure 81 mm[Hg] Drea Orzech [facility] 02-12-2024 11:56-0500 Heart rate 69 /min Drea Orzech [facility] 02-12-2024 11:56-0500 Systolic blood pressure 130 mm[Hg] Drea Orzech [facility] 12-18-2023 10:45-0500 Diastolic blood pressure 80 mm[Hg] Michelle Chan ASSEMBLER SHOW MOTOR Work Phone: [facility] 12-18-2023 10:45-0500 Systolic blood pressure 136 mm[Hg] Michelle Emanueli ASSEMBLER SHOW MOTOR Work Phone: [facility] 11-12-2023 10:21-0400 Body height 165.1 cm DO Susan Mummert Work Phone: [facility] 11-12-2023 10:21-0400 Body mass index (BMI) [Ratio] 28.6 kg/m2 DO Susan Mummert Work Phone: [facility] 11-12-2023 10:21-0400 Body weight 78.01 kg DO Susan Mummert Work Phone: [facility] 11-12-2023 10:21-0400 Diastolic blood pressure 75 mm[Hg] DO Susan Mummert Work Phone: [facility] 11-12-2023 10:21-0400 Heart rate 80 /min DO Susan Mummert Work Phone: [facility] 11-12-2023 10:21-0400 SaO2% (BldA) [Mass fraction] 100 % DO Susan Mummert Work Phone: [facility] 11-12-2023 10:21-0400 Systolic blood pressure 110 mm[Hg] DO Susan Mummert Work Phone: [facility] 10-14-2023 15:38-0400 Blood Pressure Location Buster KEENE [facility] 10-14-2023 15:38-0400 Diastolic blood pressure 88 mm[Hg] Buster KEENE [facility] 10-14-2023 15:38-0400 Heart rate 74 /min Buster KEENE [facility] 10-14-2023 15:38-0400 Respiratory rate 16 /min Buster KEENE [facility] 10-14-2023 15:38-0400 Systolic blood pressure 137 mm[Hg] Buster KEENE [facility] 09-10-2023 08:28-0400 Body temperature 98.6 [degF] Buster KEENE [facility] 09-10-2023 08:28-0400 Diastolic blood pressure 85 mm[Hg] Buster KEENE [facility] 09-10-2023 08:28-0400 Heart rate 77 /min Buster KEENE [facility] 09-10-2023 08:28-0400 Respiratory rate 16 /min Buster KEENE [facility] 09-10-2023 08:28-0400 Systolic blood pressure 126 mm[Hg] Buster KEENE [facility] 09-03-2023 14:19-0400 Body height 165.1 cm DO Susan Mummert Work Phone: [facility] 09-03-2023 14:19-0400 Body mass index (BMI) [Ratio] 28.6 kg/m2 DO Susan Mummert Work Phone: [facility] 09-03-2023 14:19-0400 Body temperature 97.3 [degF] DO Susan Mummert Work Phone: [facility] 09-03-2023 14:19-0400 Body weight 78.18 kg DO Susan Mummert Work Phone: [facility] 09-03-2023 14:19-0400 Diastolic blood pressure 83 mm[Hg] DO Susan Mummert Work Phone: [facility] 09-03-2023 14:19-0400 Heart rate 80 /min DO Susan Mummert Work Phone: [facility] 09-03-2023 14:19-0400 Respiratory rate 16 /min DO Susan Mummert Work Phone: [facility] 09-03-2023 14:19-0400 SaO2% (BldA) [Mass fraction] 98 % DO Susan Zavala Work Phone: [facility] 09-03-2023 14:19-0400 Systolic blood pressure 120 mm[Hg] DO Susan Zavala Work Phone: [facility] 07-11-2023 09:48-0400 Body height 165.1 cm Khris Mckeon MD Work Phone: [facility] 07-11-2023 09:48-0400 Body mass index (BMI) [Ratio] 28.29 kg/m2 Khris Mckeon MD Work Phone: [facility] 07-11-2023 09:48-0400 Body weight 77.11 kg Khris Mckeon MD Work Phone: [facility] 07-11-2023 09:48-0400 Diastolic blood pressure 90 mm[Hg] Khris Mckeon MD Work Phone: [facility] 07-11-2023 09:48-0400 Heart rate 95 /min Khris Mckeon MD Work Phone: [facility] 07-11-2023 09:48-0400 SaO2% (BldA) [Mass fraction] 98 % Khris Mckeon MD Work Phone: [facility] 07-11-2023 09:48-0400 Systolic blood pressure 118 mm[Hg] Khris Mckeon MD Work Phone: [facility] 05-13-2023 10:18-0400 Blood Pressure Location Buster KEENE [facility] 05-13-2023 10:18-0400 Body temperature 97.16 [degF] Buster KEENE [facility] 05-13-2023 10:18-0400 Diastolic blood pressure 78 mm[Hg] Buster KEENE [facility] 05-13-2023 10:18-0400 Heart rate 84 /min Bustermarilyn KEENE [facility] 05-13-2023 10:18-0400 Systolic blood pressure 116 mm[Hg] Buster KEENE [facility] 07-01-2021 07:30-0400 Body temperature 97.8 [degF] DO Susan Mummert Work Phone: [facility] 07-01-2021 07:30-0400 Diastolic blood pressure 82 mm[Hg] DO Susan Mummert Work Phone: [facility] 07-01-2021 07:30-0400 Heart rate 71 /min DO Susan Mummert Work Phone: [facility] 07-01-2021 07:30-0400 Respiratory rate 14 /min DO Susan Mummert Work Phone: [facility] 07-01-2021 07:30-0400 SaO2% (BldA) [Mass fraction] 99 % DO Susan Mummert Work Phone: [facility] 07-01-2021 07:30-0400 Systolic blood pressure 127 mm[Hg] DO Susan Mummert Work Phone: [facility] 06-28-2021 14:17-0400 Body height 165.1 cm DO Susan Mummert Work Phone: [facility] 06-27-2021 20:00-0400 Body mass index (BMI) [Ratio] 26.6 kg/m2 DO Susan Mummert Work Phone: [facility] 06-27-2021 20:00-0400 Body weight 72.57 kg DO Susan Mummert Work Phone: [facility] 06-12-2021 12:11-0400 Blood Pressure Location Niall Ann Jr. [facility] 06-12-2021 12:11-0400 Diastolic blood pressure 89 mm[Hg] Niall Seth La [facility] 06-12-2021 12:11-0400 Heart rate 70 /min Niall Ann Jr. [facility] 06-12-2021 12:11-0400 Respiratory rate 16 /min Niall Seth La [facility] 06-12-2021 12:11-0400 Systolic blood pressure 128 mm[Hg] Niall Seth La [facility] Encounters Encounter Date Encounter Type Care Provider Facility Start: 11-10-2024 ambulatory Buster Cassidyi ty: [place] Start: 11-01-2024 ambulatory Buster KEENE Facili ty:[facility] Start: 10-28-2024 ambulatory Buster KEENE Facili ty:CD:[id number] Start: 10-06-2024 End: 10-06-2024 ambulatory Buster KEENE Facility:[facility] Start: 10-06-2024 End: 10-06-2024 Patient encounter procedure Buster KEENE [facility] Start: 09-30-2024 ambulatory [facility] Start: 07-31-2024 End: 08-01-2024 Jennifer Leonardo MD Work Phone: [facility] Comment on above: Intention tremor; Traumatic brain injury, with loss of consciousness of 30 minutes or less, subsequent encounter Start: 07-18-2024 ambulatory Bunny Veliz PAC Faci lity:[facility] Start: 07-08-2024 End: 07-08-2024 Bamboo flowsheet Michelle Chan ASSEMBLER SHOW MOTOR Work Phone: [facility] Start: 07-08-2024 End: 07-08-2024 Bamboo flowsheet Michelle Chan ASSEMBLER SHOW MOTOR Work Phone: [facility] Start: 07-08-2024 End: 07-08-2024 Office outpatient visit 15 minutes Michelle Chan ASSEMBLER SHOW MOTOR Work Phone: [facility] Comment on above: Cervical dystonia (P rimary Dx); Degeneration of intervertebral disc of lumbar region with lower extremity pain; Degenerative disc disease, cervical Start: 07-08-2024 End: 07-08-2024 ambulatory MICHELLE CHAN Not Available Start: 06-29-2024 End: 06-29-2024 ambulatory Susan Mummert [facility] [facility] Start: 06-21-2024 ambulatory Susan Mummert DO Faci lity: [facility] Start: 06-15-2024 End: 06-15-2024 ambulatory Buster KEENE Facility:[facility] Start: 06-15-2024 End: 06-15-2024 Patient encounter procedure Buster KEENE [facility] Start: 06-02-2024 ambulatory Susan Mummert DO Faci lity: [facility] Start: 05-25-2024 End: 05-25-2024 ambulatory Buster KEENE [facility] Start: 04-01-2024 End: 04-01-2024 Bamboo flowsheet Michelle Chan [employer]SEM[employer]ER [employer] Work Phone: [facility] Start: 04-01-2024 End: 04-01-2024 Bamboo flowsheet Michelle Chan ASSEMBLER [employer]OR Work Phone: [facility] Start: 04-01-2024 End: 04-01-2024 ambulatory MICHELLE Sumaya DUSTIN Not Available Start: 04-01-2024 End: 04-01-2024 Patient encounter procedure Michelle Sumaya Dustin [employer]SEMBLER [employer]OR Work Phone: [facility] Comment on above: Cervical dystonia (P rimary Dx) Start: 03-31-2024 End: 03-31-2024 ambulatory Buster KEENE Facility:[facility] Start: 03-31-2024 End: 03-31-2024 Patient encounter procedure Buster KEENE [facility] Start: 03-29-2024 End: 03-29-2024 ambulatory Susan Mummert DO Facility:[facility] Start: 03-12-2024 End: 03-12-2024 Jennifer Leonardo MD Work Phone: [facility] Comment on above: Seizure disorder (CM S/HCC) Start: 03-03-2024 ambulatory Susan Mummert DO Faci lity: [facility] Start: 02-19-2024 End: 02-19-2024 ambulatory Susan Mummert DO Facility:[facility] Start: 02-12-2024 End: 02-12-2024 ambulatory Drea X Orzech Facility:[facility] Start: 02-12-2024 End: 02-12-2024 Patient encounter procedure Drea X Orzech [facility] Start: 01-13-2024 ambulatory Susan Mummert Facilit y:[facility] Start: 01-12-2024 End: 01-12-2024 ambulatory Azjason Jonnynehemiass Facility:[facility] Start: 12-30-2023 End: 12-30-2023 Patient encounter procedure Susan Mummert DO Work Phone: [facility] Work Phone: Start: 12-30-2023 End: 12-30-2023 ambulatory Susan Zavala DO Work Phone: [facility] Work Phone: Start: 12-24-2023 End: 12-24-2023 Patient encounter procedure Susan Zavala DO Work Phone: [facility]Ul[facility] Work Phone: Start: 12-24-2023 End: 12-24-2023 ambulatory Susan Zavala DO Work Phone: [facility] Work Phone: Start: 12-18-2023 End: 12-18-2023 Bamboo flowsheet Michelle Chan ASSEMBLER SH[employer]OR Work Phone: [facility] Start: 12-18-2023 End: 12-18-2023 Bamboo flowsheet Michelle Chan ASSEMBLER SHOW [employer]OR Work Phone: [facility] Start: 12-18-2023 End: 12-18-2023 ambulatory Susan Zavala DO Work Phone: [facility] Work Phone: Start: 12-18-2023 End: 12-18-2023 Patient encounter procedure Michelle Chan ASSEMBLER SHOW [employer]OR Work Phone: [facility] Comment on above: Cervical dystonia (P rimary Dx) Start: 11-25-2023 End: 11-25-2023 Refill Michelle Chan [employer]SEMBLER SHOW [employer]OR Work Phone: [facility] Comment on above: Seizure (CMS/HCC) Start: 11-19-2023 ambulatory Buster Slaughter ty:[facility] Start: 11-18-2023 Registered Recurring Susan olvera DO Work Phone: [facility] Credible Start: 11-12-2023 End: 11-12-2023 ambulatory DO Susan Zavala Work Phone: [facility] Work Phone: Start: 11-12-2023 End: 11-12-2023 Patient encounter procedure DO Susan Zavala Work Phone: [facility] Work Phone: Start: 11-06-2023 End: 11-06-2023 Refill Michelle Chan ASSEMBLER SH[employer]OR Work Phone: [facility] Comment on above: Intention tremor; Traumatic brain injury, with loss of consciousness of 30 minutes or less, subsequent encounter Start: 10-21-2023 Registered Recurring DO Juan Daniel Zavala Work Phone: [facility] Start: 10-14-2023 End: 10-14-2023 ambulatory Buster KEENE Facility:[facility] Start: 10-14-2023 End: 10-14-2023 Patient encounter procedure Buster KEENE 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 with status migrainosus (CMS/HCC) Start: 10-01-2023 End: 10-02-2023 Telephone encounter Michelle Chan ASSEMBLER SHOW MOTOR Work Phone: [facility] Start: 09-29-2023 End: 09-29-2023 ambulatory KHRIS MCKEON [facility] Start: 09-17-2023 End: 09-19-2023 Telephone encounter Enid Aguilera RN [facility] Comment on above: Cardiac Clearance Start: 09-15-2023 Non-patient / Non-visit DO Lorne Multanit Work Phone: [facility] Work Phone: Start: 09-10-2023 End: 09-10-2023 Patient encounter procedure Buster KEENE [facility] Start: 09-08-2023 Non-patient / Non-visit DO Lorne Multanit Work Phone: [facility] Work Phone: Start: 09-04-2023 End: 09-04-2023 ambulatory MICHELLE CHAN Not Available Start: 09-03-2023 End: 09-03-2023 ambulatory DO Susan Zavala Work Phone: [facility] Work Phone: Start: 09-03-2023 End: 09-03-2023 Patient encounter procedure DO Susan Zavala Work Phone: [facility] Phys[facility] Work Phone: Start: 07-30-2023 End: 07-30-2023 ambulatory MICHELLE CHAN Not Available Start: 07-11-2023 End: 07-11-2023 Office outpatient new 60 minutes Khris Mckeon MD Work Phone: [facility] Comment on above: Chest pain, unspecif ied type Start: 07-11-2023 End: 07-11-[address] [facility] Start: 07-10-2023 Registered Recurring DO Juan Daniel aZvala Work Phone: [facility] Start: 07-10-2023 End: 07-10-2023 Telephone encounter [facility] Start: 07-06-2023 ambulatory SUSAN ZAVALA [facility] Start: 05-13-2023 End: 05-13-2023 Lab Drop off Buster KEENE [facility] Start: 05-13-2023 End: 05-13-2023 Patient encounter procedure Buster KEENE [facility] Mon[facility] Start: 02-18-2023 End: 02-18-2023 Patient encounter procedure Buster KEENE [facility] Start: 06-27-2021 End: 07-01-2021 Evaluation and management of inpatient DO Susan Zavala Work Phone: [address] Start: 06-12-2021 End: 06-12-2021 Patient encounter procedure Niall Ann Jr. [facility] Start: 08-22-2020 End: 08-23-[address] DESIREE BATISTA Facility: Procedures Date Procedure Procedure Detail Performing Clinician Start: 06-15-2024 Urodynamic studies Bustermarilyn KEENE Start: 05-25-2024 Cystoscope, device (physical object) Buster KEENE Start: 12-24-2023 Ultrasonography of bilateral kidneys Susan Zavala DO Work Phone: Start: 10-14-2023 Cystoscopic removal of ureteric stent Buster KEENE Start: 12-12-2019 Cholecystectomy Niall Ann Jr. Start: 03-13-2017 H/O: surgery S/P uvulopalatopharyngoplasty Ewelina lopez MA Start: 08-31-2012 Cystoscopy Niall Ann Jr. Start: 05-06-2012 Hernia repair Niall Ann JrJanki Start: 11-10-2009 Colonoscopy Niall Ann JrJanki Start: 03-13-2009 Catheterization of both left and right heart Niall Ann JrJanki Start: 10-11-2004 Decompression of median nerve Niall Ann JrJanki Start: 02-11-1992 Hemorrhoidectomy Niall Ann JrJanki Start: 05-12-1987 Appendectomy Niall Ann JrJanki Start: 07-11-1986 tendon reconstruction Niall Ann JrJanki sleep apnea surgery Niall bermudez JrJanki Plan of Treatment Date Care Activity Detail Author Start: 10-28-2024 End: 10-28-2024 Patient encounter procedure 10/28/2024 11:00 AM EDT Procedure Visit [facility] [address] [phone] Michelle Chan ASSEMBLER SHOW MOTOR [address] [place] [address] [facility] Start: 08-09-2024 Influenza vaccination Influenza Vacc ine (#1) [facility] Comment on above: Postponed from 10/11 (Patient Refused) Start: 07-15-2024 End: 07-15-2024 Patient encounter procedure 07/15/2024 12:30 PM EDT Procedure Visit [facility] [address] [facility] [address] [place] [phone] Michelle Chan ASSEMBLER SHOW MOTOR [address] [place] [address] [facility] Start: 07-10-2024 Adult BMI Screening Adult BMI Screen ing [facility] Start: 07-10-2024 Tobacco Screening Tobacco Screening [facility] Start: 07-08-2024 End: 07-08-2024 Patient encounter procedure 07/08/2024 10:45 AM EDT Procedure Visit [facility] [address] [phone] Michelle Chan, ASSEMBLER SHOW [employer]OR [address] [place] [address] Arrived [facility] Comment on above: Arrived Start: 04-01-2024 End: 04-01-2024 Patient encounter procedure 04/01/2024 11:00 AM EST Procedure Visit [facility] [address] [phone] Michelle Chan, ASSEMBLER SHOW MOTOR [address] [place] [address] [facility] Start: 12-24-[address] [facility] Start: 12-18-2023 End: 12-18-2023 Patient encounter procedure 12/18/2023 10:30 AM EST Procedure Visit [facility] [address] [phone] Michelle Chan, ASSEMBLER SHOW MOTOR [address], [place] [address] [facility] Start: 10-14-2023 End: 10-14-2023 Patient encounter procedure 10/14/2023 9:30 AM EDT Office Visit [facility] [address] [place] [phone] Waldemar Pichardo MD [facility] [place] [address] [facility] Start: 10-12-2023 Influenza vaccination N [facility] Start: 10-06-2023 End: 10-06-2023 Telemedicine consultation with patient 10/06/2023 2:30 PM EDT Telemedicine [facility] [address] [facility] [place] [phone] Michelle Chan NP [address] [place] [address] [facility] 210 Start: 09-29-2023 Subsequent hospital visit by physician 09/29/2023 2:00 PM EDT Hospital Encounter [facility] [address] [place] [phone] Khris Mckeon MD [address] [place], [place] [phone] [facility] Start: 08-07-2023 End: 08-07-2023 Patient encounter procedure 08/07/2023 3:00 PM EDT Appointment [facility] [address] [place] [address] [facility] Start: 07-11-2023 End: 07-10-2024 CTA Heart and Coronary arteries WO and W contrast IV CT angiogram coronary arteries with or without scoring Imaging Routine Chest pain, unspecified type Expected: 07/11/2023, Expires: 07/10/2024 [facility] Work Phone: Comment on above: Expected: 07/11/2023 , Expires: 07/10/2024 Start: 07-11-2023 End: 07-11-2023 Patient encounter procedure 07/11/2023 9:45 AM EDT Office Visit [facility] [address] [place] [phone] Khris Mckeon MD [address] [place] [address] [facility] Start: 08-02-2022 Adult BMI Screening Adult BMI Screen [facility] Start: 08-02-2022 Tobacco Screening Tobacco Screening [facility] Start: 08-25-2017 Administration of varicella zoster vaccine Zoster (Shingles) Vaccine (1 of 2) [facility] Start: 08-25-1986 DTaP,Tdap and Td Vac cines (1 - Tdap) DTaP,Tdap and Td Vaccines (1 - Tdap) [facility] Start: 08-25-1985 Adult BMI Follow Up Plan Adult BMI Follow Up Plan [facility] Start: 1979 Depression Screening Depression Scre ening [facility] Start: 1967 Medicare Annual Well ness (AWV) Medicare Annual Wellness (AWV) [facility] Start: 1967 Screening for malign ant neoplasm of colon [facility] Start: 1967 Tobacco Counseling Tobacco Counselin g [facility] Patient Education Depression, Ad ult (DC) [facility] DC Instructions [facility] Work Phone: Patient referral [facility] Work Phone: Renal function 2000 panel - Serum or Plasma [facility] US Kidney - bilateral [facility] Immunizations Immunization Date Immunization Notes Care Provider Rashida prieto 12-22-2019 influenza virus vaccine, unspecified formulation Buster KEENE [facility] 12-22-2019 influenza, injectable, quadrivalent, preservative free Michelle Chan ASSEMBLER SHOW [employer]OR Work Phone: [facility] 11-11-2019 influenza virus vaccine, unspecified formulation Niall Ann Jr. [facility] Danyel 12-05-2017 influenza virus vaccine, unspecified formulation Buster KEENE [facility] 12-05-2017 influenza, high dose seasonal, preservative-free Michelle Chan ASSEMBLER SHOW [employer]OR Work Phone: [facility] 12-17-2016 influenza virus vaccine, unspecified formulation Buster KEENE [facility] 12-17-2016 influenza, injectable, quadrivalent, contains preservative Michelle Graziani ASSEMBLER SHOW MOTOR Work Phone: [facility] 01-31-2016 influenza, injectable, quadrivalent, contains preservative Michelle Graziani ASSEMBLER SHOW MOTOR Work Phone: [facility] 01-18-2016 influenza, injectable, quadrivalent, contains preservative Michelle Graziani ASSEMBLER SHOW MOTOR Work Phone: [facility] 12-20-2014 influenza, injectable, quadrivalent, contains preservative Michelle Graziani ASSEMBLER SHOW MOTOR Work Phone: [facility] 02-21-2012 influenza virus vaccine, unspecified formulation Buster KEENE [facility] 02-21-2012 influenza, seasonal, injectable Michelle Graziani ASSEMBLER SHOW MOTOR Work Phone: [facility] NEGATED: Highlighted row has not occurred!05-09-2020 SARS-CoV-2 (COVID-19) [id number] vaccine Niall Ann Jr. [facility] Payers Date Payer Category Payer Private Health Insurance [id number] 2023 Medicaid [employer] MEDICARE A DVANTAGE [id number] 2023 Medicare [id number] 2022 Self-pay [id number] 2022 Medicare [id number] 2021 Private Health Insurance [facility] [id number] 2018 Medicare [id number] 2017 Medicare [id number] 2016 Medicare [id number] 1967 Unknown [id number] 2.840.1.549708.3.579.2. 593 1967 Unknown [id number] .840.1.824442.3.579.2. 1285 1967 Unknown [id number] .840.1.421526.3.579.2. 1285 1967 Unknown [id number] .840.1.845675.3.579.2. 1285 1967 Unknown [id number] .840.1.861961.3.579.2. 1258 1967 Unknown [id number] .840.1.218680.3.579.2. 1258 1967 Unknown [id number] .840.1.881525.3.579.2. 1258 1967 Unknown [id number] 2.16.840.1.488287.3.579.2. 1258 1967 Unknown [id number] .16.840.1.354407.3.579.2. 1258 1967 Unknown [id number] 2.16840.1.099391.3.579.2. 1258 1967 Unknown [id number] 2.16.840.1.960349.3.579.2 1967 Unknown [id number] .16.840.1.664957.3.579. 1967 Unknown [id number] .16.840.1.025025.3.579. 1967 Unknown [id number] .16.840.1.795619.3.579. 1967 Unknown [id number] .16.840.1.909844.3.579. 1967 Unknown [id number] .16.840.1.489965.3.579. 1967 Unknown [id number] 2.16.840.1.032446.3.579. 1967 Unknown [id number] ..840.1.996393.3.579. 1967 Unknown [id number] 2.16.840.1.992366.3.579. 1967 Unknown [id number] .16.840.1.682622.3.579. 1967 Unknown [id number] 2.16.840.1.389985.3.579. 1967 Unknown [id number] .16.840.1.367956.3.579. 1967 Unknown [id number] .16.840.1.965162.3.579. 1967 Unknown [id number] 2.16.840.1.520657.3.579. 1967 Unknown [id number] 2.16.840.1.582961.3.579. 1967 Unknown [id number] 2.16.840.1.607975.3.579. 1967 Unknown [id number] 2.16.840.1.194121.3.579.2. 718 1967 Unknown [id number] 2.16.840.1.414096.3.579.2. 718 1967 Unknown [id number] 2.16.840.1.604674.3.579.2. 718 1959 Medicare [id number] Medicare Medicare [id number] Unknown [id number] 2.16.840.1.179205.3.579.2. 531 Unknown [id number] 2.16.840.1.096233.3.579.2. 531 Unknown [id number] 2.16.840.1.090888.3.579.2. 531 Unknown [id number] 2.16.840.1.925024.3.579.2. 531 Unknown [id number] 2.16.840.1.847266.3.579.2. 531 Social History Date Type Detail Facility Start: 06-12-2021 End: 10-06-2024 Tobacco smoking status Heavy tobacco smoker (finding) [facility] Start: 10-06-2023 End: 07-08-2024 Sex Assigned At Male [facility] Start: 06-28-2021 End: 09-03-2023 Tobacco smoking status NHIS Smoker (finding) [facility] Start: 1965 Sex Assigned At Male [facility] Tobacco smoking status Never [facility] Start: 07-11-2023 End: 09-04-2023 Tobacco smoking status NHIS Smokes tobacco daily [facility] History of tobacco use Cigarette Smoker [facility] Start: 09-04-2023 Tobacco use and exposure Smoke less tobacco non-user [facility] Start: 10-06-2023 End: 07-08-2024 Alcoholic beverage intake Lifetime non-drinker (finding) [facility] Start: 10-06-2023 End: 07-08-2024 History of Social function [facility] Start: 09-03-2022 Tobacco Comment 6-10 cigarettes/day [facility] Start: 08-18-2022 Gender identity Identifies as male gender (finding) [facility] Start: 08-28-2018 End: 12-19-2023 Sex Male (finding) [facility] Start: 08-02-2021 End: 07-11-2023 Tobacco use and exposure Former smokeless tobacco user [facility] History of tobacco use Chews Tobacco [facility] Start: 07-08-2023 Alcoholic beverage intake Current non-drinker of alcohol (finding) [facility] Start: 07-15-2019 Alcohol Comment past ETHO abuse, non e [facility] Start: 1965 Sex assigned at Not on file [facility] Start: 07-11-2023 Alcoholic beverage intake Ex-drinker (finding) [facility] Sexual Orientation [facility] Goals Date Patient Goal Desired Activity /State Functional Status Date Assessment Result Facility 03-31-2024 Functional Status N/A [facility] 02-12-2024 Functional Status N/A [facility] 10-14-2023 Functional Status N/A [facility] 09-10-2023 Functional Status N/A [facility] 05-13-2023 Functional Status N/A [facility] 07-01-2021 Functional status Patient at Baseline Fir [facility] Work Phone: 06-27-2021 Functional status Functional Status Comme nt [facility] Work Phone: Mental Status Date Assessment Result Facility 07-01-2021 Cognitive function Cognitive Sta tus Patient at Baseline [facility] Work Phone: Clinical Notes 06-12-2021 to 10-06-2024 [...] Follow these instructions at home: Medicines Take pvsb-trc-rghksrq and prescription medicines only as told by [...] to keep your urine pale yellow. Take kuzo-nhe-nmdhvpa or prescription medicines. Eat foods that are [...] provider. Document Revised: 10/23/2021 Document Reviewed: 10/23/2021 [employer] Patient Education 2023 [employer]. 10/06/2024 10:10:31 Transurethral Resection of the Prostate [...] including vitamins, herbs, eye drops, creams, and elva-xld-hzudoqz medicines. Any problems you or family members [...] provider tells you to take them. Taking qioz-oue-chdsocl medicines, vitamins, herbs, and supplements. Surgery safety [...] provider. Document Revised: 10/23/2021 Document Reviewed: 10/23/2021 [employer] Patient Education 2023 [employer] 10/06/2024 09:58:48 Steps to Quit Smoking Steps [...] require a prescription. You can also purchase cbdd-dmt-xdanhoo medicines. Medicines may have nicotine in them [...] and encouragement. Call telephone quitlines, such as 3-635-LTGD-NOW, reach out to support groups, or work [...] provider. Document Revised: 01/18/2022 Document Reviewed: 01/18/2022 [employer] Patient Education 2023 [employer]. Follow Up Care 06/21/2024 09:41:04 With:YECENIA BUSTILLO, Buster Tinoco, URL Address: [address] [place] [address] [place] [address] When: Unknown Comments:devon ALFONSO [facility] Monisha 10-06-2024 Note Patient Education Pulmonary Medicine Steps [...] require a prescription. You can also purchase ywfn-ack-vobkbqb medicines. Medicines may have nicotine in them [...] and encouragement. Call telephone quitlines, such as 8-014-VFCT-NOW, reach out to support groups, or work [...] away, not s (more content not included)... [facility] 09-21-2024 Note Entered by LOU RAMIREZ MA on September 21, 2024 09:40:28 EDT From: SONYA RAMIREZ MA To: [place] [id number] Sent: 09/21/2024 09:40:28 EDT Subject: Medication Management Submitted: Complete:omeprazole (omeprazole 40 mg oral delayed release capsule) Signed by SONYA RAMIREZ MA 09/21/2024 09:40:00 EDT Approved with modifications: omeprazole (OMEPRAZOLE DR 40MG CAP) Take 1 capsule by mouth once daily Qty: 30 cap(s) Days Supply: 30 Refills: 5 Substitutions Allowed Route To Pharmacy - [place] [id number] Signed by SONYA RAMIREZ MA -------- From: [place] [address] To: Susan Zavala DO, DO Sent: September 19, 2024 5:45:15 AM CDT Subject: Medication Management Due: September 20, 2024 12:21:50 AM CDT On Hold Pending Signature Dispensed Drug: omeprazole (omeprazole 40 mg oral delayed release capsule), Take 1 capsule by mouth once daily Quantity: 30 cap(s) Days Supply: 30 Refills: 0 Substitutions Allowed Notes from Pharmacy: -------- [facility] 07-08-2024 History of Present illness Narrative [...] wrist HEART CATH 2010 HEMORRHOIDECTOMY HERNIA REPAIR 2012 OTHER SURGICAL HISTORY #2 bilateral c3, 4, [...] reflexes: Thomas's absent. Ankle clonus absent. Coordination Swkqkz-sz-fdxw, rapid alternating movements and tmsa-aq-nuyw normal bilaterally without dysmetria. Gait Casual gait: [...] isopropanol. Buy/bill Botox 200U, 100U Lot # [id number], [id number] Dilution Per 200 units diluted with 4mL [...] when to seek emergent treatment. Procedure Codes 01323-28 Chemodenervation of neck muscles, bilateral 92747 [EMG] Guidance for chemodenervation J0585 Botulinum toxin [...] and coordinating care. documented in this encounter [facility] 05-25-2024 Note Patient Education Infectious Disease [...] these instructions at home: Medicines ??? Take kdzi-pho-qfxrzbh and prescription medicines only as told by [...] This is important. (more content not included)... [facility] 04-01-2024 History of Present illness Narrative Images [...] and Bill- Botox 200U, 100U Lot # [id number] Dilution Per 200 units diluted with 4mL [...] when to seek emergent treatment. Procedure Codes 76882-82 Chemodenervation of neck muscles, bilateral 23983 [EMG] Guidance for chemodenervation J0585 Botulinum toxin [...] 8 hr PRN. documented in this encounter [facility] 03-31-2024 Hospital Discharge instructions Patient Education [...] including vitamins, herbs, eye drops, creams, and tmbt-idy-ozfykfo medicines. Any problems you or family members [...] provider tells you to take them. Taking flao-lpk-puoxpno medicines, vitamins, herbs, and supplements. Tests You [...] Follow these instructions at home: Medicines Take unzp-wcl-fafpvxw and prescription medicines only as told by [...] provider. Document Revised: 10/10/2021 Document Reviewed: 09/08/2020 MYOMO Patient Education 2023 [employer]One. 03/31/2024 10:38:10 Steps to Quit Smoking Steps [...] require a prescription. You can also purchase vzil-xid-npkujus medicines. Medicines may have nicotine in them [...] and encouragement. Call telephone quitlines, such as 7-972-LTDB-NOW, reach out to support groups, or work [...] provider. Document Revised: 01/18/2022 Document Reviewed: 01/18/2022 MYOMO Patient Education 2023 [employer]One. Follow Up Care 02/12/2024 12:19:10 With:YECENIA BUSTILLO, Buster Tinoco, URL Address: [facility] [address], [place] [address]- When: Unknown [facility] 03-31-2024 Note Patient Education Pulmonary Medicine Steps [...] require a prescription. You can also purchase wpxw-kjk-pzlskts medicines. Medicines may have nicotine in them [...] and encouragement. Call telephone quitlines, such as 8-156-OSTY-NOW, reach out to support groups, or work [...] away, not s (more content not included)... [facility] 03-02-2024 Note Entered by LOU RAMIREZ MA on March 02, 2024 07:47:19 EST From: SONYA RAMIREZ MA To: [facility] 1445 Sent: 03/02/2024 07:47:19 EST Subject: Medication Management Submitted: Complete:atorvastatin (atorvastatin 40 mg oral tablet) Signed by SONYA RAMIREZ MA 03/02/2024 07:47:00 EST Approved with modifications: atorvastatin (Atorvastatin Calcium 40 MG Oral Tablet) Take 1 tablet by mouth once daily Qty: 90 tab(s) Days Supply: 90 Refills: 3 Substitutions Allowed Route To Pharmacy - [facility] Signed by SONYA RAMIREZ MA -------- From: [place] [id number] To: Susan Zavala DO, DO Sent: March 02, 2024 4:44:11 AM DIRECTOR OF COLLECTIONS AND ARCHIVES Subject: Medication Management Due: March 03, 2024 12:02:29 AM DIRECTOR OF COLLECTIONS AND ARCHIVES On Hold Pending Signature Dispensed Drug: atorvastatin (atorvastatin 40 mg oral tablet), Take 1 tablet by mouth once daily Quantity: 90 tab(s) Days Supply: 90 Refills: 0 Substitutions Allowed Notes from Pharmacy: -------- [facility] 02-12-2024 Hospital Discharge instructions Patient Education [...] provider gives to you. In general: Take yedq-yxl-renragz and prescription medicines only as told by [...] provider. Document Revised: 07/24/2020 Document Reviewed: 07/24/2020 MYOMO Patient Education 2023 [employer]One. 02/12/2024 12:37:58 Kidney Stones, Wqjm-rj-Cmyo Kidney Stones Kidney stones are rock-like masses [...] Follow these instructions at home: Medicines Take bymm-ctc-nnregsl and prescription medicines only as told by [...] Kidney Foundation (NKF): kidney.org [facility] (F): urologyhealth.org Contact a doctor if: You have [...] provider. Document Revised: 09/20/2022 Document Reviewed: 09/20/2022 MYOMO Patient Education 2023 FusionOne. 02/12/2024 12:37:57 Erectile Dysfunction Erectile Dysfunction Erectile [...] Follow these instructions at home: Medicines Take zllz-nkm-fcqhbaw and prescription medicines only as told by [...] provider. Document Revised: 04/25/2021 Document Reviewed: 04/25/2021 MYOMO Patient Education 2023 FusionOne. 02/12/2024 12:37:56 Dietary Guidelines to Help Prevent [...] include: ?8 oz (237 mL) of milk, uoxomst-nlftdgjjhgxx-surrd milk, and calcium-fortifiedfruit juice. Calcium-fortified means that [...] ?Spinach (cooked), rhubarb, beets, sweet potatoes, and Cymro chard. ?Peanuts. ?Potato chips, ugandan fries, and baked potatoes with skin on. ?Nuts and nut products. ?Chocolate. If you regularly take a diuretic medicine, make sure to eat at least 1 or 2 servings of fruits or vegetables that are high in potassium each day. These include: ?Avocado. ?Banana. ?[place], prune, carrot, or tomato juice. ?Baked potato. [...] magnesium, fish oil, or vitamin B6. Take quag-dmt-aansvdf and prescription medicines only as told by [...] Casseroles. Pizza. Lasagna. Frozen meals. Potato chips. Sudanese fries. The items listed above may not [...] provider. Document Revised: 05/09/2022 Document Reviewed: 05/09/2022 MYOMO Patient Education 2023 FusionOne. Follow Up Care 10/14/2023 16:35:18 With:YECENIA BUSTILLO, Buster Tinoco, URL Address: [address] [place] [address]- When: Unknown Comments:about [address] [facility] [place] 02-12-2024 Note Patient Education Nephrology Dietary Guidelines [...] ? 8 oz (237 mL) of milk, pbvffrb-crchoedalluv-rfdtm milk, and calcium-fortifiedfruit juice. Calcium-fortified means that [...] Spinach (cooked), rhubarb, beets, sweet potatoes, and Cymro chard. ? Peanuts. ? Potato chips, ugandan fries, and baked potatoes with skin on. ? Nuts and nut products. ? Chocolate. ??? If you regularly take a diuretic medicine, make sure to eat at least 1 or 2 servings of fruits or vegetables that are high in potassium each day. These include: ? Avocado. ? Banana. ? [place], prune, carrot, or tomato juice. ? Baked [...] fish oil, or vitamin B6. ??? Take ttcs-wte-whstlmm and prescription medicines only as told by your health (more content not included)... [facility] 01-20-2024 Note Entered by LOU RAMIREZ MA on January 20, 2024 07:37:16 EST From: SONYA RAMIREZ MA To: [place] [address] Sent: 01/20/2024 07:37:16 EST Subject: Medication Management Submitted: Complete:sucralfate (sucralfate 1 g oral tablet) Signed by SONYA RAMIREZ MA 01/20/2024 07:37:00 EST Approved with modifications: sucralfate (Sucralfate 1 GM Oral Tablet) Take 1 tablet by mouth 4 times daily Qty: 120 tab(s) Days Supply: 30 Refills: 3 Substitutions Allowed Route To Pharmacy - [place] [address] Signed by SONYA RAMIREZ MA -------- From: [place] [address] To: Lucas Susan DENNISON Sent: January 20, 2024 4:43:47 AM DIRECTOR OF COLLECTIONS AND ARCHIVES Subject: Medication Management Due: January 21, 2024 12:05:17 AM DIRECTOR OF COLLECTIONS AND ARCHIVES On Hold Pending Signature Dispensed Drug: sucralfate (sucralfate 1 g oral tablet), Take 1 tablet by mouth 4 times daily Quantity: 120 tab(s) Days Supply: 30 Refills: 0 Substitutions Allowed Notes from Pharmacy: -------- [facility] 12-25-2023 Note Entered by Bianka Ramirez MA on December 25, 2023 09:46:51 EST From: Catia Ramirez MA To: [place] [address] Sent: 12/25/2023 09:46:51 EST Subject: Medication Management Submitted: Complete:sucralfate (sucralfate 1 g oral tablet) Signed by Catia Ramirez MA 12/25/2023 09:46:00 EST Approved with modifications: sucralfate (Sucralfate 1 GM Oral Tablet) Take 1 tablet by mouth 4 times daily Qty: 120 tab(s) Days Supply: 30 Refills: 0 Substitutions Allowed Route To Pharmacy - [facility] 1445 Signed by Catia Ramirez MA -------- From: [facility] 1445 To: Susan Zavala DO, DO Sent: December 25, 2023 4:44:14 AM DIRECTOR OF COLLECTIONS AND ARCHIVES Subject: Medication Management Due: December 26, 2023 12:09:08 AM DIRECTOR OF COLLECTIONS AND ARCHIVES On Hold Pending Signature Dispensed Drug: sucralfate (sucralfate 1 g oral tablet), Take 1 tablet by mouth 4 times daily Quantity: 120 tab(s) Days Supply: 30 Refills: 0 Substitutions Allowed Notes from Pharmacy: -------- [facility] 12-24-2023 [place]iology [place] [address] Ultrasound Report Signed Patient: Filemon Mendez MR#: [id number] : 1965 Acct:[id number] Age/Sex: 58 / M ADM Date: 4 Loc: Room: Type: [facility] Attending Dr: Sunitha Chan MD Ordering [...] Kailash Spears M.D.12/24/2023 2:11 PM Dictation Location: [place] [address] Tech: Belinda Byrd Transcribed By: ZACARIAS 12/24/23 1411 Dictated By: Kailash Spears II, MD 12/24/23 1407 Signed By: 12/24/[address] [facility] Work Phone: 12-18-2023 History of Present [...] Botox 200U x1 100U x1 Lot # [id number] Dilution Per 200 units diluted with 4mL [...] when to seek emergent treatment. Procedure Codes 04429-14 Chemodenervation of neck muscles, bilateral 10391 [EMG] Guidance for chemodenervation J0585 Botulinum toxin [...] medications, steroid injections. documented in this encounter [facility] 11-12-2023 Evaluation note Diagnosis Onset Date [...] (traumatic brain injury) acute November 11 10:10am [facility] Work Phone: 1(776) 243-270309-03-2024 Hospital Discharge instructions Patient Education 10/14/2023 16:31:24 [...] you may eat and drink normally. Take vlpg-vhz-mnxinhe and prescription medicines only as told by your health care provider. Let your health care provider know about any medicines that you are taking, including dwtc-lox-szekyhj medicines, vitamins, herbs, and supplements. Choose a [...] provider. Document Revised: 08/03/2021 Document Reviewed: 08/03/2021 MYOMO Patient Education 2023 FusionOne. 10/14/2023 15:59:17 Steps to Quit Smoking Steps [...] require a prescription. You can also purchase cony-lxn-cfcxbvh medicines. Medicines may have nicotine in them [...] and encouragement. Call telephone quitlines, such as 9-036-VZKN-NOW, reach out to support groups, or work [...] provider. Document Revised: 01/18/2022 Document Reviewed: 01/18/2022 MYOMO Patient Education 2023 FusionOne. Follow Up Care 10/02/2023 09:12:03 With:YECENIA BUSTILLO, Buster Tinoco, URL Address: [facility] [address] , [place] [address]- [phone] When: Unknown Comments:3-4 mos w/ metabolic workup [facility] 09-03-2024 NotePatient Education Pulmonary Medicine Steps to [...] require a prescription. You can also purchase ygsh-ros-vctrdgh medicines. Medicines may have nicotine in them [...] and encouragement. Call telephone quitlines, such as 5-840-YIKW-NOW, reach out to support groups, or work [...] systems that can (more content not included)... [facility]2024 History of Present illness Narrative* Michelle Chan, ASSEMBLER [employer] - 10/06/2023 2:30 PM EDT Images from [...] Discontinued During This Encounter Medication Reason biotin 38840 MCG tablet Ascorbic Acid (Vitamin C) 500 [...] patient, and coordinating care. documented in this encounterCass [facility] CenterKjpejhffqi04-71-1170 Telephone encounter Note* Telephone Encounter - Michelle Chan NP - 10/02/2023 8:33 AM EDT It was discontinued as the last time meds were checked by nurse it was reported he was taking 150 mg so we discontinued the 100 mg. Was he taking 250 mg every night? Usually for sleep treatment max is 200 mg for depression up to max 400 mg. [facility] [employer] [id number] Miscellaneous Notes* Telephone Encounter - Michelle Chan [...] he is not taking them. Please advise. [phone] documented in this encounterCass Medical [id number] Telephone encounter Note* Telephone Encounter - Veronica [...] he is not taking them. Please advise. [phone] [employer] [employer] [facility] [employer] [id number] Miscellaneous Notes* Telephone Encounter - Enid Aguilera RN - 09/17/2023 11:36 AM EDT Surgeon: Dr. Buster Keene Type of surgery: Laser stone surgery Date of surgery: 09/25/23 Surgery location: [place] Type of anesthesia: General On a blood [...] Mckeon MD - 09/17/2023 11:36 AM EDT Mep-jm-isxrulhl risk okay to hold aspirin for 5 days prior resume as soon as possible post * Telephone Encounter - Enid Aguilera RN - 09/17/2023 11:36 AM EDT Preop clearance letter per BD faxed via [employer] to Dr. Mcnair's office. Copy also sent to pt. Fax confirmed sent via [employer]. [facility] for pt to update. Drugless Physician spoke to Latoya at Dr. Keene office to update. [facility] Telephone encounter Note* Telephone Encounter - Enid Aguilera RN - 09/17/2023 11:36 AM EDT Surgeon: Dr. Buster Keene Type of surgery: Laser stone surgery Date of surgery: 09/25/23 Surgery location: [place] Type of anesthesia: General On a blood [...] images regarding his CT of the coronaries. [facility] Telephone encounter Note* Telephone Encounter - Khris Mckeon MD - 09/17/2023 11:36 AM EDT Tjp-nl-ionbfqim risk okay to hold aspirin for 5 days prior resume as soon as possible post [facility] Work Phone: 1(121) 316-774208-07-2024 Telephone encounter Note* Telephone Encounter - Enid Aguilrea RN - 09/17/2023 11:36 AM EDT Preop clearance letter per BD faxed via [employer] to Dr. Mcnair's office. Copy also sent to pt. Fax confirmed sent via [employer]. [facility] for pt to update. Drugless Physician spoke to Latoya at Dr. Keene office to update. [facility]07-31-2024 Hospital Discharge instructions Patient Education 09/10/2023 08:44:15 [...] Follow these instructions at home: Medicines Take dlog-yfv-sjyviye and prescription medicines only as told by [...] prevent or treat constipation, such as: ?Take vplg-spe-boznven or prescription medicines. ?Eat foods that are [...] provider. Document Revised: 06/05/2022 Document Reviewed: 10/01/2021 MYOMO Patient Education 2022 [employer]One. 09/10/2023 08:44:15 Laser Therapy for Kidney Stones [...] including vitamins, herbs, eye drops, creams, and ffho-ahx-glhzbja medicines. Any problems you or family members [...] provider tells you to take them. ?Taking pelq-obi-xbrqdky medicines, vitamins, herbs, and supplements. Eating and [...] provider. Document Revised: 06/05/2022 Document Reviewed: 10/01/2021 MYOMO Patient Education 2022 [employer]One. 09/10/2023 08:41:06 Steps to Quit Smoking Steps [...] require a prescription. You can also purchase huol-xdl-tsmqnew medicines. Medicines may have nicotine in them [...] and encouragement. Call telephone quitlines, such as 7-635-NDOD-NOW, reach out to support groups, or work [...] provider. Document Revised: 01/18/2022 Document Reviewed: 01/18/2022 [employer] Patient Education 2022 [employer]OMO Inc. Follow Up Care 09/04/2023 08:29:38 With:YECENIA BUSTILLO, DARIEL Banegas Address: [facility] [address], [place] [address]- When: Unknown [facility] 07-24-2024 Evaluation note* Diagnosis Onset Date Resolution Status Acute kidney injury acute BPH loc w urin obs/LUTS acut e Chronic kidney disease, stage 3a acute Hydronephrosis acute NSAID long-term use acute [facility] Work Phone: 1(282) 939-262705-31-2024 History of Present illness Narrative* Khris Mckeon MD - 07/11/2023 9:45 AM EDT Filemon Mendez Date of visit: 07/11/2023 Date of [...] Chief Complaint Patient presents with New Patient [employer]SEMBL[employer] CHEST PAIN, PT HAD STRESS DONE IN 2021, PT PREVIOUSLY SAW CARDIO @ [facility] MANY YEARS AGO, NO HEARTSURGERIES/DEVICE Edema FEET, ANKLES History of Present Illness I would the pleasure of seeing Bill here at our cardiology office. He is [...] Degenerative joint disease involving multiple joints Dementia ([facility]) early Dizziness Dyspnea Dysthymia Gastroesophageal reflux disease [...] 03/06/2017 Performed by Luis Tim MD at [facility] LAPAROSCOPIC CHOLECYSTECTOMY N/A 07/15/2019 Performed by Porter Phillips DO at [facility] RESECTION SUBMUCOSAL Bilateral 03/06/2017 Performed by Luis Tim MD at [facility] SEPTOPLASTY N/A 03/06/2017 Performed by Luis Tim MD at [facility] SKIN BIOPSY TONSILLECTOMY Bilateral 03/06/2017 Performed by Luis Tim MD at [facility] UPPP N/A 03/06/2017 Performed by Luis Tim MD at [facility] WRIST ARTHROSCOPY Family History Adopted: Yes Problem [...] Referring Physician: Susan Zavala DO [address] [place] [address] documented in this encounterGrand Lake Joint Township District [facility] HospitalAmbient Clinical Analytics [facility] [id number] Miscellaneous Notes* Telephone Encounter - Ewelina Levy MA - 07/10/2023 1:42 PM EDT Called patient to remind them to bring their most current copy of their medication list with them to their appt. Patient verbalizes understanding. documented in this encounterGrand Lake Joint Township District [facility] HospitalAmbient Clinical Analytics [facility] [id number] Telephone encounter Note* Telephone Encounter - Ewelina Levy MA - 07/10/2023 1:42 PM EDT Called patient to remind them to bring their most current copy of their medication list with them to their appt. Patient verbalizes understanding. [facility]04-02-2024 Hospital Discharge instructions Patient Education 05/13/2023 11:05:40 [...] urethra. Follow these instructions at home: Take mmpj-qtp-bdmrupe and prescription medicines only as told by [...] provider. Document Revised: 08/15/2021 Document Reviewed: 08/15/2021 MYOMO Patient Education 2022 [employer] Inc. 05/13/2023 10:50:57 Steps to Quit Smoking [...] require a prescription. You can also purchase ecym-nwz-cnpltrd medicines. Medicines may have nicotine in them [...] and encouragement. Call telephone quitlines, such as 0-950-TYDM-NOW, reach out to support groups, or work [...] provider. Document Revised: 01/18/2022 Document Reviewed: 01/18/2022 MYOMO Patient Education 2022 [employer]One. Follow Up Care 02/18/2023 08:56:30 With:Buster KEENE MD, URL Address: [facility] [address] [place] [phone] When: Unknown Comments:6 mos ([facility]) [facility] 10-20-2023 Hospital Discharge instructions Follow Up Care 11/29/2022 13:43:04 With:Buster KEENE MD, URL Address: [facility] [address] [place] [address]- [phone] When: Unknown [facility] 05-22-2022 Discharge summary Author Boogie Trotter [facility] July 01, 2021 10:36am Note Date/Time July 01, 2021 10:34 am [facility] [address] [place] [address] Discharge Summary Signed Patient: Filemon Mendez MR#: [id number] : 1965 Acct:[id number] Age/Sex: 55 / M Adm Date: 2 Loc: Room: [address] [place] [address]: Boogie Trotter MD Copies to: [...] yesterday 06/27 who called EMS, brought to [facility] ED then transferred to this facility. He has noticed being more irritable, depressed mood, decreased appetite and low energy for the past 3-4 weeks prior to his admission. 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 and harm [...] have witnessed seizure activity at [facility], denies any recent changes in his medications [...] No Activity Restrictions Instructions: Depression, Adult (DC), [facility] Health DC Instructions [...] mg PO BID RF: 0 Follow Up: [facility] [Outside] [facility] [Outside] Documented By: Boogie Trotter MD 07/01/211031 Signed By: <Electronically signed by Boogie Trotter MD> 07/01/21 1036 [facility] Work Phone: 1(808) 228-457105-21-2022 [place] note Author Boogie Trotter [facility] June 30, 2021 11:14am Note Date/Time June 30, 2021 11:09 am [facility] [address] [place] [address] Psychiatry Progress Note Signed Patient: Filemon Mendez MR#: [id number] : 1965 Acct:[id number] Age/Sex: 55 / M Adm Date: 2 Loc: 1S Room: [address] [place] [address] Type : ADM IN Attending Dr: Boogie [...] <Electronically signed by Boogie Trotter MD> 06/30/21 3069 [facility] Work Phone: 1(730) 319-209705-20-2022 [place] note Author Boogie Trotter [facility] June 29, 2021 1:28pm Note Date/Time June 29, 2021 1:28p [facility] ENTER [address] [place] [address] Psychiatry Progress Note Signed Patient: Filemon Mendez MR#: [id number] : 1965 Acct:[id number] Age/Sex: 55 / M Adm Date: 2 Loc: 1S Room: [address] [place] [address] Type : ADM IN Attending Dr: oBogie Trotter MD Copies to: ~ Date of [...] confirmed this with the medical student as notedbelcelsa. Patient reported that he was med yesterday [...] <Electronically signed by Boogie Trotter MD> 06/29/21 1329 [facility] Work Phone: 1(651) 449-215705-19-2022 History and physical note Author Boogie Trotter [facility] June 28, 2021 2:23pm Note Date/Time June 28, 2021 2:21p m [facility] [address] [place] [address] Psychiatry H&P Signed Patient: Filmeon Mendez MR#: [id number] : 1965 Acct:[id number] Age/Sex: 55 / M Adm Date: 2 Loc: Room: [address] [place] [address] Type : ADM IN Attending Dr: Boogie Trotter MD Copies to: MD Susan Torres DO Date of Service: 06/28/2021 HPI History of Present Illness History of present illness: Mr. 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 Admitted to homicidal thoughts to his therapist yesterday 06/27 who called EMS, brought to [facility] ED then transferred to this facility. He has noticed being more irritable, depressed mood, decreased appetite and low energy for the past 3-4 weeks prior to his admission. 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 Follow Up Care 05/09/2020 15:19:54 With:Seth La MD, Niall Vail URO Address: [facility] [address], [place] [address]- When: Unknown Comments:will schedule cysto [facility] 05-03-2022 Evaluation + Plan note Diagnostic Tests Pending * PSA Total 06/12/21 [facility] evaluation + Plan note Future Appointments Appointment Date:05/13/2023 10:15:00 AM Scheduled Provider:Buster KEENE MD Location:Critical access hospital Appointment Type:URO Office Visit [facility] evaluation + Plan note Future Appointments Appointment Date:11/19/2023 01:45:00 PM Scheduled Provider:Buster KEENE MD Location:Critical access hospital Appointment Type:URO Office Visit [facility] evaluation + Plan note Future Appointments Appointment Date:01/22/2024 11:00:00 AM Scheduled Provider:GALLO Bingham APRN, [place] [facility] Location:Critical access hospital Appointment Type:URO Office Visit [facility] evaluation + Plan note Future Appointments Appointment Date:03/31/2024 09:45:00 AM Scheduled Provider:Buster KEENE MD Location:Critical access hospital Appointment Type:URO Office Visit Diagnostic Tests Pending * Electrolyte Panel 02/12/[address] [facility] [address] [facility] evaluation + Plan note Future Appointments Appointment Date:11/01/2024 09:30:00 AM Scheduled Provider: Location:Critical access hospital Appointment Type:URO Nurse Visit Appointment Date:11/10/2024 01:45:00 PM Scheduled Provider:Buster KEENE MD Location:Critical access hospital Appointment Type:URO Office Visit [facility] evaluation note* Diagnosis Onset Date Resolution Status Alzheimer disease acute Depression acute TBI (traumatic brain injury) [facility] Work Phone: evaluation note* Diagnosis Onset Date Resolution Status Acute kidney injury acute BPH loc w urin obs/LUTS acut e Hydronephrosis acute NSAID long-term use acute [facility] Work Phone: evaluation note* Diagnosis Seizure (CMS/HCC) [...] [facility] Seizure disorder (CMS/[facility]) Unspecified epilepsy without mention of intractable epilepsy [...] available for this section [facility] Discharge instructions Additional Instructions Regular Diet No [facility] Discharge instructions No data available for this section [facility] filedocumented in this encounter [facility] filed[facility] in this encounter [facility]Not on filedocumented in this encounter [facility] No data available for this section [facility] [place] Summary Purpose Family History No Family History Records Found Relationship Condition Age at Onset Recorded Date/T edide Not Specified Myocardial infarction Unknown father Myocardial [...] Documents on File Type Date Recorded Patient Vocational Education Professional Expl anation Advance Directive 07/11/2023 9:26 AM POA Date Activated Date Inactivated Comments 03/18/2017 7:33 AM 03/18/2017 9:47 PM Date Activated Date Inactivated Comments 03/06/2017 3:59 PM 03/09/2017 4:56 PM Healthcare Agents on File Name Relationship Healthcare Agent Relationship Communication Summer Villanueva Significant Other First Alternat e Health Care Agent Documents on File Type Date Recorded Patient Vocational Education Professional Expl anation Advance Directive 07/11/2023 9:26 AM [...] 2023 10:10am Intolerance to BiPAP/CPAP November 11, 10:10am Medication side effect November 12, 2023 [...] scoring Khris Mckeon MD [address] [place] [address] [facility] [address] [place] [address] Phone: [phone] Referral ID Status Reason Start Date Expiration Date V isits Requested Visits Authorized [id number] Pending Review 07/11/2023 07/10/2024 1 1 Additional Source Comments (unrecognized sect ion and content) No Status Records FoundNo Status Records FoundNo Status Records FoundNo Status Records FoundNo Status Records FoundNo Status Records FoundNo Status Records FoundNo Status Records Found INFORMATION SOURCE (unrecogn ized section and content) DATE CREATED AUTHOR 09/01/2020 [facility] DATE CREATED AUTHOR AUTHOR'S ORGANIZ ATION 03/06/2022 [facility] DATE CREATED AUTHOR AUTHOR'S ORGANIZ ATION 07/12/2023 [facility] DATE CREATED AUTHOR AUTHOR'S ORGANIZ ATION 10/03/2023 [facility] DATE CREATED AUTHOR AUTHOR'S ORGANIZ ATION 07/10/2024 [facility] EPIC DATE CREATED AUTHOR AUTHOR'S ORGANIZ ATION 07/10/2024 [facility] DATE CREATED AUTHOR AUTHOR'S ORGANIZ ATION 10/08/2024 [facility] DATE CREATED AUTHOR AUTHOR'S ORGANIZ ATION 10/23/2024 [facility] Care Teams (unrecognized sec tion and content) Team Status: Active Member Role Status Dates Susan Zavala DO Primary Care Provider Active Team Status: Inactive Member Role Status Dates Susan Zavala DO Primary Care Provid er, Referring Provider Active Start: September 03, 2023 End: September 03, 2023 Sunitha Chan MD Attending Provider Active Star t: September 03, 2023 End: September 03, 2023 Team Status: Active Member Role Status Dates Susan Zavala DO Primary Care Provider Active Start: September 08, 2023 Sunitha Chan MD Attending Provider Active Star t: September 08, 2023 Team Status: Active Member Role Status Dates Susan Zavala DO Primary Care Provider Active Start: September 15, 2023 Wolfgang Haddad DO Attending Provider Active Sta rt: September 15, 2023 Team Status: Active Member Role Status Dates Susan Zavala DO Primary Care Provider Active Start: October 21, 2023 Matthew Meyer MD Attending Provider Active Start: October 21, 2023 Team Status: Inactive Member Role Status Dates Susan Zavala DO Primary Care Provider Active Start: November 12, 2023 End: November 12, 2023 Chu Florence MD Attending Provider Active S tart: November 12, 2023 End: November 12, 2023 Team Status: Inactive Member Role Status Dates Susan Zavala DO Primary Care Provider Active Boogie Trotter MD Admit Provider, Attending Provider Active Team Status: Active Member Role Status Dates Susan Zavala DO Primary Care Provider Active Start: July 10, 2023 Matthew Meyer MD Attending Provider Active Start: July 10, 2023 Plant Guide Relationship Specialty Start Date End Date Maco Mccray DO [address] [place] [address] PCP - [employer] 02/10/22 Plant Guide Relationship Specialty Start Date End Date Maco Mccray DO [address] [place] [address] PCP - [employer] 02/10/22 Plant Guide Relationship Specialty Start Date End Date Maco Mccray DO [address] [place] [address] PCP - [employer] 02/10/22 Team Status: Active [...] DO Primary Care Provider Active Start: December 30, 2023 End: December 30, 2023 Chu Florence MD Attending Provider Active S tart: December 30, 2023 End: December 30, 2023 Plant Guide Relationship Specialty Start Date End Date Maco Mccray DO [address] [place] [address] PCP - [employer] 02/10/22 Plant Guide Relationship Specialty Start Date End Date Maco Mccray DO [address] [place] [address] PCP - [employer] 02/10/22 Plant Guide Relationship Specialty Start Date End Date MahendraMaco Jose JuanDO [address] [facility] [address] [place] [address] PCP - [employer] 02/10/22 Plant Guide Relationship Specialty Start Date End Date Susan Zavala DO [address] [place] [address] PCP - General Internal Medicine 07/26/16 Plant Guide Relationship Specialty Start Date End Date Susan Zavala DO [address] [place] [address] PCP - General Internal Medicine 07/26/16 Plant Guide Relationship Specialty Start Date End Date Susan Zavala DO [address] [place] [address] PCP - General Internal Medicine 07/26/16 Plant Guide Relationship Specialty Start Date End Date Mahendra Maco Jose JuanDO [address] [facility] [address] [place] [address] PCP - [employer] 02/10/22 Goals (unrecognized section and content) Goals may be documented in a n alternate section Reason for Visit (unrecogniz ed section and content) Reason Comments Med Refill Reason Comments 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 [facility]. provides no warranty or guarantee of the accuracy or completeness of information in this document.
[2024-10-28] MEDS: 0.9 % SODIUM CHLORIDE 1,000 ML 50 ML IV ×2 (11:58→15:57)
[2024-10-28] MEDS: LEVOFLOXACIN 500 MG/100 ML-D5W PREMIX 100 MG IV (13:53)
--- NOTE | 2024-10-28 15:33 | PM.URSON ---
Urology Surgery Operative Note Operative Note Procedure Date: 10/28/24 Time Out Performed: yes Pre-op Diagnosis: BPH with LUTS refractory to medications Post-op Diagnosis: same as pre-op Procedures performed: 1. Cystoscopy. 2. Transurethral resection of the prostate. Anesthesia: GETA Primary Surgeon: Buster Chavez Complications: None none Estimated blood loss (mL): 15 Findings: Tightly obstructing lateral lobes and a significant median lobe. Specimens: Prostate chips Drains: 22 Korean three-way coud? El catheter in the bladder taped to traction and CBI Indications for Procedures: This gentleman has BPH with LUTS that is refractory to medications. He is obstructed endoscopically and urodynamically. He is desirous for a TURP. He has signed an informed consent after risks were explained. Some of these risks include bleeding, infection, anesthesia, urinary incontinence both temporary and permanent, erectile dysfunction, retrograde ejaculation and the possible need for further operations to name a few. Detailed description of Procedure: The patient was brought to the operating room and placed on the operating room table in the supine position. SCDs were placed on the lower extremities and turned on and functioning during the entire case. Timeout was done by all parties in the room. We all agreed upon the patient's identification and the planned procedures for this patient. Genn. anesthesia was then administered. The patient was then repositioned into the modified dorsal lithotomy position. All pressure points were satisfactorily padded. Genitalia were sterilely prepped and draped in usual fashion. I started by passing a 26 Korean Olympus resectoscope with a standard bipolar loop electrode per urethra and into the bladder. The ureteral orifices were tucked under the protruding median lobe. They were marked with the loop electrode. I then uniformly resected this capacious median lobe down to the bladder neck level. I then resected posteriorly from the bladder neck to the Veru. The capacious left lateral lobe was then resected similarly as was the right lateral lobe and the anterior tissue. The apex was opened up and it protruded distal to the Rubi. The resection bed was coagulated with the vaporization coagulation loop. The Ilich evacuator was used to get all of the prostate chips out of the bladder. These were sent for permanent sections. Upon completion, with the scope at the apex, the prostatic urethra and bladder neck were now wide open. There was no bleeding. There were no chips remaining in the bladder. The scope was then removed. I then placed a 22 Korean three-way coud? El catheter in the bladder. It was manually irrigated with a Daniel syringe to verify good placement. 30 cc of fluid was placed in the balloon. It was taped to traction and CBI was started. It irrigated clear. The anesthetic was then reversed. He was then transferred to a rhenderson bed and wheeled to PACU in stable condition. Urinary Catheter Management Urinary Catheter Management 3-way Urethral: Cath placed during this visit: no
[2024-10-28] MEDS: SOLIFENACIN SUCCINATE 10 MG TABLET PO (15:54)
[2024-10-28] MEDS: SUCRALFATE 1 GM TABLET PO ×2 (17:18→21:06)
[2024-10-28] MEDS: 0.9 % SODIUM CHLORIDE 1,000 ML 80 ML IV (17:19)
[2024-10-28] MEDS: CEFAZOLIN SODIUM/DEXTROSE,ISO 1 GM/50 ML PREMIX IV ×2 (17:20→23:23)
[2024-10-28] MEDS: SODIUM CHLORIDE IRRIG SOLUTION 3,000 ML 3000 ML IRR ×7 (17:22→23:44)
[2024-10-28] MEDS: HYDROCODONE/ACET 5-325 MG TABLET 1 TAB PO (17:25)
[2024-10-28] MEDS: LEVETIRACETAM 500 MG TABLET PO (21:06)
[2024-10-28] MEDS: AMITRIPTYLINE HCL 25 MG TABLET PO (21:06)
[2024-10-28] MEDS: TOPIRAMATE 100 MG TABLET PO (21:06)
[2024-10-28] MEDS: TIZANIDINE HCL 4 MG TABLET PO (21:06)
[2024-10-28] MEDS: TRAZODONE HCL 50 MG TABLET 200 MG PO (21:06)
[2024-10-29] VITALS: BP 103/63; PULSE 77; TEMP 36.8; O2SAT 94
[2024-10-29] MEDS: SODIUM CHLORIDE IRRIG SOLUTION 3,000 ML 3000 ML IRR ×4 (00:55→03:50)
[2024-10-29 03:51] VITALS: BP 96/62; PULSE 72; TEMP 37; O2SAT 94
[2024-10-29 04:00] VITALS: BP 96/62; PULSE 72; TEMP 37; O2SAT 94
[2024-10-29] MEDS: 0.9 % SODIUM CHLORIDE 1,000 ML 80 ML IV (06:00)
[2024-10-29] MEDS: SUCRALFATE 1 GM TABLET PO (06:09)
[2024-10-29] MEDS: PANTOPRAZOLE SODIUM 40 MG TABLET.DR PO (06:09)
[2024-10-29 07:29] VITALS: BP 113/72; PULSE 66; TEMP 37; O2SAT 95
[2024-10-29 07:30] VITALS: PULSE 66
[2024-10-29] MEDS: TOPIRAMATE 100 MG TABLET PO (08:55)
[2024-10-29] MEDS: POTASSIUM BICARBONATE/CIT 25 MEQ TABLET EFF PO (08:55)
[2024-10-29] MEDS: ASPIRIN 81 MG TABLET.DR PO (08:56)
[2024-10-29] MEDS: SOLIFENACIN SUCCINATE 10 MG TABLET PO (08:56)
[2024-10-29] MEDS: THIAMINE MONONITRATE (VIT B1) 100 MG TABLET PO (08:56)
[2024-10-29] MEDS: ATORVASTATIN CALCIUM 40 MG TABLET PO (08:56)
[2024-10-29] MEDS: TIZANIDINE HCL 4 MG TABLET PO (08:56)
[2024-10-29] MEDS: LEVETIRACETAM 500 MG TABLET PO (08:56)
[2024-10-29] MEDS: MULTIVITAMIN TABLET 1 TAB PO (08:56)
[2024-10-29] MEDS: DUTASTERIDE 0.5 MG CAPSULE PO (08:58)
[2024-10-29] MEDS: MEMANTINE HCL 28 MG CAP XR PO (08:58)
== END 2024-10-29 09:10 | disposition home or self-care (01) ==
LOC: SURGOUT 15:28 → MS 17:03
PROVIDERS: PCP Internal Medicine; Visit Provider Urology
PROC: (CPT 52601; principal; 2024-10-28 12:25)
DX: N40.1 Benign prostatic hyperplasia with lower urinary tract symptoms (principal); F17.210 Nicotine dependence, cigarettes, uncomplicated; N13.8 Other obstructive and reflux uropathy; I25.10 Atherosclerotic heart disease of native coronary artery without angina pectoris; Z90.49 Acquired absence of other specified parts of digestive tract; G47.33 Obstructive sleep apnea (adult) (pediatric); J44.9 Chronic obstructive pulmonary disease, unspecified; E78.5 Hyperlipidemia, unspecified; R06.09 Other forms of dyspnea; R56.9 Unspecified convulsions; K21.9 Gastro-esophageal reflux disease without esophagitis; R73.03 Prediabetes; F32.A Depression, unspecified
CPT/HCPCS: 52601; 36415; 99406; J0690; J1100; J2250; J2405; J2704; J3010